=== PATIENT | male | born 1970 | race African-American/Black ===

== ENCOUNTER 2016-11-23 15:43 | Observation (INO) | payer MEDICAID ==
[~2016-11-23] VITALS: Ht 170.2 cm; Wt 65.0 kg
[2016-11-23 15:44] VITALS: BP 137/95; PULSE 98; RESP 14; TEMP 97.8; O2SAT 99
[2016-11-23 16:32] VITALS: BP 120/84; PULSE 103; RESP 18; TEMP 96.5; O2SAT 96
--- NOTE | 2016-11-23 17:10 | PD ---
HPI Chief Complaint: Respiratory Symptoms Time Seen by Provider: 17:04 Travel History International Travel<30 days: No Contact w/Intl Traveler<30days: No Traveled to known affect area: No History of Present Illness HPI 46-year-old black male presents to emergency department with complaints of dyspnea on exertion followed by dyspnea at rest over the last few days. The patient has a history of cardiomyopathy and AICD. He states that he had moved to the area from [place] in July of last year. He has been off all of his medications since then. The patient has noted increasing dyspnea on exertion, pleuritic right sided and posterior chest pain. He states that this is similar to when he had decompensation of his heart disease as well as a large collection of fluid in his right lung which had a thoracentesis. The patient denies any fever or chills, cough, nausea, vomiting, abdominal pain, dysuria, frequency, abdominal pain. No leg swelling or calf tenderness. He has had some loose stools. Patient denies alcohol, tobacco and drugs. [facility] Past Medical History Narrative Medical Cardiomyopathy, arrhythmia, AICD Tetanus Vaccination: < 5 Years Past Surgical History Narrative Surgical AICD, thoracentesis Social History Alcohol Use: No Tobacco Use: No Substance Use: No Allergies-Medications (Allergen,Severity, Reaction): Coded Allergies: No Known Allergies (Unverified , 11/23/16) Reported Meds & Prescriptions Reported Meds & Active Scripts Active Reported Lisinopril 2.5 Mg Tab 2.5 Mg PO DAILY Lasix (Furosemide) 20 Mg Tab 20 Mg PO DAILY Amiodarone (Amiodarone HCl) 200 Mg Tab 200 Mg PO DAILY Simvastatin 20 Mg Tab 20 Mg PO HS Review of Systems Except as stated in HPI: all other systems reviewed are Neg General / Constitutional: No: Fever, Chills Eyes: No: Diploplia, Blurred Vision HENT: No: Headaches Cardiovascular: Positive: Chest Pain or Discomfort, Tachycardia Respiratory: Positive: Shortness of Breath, Other (dyspnea on exertion), No: Cough, Stridor Gastrointestinal: Positive: Diarrhea, No: Nausea, Vomiting, Abdominal Pain Genitourinary: No: Dysuria, Hematuria Musculoskeletal: No: Myalgias, Arthralgias Skin: No Rash, No Itching Neurologic: No: Weakness, Headache Physical Exam Narrative GENERAL: Well-developed, well-nourished in no apparent distress. Nontoxic appearing. HEAD: Normocephalic, atraumatic. EYES: Pupils equal round and reactive. Extraocular motions intact. No scleral icterus. No injection or drainage. ENT: Nose clear. Throat without erythema, tonsillar hypertrophy or exudate. Uvula midline. Airway patent. NECK: Trachea midline. Supple, nontender, moves head freely. No central bony tenderness or spasm. CARDIOVASCULAR: Regular rate and S4 gallop. PMI is displaced to the anterior axillary ribs in the area of the sixth rib RESPIRATORY: Clear to auscultation. Breath sounds equal bilaterally. No wheezes , rales, or rhonchi. GASTROINTESTINAL: Abdomen soft, non-tender, nondistended. No hepato-splenomegaly , or palpable masses. No guarding. EXTREMITIES: No clubbing, cyanosis, or edema. No joint tenderness. BACK: Nontender without deformity. No flank tenderness. NEUROLOGICAL: Awake, alert and oriented x 3 .Cranial nerves grossly intact. Motor and sensory grossly within normal limits. Normal speech. Data Data Last Documented VS Vital Signs Date Time Temp Pulse Resp B/P Pulse Ox O2 Delivery O2 Flow Rate FiO2 11/23/16 17:13 99 Room Air 11/23/16 16:52 97 19 11/23/16 16:32 96.5 120/84 Orders Electrocardiogram (11/23/16 17:02) Basic Metabolic Panel (Bmp) (11/23/16 17:02) B-Type Natriuretic Peptide (11/23/16 17:02) Ckmb (Isoenzyme) Profile (11/23/16 17:02) Complete Blood Count With Diff (11/23/16 17:02) Magnesium (Mg) (11/23/16 17:02) Prothrombin Time / Inr (Pt) (11/23/16 17:02) Act Partial Throm Time (Ptt) (11/23/16 17:02) Troponin I (11/23/16 17:02) Ecg Monitoring (11/23/16 17:02) Bilateral Bp Monitoring (11/23/16 17:02) Iv Access Insert/Monitor (11/23/16 17:02) Oximetry (11/23/16 17:02) Oxygen Administration (11/23/16 17:02) Aspirin Chew (Aspirin Chew) (11/23/16 17:15) Sodium Chloride 0.9% Flush (Ns Flush) (11/23/16 17:15) Chest, Pa & Lat (11/23/16 17:02) Furosemide Inj (Lasix Inj) (11/23/16 18:00) Nitroglycerin 2% Oint (Nitroglycerin 2% (11/23/16 18:00) CKMB (11/23/16 17:00) CKMB% (11/23/16 17:00) Labs Laboratory Tests Test 11/23/16 17:00 White Blood Count 3.9 TH/MM3 Red Blood Count 4.31 MIL/MM3 Hemoglobin 13.1 GM/DL Hematocrit 40.1 % Mean Corpuscular Volume 93.1 FL Mean Corpuscular Hemoglobin 30.4 PG Mean Corpuscular Hemoglobin 32.7 % Concent Red Cell Distribution Width 15.0 % Platelet Count 195 TH/MM3 Mean Platelet Volume 8.1 FL Neutrophils (%) (Auto) 64.0 % Lymphocytes (%) (Auto) 28.7 % Monocytes (%) (Auto) 6.6 % Eosinophils (%) (Auto) 0.3 % Basophils (%) (Auto) 0.4 % Neutrophils # (Auto) 2.5 TH/MM3 Lymphocytes # (Auto) 1.1 TH/MM3 Monocytes # (Auto) 0.3 TH/MM3 Eosinophils # (Auto) 0.0 TH/MM3 Basophils # (Auto) 0.0 TH/MM3 CBC Comment DIFF FINAL Differential Comment Prothrombin Time 10.9 SEC Prothromb Time International 1.0 RATIO Ratio Activated Partial 28.9 SEC Thromboplast Time Sodium Level 140 MEQ/L Potassium Level 3.9 MEQ/L Chloride Level 105 MEQ/L Carbon Dioxide Level 27.5 MEQ/L Anion Gap 8 MEQ/L Blood Urea Nitrogen 17 MG/DL Creatinine 1.15 MG/DL Estimat Glomerular Filtration 84 ML/MIN Rate Random Glucose 116 MG/DL Calcium Level 8.8 MG/DL Magnesium Level 1.9 MG/DL Total Creatine Kinase 103 U/L Creatine Kinase MB 1.0 NG/ML Troponin I 0.09 NG/ML B-Type Natriuretic Peptide 1083 PG/ML MDM Medical Decision Making Medical Screen Exam Complete: Yes Emergency Medical Condition: Yes Medical Record Reviewed: Yes Interpretation(s) 1083 BNP Laboratory Tests Test 11/23/16 17:00 White Blood Count 3.9 TH/MM3 Red Blood Count 4.31 MIL/MM3 Hemoglobin 13.1 GM/DL Hematocrit 40.1 % Mean Corpuscular Volume 93.1 FL Mean Corpuscular Hemoglobin 30.4 PG Mean Corpuscular Hemoglobin 32.7 % Concent Red Cell Distribution Width 15.0 % Platelet Count 195 TH/MM3 Mean Platelet Volume 8.1 FL Neutrophils (%) (Auto) 64.0 % Lymphocytes (%) (Auto) 28.7 % Monocytes (%) (Auto) 6.6 % Eosinophils (%) (Auto) 0.3 % Basophils (%) (Auto) 0.4 % Neutrophils # (Auto) 2.5 TH/MM3 Lymphocytes # (Auto) 1.1 TH/MM3 Monocytes # (Auto) 0.3 TH/MM3 Eosinophils # (Auto) 0.0 TH/MM3 Basophils # (Auto) 0.0 TH/MM3 CBC Comment DIFF FINAL Differential Comment Prothrombin Time 10.9 SEC Prothromb Time International 1.0 RATIO Ratio Activated Partial 28.9 SEC Thromboplast Time Sodium Level 140 MEQ/L Potassium Level 3.9 MEQ/L Chloride Level 105 MEQ/L Carbon Dioxide Level 27.5 MEQ/L Anion Gap 8 MEQ/L Blood Urea Nitrogen 17 MG/DL Creatinine 1.15 MG/DL Estimat Glomerular Filtration 84 ML/MIN Rate Random Glucose 116 MG/DL Calcium Level 8.8 MG/DL Magnesium Level 1.9 MG/DL Total Creatine Kinase 103 U/L Creatine Kinase MB 1.0 NG/ML Troponin I 0.09 NG/ML Chest x-ray: Congestive heart failure, cardiomegaly EKG: Sinus tachycardia with a ventricular rate of 105. Left atrial enlargement , left anterior fascicle block, LVH by voltage, strain pattern Differential Diagnosis Medical decision making: High Differential diagnosis: Arrhythmia, decompensated heart failure, pleural effusion, pneumonia, electrolyte abnormality, uncontrolled hypertension Narrative Course The patient's place on a sr. consultant. IV access is obtained. Patient's given 2 baby aspirin, routine laboratory tests sent for analysis. Oxygen 2 L per nasal cannula. Physician Communication Physician Communication The case has been discussed with Dr. Mclean who is agreed to admit the patient to observation. Diagnosis Primary Impression: Acute CHF (congestive heart failure) Qualified Code: I50.9 - Acute congestive heart failure, unspecified congestive heart failure type Admitting Information Admitting Physician Requests: Observation Fortino Timmons Nov 23, 2016 17:10
[2016-11-23] MEDS ORDERED: ASPIRIN 81 MG CHEW TAB PO ONE (17:15)
[2016-11-23] MEDS ORDERED: SODIUM CHLORIDE 0.9% FLUSH 5 ML FLUSH IVF PRN (17:15)
[2016-11-23 17:29] LABS: AUTOMATED NEUTROPHIL # 2.5 TH/MM3 (1.8-7.7); BASOPHIL % 0.4 % (0.0-2.0); EOSINOPHIL % 0.3 % (0.0-4.0); HEMATOCRIT 40.1 % (39.0-51.0); HEMO FLAGS DIFF FINAL; LYMPH % 28.7 % (9.0-44.0); LYMPHOCYTE # 1.1 TH/MM3 (1.0-4.8); MEAN CELL VOLUME 93.1 FL (80.0-100.0); MEAN CORPUSCULAR HEMOGLOBIN 30.4 PG (27.0-34.0); MEAN CORPUSCULAR HGB CONC 32.7 % (32.0-36.0); MONO % 6.6 % (0.0-8.0); PLATELET COUNT 195 TH/MM3 (150-450); RED BLOOD COUNT 4.31 MIL/MM3 (4.50-5.90); WHITE BLOOD COUNT 3.9 TH/MM3 (4.0-11.0)
[2016-11-23 17:39] LABS: APTT (PATIENT) 28.9 SEC (24.3-30.1); PROTHROMBIN TIME - PATIENT 10.9 SEC (9.8-11.6)
[2016-11-23] MEDS ORDERED: LISI2.5T3 PO (17:47)
[2016-11-23] MEDS ORDERED: AMIO200T PO (17:47)
[2016-11-23] MEDS ORDERED: FURO1TAB62 PO (17:47)
[2016-11-23] MEDS ORDERED: SIMV20TA PO (17:47)
[2016-11-23 17:57] LABS: ANION GAP 8 MEQ/L (5-15); BICARBONATE 27.5 MEQ/L (21.0-32.0); BLOOD UREA NITROGEN 17 MG/DL (7-18); CHLORIDE 105 MEQ/L (98-107); GLOMERULAR FILTRATION RATE 84 ML/MIN (>89); MAGNESIUM 1.9 MG/DL (1.5-2.5); POTASSIUM 3.9 MEQ/L (3.5-5.1); SODIUM (NA) 140 MEQ/L (136-145)
[2016-11-23] MEDS ORDERED: FUROSEMIDE 40 MG/4 ML VIAL IV PUSH ONE (18:00)
[2016-11-23] MEDS ORDERED: NITROGLYCERIN 2% OINT 1 GM PACKET TOPICAL ONE (18:00)
[2016-11-23 18:01] LABS: CREATINE KINASE 103 U/L (39-308)
--- NOTE | 2016-11-23 18:01 | RADRPT ---
EXAM DATE/TIME: 11/23/2016 17:31 [place] COMPARISON: No previous studies available for comparison. INDICATIONS : Chest pain and shortness of breath that started yesterday. MEDICAL HISTORY : Hypertension. SURGICAL HISTORY : Pacemaker. ENCOUNTER: Initial ACUITY: 2 days PAIN SCORE: 10/10 LOCATION: Bilateral chest FINDINGS: There is global cardiomegaly with hazy opacity in both lungs most characteristic of mild edema with i nterlobular septal thickening. Trace pleural fluid. Pacer lead projects over right ventricle. CONCLUSION: 1. Mild congestive heart failure. Fortino Otoole MD on November 23, 2016 at 17:57 Board Certified Radiologist. This report was verified electronically.
--- NOTE | 2016-11-23 19:07 | PD ---
Physical Exam Narrative I, Dr. Alcala, have reviewed the advance practice practitioner's documentation and am in agreement, met with the patient face to face, made the diagnosis, and the medical decision making was done by me. *My assessment and Findings: CHF exacerbation vs. ACS vs. PNA 46yo M with CHF here with worsening sob and right sided atypical chest pain. Pt does have crackles on lung base more on right but not in acute distress. Saturating in the high 90s on RA. Labs reviewed, BNP 1083. Troponin 0.09. CXR showed mild congestive heart failure. Pt is normotensive. Given lasix 40mg IV, aspirin, and nitro topical. Pt admitted to medicine for CHF exacerbation. Data Data Last Documented VS Vital Signs Date Time Temp Pulse Resp B/P Pulse Ox O2 Delivery O2 Flow Rate FiO2 11/23/16 17:13 99 Room Air 11/23/16 16:52 97 19 11/23/16 16:32 96.5 120/84 Orders Electrocardiogram (11/23/16 17:02) Basic Metabolic Panel (Bmp) (11/23/16 17:02) B-Type Natriuretic Peptide (11/23/16 17:02) Ckmb (Isoenzyme) Profile (11/23/16 17:02) Complete Blood Count With Diff (11/23/16 17:02) Magnesium (Mg) (11/23/16 17:02) Prothrombin Time / Inr (Pt) (11/23/16 17:02) Act Partial Throm Time (Ptt) (11/23/16 17:02) Troponin I (11/23/16 17:02) Ecg Monitoring (11/23/16 17:02) Bilateral Bp Monitoring (11/23/16 17:02) Iv Access Insert/Monitor (11/23/16 17:02) Oximetry (11/23/16 17:02) Oxygen Administration (11/23/16 17:02) Aspirin Chew (Aspirin Chew) (11/23/16 17:15) Sodium Chloride 0.9% Flush (Ns Flush) (11/23/16 17:15) Chest, Pa & Lat (11/23/16 17:02) Furosemide Inj (Lasix Inj) (11/23/16 18:00) Nitroglycerin 2% Oint (Nitroglycerin 2% (11/23/16 18:00) CKMB (11/23/16 17:00) CKMB% (11/23/16 17:00) Admit Order (Ed Use Only) (11/23/16 18:44) Labs Laboratory Tests Test 11/23/16 17:00 White Blood Count 3.9 TH/MM3 Red Blood Count 4.31 MIL/MM3 Hemoglobin 13.1 GM/DL Hematocrit 40.1 % Mean Corpuscular Volume 93.1 FL Mean Corpuscular Hemoglobin 30.4 PG Mean Corpuscular Hemoglobin 32.7 % Concent Red Cell Distribution Width 15.0 % Platelet Count 195 TH/MM3 Mean Platelet Volume 8.1 FL Neutrophils (%) (Auto) 64.0 % Lymphocytes (%) (Auto) 28.7 % Monocytes (%) (Auto) 6.6 % Eosinophils (%) (Auto) 0.3 % Basophils (%) (Auto) 0.4 % Neutrophils # (Auto) 2.5 TH/MM3 Lymphocytes # (Auto) 1.1 TH/MM3 Monocytes # (Auto) 0.3 TH/MM3 Eosinophils # (Auto) 0.0 TH/MM3 Basophils # (Auto) 0.0 TH/MM3 CBC Comment DIFF FINAL Differential Comment Prothrombin Time 10.9 SEC Prothromb Time International 1.0 RATIO Ratio Activated Partial 28.9 SEC Thromboplast Time Sodium Level 140 MEQ/L Potassium Level 3.9 MEQ/L Chloride Level 105 MEQ/L Carbon Dioxide Level 27.5 MEQ/L Anion Gap 8 MEQ/L Blood Urea Nitrogen 17 MG/DL Creatinine 1.15 MG/DL Estimat Glomerular Filtration 84 ML/MIN Rate Random Glucose 116 MG/DL Calcium Level 8.8 MG/DL Magnesium Level 1.9 MG/DL Total Creatine Kinase 103 U/L Creatine Kinase MB 1.0 NG/ML Troponin I 0.09 NG/ML B-Type Natriuretic Peptide 1083 PG/ML [facility] Supervised Visit with JASON: Yes Interpretation(s) EKG: Sinus tachycardia at 105bpm. LAD. TWI I, aVL, V5, V6. Diagnosis Primary Impression: Acute CHF (congestive heart failure) Qualified Code: I50.9 - Acute congestive heart failure, unspecified congestive heart failure type Admitting Information Admitting Physician Requests: it Lyubov Alcala DO Nov 23, 2016 19:07
[2016-11-23 20:00] VITALS: BP 106/86; PULSE 82; RESP 18; O2SAT 97
[2016-11-23] MEDS ORDERED: NALOXONE HCL 0.4 MG/ML AMP IV PRN (20:00)
[2016-11-23] MEDS ORDERED: SODIUM CHLORIDE 0.9% FLUSH 5 ML FLUSH FLUSH PRN (20:00)
[2016-11-23] MEDS ORDERED: PILL SPLITTER OTHER PRN (20:15)
[2016-11-23] MEDS ORDERED: NON-FORMULARY DRUG (Simvastatin 20 MG) PO SCH (21:00)
[2016-11-23 21:39] VITALS: BP 111/70; PULSE 79; RESP 20; TEMP 98; O2SAT 98
[2016-11-23 21:56] VITALS: PULSE 77
[2016-11-23] MEDS: SODIUM CHLORIDE 0.9% FLUSH 5 ML FLUSH FLUSH SCH (22:17)
[2016-11-23] MEDS: PRAVASTATIN SOD 40 MG TAB PO SCH (22:17)
[2016-11-24] VITALS (11 sets, daily range): BP systolic 89–108; BP diastolic 58–78; PULSE 71–100; RESP 18–22; TEMP 96–98; O2SAT 95–100
--- NOTE | 2016-11-24 05:14 | HHI.HP ---
[facility] Service [facility] Primary Care Physician No Primary Care Physician Admission Diagnosis acute CHF Diagnoses: Chief Complaint: shortness of breath, chest tightness Travel History International Travel<30 Days: No Contact w/Intl Traveler <30 Da: No Traveled to Known Affected Are: No History of Present Illness History from patient, ER notes, and review of medical records. Patient reported that he came to the hospital because for the past 2 days, he has been short of breath. He also reports of associated chest tightness. He reports that he is not able to sleep flat. He is using 2 pillows now. He states he usually rides his bike but now with more and more difficulty. He states he had trouble walking from his bed to the bathroom. Patient reports of history of CHF. He states he has an AICD placed because of the CHF in September 2011 in [place]. He reports his EF was 40%. He reports he did not have any hospitalization between September 2011 to 2014. He was admitted at [facility] for AICD firing at that time. Reports that his AICD was suggested at that time by decreasing the threshold. He states since then he has been fine until today. Patient reports he has CHF secondary to family genetics and hypertensive heart disease. He denies alcohol abuse or drug abuse. Denies history of CAD. He also states that he has somehow stopped receiving his disability checks and he's worried about this. He does not have a primary care doctor here and would like to speak to a lining caser regarding this. Review of Systems Constitutional: COMPLAINS OF: Fatigue, DENIES: Fever, Weight gain, Weight loss , Chills, Dizziness Respiratory: COMPLAINS OF: Cough, Shortness of breath, DENIES: Apneas, Wheezing, Hemoptysis, Sputum production Cardiovascular: COMPLAINS OF: Dyspnea on Exertion, PND, Orthopnea, DENIES: Chest pain, Palpitations, Syncope, Lower Extremity Edema Gastrointestinal: DENIES: Abdominal pain, Black stools, Bloody stools, Constipation, Diarrhea, Nausea, Vomiting Genitourinary: DENIES: Urinary frequency, Urinary incontinence, Urgency, Hematuria, Dysuria Neurologic: DENIES: Abnormal gait, Headache, Localized weakness, Paresthesias, Seizures, Speech Problems, Tremor, Poor Balance Past Family Social History Past Medical History Hypertension Cardiomyopathyper patient, nonischemic. Related to hypertensive heart disease. Irregular rhythm for heart Possible A. fib versus V. tach historypatient is on amiodarone at home. He states he was on Coumadin at one point. Past Surgical History AICD placement Reported Medications Patient's medications listed in EMRreviewed Allergies: Coded Allergies: No Known Allergies (Unverified , 11/23/16) Family History Reports family history of heart failure in his brother who at around 14 years old. Social History Denies smoking cigarettes. Denies any alcohol abuse or drug abuse. Physical Exam Vital Signs Vital Signs Date Time Temp Pulse Resp B/P Pulse Ox O2 Delivery O2 Flow Rate FiO2 11/24/16 04:21 97.9 71 20 100/58 100 11/24/16 00:23 97.6 82 20 103/67 95 11/23/16 21:56 77 11/23/16 21:39 98.0 79 20 111/70 98 11/23/16 20:00 82 18 106/86 97 Room Air 11/23/16 17:13 99 Room Air 11/23/16 16:52 97 19 98 Room Air 11/23/16 16:32 96.5 103 18 120/84 96 Room Air 11/23/16 15:44 97.8 98 14 137/95 99 Room Air Physical Exam GENERAL: This is a thin young patient, in no apparent distress. SKIN: No rashes, ecchymoses or lesions. Cool and dry. HEAD: Atraumatic. Normocephalic. No temporal or scalp tenderness. EYES: No scleral icterus. No injection or drainage. ENT: Nose without bleeding, purulent drainage or septal hematoma. Airway patent. NECK: Trachea midline. No JVD CARDIOVASCULAR: Regular rate and rhythm without murmurs, gallops, or rubs. RESPIRATORY: bilaterally decreased air entry GASTROINTESTINAL: Abdomen soft, non-tender, nondistended. No guarding. MUSCULOSKELETAL: Extremities without clubbing, cyanosis, or edema. . No calf tenderness NEUROLOGICAL: Awake and alert. Motor and sensory grossly within normal limits. Normal speech. Laboratory Laboratory Tests Test 11/23/16 11/23/16 17:00 23:03 White Blood Count 3.9 Red Blood Count 4.31 Hemoglobin 13.1 Hematocrit 40.1 Mean Corpuscular Volume 93.1 Mean Corpuscular Hemoglobin 30.4 Mean Corpuscular Hemoglobin 32.7 Concent Red Cell Distribution Width 15.0 Platelet Count 195 Mean Platelet Volume 8.1 Neutrophils (%) (Auto) 64.0 Lymphocytes (%) (Auto) 28.7 Monocytes (%) (Auto) 6.6 Eosinophils (%) (Auto) 0.3 Basophils (%) (Auto) 0.4 Neutrophils # (Auto) 2.5 Lymphocytes # (Auto) 1.1 Monocytes # (Auto) 0.3 Eosinophils # (Auto) 0.0 Basophils # (Auto) 0.0 CBC Comment DIFF FINAL Differential Comment Prothrombin Time 10.9 Prothromb Time International 1.0 Ratio Activated Partial 28.9 Thromboplast Time Sodium Level 140 Potassium Level 3.9 Chloride Level 105 Carbon Dioxide Level 27.5 Anion Gap 8 Blood Urea Nitrogen 17 Creatinine 1.15 Estimat Glomerular Filtration 84 Rate Random Glucose 116 Calcium Level 8.8 Magnesium Level 1.9 Total Creatine Kinase 103 98 Creatine Kinase MB 1.0 Troponin I 0.09 0.08 B-Type Natriuretic Peptide 1083 Result Diagram: 11/23/16 1700 11/23/16 1700 Imaging Last 48 hours Impressions Chest X-Ray 11/23/16 1702 Signed Impressions: Service Date/Time: Wednesday, November 23, 2016 17:31 - CONCLUSION: 1. Mild congestive heart failure. Fortino Otoole MD Assessment and Plan Problem List: (1) Acute CHF (congestive heart failure) ICD Code: I50.9 Status: Acute Assessment and Plan Impression: Acute on chronic systolic heart failure Medications none compliance- missed his meds since Jul 2016 Plan: Serial cardiac enzymes and EKGs. Lasix 40 mg IV every 12 hours. Echocardiogram in a.m. Drug toxicology. Resume home meds. DVT prophylaxiswith Lovenox. GI prophylaxison pantoprazole. Discussed Condition With Patient, ER physician notes Problem Qualifiers (1) Acute CHF (congestive heart failure): Qualified Code: I50.9 - Acute congestive heart failure, unspecified congestive heart failure type Nighat Fischer MD Nov 24, 2016 05:14
[2016-11-24] MEDS: LISINOPRIL 5 MG TAB PO SCH (08:39)
[2016-11-24] MEDS: AMIODARONE 200 MG TAB PO SCH (08:39)
[2016-11-24] MEDS: FUROSEMIDE 40 MG/4 ML VIAL IV PUSH SCH ×2 (08:40→17:45)
[2016-11-24] MEDS: SODIUM CHLORIDE 0.9% FLUSH 5 ML FLUSH FLUSH SCH ×2 (08:40→20:26)
[2016-11-24] MEDS: ENOXAPARIN SODIUM 40 MG/0.4 ML SYRINGE SQ SCH (08:40)
--- NOTE | 2016-11-24 11:06 | EKG ---
Date Performed: 11/24/2016 Time Performed: 04:56:22 PTAGE: 46 years EKG: Sinus rhythm WITH FIRST DEGREE AV BLOCK LEFT ATRIAL ENLARGEMENT LEFT ANTERIOR FASCICULAR BLOCK MODERATE T-WAVE AB NORMALITY, CONSIDER ANTEROLATERAL ISCHEMIA ABNORMAL ECG PREVIOUS TRACING : 11/23/2016 22.55 DOCTOR: Emerson Estrada Interpretating Date/Time 11/24/2016 11:05:57
--- NOTE | 2016-11-24 11:22 | EKG ---
Date Performed: 11/23/2016 Time Performed: 22:55:49 PTAGE: 46 years EKG: Sinus rhythm WITH FIRST DEGREE AV BLOCK POSSIBLE RIGHT ATRIAL ENLARGEMENT LEFT ATRIAL ENLARGEMENT LEFT ANTERIOR F ASCICULAR BLOCK MODERATE T-WAVE ABNORMALITY, CONSIDER LATERAL ISCHEMIA ABNORMAL ECG PREVIOUS TRACING : 11/23/2016 17.53 DOCTOR: Emerson Estrada Interpretating Date/Time 11/24/2016 11:22:13
--- NOTE | 2016-11-24 11:40 | EKG ---
Date Performed: 11/23/2016 Time Performed: 17:53:16 PTAGE: 46 years EKG: SINUS TACHYCARDIA POSSIBLE LEFT ATRIAL ENLARGEMENT LEFT ANTERIOR FASCICULAR BLOCK ST DEVIAT ION AND MODERATE T-WAVE ABNORMALITY, CONSIDER LATERAL ISCHEMIA ABNORMAL ECG NO PREVIOUS TRACING DOCTOR: Emerson Estrada Interpretating Date/Time 11/24/2016 11:40:01
--- NOTE | 2016-11-24 16:02 | EC ---
Study Study Date:11/24/2016 STUDY CONCLUSIONS SUMMARY - Left ventricle: The cavity size was moderately to severely dilated. Wall thickness was normal. Systolic function was severely reduced. The estimated ejection fraction was in the range of 20% to 25%. - Aortic valve: Valve area: 1.39cm^2(VTI). Valve area: 1.36cm^2 (Vmax). - Mitral valve: Moderate to severe regurgitation directed along the left atrial wall. - Tricuspid valve: Mild regurgitation. - Pulmonary arteries: PA peak pressure: 31mm Hg (S). If LV function is below 40, please consider prescribing an ACEI or ARB or document rationale for non-use. PROCEDURE DATA STUDY STATUS: Elective. Procedure: Transthoracic echocardiography. Image quality was good. Scanning was performed from the parasternal, apical, and subcostal acoustic windows. Study completion: The patient tolerated the procedure well. Transthoracic echocardiography. M-mode, complete 2D, complete spectral Doppler, and color Doppler. Height: Height: 67in. Weight: Weight: 142.7lb. Body mass index: BMI: 22.4kg/m^2. Body surface area: BSA: 1.75m^2. Patient status: Inpatient. CARDIAC ANATOMY LEFT VENTRICLE: The cavity size was moderately to severely dilated. Wall thickness was normal. Systolic function was severely reduced. The estimated ejection fraction was in the range of 20% to 25%. AORTIC VALVE: Trileaflet; normal thickness leaflets. Doppler: Transvalvular velocity was within the normal range. There was no stenosis. No regurgitation. Valve area: 1.39cm^2(VTI). Indexed valve area: 0.79cm^2/m^2 (VTI). Valve area: 1.36cm^2 (Vmax). Indexed valve area: 0.78cm^2/m^2 (Vmax). Mean gradient: 2mm Hg (S). AORTA: Aortic root: The aortic root was normal in size. MITRAL VALVE: Structurally normal valve. Doppler: Transvalvular velocity was within the normal range. There was no evidence for stenosis. Moderate to severe regurgitation directed along the left atrial wall. Peak gradient: 4mm Hg (D). LEFT ATRIUM: The atrium was normal in size. RIGHT VENTRICLE: The cavity size was normal. Wall thickness was normal. PULMONIC VALVE: Doppler: Transvalvular velocity was within the normal range. There was no evidence for stenosis. No regurgitation. TRICUSPID VALVE: Structurally normal valve. Doppler: Transvalvular velocity was within the normal range. Mild regurgitation. PULMONARY ARTERY: The main pulmonary artery was normal-sized. Systolic pressure was within the normal range. RIGHT ATRIUM: The atrium was normal in size. PERICARDIUM: There was no pericardial effusion. SYSTEMIC VEINS: Inferior vena cava: The vessel was normal in size. Patient weight: 142.7lb _Ejection fraction:_ 65-75% _Fractional shortening:_ 32% up to 5Kg 5-11.5Kg 11.6-22.9Kg 23-45Kg 45-57Kg Aortic Root 7-13 <17 13-22 17-27 17-27 LA diam 6-13 <23 24-38 33-47 37-40 RVID 10-17 7-15 7-15 7-18 8-17 LVIDd 12-22 <32 24-38 33-47 37-40 LVPW 2-4 3-6 5-7 6-8 7-8 IVS 2-4 3-6 5-7 6-8 7-8 BASIC MEASUREMENTS ADULT NORMAL Left ventricle LV internal dimension, ED, chordal *73.1 mm 43-52 level, PLAX LV internal dimension, ES, chordal *61.5 mm 23-38 level, PLAX Fractional shortening, chordal level, *16 % >29 PLAX LV posterior wall thickness, ED 6.19 mm IVS/LVPW ratio, ED 0.99 <1.3 Ventricular septum Septal thickness, ED 6.15 mm Aortic valve Leaflet separation *14 mm 15-26 Aorta Root diameter, ED 32 mm Left atrium Anterior-posterior dimension 24 mm Anterior-posterior dimension index 1.37 cm/m^2 <2.2 BASIC MEASUREMENTS ADULT NORMAL Aortic valve Leaflet separation *14 mm 15-26 DOPPLER MEASUREMENTS ADULT NORMAL Main pulmonary artery Pressure, S *31 mm Hg =30 Aortic valve Peak velocity, S 92.4 cm/s Mean velocity, S 66.7 cm/s VTI, S 14.7 cm Mean gradient, S 2 mm Hg Valve area, VTI 1.39 cm^2 Valve area index, VTI 0.79 cm^2/m^2 Valve area, Vmax 1.36 cm^2 Valve area index, Vmax 0.78 cm^2/m^2 Mitral valve Peak E-wave velocity 96.3 cm/s Peak A-wave velocity 116 cm/s Peak gradient, D 4 mm Hg Peak E/A ratio 0.8 Tricuspid valve Regurgitant peak velocity 233 cm/s Peak RV-RA gradient, S 22 mm Hg Maximal regurgitant velocity 233 cm/s Systemic veins Estimated CVP 10 mm Hg Right ventricle RV pressure, S *32 mm Hg <30 Pulmonic valve Peak velocity, S 39.5 cm/s LEGEND: Mean values are shown as u=mean value. Asterisk (*) burger values outside specified normal range. Prepared and signed by Hernan Henriquez [id number]
[2016-11-24 16:47] LABS: BICARBONATE 25.6 MEQ/L (21.0-32.0); POTASSIUM 3.3 MEQ/L (3.5-5.1)
[2016-11-24 17:52] LABS: AMPHETAMINE, URINE NEG (NEG); BARBITURATES, URINE NEG (NEG); COCAINE, URINE POS (NEG)
[2016-11-24] MEDS ORDERED: POTASSIUM CHLORIDE 25 MEQ EFFERVESCENT TAB PO ONE (20:00)
[2016-11-24] MEDS: PRAVASTATIN SOD 40 MG TAB PO SCH (20:26)
[2016-11-25] VITALS (9 sets, daily range): BP systolic 89–107; BP diastolic 59–68; PULSE 69–109; RESP 18; TEMP 96–98.8; O2SAT 97–100
--- NOTE | 2016-11-25 05:31 | EKG ---
Date Performed: 11/24/2016 Time Performed: 18:24:47 PTAGE: 46 years EKG: Sinus rhythm WITH FIRST DEGREE AV BLOCK LEFT ATRIAL ENLARGEMENT INCOMPLETE RIGHT BUNDLE BRANCH BLOCK LEFT ANTERIO R FASCICULAR BLOCK Nonspecific ST-T wave changes ABNORMAL ECG COMPARED TO PRIOR ELECTROCARDIOGRAM, In complete RIGHT bundle branch block is present. PREVIOUS TRACING : 11/24/2016 04.56 DOCTOR: Jefferson Bear Interpretating Date/Time 11/25/2016 05:30:27
[2016-11-25 06:18] LABS: HEMATOCRIT 40.6 % (39.0-51.0); MEAN CELL VOLUME 92.6 FL (80.0-100.0); MEAN CORPUSCULAR HEMOGLOBIN 30.4 PG (27.0-34.0); MEAN CORPUSCULAR HGB CONC 32.8 % (32.0-36.0); PLATELET COUNT 202 TH/MM3 (150-450); RED BLOOD COUNT 4.39 MIL/MM3 (4.50-5.90); REVIEW FLAG FINAL; WHITE BLOOD COUNT 2.9 TH/MM3 (4.0-11.0)
[2016-11-25 06:30] LABS: BICARBONATE 26.9 MEQ/L (21.0-32.0); MAGNESIUM 2.2 MG/DL (1.5-2.5); POTASSIUM 4.1 MEQ/L (3.5-5.1)
--- NOTE | 2016-11-25 07:22 | MB ---
cc: SHAINA LAIRD MD DATE OF CONSULTATION: 11/25/2016 HISTORY OF PRESENT ILLNESS This is a 46-year-old gentleman who presents to the hospital with dyspnea. He has a history of cardiomyopathy since 2010. At that time he was found to have ejection fraction of approximately 10% and started on medications. He was apparently evaluated for heart transplantation but is unsure what the status of that is. In any event he has moved from [place] to [facility] and has stopped all of his medications. Yesterday he had a very sharp pleuritic pain in his right lower side which was aggravated by lying on his right side and relieved on his left side. At that time he also began having increasing shortness of breath and came to the emergency room. His chest x-ray in the emergency room has revealed significant cardiomegaly with signs of heart failure. An echocardiogram has been done, again showing EF of approximately 10%. MEDICATIONS He is not currently taking medications. ALLERGIES He has no allergies. SOCIAL HISTORY He denies smoking, alcohol or recreational drugs; however, we do note that his urine tox screen was positive for cocaine and cannabinoids. PHYSICAL EXAMINATION VITAL SIGNS: Blood pressure 94/60, pulse 60 and regular. NECK: There is no neck vein distension. LUNGS: Rales in both bases. CARDIOVASCULAR: Regular rate and rhythm. There is a prominent S3. No significant murmur is present. ABDOMEN: Soft. There is no tenderness or organomegaly. EXTREMITIES: No edema. CURRENT MEDICATIONS His medications currently include: 1. Amiodarone 200 mg once a day. 2. Furosemide 40 mg daily. 3. Lisinopril 2.5 daily. 4. Pravastatin 40 mg daily. ASSESSMENT/RECOMMENDATIONS The patient has started to have diuresis. I will change his furosemide to IV. At this point in time we are going to be hard pressed to increase the dose of his KAREL inhibitor or add beta crispin because of his low blood pressure. In the meantime once his heart failure clears we will see if we can get in touch with his transplant registry in [place] and/or re-refer him as he certainly has had no improvement in his disease apparently over the past 5 years. MD SHARAD Laird/JUSTIN /6:49 AM /7:11 AM
[2016-11-25] MEDS: AMIODARONE 200 MG TAB PO SCH (08:23)
[2016-11-25] MEDS: LISINOPRIL 5 MG TAB PO SCH (08:23)
[2016-11-25] MEDS: SODIUM CHLORIDE 0.9% FLUSH 5 ML FLUSH FLUSH SCH ×2 (08:24→22:07)
[2016-11-25] MEDS: ENOXAPARIN SODIUM 40 MG/0.4 ML SYRINGE SQ SCH (08:25)
[2016-11-25] MEDS: FUROSEMIDE 40 MG/4 ML VIAL IV PUSH SCH (08:25)
[2016-11-25] MEDS ORDERED: FUROSEMIDE 40 MG TAB PO SCH (09:00)
--- NOTE | 2016-11-25 14:14 | HHI.PR ---
Subjective Remarks The patient says he still gets short of breath with minimal ambulation. He wants to know what he should do about his insurance and if he should go back to work or not. He would like to speak to a disability case manager. Objective Vitals Vital Signs Date Time Temp Pulse Resp B/P Pulse Ox O2 Delivery O2 Flow Rate FiO2 11/25/16 11:18 98.7 82 18 89/59 98 11/25/16 09:27 87 11/25/16 08:00 Room Air 11/25/16 07:32 98.5 82 18 89/61 100 11/25/16 04:23 96.6 69 18 94/61 99 11/25/16 00:31 109 11/25/16 00:07 96.0 86 18 94/68 98 11/24/16 19:35 96.0 86 22 101/75 98 11/24/16 19:08 Room Air 11/24/16 19:08 100 11/24/16 17:39 88 101/78 11/24/16 17:10 92 89/64 11/24/16 16:00 97.8 82 18 99/65 97 11/24/16 15:53 97.4 94 18 102/74 99 I/O 11/24/16 11/24/16 11/24/16 11/25/16 11/25/16 11/25/16 07:00 15:00 23:00 07:00 15:00 23:00 Intake Total 6 ml Output Total 300 ml 500 ml 300 ml Balance -300 ml -500 ml -300 ml 6 ml Intake IV Total 6 ml Output Urine Total 300 ml 500 ml 300 ml # Bowel Movements 0 Result Diagram: 11/25/16 0538 11/25/16 0538 Imaging Last Impressions Chest X-Ray 11/23/16 1702 Signed Impressions: Service Date/Time: Wednesday, November 23, 2016 17:31 - CONCLUSION: 1. Mild congestive heart failure. Fortino Otoole MD Objective Remarks GENERAL: This is a thin young patient, in no apparent distress. SKIN: No rashes, ecchymoses or lesions. Cool and dry. HEAD: Atraumatic. Normocephalic. No temporal or scalp tenderness. EYES: No scleral icterus. No injection or drainage. ENT: Nose without bleeding, purulent drainage or septal hematoma. Airway patent. NECK: Trachea midline. No JVD CARDIOVASCULAR: Regular rate and rhythm without murmurs, gallops, or rubs. RESPIRATORY: Bilaterally decreased air entry GASTROINTESTINAL: Abdomen soft, non-tender, nondistended. No guarding. MUSCULOSKELETAL: Extremities without clubbing, cyanosis, or edema. . No calf tenderness NEUROLOGICAL: Awake and alert. Motor and sensory grossly within normal limits. Normal speech. PSYCH: Slightly flattened affect. Medications and IVs Current Medications Medications (Trade) Dose Ordered Sig/Aida Route Start Time Stop Time Status Last Admin (NS Flush) 2 ml UNSCH PRN FLUSH 11/23/16 20:00 11/24/16 17:45 (NS Flush) 2 ml BID FLUSH 11/23/16 21:00 11/25/16 08:24 (Lovenox Inj) 40 mg Q24H SQ 11/24/16 09:00 11/25/16 08:25 (Narcan Inj) 0.4 mg UNSCH PRN IV 11/23/16 20:00 (Cordarone) 200 mg DAILY PO 11/24/16 09:00 11/24/16 08:39 (Prinivil) 2.5 mg DAILY PO 11/24/16 09:00 11/24/16 08:39 (Pill Splitter) 1 ea UNSCH PRN OTHER 11/23/16 20:15 (Pravachol) 40 mg HS PO 11/23/16 21:00 11/24/16 20:26 (Roxicodone) 5 mg Q4H PRN PO 11/24/16 18:00 (Lasix Inj) 40 mg DAILY IV PUSH 11/25/16 09:00 11/25/16 08:25 A/P Problem List: (1) Acute CHF (congestive heart failure) ICD Code: I50.9 Status: Acute Assessment and Plan Acute systolic CHF EF 20-25%, mod-severe MR. The pt was started on IV diuresis. Cardiology consult appreciated. - continue Lasix. - check a lipid profile. - continue cardiac regimen. - telemetry. Hypotension Likely s/t CHF. - cardiac meds with holding parameters. Drug use Drug toxicology positive for cocaine and cannabinoids. - cessation instruction. Leukopenia Unsure of etiology. - follow CBC. PPx: Lovenox. Discharge Planning Awaiting clinical improvement. Problem Qualifiers (1) Acute CHF (congestive heart failure): Qualified Code: I50.9 - Acute congestive heart failure, unspecified congestive heart failure type Tejas Mclean DO Nov 25, 2016 14:14
[2016-11-25] MEDS: ASPIRIN EC 81 MG TABEC PO SCH (14:55)
[2016-11-25 15:29] LABS: HDL CHOLESTEROL 75.7 MG/DL (40.0-60.0)
[2016-11-25] MEDS: PRAVASTATIN SOD 40 MG TAB PO SCH (22:07)
[2016-11-26] VITALS (7 sets, daily range): BP systolic 91–119; BP diastolic 53–76; PULSE 68–94; RESP 18–22; TEMP 95.5–98.9; O2SAT 95–99
--- NOTE | 2016-11-26 06:49 | RADRPT ---
EXAM DATE/TIME: 11/26/2016 06:22 [facility] COMPARISON: CHEST PA & LAT, November 23, 2016, 17:31. INDICATIONS : Shortness of breath. MEDICAL HISTORY : Hypertension. SURGICAL HISTORY : Pacemaker. ENCOUNTER: Subsequent ACUITY: 3 days PAIN SCORE: Non-responsive. LOCATION: Bilateral chest FINDINGS: The heart is enlarged, similar to prior. The central bronchopulmonary markings are well delineated. The lungs are clear. Both hemidiaphragms are delineated. Cardiac pacer and unipolar lead projects over the right ventricle.CONCLUSION: Stable cardiomegaly. Improved interstitial edema. Danial Huggins MD on November 26, 2016 at 6:46 Board Certified Radiologist. This report was verified electronically.
[2016-11-26 08:11] LABS: POTASSIUM 3.9 MEQ/L (3.5-5.1)
[2016-11-26] MEDS: AMIODARONE 200 MG TAB PO SCH (08:30)
[2016-11-26] MEDS: LISINOPRIL 5 MG TAB PO SCH (08:30)
[2016-11-26] MEDS: ASPIRIN EC 81 MG TABEC PO SCH (08:30)
[2016-11-26] MEDS: FUROSEMIDE 40 MG/4 ML VIAL IV PUSH SCH (08:31)
[2016-11-26] MEDS: ENOXAPARIN SODIUM 40 MG/0.4 ML SYRINGE SQ SCH (08:31)
[2016-11-26] MEDS: SODIUM CHLORIDE 0.9% FLUSH 5 ML FLUSH FLUSH SCH ×2 (08:31→20:39)
--- NOTE | 2016-11-26 09:01 | PD.CARD.PN ---
Subjective Subjective Remarks "breathing comes and goes" (Sid Velasquez) Objective Vital Signs / I&O Vital Signs Date Time Temp Pulse Resp B/P Pulse Ox O2 Delivery O2 Flow Rate FiO2 11/26/16 08:15 95.5 68 18 119/70 99 11/26/16 04:06 98.0 84 22 112/53 99 11/25/16 23:39 Room Air 11/25/16 23:37 82 11/25/16 20:58 98.8 74 18 100/63 97 11/25/16 15:47 98.7 88 18 107/66 98 11/25/16 11:18 98.7 82 18 89/59 98 11/25/16 09:27 87 I/O 11/25/16 11/25/16 11/25/16 11/26/16 11/26/16 11/26/16 07:00 15:00 23:00 07:00 15:00 23:00 Intake Total 6 ml 240 ml Output Total 300 ml 600 ml Balance -300 ml 6 ml -360 ml Intake Oral 240 ml IV Total 6 ml Output Urine Total 300 ml 600 ml # Voids 2 # Bowel Movements 0 Physical Exam GENERAL: Well-nourished, well-developed patient in no apparent distress. NECK: No JVD. No carotid bruit. CARDIOVASCULAR: Regular rate and rhythm. S1/S2 no murmur, rub, or gallop. RESPIRATORY: No accessory muscle use. Clear to auscultation. Breath sounds equal bilaterally. GASTROINTESTINAL: Abdomen soft, non-tender, nondistended. MUSCULOSKELETAL: Extremities without clubbing, cyanosis, or edema. Laboratory Laboratory Tests Test 11/26/16 06:24 Sodium Level 137 MEQ/L Potassium Level 3.9 MEQ/L Chloride Level 103 MEQ/L Carbon Dioxide Level 27.0 MEQ/L Anion Gap 7 MEQ/L Blood Urea Nitrogen 27 MG/DL Creatinine 1.17 MG/DL Estimat Glomerular Filtration 82 ML/MIN Rate Random Glucose 78 MG/DL Calcium Level 8.9 MG/DL (Sid Velasquez) Assessment and Plan Problem List: (1) Acute CHF (congestive heart failure) Assessment and Plan continues diuresis and follow renal function (Sid Velasquez) Assessment and Plan clinically improved. change to PO lasix episode of lightheadness today - interrogate device DC planning FU with groundskeeping maintenance worker in [place] (Emerson Estrada MD) Problem Qualifiers (1) Acute CHF (congestive heart failure): Qualified Code: I50.9 - Acute congestive heart failure, unspecified congestive heart failure type Sid Velasquez Nov 26, 2016 09:01 Emerson Estrada MD Nov 26, 2016 14:02
--- NOTE | 2016-11-26 14:50 | HHI.PR ---
Subjective Remarks The patient said that he is short of breath at times. He is concerned because he has no income and is not working. He had no other acute complaints. Discussed with nursing. Objective Vitals Vital Signs Date Time Temp Pulse Resp B/P Pulse Ox O2 Delivery O2 Flow Rate FiO2 11/26/16 12:04 97.9 80 18 91/58 96 11/26/16 08:15 95.5 68 18 119/70 99 11/26/16 08:03 94 11/26/16 04:06 98.0 84 22 112/53 99 11/25/16 23:39 Room Air 11/25/16 23:37 82 11/25/16 20:58 98.8 74 18 100/63 97 11/25/16 15:47 98.7 88 18 107/66 98 I/O 11/25/16 11/25/16 11/25/16 11/26/16 11/26/16 11/26/16 07:00 15:00 23:00 07:00 15:00 23:00 Intake Total 6 ml 240 ml Output Total 300 ml 600 ml Balance -300 ml 6 ml -360 ml Intake Oral 240 ml IV Total 6 ml Output Urine Total 300 ml 600 ml # Voids 2 # Bowel Movements 0 Result Diagram: 11/25/16 0538 11/26/16 0624 Imaging Last Impressions Chest X-Ray 11/26/16 0600 Signed Impressions: Service Date/Time: Saturday, November 26, 2016 06:22 - CONCLUSION: Stable cardiomegaly. Improved interstitial edema. Danial Huggins MD Objective Remarks GENERAL: This is a thin young patient, in no apparent distress. SKIN: No rashes, ecchymoses or lesions. Cool and dry. HEAD: Atraumatic. Normocephalic. No temporal or scalp tenderness. EYES: No scleral icterus. No injection or drainage. ENT: Nose without bleeding, purulent drainage or septal hematoma. Airway patent. NECK: Trachea midline. No JVD CARDIOVASCULAR: Regular rate and rhythm without murmurs, gallops, or rubs. RESPIRATORY: Bilaterally decreased air entry GASTROINTESTINAL: Abdomen soft, non-tender, nondistended. No guarding. MUSCULOSKELETAL: Extremities without clubbing, cyanosis, or edema. . No calf tenderness NEUROLOGICAL: Awake and alert. Motor and sensory grossly within normal limits. Normal speech. PSYCH: Slightly flattened affect. Medications and IVs Current Medications Medications (Trade) Dose Ordered Sig/Aida Route Start Time Stop Time Status Last Admin (NS Flush) 2 ml UNSCH PRN FLUSH 11/23/16 20:00 11/24/16 17:45 (NS Flush) 2 ml BID FLUSH 11/23/16 21:00 11/26/16 08:31 (Lovenox Inj) 40 mg Q24H SQ 11/24/16 09:00 11/26/16 08:31 (Narcan Inj) 0.4 mg UNSCH PRN IV 11/23/16 20:00 (Cordarone) 200 mg DAILY PO 11/24/16 09:00 11/26/16 08:30 (Prinivil) 2.5 mg DAILY PO 11/24/16 09:00 11/26/16 08:30 (Pill Splitter) 1 ea UNSCH PRN OTHER 11/23/16 20:15 (Pravachol) 40 mg HS PO 11/23/16 21:00 11/25/16 22:07 (Roxicodone) 5 mg Q4H PRN PO 11/24/16 18:00 (Lasix Inj) 40 mg DAILY IV PUSH 11/25/16 09:00 11/26/16 08:31 (Ecotrin Ec) 81 mg DAILY PO 11/25/16 14:30 11/26/16 08:30 A/P Problem List: (1) Acute CHF (congestive heart failure) ICD Code: I50.9 Status: Acute Assessment and Plan Acute systolic CHF EF 20-25%, mod-severe MR. The pt was started on IV diuresis. Cardiology consult appreciated. - continue Lasix. Changed to PO 11/26. - check a lipid profile. LDL elevated. Continue statin. - continue cardiac regimen. - telemetry. Hypotension Likely s/t CHF. Stable 11/26. - cardiac meds with holding parameters. Drug use Drug toxicology positive for cocaine and cannabinoids. - cessation instruction. Leukopenia Unsure of etiology. - follow CBC. PPx: Lovenox. Discharge Planning Anticipate d/c home in AM. Problem Qualifiers (1) Acute CHF (congestive heart failure): Qualified Code: I50.9 - Acute congestive heart failure, unspecified congestive heart failure type Tejas Mclean DO Nov 26, 2016 14:50
[2016-11-26] MEDS: PRAVASTATIN SOD 40 MG TAB PO SCH (20:38)
[2016-11-27] VITALS (10 sets, daily range): BP systolic 94–166; BP diastolic 51–83; PULSE 65–98; RESP 18–20; TEMP 97.4–98.7; O2SAT 98–100
[2016-11-27] MEDS: FUROSEMIDE 40 MG/4 ML VIAL IV PUSH SCH (08:37)
[2016-11-27] MEDS: ENOXAPARIN SODIUM 40 MG/0.4 ML SYRINGE SQ SCH (08:38)
[2016-11-27] MEDS: AMIODARONE 200 MG TAB PO SCH (08:38)
[2016-11-27] MEDS: ASPIRIN EC 81 MG TABEC PO SCH (08:38)
[2016-11-27] MEDS: LISINOPRIL 5 MG TAB PO SCH (08:39)
[2016-11-27] MEDS: SODIUM CHLORIDE 0.9% FLUSH 5 ML FLUSH FLUSH SCH ×2 (08:39→21:00)
--- NOTE | 2016-11-27 08:45 | HHI.PR ---
Subjective Remarks The pt said he had a 3 second episode yesterday where he lost control of his body. He said it happened before in [facility] and he said they saw something on the heart monitor. Otherwise he said he slept well and has no acute complaints. He is wondering about his Medicaid and Social Security. Objective Vitals Vital Signs Date Time Temp Pulse Resp B/P Pulse Ox O2 Delivery O2 Flow Rate FiO2 11/27/16 08:10 97.9 98 19 98/60 98 11/27/16 03:29 97.8 65 18 113/56 98 11/27/16 00:46 98.2 74 18 106/58 98 11/26/16 22:45 76 11/26/16 20:56 98.9 84 18 110/76 98 11/26/16 16:23 98.0 84 18 108/58 95 11/26/16 12:04 97.9 80 18 91/58 96 I/O 11/26/16 11/26/16 11/26/16 11/27/16 11/27/16 11/27/16 07:00 15:00 23:00 07:00 15:00 23:00 Intake Total 740 ml 240 ml Output Total 600 ml 600 ml Balance 140 ml -360 ml Intake Oral 740 ml 240 ml Output Urine Total 600 ml 600 ml # Voids 4 3 # Bowel Movements 0 Result Diagram: 11/25/16 0538 11/26/16 0624 Imaging Last Impressions Chest X-Ray 11/26/16 0600 Signed Impressions: Service Date/Time: Saturday, November 26, 2016 06:22 - CONCLUSION: Stable cardiomegaly. Improved interstitial edema. Danial Huggins MD Objective Remarks GENERAL: This is a thin young patient, in no apparent distress. SKIN: No rashes, ecchymoses or lesions. Cool and dry. HEAD: Atraumatic. Normocephalic. No temporal or scalp tenderness. EYES: No scleral icterus. No injection or drainage. ENT: Nose without bleeding, purulent drainage or septal hematoma. Airway patent. NECK: Trachea midline. No JVD CARDIOVASCULAR: Regular rate and rhythm without murmurs, gallops, or rubs. RESPIRATORY: Bilaterally decreased air entry GASTROINTESTINAL: Abdomen soft, non-tender, nondistended. No guarding. MUSCULOSKELETAL: Extremities without clubbing, cyanosis, or edema. . No calf tenderness NEUROLOGICAL: Awake and alert. Motor and sensory grossly within normal limits. Normal speech. PSYCH: Slightly flattened affect. Medications and IVs Current Medications Medications (Trade) Dose Ordered Sig/Aida Route Start Time Stop Time Status Last Admin (NS Flush) 2 ml UNSCH PRN FLUSH 11/23/16 20:00 11/24/16 17:45 (NS Flush) 2 ml BID FLUSH 11/23/16 21:00 11/27/16 08:39 (Lovenox Inj) 40 mg Q24H SQ 11/24/16 09:00 11/27/16 08:38 (Narcan Inj) 0.4 mg UNSCH PRN IV 11/23/16 20:00 (Cordarone) 200 mg DAILY PO 11/24/16 09:00 11/27/16 08:38 (Prinivil) 2.5 mg DAILY PO 11/24/16 09:00 11/26/16 08:30 (Pill Splitter) 1 ea UNSCH PRN OTHER 11/23/16 20:15 (Pravachol) 40 mg HS PO 11/23/16 21:00 11/26/16 20:38 (Roxicodone) 5 mg Q4H PRN PO 11/24/16 18:00 (Lasix Inj) 40 mg DAILY IV PUSH 11/25/16 09:00 11/27/16 08:37 (Ecotrin Ec) 81 mg DAILY PO 11/25/16 14:30 11/27/16 08:38 A/P Problem List: (1) Acute CHF (congestive heart failure) ICD Code: I50.9 Status: Acute Assessment and Plan Acute systolic CHF EF 20-25%, mod-severe MR. The pt was started on IV diuresis. Cardiology consult appreciated. - continue Lasix. Changed to PO 11/26. - check a lipid profile. LDL elevated. Continue statin. - continue cardiac regimen. - telemetry. V tach The patient has had 2 episodes of nonsustained V. tach. He has had symptoms of feeling like he lost control of his body for a few seconds. - Continue amiodarone. - Follow up with cardiology in regards to increasing amiodarone versus adding a beta crispin. - Telemetry. Hypotension Likely s/t CHF. Stable 11/27. - cardiac meds with holding parameters. Drug use Drug toxicology positive for cocaine and cannabinoids. - cessation instruction. Leukopenia Unsure of etiology. - follow CBC. PPx: Lovenox. Discharge Planning D/c home when cleared by cardiology. Problem Qualifiers (1) Acute CHF (congestive heart failure): Qualified Code: I50.9 - Acute congestive heart failure, unspecified congestive heart failure type Tejas Mclean DO Nov 27, 2016 08:45
--- NOTE | 2016-11-27 11:14 | PD.CARD.PN ---
Subjective Subjective Remarks The patient denies chest pain, shortness of breath, lightheadedness, palpitations or GI symptoms. Chart reviewed. Telemetry reveals sinus rhythm with short wide complex runs which may be ventricular or atrial with aberrancy. Defibrillator check is normal. Objective Medications Reviewed Vital Signs / I&O Vital Signs Date Time Temp Pulse Resp B/P Pulse Ox O2 Delivery O2 Flow Rate FiO2 11/27/16 08:10 97.9 98 19 98/60 98 11/27/16 08:00 68 11/27/16 03:29 97.8 65 18 113/56 98 11/27/16 00:46 98.2 74 18 106/58 98 11/26/16 22:45 76 11/26/16 20:56 98.9 84 18 110/76 98 11/26/16 16:23 98.0 84 18 108/58 95 11/26/16 12:04 97.9 80 18 91/58 96 I/O 11/26/16 11/26/16 11/26/16 11/27/16 11/27/16 11/27/16 07:00 15:00 23:00 07:00 15:00 23:00 Intake Total 740 ml 240 ml Output Total 600 ml 600 ml Balance 140 ml -360 ml Intake Oral 740 ml 240 ml Output Urine Total 600 ml 600 ml # Voids 4 3 # Bowel Movements 0 Physical Exam GENERAL: Well-nourished, well-developed patient in no apparent distress. SKIN: Warm and dry. NECK: JVD normal - less than or equal to 5 cm H20. CARDIOVASCULAR: Regular rate and rhythm without murmurs, or rubs. S3 present RESPIRATORY: Normal breath sounds - equal bilaterally. No accessory muscle use. No wheezes, rales or rubs. PERIPHERY: No cyanosis, or edema. Laboratory Last 48 hours Impressions Chest X-Ray 11/26/16599 Signed Impressions: Service Date/Time: Saturday, November 26, 2016 06:22 - CONCLUSION: Stable cardiomegaly. Improved interstitial edema. Danial Huggins MD Imaging Last 48 hours Impressions Chest X-Ray 11/26/16599 Signed Impressions: Service Date/Time: Saturday, November 26, 2016 06:22 - CONCLUSION: Stable cardiomegaly. Improved interstitial edema. Danial Huggins MD Assessment and Plan Assessment and Plan Problems: Acute on chronic congestive heart failuresystolic Cardiomyopathy Noncompliance Mitral regurgitation Substance use recommendations: Would continue his present medical regimen at the same dosing. He can be switched to oral diuretic. Compliance and substance abstinence was recommended. Ideally he should be on low-dose beta-blockade but his blood pressure is borderline. He will need to follow-up with Dr. Hernan Henriquez. I will sign off. Jefferson Bear MD Nov 27, 2016 11:14
[2016-11-27] MEDS: PRAVASTATIN SOD 40 MG TAB PO SCH (21:00)
[2016-11-28 04:17] VITALS: BP 96/63; PULSE 82; RESP 18; TEMP 98.5; O2SAT 100
[2016-11-28 08:14] VITALS: BP 100/69; PULSE 81; RESP 18; TEMP 97.7; O2SAT 100
[2016-11-28] MEDS ORDERED: FURO1TAB62 PO (08:29)
[2016-11-28] MEDS ORDERED: ASPI81TA11 PO (08:29)
[2016-11-28] MEDS ORDERED: LISI2.5T3 PO (08:29)
[2016-11-28] MEDS ORDERED: AMIO200T PO (08:29)
[2016-11-28] MEDS ORDERED: SIMV20TA PO (08:29)
--- NOTE | 2016-11-28 08:29 | HHI.DCPOC ---
Discharge Care Plan Diagnosis: (1) Acute CHF (congestive heart failure) Your Health Problems Are: Fluid/Lung Overload Shortness of Breath Goals to Promote Your Health * To prevent worsening of your condition and complications * To maintain your health at the optimal level Directions to Meet Your Goals Take your medications as prescribed Follow your dietary instruction Follow activity as directed Keep your appointments as scheduled Take your immunizations and boosters as scheduled If your symptoms worsen call your PCP, if no PCP go to Urgent Care Center or Emergency Room Smoking is Dangerous to Your Health. Avoid second hand smoke Call the 24-hour hour crisis hotline for domestic abuse at Tejas Mclean DO Nov 28, 2016 08:29
--- NOTE | 2016-11-28 08:35 | HHI.DS ---
Discharge Summary Admission Date Nov 23, 2016 at 18:52 Discharge Date: Nov 28, 2016 Admitting Diagnosis acute CHF (1) Acute CHF (congestive heart failure) ICD Code: I50.9 Diagnosis: Principal Procedures None. Brief History - From Admission History from patient, ER notes, and review of medical records. Patient reported that he came to the hospital because for the past 2 days, he has been short of breath. He also reports of associated chest tightness. He reports that he is not able to sleep flat. He is using 2 pillows now. He states he usually rides his bike but now with more and more difficulty. He states he had trouble walking from his bed to the bathroom. Patient reports of history of CHF. He states he has an AICD placed because of the CHF in September 2011 in [place]. He reports his EF was 40%. He reports he did not have any hospitalization between September 2011 to 2014. He was admitted at [facility] for AICD firing at that time. Reports that his AICD was suggested at that time by decreasing the threshold. He states since then he has been fine until today. Patient reports he has CHF secondary to family genetics and hypertensive heart disease. He denies alcohol abuse or drug abuse. Denies history of CAD. He also states that he has somehow stopped receiving his disability checks and he's worried about this. He does not have a primary care doctor here and would like to speak to a case maker regarding this. CBC/BMP: 11/25/16 0538 11/26/16 0624 Significant Findings Laboratory Tests Test 11/26/16 06:24 Blood Urea Nitrogen 27 MG/DL (7-18) Estimat Glomerular Filtration 82 ML/MIN (>89) Rate Imaging Last Impressions Chest X-Ray 11/26/16 0600 Signed Impressions: Service Date/Time: Tuesday, November 26, 2016 06:22 - CONCLUSION: Stable cardiomegaly. Improved interstitial edema. Danial Huggins MD PE at Discharge GENERAL: This is a thin young patient, in no apparent distress. SKIN: No rashes, ecchymoses or lesions. Cool and dry. HEAD: Atraumatic. Normocephalic. No temporal or scalp tenderness. EYES: No scleral icterus. No injection or drainage. ENT: Nose without bleeding, purulent drainage or septal hematoma. Airway patent. NECK: Trachea midline. No JVD CARDIOVASCULAR: Regular rate and rhythm without murmurs, gallops, or rubs. RESPIRATORY: Bilaterally decreased air entry GASTROINTESTINAL: Abdomen soft, non-tender, nondistended. No guarding. MUSCULOSKELETAL: Extremities without clubbing, cyanosis, or edema. . No calf tenderness NEUROLOGICAL: Awake and alert. Motor and sensory grossly within normal limits. Normal speech. PSYCH: Slightly flattened affect. Pt update on day of discharge The pt was resting comfortably. He said he felt a little dizzy overnight. No chest pain or palpitations. Had questions about Medicaid and social security. Hospital Course Acute systolic CHF EF 20-25%, mod-severe MR. The pt was started on IV diuresis. Cardiology was consulted. LDL was elevated. He was continued on a statin. He was monitored on telemetry. The patient has had short wide complex runs which may be ventricular or atrial with aberrancy per cardiology. He was continued on amiodarone. His low blood pressure restricted the addition of a beta crispin. He will follow up with cardiology as an outpt. He had a case management consult in regards to obtaining his medications and following up on his Medicaid and social security. Drug use Drug toxicology was positive for cocaine and cannabinoids. He received cessation instruction. Pt Condition on Discharge: Stable Discharge Disposition: Discharge Home Discharge Time: <= 30 minutes Discharge Instructions DIET: Follow Instructions for: Heart Healthy Diet Activities you can perform: Weight Bearing as Rosy Follow up Referrals: Cardiology - [address] Henriquez PCP Follow-up - 1 Week New Medications: Aspirin DR (Aspirin EC) 81 Mg Tabdr 81 MG PO DAILY Heart #30 TAB Continued Medications: Amiodarone (Amiodarone) 200 Mg Tab 200 MG PO DAILY Regulate Heart Beat #30 Ref 0 TAB (This prescription has been renewed) Furosemide (Lasix) 20 Mg Tab 20 MG PO DAILY Heart failure #30 Ref 0 TAB (This prescription has been renewed) Lisinopril (Lisinopril) 2.5 Mg Tab 2.5 MG PO DAILY #30 Ref 0 TAB (This prescription has been renewed) Simvastatin (Simvastatin) 20 Mg Tab 20 MG PO HS Cholesterol Management #30 Ref 0 TAB (This prescription has been renewed) Tejas Mclean DO Nov 28, 2016 08:34
[2016-11-28] MEDS: AMIODARONE 200 MG TAB PO SCH (08:50)
[2016-11-28] MEDS: LISINOPRIL 5 MG TAB PO SCH (08:50)
[2016-11-28] MEDS: ASPIRIN EC 81 MG TABEC PO SCH (08:50)
[2016-11-28] MEDS: ENOXAPARIN SODIUM 40 MG/0.4 ML SYRINGE SQ SCH (08:51)
[2016-11-28] MEDS: FUROSEMIDE 40 MG/4 ML VIAL IV PUSH SCH (08:51)
[2016-11-28] MEDS: SODIUM CHLORIDE 0.9% FLUSH 5 ML FLUSH FLUSH SCH (08:51)
[2016-11-28 11:12] VITALS: BP 100/65; PULSE 86; RESP 18; TEMP 98.6; O2SAT 100
[2017-04-07] MEDS ORDERED: FURO20TA PO (12:15)
[2017-04-07] MEDS ORDERED: POTA10CA PO (12:15)
[2017-05-10] MEDS ORDERED: FURO20TA PO (10:18)
== END 2016-11-28 12:18 | disposition home or self-care (01) ==
LOC: NEPA 15:43 → NEDH 18:52 → NEPFCDU 21:29
PROVIDERS: ADMIT Hospitalist; ATTEND Hospitalist
DX: I50.23 Acute on chronic systolic (congestive) heart failure (principal); I11.0 Hypertensive heart disease with heart failure; I43 Cardiomyopathy in diseases classified elsewhere; I47.2 Ventricular tachycardia; I34.0 Nonrheumatic mitral (valve) insufficiency; D72.819 Decreased white blood cell count, unspecified; Z91.19 Patient's noncompliance with other medical treatment and regimen; Z95.810 Presence of automatic (implantable) cardiac defibrillator; Z79.01 Long term (current) use of anticoagulants
CPT/HCPCS: 71010; 71020; 80048; 80061; 80307; 82550; 82552; 83735; 83880; 84484; 85025; 85027; 85610; 85730; 93005; 93306; 96374; 97162; 99285; G0378; G8987; G8988; J1650; J1940

== ENCOUNTER 2016-12-28 09:39 | Emergency (ER) | payer MEDICAID ==
[~2016-12-28] VITALS: Ht 167.6 cm; Wt 60.0 kg
[~2016-12-28 09:39] MED LIST: AMIO200T PO; ASPI81TA11 PO; FURO1TAB62 PO; LISI2.5T3 PO; SIMV20TA PO
[2016-12-28 09:42] VITALS: BP 116/83; PULSE 79; RESP 17; TEMP 98; O2SAT 98
[2017-04-07] MEDS ORDERED: FURO20TA PO (12:15)
[2017-04-07] MEDS ORDERED: POTA10CA PO (12:15)
[2017-05-10] MEDS ORDERED: FURO20TA PO (10:18)
== END 2016-12-28 11:12 | disposition left against medical advice (07) ==
LOC: NEPB 09:39
DX: Z76.0 Encounter for issue of repeat prescription (principal)
CPT/HCPCS: 99281

== ENCOUNTER 2016-12-30 14:19 | Observation (INO) | payer MEDICAID ==
[~2016-12-30] VITALS: Ht 172.7 cm; Wt 56.0 kg
[2016-12-30 14:22] VITALS: BP 115/76; PULSE 95; RESP 18; TEMP 98.2; O2SAT 98
[2016-12-30 14:27] VITALS: O2SAT 99
[2016-12-30] MEDS ORDERED: diphenhydrAMINE HCL 50 MG/ML VIAL IV PUSH ONE (14:30)
[2016-12-30] MEDS ORDERED: SODIUM CHLORIDE 0.9% FLUSH 5 ML FLUSH IVF PRN ×2 (14:30→18:45)
[2016-12-30] MEDS ORDERED: PROCHLORPERAZINE INJ 10 MG/2 ML VIAL IVS ONE (14:30)
--- NOTE | 2016-12-30 14:33 | PD ---
HPI . Dizziness Chief Complaint: Dizziness Time Seen by Provider: 14:23 Travel History International Travel<30 days: No Contact w/Intl Traveler<30days: No Traveled to known affect area: No History of Present Illness HPI Patient presents with dizziness which started this morning. He states that the dizziness is worse by movement. He states that he's had some chest congestion for several days. He has not been running any fever. He denies any chest pain or shortness of breath today. He denies any nausea or vomiting. Patient was recently hospitalized here from November 23 to November 28 for CHF exacerbation. He was discharged on amiodarone 200 mg daily, Lasix 20 mg daily, lisinopril 2.5 mg daily, simvastatin 20 mg daily. Arrangements were made for him to follow up with Dr. Henriquez as an outpatient. The patient admits that he has not followed up as an outpatient. He states that he did not know where the doctor's office was. PFSH Past Medical History Blood Disorders: No Heart Rhythm Problems: Yes Cardiovascular Problems: Yes (PACER/DEFIB) High Cholesterol: Yes Chest Pain: Yes Congestive Heart Failure: Yes Diminished Hearing: No Endocrine: No Gastrointestinal Disorders: No Hypertension: Yes Implanted Vascular Access Dvce: Yes Psychiatric: No Reproductive: No Respiratory: Yes (thoracentesis) Influenza Vaccination: No Past Surgical History AICD: Yes (ICD, [facility] [employer]) Body Medical Devices: defibrib Cardiac Surgery: Yes (DEFIBRILLATOR) Other Surgery: Yes Social History Alcohol Use: Yes (OCCAS. ) Tobacco Use: Yes Substance Use: Yes (MARIJUANA, COCAINE LAST NGIHT ) Allergies-Medications (Allergen,Severity, Reaction): Coded Allergies: No Known Allergies (Unverified , 12/30/16) Reported Meds & Prescriptions Reported Meds & Active Scripts Active Aspirin EC (Aspirin) 81 Mg Tabdr 81 Mg PO DAILY Lisinopril 2.5 Mg Tab 2.5 Mg PO DAILY Lasix (Furosemide) 20 Mg Tab 20 Mg PO DAILY Amiodarone (Amiodarone HCl) 200 Mg Tab 200 Mg PO DAILY Simvastatin 20 Mg Tab 20 Mg PO HS Review of Systems Except as stated in HPI: all other systems reviewed are Neg General / Constitutional: No: Fever, Chills Eyes: No: Blurred Vision HENT: Positive: Vertigo, No: Headaches Cardiovascular: No: Chest Pain or Discomfort Respiratory: Positive: Other (chest congestion), No: Cough, Shortness of Breath Gastrointestinal: No: Nausea, Vomiting Musculoskeletal: Positive: Arthralgias (right knee pain from an injury sustained a week or so ago.) Neurologic: Positive: Weakness, Dizziness, No: Syncope, Focal Abnormalities, Coordination Problem, Ataxia, Headache, Change in Mentation, Slurred Speech, Paresthesia, Seizures Physical Exam Narrative GENERAL: Very thin man who is in no acute distress. SKIN: Warm and dry. HEAD: Atraumatic. Normocephalic. EYES: Pupils equal and round. ENT: No nasal bleeding or discharge. Mucous membranes pink and moist. NECK: Trachea midline. Neck is supple. CARDIOVASCULAR: Regular rate and rhythm. Heart sounds are normal. RESPIRATORY: No accessory muscle use. Lungs are clear with full air movement throughout. GASTROINTESTINAL: Abdomen soft, non-tender, nondistended. MUSCULOSKELETAL: No obvious deformities. No edema. NEUROLOGICAL: Awake and alert. No obvious cranial nerve deficits. Motor grossly within normal limits. Normal speech. PSYCHIATRIC: Appropriate mood and affect; insight and judgment normal. Data Data Last Documented VS Vital Signs Date Time Temp Pulse Resp B/P Pulse Ox O2 Delivery O2 Flow Rate FiO2 12/30/16 14:27 99 Room Air 12/30/16 14:22 98.2 95 18 115/76 Orders Electrocardiogram (12/30/16 14:23) Basic Metabolic Panel (Bmp) (12/30/16 14:23) Complete Blood Count With Diff (12/30/16 14:23) B-Type Natriuretic Peptide (12/30/16 14:23) Ckmb (Isoenzyme) Profile (12/30/16 14:23) Troponin I (12/30/16 14:23) Chest, Single Ap (12/30/16 14:23) Ecg Monitoring (12/30/16 14:23) Iv Access Insert/Monitor (12/30/16 14:23) Oximetry (12/30/16 14:23) Sodium Chloride 0.9% Flush (Ns Flush) (12/30/16 14:30) Prochlorperazine Inj (Compazine Inj) (12/30/16 14:30) Diphenhydramine Inj (Benadryl Inj) (12/30/16 14:30) CKMB (12/30/16 14:38) CKMB% (12/30/16 14:38) Blood Culture (12/30/16 15:33) Lactic Acid Sepsis Protocol (12/30/16 15:33) Ceftriaxone Inj (Rocephin Inj) (12/30/16 15:45) Azithromycin Inj (Zithromax Inj) (12/30/16 15:45) Knee, Complete (4vws) (12/30/16 15:40) Admit Order (Ed Use Only) (12/30/16 17:35) Labs Laboratory Tests Test 12/30/16 12/30/16 14:38 15:50 White Blood Count 3.0 TH/MM3 Red Blood Count 3.82 MIL/MM3 Hemoglobin 11.8 GM/DL Hematocrit 35.2 % Mean Corpuscular Volume 92.0 FL Mean Corpuscular Hemoglobin 30.8 PG Mean Corpuscular Hemoglobin 33.4 % Concent Red Cell Distribution Width 14.7 % Platelet Count 207 TH/MM3 Mean Platelet Volume 7.1 FL Neutrophils (%) (Auto) 38.0 % Lymphocytes (%) (Auto) 44.5 % Monocytes (%) (Auto) 15.0 % Eosinophils (%) (Auto) 1.7 % Basophils (%) (Auto) 0.8 % Neutrophils # (Auto) 1.1 TH/MM3 Lymphocytes # (Auto) 1.3 TH/MM3 Monocytes # (Auto) 0.4 TH/MM3 Eosinophils # (Auto) 0.1 TH/MM3 Basophils # (Auto) 0.0 TH/MM3 CBC Comment DIFF FINAL Differential Comment Sodium Level 140 MEQ/L Potassium Level 3.8 MEQ/L Chloride Level 105 MEQ/L Carbon Dioxide Level 26.3 MEQ/L Anion Gap 9 MEQ/L Blood Urea Nitrogen 33 MG/DL Creatinine 1.28 MG/DL Estimat Glomerular Filtration 74 ML/MIN Rate Random Glucose 75 MG/DL Calcium Level 8.8 MG/DL Total Creatine Kinase 119 U/L Creatine Kinase MB 0.7 NG/ML Troponin I 0.06 NG/ML B-Type Natriuretic Peptide 305 PG/ML Lactic Acid Level 1.1 mmol/L [facility] Medical Decision Making Medical Screen Exam Complete: Yes Emergency Medical Condition: Yes Medical Record Reviewed: Yes (his ejection fraction in November 2016 was 20-25%. ) Interpretation(s) EKG shows a sinus rhythm with a ventricular rate of 78. It is not a paced rhythm. He has some lateral T-wave inversion which is unchanged from previous. Differential Diagnosis Differential diagnosis of dizziness includes but is not limited to vertigo, dehydration, acute blood loss, sepsis, ACS Narrative Course Patient presents for evaluation and treatment of dizziness. He has also run out of all of his cardiac medications. Last Impressions Chest X-Ray 12/30/16 1423 Signed Impressions: Service Date/Time: December 13:10 - CONCLUSION: 1. Mild streaky infiltrate at the right lung base of concern for early pneumonia. 2. Mild cardiomegaly Tejas Strauss MD The chest x-ray was independently viewed by me. I have subsequently ordered blood cultures, lactic acid, Rocephin and Zithromax. CBC & BMP Diagram 12/30/16 14:38 Troponin is 0.06. On review of his records, his troponin is chronically elevated. BNP is 305 with is improved for him. His lactic acid is normal. X-ray of his right knee shows a joint effusion but no fracture. This film was independently viewed by me. Physician Communication Physician Communication Patient will be admitted to the residents' service Diagnosis Primary Impression: Vertigo Additional Impression: Pneumonia Qualified Code: J18.1 - Pneumonia of right lower lobe due to infectious organism Admitting Information Admitting Physician Requests: Admit Alia Olivo MD Dec 30, 2016 14:33
[2016-12-30 14:48] LABS: AUTOMATED NEUTROPHIL # 1.1 TH/MM3 (1.8-7.7); BASOPHIL % 0.8 % (0.0-2.0); EOSINOPHIL # 0.1 TH/MM3 (0-0.4); EOSINOPHIL % 1.7 % (0.0-4.0); HEMATOCRIT 35.2 % (39.0-51.0); HEMO FLAGS DIFF FINAL; LYMPH % 44.5 % (9.0-44.0); LYMPHOCYTE # 1.3 TH/MM3 (1.0-4.8); MEAN CORPUSCULAR HEMOGLOBIN 30.8 PG (27.0-34.0); MEAN CORPUSCULAR HGB CONC 33.4 % (32.0-36.0); PLATELET COUNT 207 TH/MM3 (150-450); RED BLOOD COUNT 3.82 MIL/MM3 (4.50-5.90); RED CELL DISTRIBUTION WIDTH 14.7 % (11.6-17.2)
[2016-12-30 15:18] LABS: ANION GAP 9 MEQ/L (5-15); BICARBONATE 26.3 MEQ/L (21.0-32.0); BLOOD UREA NITROGEN 33 MG/DL (7-18); CHLORIDE 105 MEQ/L (98-107); GLOMERULAR FILTRATION RATE 74 ML/MIN (>89); POTASSIUM 3.8 MEQ/L (3.5-5.1); SODIUM (NA) 140 MEQ/L (136-145)
[2016-12-30 15:20] LABS: CREATINE KINASE 119 U/L (39-308)
--- NOTE | 2016-12-30 15:23 | RADRPT ---
EXAM DATE/TIME: 12/30/2016 13:10 [facility] COMPARISON: CHEST SINGLE AP, November 26, 2016, 6:22. INDICATIONS : Shortness of breath MEDICAL HISTORY : None. SURGICAL HISTORY : Pacemaker. ENCOUNTER: Initial ACUITY: 1 day PAIN SCORE: 0/10 LOCATION: Bilateral chest FINDINGS: A single AP erect view of the chest was obtained and demonstrates mild streaky opacity at the right l terrence base with partial obscuration of the right hemidiaphragm. The left subclavian transvenous pacer r emains in place. There is mild cardiomegaly. The bones thorax is intact. Multiple electrocardiogram l meet. CONCLUSION: 1. Mild streaky infiltrate at the right lung base of concern for early pneumonia. 2. Mild cardiomegaly Tejas Strauss MD on December 30, 2016 at 15:20 Board Certified Radiologist. This report was verified electronically.
[2016-12-30 15:32] LABS: CKMB 0.7 NG/ML (0.5-3.6)
[2016-12-30] MEDS ORDERED: cefTRIAXone INJ 1,000 MG in SODIUM CHLORIDE 0.9% INJ 100 ML IV ONE (15:45)
[2016-12-30] MEDS ORDERED: AZITHROMYCIN INJ 500 MG in SODIUM CHLOR 0.9% 250 ML INJ 250 ML IV ONE (15:45)
--- NOTE | 2016-12-30 16:28 | RADRPT ---
EXAM DATE/TIME: 12/30/2016 16:13 [facility] COMPARISON: No previous studies available for comparison. INDICATIONS : Patient fell through a roof two weeks ago. MEDICAL HISTORY : Hypertension. SURGICAL HISTORY : Pacemaker. ENCOUNTER: Initial ACUITY: 2 weeks PAIN SCORE: 7/10 LOCATION: Right Medial knee. FINDINGS: Four view examination of the right knee demonstrates no evidence of fracture or dislocation. Bony mi neralization is normal. The articular surfaces are intact. There is fullness in the suprapatella bu rsa region consistent with a joint effusion. The suprapatellar soft tissues have a normal configurati on. CONCLUSION: Evidence of joint effusion with no acute fracture or malalignment. Tejas Strauss MD on December 30, 2016 at 16:26 Board Certified Radiologist. This report was verified electronically.
--- NOTE | 2016-12-30 18:34 | HHI.HP ---
HPI Service Family Medicine Primary Care Physician No Primary Care Physician Admission Diagnosis pneumonia Diagnoses: International Travel<30 Days: No Contact w/Intl Traveler<30days: No Known Affected Area: No History of Present Illness Patient is a 46-year-old male with past medical history significant for cardiomyopathy/CHF status post AICD placement in 2010 presenting to the ED due to shortness of breath. He noticed that he began to feel short of breath earlier today when he was riding his bike. This resolved after he stopped to rest for several minutes. He denies any associated chest pain. His AICD last fired in 2014, and was interrogated last month. Patient was recently hospitalized from /06/06 due to CHF exacerbation. He was discharged to follow-up with Dr. 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 He reports that he has had a cough over the past several days productive of yellow sputum. He denies any fevers or chills. He reported feeling dizzy when he came to the ED but currently denies feeling dizzy or light headed. He also endorses pain and swelling of his right knee for the past 2 weeks. He injured his knee while working on a roof and reports that his knee went through the roof and hit a wall. He has been able to bear weight on his knee, but walking has been painful. (Esa Henriquez MD R2) Review of Systems Constitutional: DENIES: Fever, Weight loss, Chills Eyes: COMPLAINS OF: Blurred vision (for the last 2 yrs) Ears, nose, mouth, throat: COMPLAINS OF: Throat pain, DENIES: Vertigo Respiratory: COMPLAINS OF: Cough, Wheezing, Sputum production, Shortness of breath Cardiovascular: DENIES: Chest pain, Palpitations, Syncope Gastrointestinal: DENIES: Abdominal pain, Black stools, Bloody stools, Constipation, Diarrhea Genitourinary: DENIES: Urgency Musculoskeletal: COMPLAINS OF: Joint pain Integumentary: COMPLAINS OF: Rash Neurologic: COMPLAINS OF: Abnormal gait (due to knee pain), DENIES: Headache Psychiatric: DENIES: Mood changes (Esa Henriquez MD R2) Past Family Social History Past Medical History Cardiomyopathy HTN Past Surgical History Pacemaker placed in 2010 Circumcision at age 7 Reported Medications Reported Meds & Active Scripts Active Aspirin EC (Aspirin) 81 Mg Tabdr 81 Mg PO DAILY Lisinopril 2.5 Mg Tab 2.5 Mg PO DAILY Lasix (Furosemide) 20 Mg Tab 20 Mg PO DAILY Amiodarone (Amiodarone HCl) 200 Mg Tab 200 Mg PO DAILY Simvastatin 20 Mg Tab 20 Mg PO HS (Esa Henriquez MD R2) Allergies: Coded Allergies: No Known Allergies (Unverified , 12/30/16) Active Ordered Medications Inpatient Medications Acetaminophen (Tylenol) 650 mg Q4H PRN PO TEMPERATURE > 101 F; Start 12/30/16 at 19:00 Albuterol/ Ipratropium (Duoneb Neb) 1 ampule Q4HR NEB PRN INH SHORTNESS OF BREATH; Start 12/30/16 at 19:00 Amiodarone HCl (Cordarone) 200 mg DAILY PO ; Start 12/31/16 at 09:00 Aspirin (Ecotrin Ec) 81 mg DAILY PO ; Start 12/31/16 at 09:00 Azithromycin (Zithromax) 500 mg DAILY PO ; Start 12/31/16 at 09:00 Azithromycin/ Sodium Chloride (Zithromax Inj/ NS 250 ml Inj) 250 ml @ 250 mls/ hr ONCE ONCE IV Last administered on 12/30/16 15:51; Start 12/30/16 at 15:45; Stop 12/30/16 at 16:52; Status DC Ceftriaxone Sodium 1000 mg/ Sodium Chloride 100 ml @ 200 mls/hr ONCE ONCE IV Last administered on 12/30/16 16:28; Start 12/30/16 at 15:45; Stop 12/30/16 at 16: 45; Status DC Ceftriaxone Sodium/Sodium Chloride (Rocephin Inj/NS Inj) 100 ml @ 200 mls/hr Q24H IV ; Start 12/31/16 at 16:00 Diphenhydramine HCl 25 mg 25 mg ONCE ONCE IV PUSH Last administered on 14:36; Start 12/30/16 at 14:30; Stop 12/30/16 at 14:31; Status DC Enoxaparin Sodium (Lovenox Inj) 40 mg Q24H SQ ; Start 12/30/16 at 20:00 Furosemide (Lasix) 20 mg DAILY PO ; Start 12/31/16 at 09:00 Guaifenesin/ Dextromethorphan (Robitussin Dm 200-20 Mg/10 ml Liq) 10 ml Q4H PRN PO COUGH; Start 12/30/16 at 19:00 IV Flush (NS Flush) 2 ml BID IV FLUSH ; Start 12/30/16 at 21:00 IV Flush 2 ml 2 ml BID IVF ; Start 12/30/16 at 21:00; Stop 12/30/16 at 21:00; Status DC Lisinopril (Prinivil) 2.5 mg DAILY PO ; Start 12/31/16 at 09:00 Miscellaneous (Pill Splitter) 1 ea UNSCH PRN OTHER SEE LABEL COMMENTS; Start at 19:15 Ondansetron HCl (Zofran Inj) 4 mg Q6H PRN IV NAUSEA; Start 12/30/16 at 19:00 Pravastatin Sodium (Pravachol) 40 mg HS PO ; Start 12/30/16 at 21:00 Prochlorperazine Edisylate (Compazine Inj) 10 mg ONCE ONCE IVS Last administered on 12/30/16t 14:36; Start 12/30/16 at 14:30; Stop 12/30/16 at 14:31; Status DC Family History Mother: when pt was 2 months old, unknown medical history Father: Living and healthy Social History Currently lives in a house with room mates, is disabled due to heart failure Denies smoking, drinking, illicit drug use; however, reported to ED physician that he recently used cocaine and marijuana. (Esa Henriquez MD R2) Physical Exam Vital Signs Vital Signs Date Time Temp Pulse Resp B/P Pulse Ox O2 Delivery O2 Flow Rate FiO2 12/30/16 14:27 99 Room Air 12/30/16 14:22 98.2 95 18 115/76 98 Physical Exam GENERAL: This is a thin, well-developed patient, in no apparent distress. Lethargic, falls asleep repeatedly during exam. SKIN: No rashes, ecchymoses or lesions. Cool and dry. HEAD: Atraumatic. Normocephalic. No temporal or scalp tenderness. EYES: Constricted pupils, equal round and reactive. Extraocular motions intact. No scleral icterus. No injection or drainage. ENT: Nose without bleeding, purulent drainage or septal hematoma. Throat without erythema, tonsillar hypertrophy or exudate. Uvula midline. Airway patent. NECK: Trachea midline. No JVD or lymphadenopathy. Supple, nontender, no meningeal signs. CARDIOVASCULAR: Regular rate and rhythm without murmurs, gallops, or rubs. RESPIRATORY: Clear to auscultation. Breath sounds equal bilaterally. No wheezes , rales, or rhonchi. Normal work of breathing. No accessory muscle use. GASTROINTESTINAL: Abdomen soft, non-tender, nondistended. No hepato-splenomegaly , or palpable masses. No guarding. MUSCULOSKELETAL: Extremities without clubbing, cyanosis. Right knee is swollen with appreciable joint effusion. Range of motion limited due to pain. No calf tenderness. Negative Homans sign bilaterally. NEUROLOGICAL: Awake and alert. Cranial nerves II through XII intact. Decreased strength of right lower extremity due to pain. Normal speech. Laboratory Laboratory Tests Test 12/30/16 12/30/16 14:38 15:50 White Blood Count 3.0 Red Blood Count 3.82 Hemoglobin 11.8 Hematocrit 35.2 Mean Corpuscular Volume 92.0 Mean Corpuscular Hemoglobin 30.8 Mean Corpuscular Hemoglobin 33.4 Concent Red Cell Distribution Width 14.7 Platelet Count 207 Mean Platelet Volume 7.1 Neutrophils (%) (Auto) 38.0 Lymphocytes (%) (Auto) 44.5 Monocytes (%) (Auto) 15.0 Eosinophils (%) (Auto) 1.7 Basophils (%) (Auto) 0.8 Neutrophils # (Auto) 1.1 Lymphocytes # (Auto) 1.3 Monocytes # (Auto) 0.4 Eosinophils # (Auto) 0.1 Basophils # (Auto) 0.0 CBC Comment DIFF FINAL Differential Comment Sodium Level 140 Potassium Level 3.8 Chloride Level 105 Carbon Dioxide Level 26.3 Anion Gap 9 Blood Urea Nitrogen 33 Creatinine 1.28 Estimat Glomerular Filtration 74 Rate Random Glucose 75 Calcium Level 8.8 Total Creatine Kinase 119 Creatine Kinase MB 0.7 Troponin I 0.06 B-Type Natriuretic Peptide 305 Lactic Acid Level 1.1 Date/Time Procedure Status Source Growth 12/30/16 15:48 Aerobic Blood Culture Received Blood Peripheral Pending 12/30/16 15:48 Anaerobic Blood Culture Received Blood Peripheral Pending (Esa Henriquez MD R2) Result Diagram: 12/30/16 1438 12/30/16 1438 Imaging Last 24 hours Impressions Knee X-Ray 12/30/16 1540 Signed Impressions: Service Date/Time: December 16:13 - CONCLUSION: Evidence of joint effusion with no acute fracture or malalignment. Tejas Strauss MD Chest X-Ray 12/30/16 1423 Signed Impressions: Service Date/Time: December 13:10 - CONCLUSION: 1. Mild streaky infiltrate at the right lung base of concern for early pneumonia. 2. Mild cardiomegaly Tejas Strauss MD (Esa Henriquez MD R2) Assessment and Plan Assessment and Plan Patient is a 46-year-old male with past medical history significant for cardiomyopathy/CHF status post AICD placement in 2010 presenting to the ED due to shortness of breath found to have a pneumonia. Code Status Full Discussed Condition With dw Dr. Rahman wdw Dr. Ramsay (Esa Henriquez MD R2) Attending Attestation THIS CASE WAS DISCUSSED WITH THE RESIDENT PHYSICIAN. I HAVE REVIEWED THE RECORD AND AGREE WITH THE ABOVE NOTE AND PLAN OF CARE WAS DISCUSSED. I HAVE AUTHORIZED THE ORDER FOR PLACEMENT IN OUT-PATIENT OBSERVATION STATUS. (Shon Ramsay MD) Problem List: (1) Pneumonia Status: Acute Plan: Patient reports a productive cough over the past few days, denies fevers , chills. White blood cell count low at 3. -Concern for early pneumonia -Azithromycin 500 mg PO daily -Rocephin gram IV daily -Sputum culture -Incentive spirometry -Supplemental oxygen as needed -Robitussin DM prn cough Imaging: Chest x-ray 12/30/16: Mild streaky infiltrate at the right lung base of concern for early pneumonia. Mild cardiomegaly. (2) CHF (congestive heart failure) Status: Acute Plan: Patient with history of CHF, status post AICD placement. We'll continue home medications: Amiodarone 200 mg po [place] Aspirin 81 mg po daily Lasix 20 mg po daily Lisinopril 2.5 mg po daily Simvastatin 200 mg po HS (3) Elevation of cardiac enzymes Status: Acute Plan: On admission troponin elevated to 0.06. Baseline appears to be around 0.08. BNP 305, this was elevated to 1083 during the last admission. EKG read as sinus rhythm with first-degree AV block, possible right atrial enlargement, possible right ventricular conduction delay, left anterior fascicular block. Moderate T wave abnormality. -We'll check additional set of cardiac enzymes -This is likely patients baseline (4) Knee pain Status: Acute Plan: Pt reports injuring his knee 2 weeks ago. Joint effusion appreciated on exam. -Ibuprofen 600 mg po Q8hrs Imaging: Knee x-ray from 12/30/16: Evidence of joint effusion with no acute fracture or malalignment. (5) History of illicit drug use Status: Acute Plan: Pt with hx of illicit drug use, will check UDS. (6) FEN/PPX Status: Acute Plan: Fluids: None, patient currently tolerating by mouth Collection lites: Within normal limits, continue to monitor Nutrition: Heart healthy diet DVT PPX: Lovenox (Esa Henriquez MD R2) Physician Certification 2 Midnight Certification Type: Admission for Inpatient Services Order for Inpatient Services The services are ordered in accordance with Medicare regulations or non- Medicare payer requirements, as applicable. In the case of services not specified as inpatient-only, they are appropriately provided as inpatient services in accordance with the 2-midnight benchmark. Estimated LOS (days): 2 2 days is the estimated time the patient will need to remain in the hospital, assuming treatment plan goals are met and no additional complications. Post-Hospital Plan: Home (Esa Henriquez MD R2) Problem Qualifiers (1) Pneumonia: Qualified Code: J18.1 - Pneumonia of right lower lobe due to infectious organism Esa Henriquez MD R2 Dec 30, 2016 18:34 Shon Ramsay MD Dec 31, 2016 12:00
[2016-12-30] MEDS ORDERED: ACETAMINOPHEN 325 MG TAB PO PRN (19:00)
[2016-12-30] MEDS ORDERED: guaiFENesin/DEXTROMETHORPHAN 200 MG/20 MG/10 ML CUP PO PRN (19:00)
[2016-12-30] MEDS ORDERED: SODIUM CHLORIDE 0.9% FLUSH 5 ML FLUSH IV FLUSH PRN (19:00)
[2016-12-30] MEDS ORDERED: ONDANSETRON HCL 4 MG/2 ML VIAL IV PRN (19:00)
[2016-12-30] MEDS ORDERED: RESP: ALBUTEROL 2.5 MG/IPRATROPIUM 0.5 MG NEB (PRN) INH (19:00)
[2016-12-30] MEDS ORDERED: PILL SPLITTER OTHER PRN (19:15)
[2016-12-30 19:52] VITALS: BP 98/61; PULSE 70; RESP 16; O2SAT 96
[2016-12-30] MEDS ORDERED: ENOXAPARIN SODIUM 40 MG/0.4 ML SYRINGE SQ SCH (20:00)
[2016-12-30 20:15] VITALS: O2SAT 97
[2016-12-30] MEDS ORDERED: IBUPROFEN 600 MG TAB PO PRN (20:30)
[2016-12-30 20:46] LABS: AMPHETAMINE, URINE NEG (NEG); BARBITURATES, URINE NEG (NEG); COCAINE, URINE POS (NEG)
[2016-12-30] MEDS: SODIUM CHLORIDE 0.9% FLUSH 5 ML FLUSH IV FLUSH SCH (20:53)
[2016-12-30] MEDS ORDERED: SODIUM CHLORIDE 0.9% FLUSH 5 ML FLUSH IVF SCH (21:00)
[2016-12-30] MEDS ORDERED: PRAVASTATIN SOD 40 MG TAB PO SCH (21:00)
[2016-12-30] MEDS ORDERED: NON-FORMULARY DRUG (Simvastatin 20 MG) PO SCH (21:00)
[2016-12-30 21:27] LABS: CREATINE KINASE 104 U/L (39-308)
[2016-12-30 21:39] LABS: CKMB 0.8 NG/ML (0.5-3.6)
[2016-12-31 01:14] VITALS: BP 99/62; PULSE 70; RESP 19; TEMP 98.2; O2SAT 99
[2016-12-31 04:16] VITALS: BP 100/62; PULSE 70; RESP 18; TEMP 98; O2SAT 96
[2016-12-31 08:06] VITALS: BP 98/68; PULSE 78; RESP 14; TEMP 98; O2SAT 100
[2016-12-31 08:19] VITALS: O2SAT 99
[2016-12-31] MEDS: SODIUM CHLORIDE 0.9% FLUSH 5 ML FLUSH IV FLUSH SCH (08:44)
[2016-12-31] MEDS ORDERED: AMIODARONE 200 MG TAB PO SCH (09:00)
[2016-12-31] MEDS ORDERED: AZITHROMYCIN 250 MG TAB PO SCH (09:00)
[2016-12-31] MEDS ORDERED: LISINOPRIL 5 MG TAB PO SCH (09:00)
[2016-12-31] MEDS ORDERED: FUROSEMIDE 20 MG TAB PO SCH (09:00)
[2016-12-31] MEDS ORDERED: ASPIRIN EC 81 MG TABEC PO SCH (09:00)
--- NOTE | 2016-12-31 09:16 | HHI.DCPOC ---
Discharge Care Plan Diagnosis: (1) Pneumonia Goals to Promote Your Health * To prevent worsening of your condition and complications * To maintain your health at the optimal level Directions to Meet Your Goals Take your medications as prescribed Follow your dietary instruction Follow activity as directed Keep your appointments as scheduled Take your immunizations and boosters as scheduled If your symptoms worsen call your PCP, if no PCP go to Urgent Care Center or Emergency Room Smoking is Dangerous to Your Health. Avoid second hand smoke Call the 24-hour hour crisis hotline for domestic abuse at Eron Cherry MD R3 Dec 31, 2016 09:16
[2016-12-31] MEDS ORDERED: LEVA500T PO (09:20)
[2016-12-31 09:44] LABS: AUTOMATED NEUTROPHIL # 0.8 TH/MM3 (1.8-7.7); BASOPHIL % 0.7 % (0.0-2.0); EOSINOPHIL % 1.7 % (0.0-4.0); HEMATOCRIT 35.3 % (39.0-51.0); LYMPHOCYTE # 1.1 TH/MM3 (1.0-4.8); MEAN CORPUSCULAR HEMOGLOBIN 30.6 PG (27.0-34.0); MEAN CORPUSCULAR HGB CONC 32.9 % (32.0-36.0); MONO % 15.3 % (0.0-8.0); NEUT % 34.3 % (16.0-70.0); PLATELET COUNT 193 TH/MM3 (150-450); RED BLOOD COUNT 3.79 MIL/MM3 (4.50-5.90); RED CELL DISTRIBUTION WIDTH 14.4 % (11.6-17.2); WHITE BLOOD COUNT 2.4 TH/MM3 (4.0-11.0)
[2016-12-31 09:47] LABS: HEMO FLAGS AUTO DIFF
[2016-12-31 10:12] LABS: BICARBONATE 28.2 MEQ/L (21.0-32.0); POTASSIUM 4.4 MEQ/L (3.5-5.1)
[2016-12-31 10:49] LABS: BANDS 1 % (0-6); NEUTROPHIL # MANUAL DIFF 0.8 TH/MM3 (1.8-7.7); POLYS (SEG NEUTROPHILS) 32 % (16-70); WBC DIFF SAMPLE 100
[2016-12-31 10:50] LABS: PLATELET ESTIMATE SMEAR NORMAL (NORMAL); PLATELET MORPHOLOGY NORMAL (NORMAL); SCAN/DIFF FINAL DIFF MANUAL
--- NOTE | 2016-12-31 12:00 | HHI.FPPN ---
Subjective Remarks No acute events overnight patient feels well this morning. He is breathing comfortably on room air. He is eating breakfast without any complaints. Overall he states that he is feeling back to baseline. He denies fevers or chills. He denies nausea or vomiting. He denies any chest pain or palpitations. He denies any productive cough. In summary this 46-year-old male who presented to the emergency department due to progressive shortness of breath and found to have a pneumonia on chest x- ray. He has past medical history significant for CHF/cardiomyopathy with an AICD placement in 2010. He also was recently hospitalized from due to a CHF exacerbation. He states that over the last several weeks he has had a cough that has been nonproductive but is associated with shortness of breath. He also associates some dizziness with this. He denies any chest pain or palpitations. He denies any lower extremity edema. 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 Past Medical History Cardiomyopathy HTN Past Surgical History Pacemaker placed in 2010 Circumcision at age 7 Family History Mother: when pt was 2 months old, unknown medical history Father: Living and healthy Social History Currently lives in a house with room mates, is disabled due to heart failure Denies smoking, drinking, illicit drug use; however, reported to ED physician that he recently used cocaine and marijuana. Objective Vitals Vital Signs Date Time Temp Pulse Resp B/P Pulse Ox O2 Delivery O2 Flow Rate FiO2 12/31/16 08:19 99 21 12/31/16 08:06 98.0 78 14 98/68 100 12/31/16 04:16 98.0 70 18 100/62 96 12/31/16 01:14 98.2 70 19 99/62 99 12/30/16 20:15 97 21 12/30/16 19:52 70 16 98/61 96 Room Air 12/30/16 14:27 99 Room Air 12/30/16 14:22 98.2 95 18 115/76 98 Result Diagram: 12/31/16 0814 12/31/16 0814 Imaging Last 48 hours Impressions Knee X-Ray 12/30/16 1540 Signed Impressions: Service Date/Time: December 16:13 - CONCLUSION: Evidence of joint effusion with no acute fracture or malalignment. Tejas Strauss MD Chest X-Ray 12/30/16 1423 Signed Impressions: Service Date/Time: December 13:10 - CONCLUSION: 1. Mild streaky infiltrate at the right lung base of concern for early pneumonia. 2. Mild cardiomegaly Tejas Strauss MD Objective Remarks GENERAL: This is a thin, well-developed patient, in no apparent distress. Sitting up in bed in no obvious distress and eating breakfast CARDIOVASCULAR: Regular rate and rhythm without murmurs, gallops, or rubs. RESPIRATORY: Clear to auscultation. Breath sounds equal bilaterally. No wheezes , rales, or rhonchi. Normal work of breathing. No accessory muscle use. GASTROINTESTINAL: Abdomen soft, non-tender, nondistended. MUSCULOSKELETAL: Extremities without clubbing, cyanosis. Right knee is swollen with appreciable joint effusion. NEUROLOGICAL: Awake and alert. A/P Assessment and Plan Patient is a 46-year-old male with past medical history significant for cardiomyopathy/CHF status post AICD placement in 2010 presenting to the ED due to shortness of breath found to have a pneumonia. Problem List: (1) Pneumonia Status: Acute Plan: Chest x-ray consistent with pneumonia associated with shortness of breath and cough Treated with antibiotics from the emergency department as below: - Rocephin 1 g IV 1 - Azithromycin 500 mg by mouth 1 Currently breathing comfortably on room air Plan to discharge home with oral antibiotics: Levaquin 500 mg by mouth daily 7 days Sputum culture and blood culture still pending (2) CHF (congestive heart failure) Status: Acute Plan: Patient with history of CHF, status post AICD placement. Continue home medications as below Amiodarone 200 mg po daily Aspirin 81 mg po daily Lasix 20 mg po daily Lisinopril 2.5 mg po daily Simvastatin 200 mg po HS (3) Elevation of cardiac enzymes Status: Acute Plan: On admission troponin elevated to 0.06. - Repeat troponin at 0.06, remained stable Baseline appears to be around 0.08. BNP 305, this was elevated to 1083 during the last admission. EKG read as sinus rhythm with first-degree AV block, possible right atrial enlargement, possible right ventricular conduction delay, left anterior fascicular block. Moderate T wave abnormality. (4) Knee pain Status: Acute Plan: Pt reports injuring his knee 2 weeks ago. Joint effusion appreciated on exam. -Ibuprofen 600 mg po Q8hrs Imaging: Knee x-ray from 12/30/16: Evidence of joint effusion with no acute fracture or malalignment. (5) History of illicit drug use Status: Acute Plan: Pt with hx of illicit drug use - UDS positive for marijuana and cocaine Instructed patient to avoid both marijuana and cocaine due to his history of CHF and cardiac issues (6) FEN/PPX Status: Acute Plan: Fluids: Diet as tolerated Collection lites: Within normal limits, continue to monitor Nutrition: Heart healthy diet DVT PPX: Lovenox Problem Qualifiers (1) Pneumonia: Qualified Code: J18.1 - Pneumonia of right lower lobe due to infectious organism Shon Ramsay MD Dec 31, 2016 12:00
[2016-12-31] MEDS ORDERED: cefTRIAXone INJ 1,000 MG in SODIUM CHLORIDE 0.9% INJ 100 ML IV SCH (16:00)
--- NOTE | 2016-12-31 20:23 | EKG ---
Date Performed: 12/30/2016 Time Performed: 14:35:14 PTAGE: 46 years EKG: FIRST DEGREE AV BLOCK Left axix deviation. Non specific T wave change. Atrial abnormality. When compared to previous tracing, no significant change. ABNORMAL ECG PREVIOUS TRACING : 11/24/2016 18.24 DOCTOR: Torres Carranza Interpretating Date/Time 12/31/2016 20:22:21
--- NOTE | 2016-12-31 20:25 | EKG ---
Date Performed: 12/30/2016 Time Performed: 20:31:08 PTAGE: 46 years EKG: FIRST DEGREE AV BLOCK Atrial abnormality Left axis deviation Nonspecific T wave change When compared to previous tracing, no significant change. ABNORMAL ECG PREVIOUS TRACING : 12/30/2016 14.35 DOCTOR: Torres Carranza Interpretating Date/Time 12/31/2016 20:23:48
[2017-04-07] MEDS ORDERED: FURO20TA PO (12:15)
[2017-04-07] MEDS ORDERED: POTA10CA PO (12:15)
[2017-05-10] MEDS ORDERED: FURO20TA PO (10:18)
== END 2016-12-31 11:50 | disposition home or self-care (01) ==
LOC: NEPE 14:19 → NEDA 17:36 → INTOOBSV 17:36 → NEDH 21:36 → NEPFCDU 22:08
PROVIDERS: ADMIT Family Medicine; ATTEND Family Medicine
DX: J18.1 Lobar pneumonia, unspecified organism (principal); R09.89 Other specified symptoms and signs involving the circulatory and respiratory systems; E78.00 Pure hypercholesterolemia, unspecified; R07.9 Chest pain, unspecified; I50.9 Heart failure, unspecified; I10 Essential (primary) hypertension; F17.210 Nicotine dependence, cigarettes, uncomplicated; F12.10 Cannabis abuse, uncomplicated; F14.10 Cocaine abuse, uncomplicated; Z79.899 Other long term (current) drug therapy; I42.9 Cardiomyopathy, unspecified; Z95.0 Presence of cardiac pacemaker; D72.819 Decreased white blood cell count, unspecified; I44.0 Atrioventricular block, first degree
CPT/HCPCS: 71010; 73564; 80048; 80307; 80320; 82550; 82552; 83605; 83880; 84484; 85007; 85025; 85027; 87040; 87070; 87205; 93005; 94150; 96365; 96367; 96375; 97163; 99285; G0378; G8987; G8988; J0456; J0696; J0780; J1200; J1650; J7050

== ENCOUNTER 2017-01-25 10:30 | Observation (INO) | payer MEDICAID, OTHER ==
[~2017-01-25] VITALS: Ht 172.7 cm; Wt 60.0 kg
[2017-01-25] VITALS (8 sets, daily range): BP systolic 92–152; BP diastolic 70–83; PULSE 92–108; RESP 16–20; TEMP 97.3–97.6; O2SAT 95–98
[~2017-01-25 10:30] MED LIST changes: +LEVA500T PO
--- NOTE | 2017-01-25 11:37 | PD ---
HPI Chief Complaint: Respiratory Symptoms Time Seen by Provider: 11:27 Travel History International Travel<30 days: No Contact w/Intl Traveler<30days: No Traveled to known affect area: No History of Present Illness HPI Patient is a 47-year-old male presenting to emergency Department for refills of his blood pressure medication, he states that he has been out for several days. He reports increasing shortness of breath and activity intolerance for the last 3 days. He states when he rides his bike he has to stop and take a break. This is new for him. He denies any fever, chills, nausea, vomiting, abdominal pain, swelling. Patient endorses occasional alcohol use and occasional marijuana use. His past medical history is significant for congestive heart failure and hypertension. Patient was hospitalized in November 2016 with congestive heart failure. PFSH Past Medical History Asthma: No Blood Disorders: No Anxiety: No Depression: No Cancer: No Cardiomyopathy: Yes High Cholesterol: Yes Chemotherapy: No Chest Pain: Yes Congestive Heart Failure: Yes COPD: No Diabetes: No Diminished Hearing: No Endocrine: No Gastrointestinal Disorders: No Hypertension: Yes Immune Disorder: No Implanted Vascular Access Dvce: Yes (AICD defibrillator) Musculoskeletal: No Neurologic: No Psychiatric: No Reproductive: No Respiratory: Yes Radiation Therapy: No Sleep Apnea: No Thyroid Disease: No Past Surgical History AICD: Yes (ICD, [employer]) Body Medical Devices: defibrib Cardiac Surgery: Yes (DEFIBRILLATOR) Other Surgery: Yes Social History Alcohol Use: Yes (OCCAS. ) Tobacco Use: Yes Substance Use: Yes (MARIJUANA, COCAINE LAST NGIHT ) Allergies-Medications (Allergen,Severity, Reaction): Coded Allergies: No Known Allergies (Unverified , 12/30/16) Reported Meds & Prescriptions Reported Meds & Active Scripts Active Aspirin EC (Aspirin) 81 Mg Tabdr 81 Mg PO DAILY Lisinopril 2.5 Mg Tab 2.5 Mg PO DAILY Lasix (Furosemide) 20 Mg Tab 20 Mg PO DAILY Amiodarone (Amiodarone HCl) 200 Mg Tab 200 Mg PO DAILY Simvastatin 20 Mg Tab 20 Mg PO HS Review of Systems Except as stated in HPI: all other systems reviewed are Neg General / Constitutional: No: Fever, Chills HENT: No: Headaches, Lightheadedness Cardiovascular: Positive: Dyspnea on exertion, No: Chest Pain or Discomfort Respiratory: Positive: Shortness of Breath Gastrointestinal: No: Nausea, Abdominal Pain Musculoskeletal: No: Myalgias Neurologic: No: Weakness, Dizziness, Syncope, Focal Abnormalities Physical Exam Narrative GENERAL: Thin, well-developed, alert gentleman. Resting comfortably in no acute distress. SKIN: Warm and dry. HEAD: Atraumatic. Normocephalic. EYES: Pupils equal and round. No scleral icterus. No injection or drainage. ENT: No nasal bleeding or discharge. Mucous membranes pink and moist. NECK: Trachea midline. No JVD. CARDIOVASCULAR: Regular rate and rhythm. 3/6 systolic murmur appreciated. RESPIRATORY: No accessory muscle use. Clear to auscultation. Breath sounds equal bilaterally. GASTROINTESTINAL: Abdomen soft, non-tender, nondistended. Hepatic and splenic margins not palpable. MUSCULOSKELETAL: No obvious deformities. No clubbing. No cyanosis. No edema. NEUROLOGICAL: Awake and alert. No obvious cranial nerve deficits. Motor grossly within normal limits. Normal speech. PSYCHIATRIC: Appropriate mood and affect; insight and judgment normal. Data Data Last Documented VS Vital Signs Date Time Temp Pulse Resp B/P Pulse Ox O2 Delivery O2 Flow Rate FiO2 01/25/17 12:29 95 20 106/80 97 Room Air 01/25/17 10:38 97.3 Orders Complete Blood Count With Diff (01/25/17 11:26) Comprehensive Metabolic Panel (01/25/17 11:26) B-Type Natriuretic Peptide (01/25/17 11:26) Act Partial Throm Time (Ptt) (01/25/17 11:26) Prothrombin Time / Inr (Pt) (01/25/17 11:26) Magnesium (Mg) (01/25/17 11:26) Ckmb (Isoenzyme) Profile (01/25/17 11:26) Troponin I (01/25/17 11:26) Electrocardiogram (01/25/17 11:26) Chest, Pa & Lat (01/25/17 11:26) CKMB (01/25/17 11:35) CKMB% (01/25/17 11:35) Furosemide Inj (Lasix Inj) (01/25/17 13:00) Aspirin (Aspirin) (01/25/17 13:00) Nitroglycerin 2% Oint (Nitroglycerin 2% (01/25/17 13:00) Ecg Monitoring (01/25/17 12:58) Iv Access Insert/Monitor (01/25/17 12:58) Oximetry (01/25/17 12:58) Drug Screen, Random Urine (01/25/17 13:28) Admit Order (Ed Use Only) (01/25/17 13:29) Labs Laboratory Tests Test 01/25/17 11:35 White Blood Count 3.0 TH/MM3 Red Blood Count 3.86 MIL/MM3 Hemoglobin 11.8 GM/DL Hematocrit 36.3 % Mean Corpuscular Volume 94.0 FL Mean Corpuscular Hemoglobin 30.6 PG Mean Corpuscular Hemoglobin 32.5 % Concent Red Cell Distribution Width 15.4 % Platelet Count 175 TH/MM3 Mean Platelet Volume 7.5 FL Neutrophils (%) (Auto) 42.6 % Lymphocytes (%) (Auto) 45.7 % Monocytes (%) (Auto) 10.2 % Eosinophils (%) (Auto) 0.8 % Basophils (%) (Auto) 0.7 % Neutrophils # (Auto) 1.3 TH/MM3 Lymphocytes # (Auto) 1.4 TH/MM3 Monocytes # (Auto) 0.3 TH/MM3 Eosinophils # (Auto) 0.0 TH/MM3 Basophils # (Auto) 0.0 TH/MM3 CBC Comment DIFF FINAL Differential Comment Prothrombin Time 10.8 SEC Prothromb Time International 1.0 RATIO Ratio Activated Partial 24.7 SEC Thromboplast Time Sodium Level 142 MEQ/L Potassium Level 4.2 MEQ/L Chloride Level 109 MEQ/L Carbon Dioxide Level 26.5 MEQ/L Anion Gap 7 MEQ/L Blood Urea Nitrogen 18 MG/DL Creatinine 1.33 MG/DL Estimat Glomerular Filtration 70 ML/MIN Rate Random Glucose 83 MG/DL Calcium Level 8.5 MG/DL Magnesium Level 2.1 MG/DL Total Bilirubin 0.6 MG/DL Aspartate Amino Transf 52 U/L (AST/SGOT) Alanine Aminotransferase 68 U/L (ALT/SGPT) Alkaline Phosphatase 92 U/L Total Creatine Kinase 261 U/L Creatine Kinase MB 1.0 NG/ML Troponin I 0.11 NG/ML B-Type Natriuretic Peptide 1035 PG/ML Total Protein 6.4 GM/DL Albumin 3.1 GM/DL MDM Medical Decision Making Medical Screen Exam Complete: Yes Emergency Medical Condition: Yes Medical Record Reviewed: Yes Interpretation(s) Vital Signs Date Time Temp Pulse Resp B/P Pulse Ox O2 Delivery O2 Flow Rate FiO2 01/25/17 10:38 97.3 95 16 113/73 98 Differential Diagnosis Acute on chronic congestive heart failure versus pneumonia versus bronchitis versus viral syndrome versus other Narrative Course Patient is a 47-year-old male presenting to emergency evaluation of shortness of breath and exercise intolerance. Symptoms have been progressing for the last 3 days. Patient is out of his blood pressure medication and diuretic. Patient was hospitalized in November 2016 at that time his ejection fraction was between 20 and 25%. He was started on diuretics during that admission. He had the AICD placed in 2010 secondary to cardiomyopathy due to hypertension and drug induced. Patient is a history of cocaine and marijuana use. Patient's vital signs are stable, he is well oxygenated on room air. EKG, chest x-ray, labs ordered. EKG shows sinus rhythm with occasional ventricular premature complexes, possible right atrial enlargement, left atrial enlargement, possible right ventricular conduction delay, left anterior fascicular block, moderate T-wave abnormality. When compared to prior in November 23, 2016 this EKG is consistent with prior. Workup initiated in triage, care of patient will be transferred to provide her with a medical bed is available. Desiree Orlando Jan 25, 2017 11:37
[2017-01-25 11:55] LABS: AUTOMATED NEUTROPHIL # 1.3 TH/MM3 (1.8-7.7); BASOPHIL % 0.7 % (0.0-2.0); EOSINOPHIL % 0.8 % (0.0-4.0); HEMATOCRIT 36.3 % (39.0-51.0); HEMO FLAGS DIFF FINAL; LYMPH % 45.7 % (9.0-44.0); LYMPHOCYTE # 1.4 TH/MM3 (1.0-4.8); MEAN CORPUSCULAR HEMOGLOBIN 30.6 PG (27.0-34.0); MEAN CORPUSCULAR HGB CONC 32.5 % (32.0-36.0); MONO % 10.2 % (0.0-8.0); NEUT % 42.6 % (16.0-70.0); PLATELET COUNT 175 TH/MM3 (150-450); RED BLOOD COUNT 3.86 MIL/MM3 (4.50-5.90); RED CELL DISTRIBUTION WIDTH 15.4 % (11.6-17.2)
[2017-01-25 12:03] LABS: APTT (PATIENT) 24.7 SEC (24.3-30.1); PROTHROMBIN TIME - PATIENT 10.8 SEC (9.8-11.6)
[2017-01-25 12:24] LABS: ANION GAP 7 MEQ/L (5-15); AST (GOT) 52 U/L (15-37); BICARBONATE 26.5 MEQ/L (21.0-32.0); BLOOD UREA NITROGEN 18 MG/DL (7-18); CHLORIDE 109 MEQ/L (98-107); GLOMERULAR FILTRATION RATE 70 ML/MIN (>89); MAGNESIUM 2.1 MG/DL (1.5-2.5); POTASSIUM 4.2 MEQ/L (3.5-5.1); SODIUM (NA) 142 MEQ/L (136-145)
--- NOTE | 2017-01-25 12:24 | RADRPT ---
EXAM DATE/TIME: 01/25/2017 12:17 [facility] COMPARISON: CHEST PA & LAT, November 23, 2016, 17:31. INDICATIONS : Patient has been short of breath for three days. MEDICAL HISTORY : None. SURGICAL HISTORY : Pacemaker. ENCOUNTER: Initial ACUITY: 3 days PAIN SCORE: 0/10 LOCATION: chest FINDINGS: PA and lateral views of the chest demonstrate market cardiomegaly. Slight increase in pulmonary vascu larity. Left-sided defibrillator. The cardiomediastinal contours are unremarkable. Osseous structure s are intact. CONCLUSION: Cardiomegaly with increase in pulmonary vascularity. Bari Mckenzie MD on January 25, 2017 at 12:21 Board Certified Radiologist. This report was verified electronically.
[2017-01-25 12:29] LABS: ALKALINE PHOSPHATASE 92 U/L (45-117); ALT (GPT) 68 U/L (12-78); CREATINE KINASE 261 U/L (39-308); TOTAL BILIRUBIN ADULT 0.6 MG/DL (0.2-1.0)
[2017-01-25] MEDS ORDERED: ASPIRIN 325 MG TAB PO ONE (13:00)
[2017-01-25] MEDS ORDERED: NITROGLYCERIN 2% OINT 1 GM PACKET TOP ONE (13:00)
[2017-01-25] MEDS ORDERED: FUROSEMIDE 40 MG/4 ML VIAL IV PUSH ONE (13:00)
--- NOTE | 2017-01-25 13:44 | HHI.HP ---
HPI Service Family Medicine Primary Care Physician No Primary Care Physician Admission Diagnosis chf exacerbation, chest pain Diagnoses: International Travel<30 Days: No Contact w/Intl Traveler<30days: No Known Affected Area: No History of Present Illness Mr. Calderón is a 47 y/o AAM with a PMHx of HTN, CHF, and cardiomyopathy with a defibrillator placed presenting with SOB. He states that approximately 3 days ago he started experiencing SOB that has increased in severity each day. He now states that he is unable to walk 100 feet without having to rest to catch his breath. Activity does worsen his symptoms. He states that he has not taken any of his medications since his last admission for PNA on 12/30/16. He denies any LE swelling, weight changes, or chest pain. His last ECHO was on showing an EF of 20-25% with tricuspid and mitral valve regurgitation. He has a defibrillator and when asked the last time it fired he states that it could have gone off yesterday. He does not have a baseball umpire for little league or PCP. When asked where he got his mediations prior to his earlier admission, he states he does not know. His only other complaint is mild back pain that he states is positional. He denies any fevers, SOB, chest pain, NVD, or calf tenderness. ( Imer Reynolds MD R1) Review of Systems Constitutional: DENIES: Fever Endocrine: DENIES: Polyuria Eyes: DENIES: Blurred vision Ears, nose, mouth, throat: COMPLAINS OF: Running Nose Respiratory: COMPLAINS OF: Cough, Shortness of breath Cardiovascular: DENIES: Chest pain, Palpitations Gastrointestinal: DENIES: Constipation, Diarrhea, Nausea Genitourinary: DENIES: Dysuria Musculoskeletal: COMPLAINS OF: Back pain Integumentary: DENIES: Rash Hematologic/lymphatic: DENIES: Lymphadenopathy Immunologic/allergic: DENIES: Urticaria Neurologic: DENIES: Headache Psychiatric: DENIES: Mood changes (Imer Reynolds MD R1) Past Family Social History Past Medical History Cardiomyopathy HTN Past Surgical History Pacemaker placed in 2011 Circumcision at age 7 (Imer Reynolds MD R1) Allergies: Coded Allergies: No Known Allergies (Unverified , 12/30/16) Family History Mother: when pt was 2 months old, unknown medical history Father: Living and healthy Social History Currently lives in a house with room mates, is disabled due to heart failure. Smoke - Smokes 1 cigarette per day Alcohol - 2-3 Beers per day Illicit - Endorses smoking cocaine and marijuana with last use yesterday ( Imer Reynolds MD R1) Physical Exam Vital Signs Vital Signs Date Time Temp Pulse Resp B/P Pulse Ox O2 Delivery O2 Flow Rate FiO2 01/25/17 12:29 95 20 106/80 97 Room Air 01/25/17 10:38 97.3 95 16 113/73 98 Physical Exam GENERAL: Well-nourished, well-developed AAM sitting up in bed in NAD. SKIN: Warm and dry. No rash. Capillary refill <2seconds. HEENT: Normocephalic, atraumatic with EOMI. PERRLA. MMM. Oropharynx clear without exudate or erythema. No rhinorrhea. No LAD or thyromegaly. CARDIOVASCULAR: Tachycardic to 100bpm with regular rhythm. No MGR appreciated. RESPIRATORY: CTAB with no CRW. No increased WOB. GASTROINTESTINAL: Abdomen soft, non-tender, nondistended with +BS. No masses appreciated. MUSCULOSKELETAL: No cyanosis or edema. Strength grossly WNL. BACK: R scapular area with mild tenderness to touch. ROM, strength, and sensation of the RUE intact. NEURO/PSYCH: AAOx3. Laboratory Laboratory Tests Test 01/25/17 11:35 White Blood Count 3.0 Red Blood Count 3.86 Hemoglobin 11.8 Hematocrit 36.3 Mean Corpuscular Volume 94.0 Mean Corpuscular Hemoglobin 30.6 Mean Corpuscular Hemoglobin 32.5 Concent Red Cell Distribution Width 15.4 Platelet Count 175 Mean Platelet Volume 7.5 Neutrophils (%) (Auto) 42.6 Lymphocytes (%) (Auto) 45.7 Monocytes (%) (Auto) 10.2 Eosinophils (%) (Auto) 0.8 Basophils (%) (Auto) 0.7 Neutrophils # (Auto) 1.3 Lymphocytes # (Auto) 1.4 Monocytes # (Auto) 0.3 Eosinophils # (Auto) 0.0 Basophils # (Auto) 0.0 CBC Comment DIFF FINAL Differential Comment Prothrombin Time 10.8 Prothromb Time International 1.0 Ratio Activated Partial 24.7 Thromboplast Time Sodium Level 142 Potassium Level 4.2 Chloride Level 109 Carbon Dioxide Level 26.5 Anion Gap 7 Blood Urea Nitrogen 18 Creatinine 1.33 Estimat Glomerular Filtration 70 Rate Random Glucose 83 Calcium Level 8.5 Magnesium Level 2.1 Total Bilirubin 0.6 Aspartate Amino Transf 52 (AST/SGOT) Alanine Aminotransferase 68 (ALT/SGPT) Alkaline Phosphatase 92 Total Creatine Kinase 261 Creatine Kinase MB 1.0 Troponin I 0.11 B-Type Natriuretic Peptide 1035 Total Protein 6.4 Albumin 3.1 (Imer Reynolds MD R1) Result Diagram: 01/25/17 1135 01/25/17 1135 Assessment and Plan Assessment and Plan Mr. Calderón is a 47 y/o AAM with a PMHx of HTN, CHF, and cardiomyopathy with a defibrillator placed presenting with SOB due to acute on chronic CHF exacerbation. Code Status FULL Discussed Condition With Dr. Knott, ER physician Dr. Meagan Holley (Imer Reynolds MD R1) Attending Attestation Patient seen and examined. Case reviewed and discussed with the resident team. Agree with plan of care as discussed with me and documented in the resident note. he was seen in the ED on the day of admission and was already improving (Jessica Rhodes MD) Problem List: (1) Acute CHF (congestive heart failure) Status: Acute Plan: Patient with acute on chronic CHF exacerbation secondary to non- compliance. Team to admit for observation and cardiac r/o. -Avoid B-Ritesh medication due to chronic cocaine use -Patient's symptoms resolved with Lasix 40mg given one in ER -Plan to evaluate patient's [employer] Pacemaker -Plan to resume patient's home medications BNP: 1035 Troponin 0.11, pending x2 Q6H EKG: Consistent with prior EKG on 11/23/16. Sinus rhythm with occasional PVCs. No signs of acute VT per Medical Team's read. Pending x2 Q6H. CXR: Cardiomegaly with increase in pulmonary vascularity Echo: 11/24/16 - EF of 20-25% with tricuspid and mitral valve regurgitation Medications: -Amiodarone 200mg QD -ASA 81mg QD -Lasix 20mg QD -Lisinopril 2.5mg QD -Simvastatin 20mg QHS (2) Nutrition, metabolism, and development symptoms Status: Acute Plan: Fluids: None Electrolytes: Creatinine elevated to 1.33 (baseline 1.1), continue to monitor and encourage PO fluids Diet: Hearth healthy with fluid and sodium restrictions, monitor I/Os DVT prophylaxis: Lovenox 40mg QD, TRISTA/SCDs Pain: Tylenol 650mg Q4H PRN for pain 5-10 (Imer Reynolds MD R1) Problem Qualifiers (1) Acute CHF (congestive heart failure): Qualified Code: I50.9 - Acute congestive heart failure, unspecified congestive heart failure type Imer Reynolds MD R1 Jan 25, 2017 13:44 Jessica Rhodes MD Jan 26, 2017 12:16
[2017-01-25] MEDS ORDERED: PILL SPLITTER OTHER PRN (14:15)
[2017-01-25] MEDS: LISINOPRIL 5 MG TAB PO SCH ×2 (14:15→14:52)
[2017-01-25] MEDS ORDERED: SODIUM CHLORIDE 0.9% FLUSH 5 ML FLUSH IVF PRN (14:15)
[2017-01-25] MEDS: AMIODARONE 200 MG TAB PO SCH (14:52)
[2017-01-25] MEDS: SODIUM CHLORIDE 0.9% FLUSH 5 ML FLUSH IVF SCH ×2 (14:53→21:00)
[2017-01-25] MEDS ORDERED: ACETAMINOPHEN 325 MG TAB PO PRN (15:00)
--- NOTE | 2017-01-25 15:10 | PD ---
Physical Exam Narrative GENERAL: Well-nourished, well-developed patient. SKIN: Warm and dry. HEAD: Normocephalic and atraumatic. EYES: No injection or drainage. ENT: No nasal drainage noted. NECK: Supple, trachea midline. CARDIOVASCULAR: Regular rate and rhythm RESPIRATORY: Breath sounds equal bilaterally at apices. No accessory muscle use. GASTROINTESTINAL: Abdomen soft, non-tender, nondistended. NEUROLOGICAL: Awake and alert. Motor and sensory grossly within normal limits. Normal speech. Data Data Last Documented VS Vital Signs Date Time Temp Pulse Resp B/P Pulse Ox O2 Delivery O2 Flow Rate FiO2 01/25/17 12:29 95 20 106/80 97 Room Air 01/25/17 10:38 97.3 Orders Complete Blood Count With Diff (01/25/17 11:26) Comprehensive Metabolic Panel (01/25/17 11:26) B-Type Natriuretic Peptide (01/25/17 11:26) Act Partial Throm Time (Ptt) (01/25/17 11:26) Prothrombin Time / Inr (Pt) (01/25/17 11:26) Magnesium (Mg) (01/25/17 11:26) Ckmb (Isoenzyme) Profile (01/25/17 11:26) Troponin I (01/25/17 11:26) Electrocardiogram (01/25/17 11:26) Chest, Pa & Lat (01/25/17 11:26) CKMB (01/25/17 11:35) CKMB% (01/25/17 11:35) Furosemide Inj (Lasix Inj) (01/25/17 13:00) Aspirin (Aspirin) (01/25/17 13:00) Nitroglycerin 2% Oint (Nitroglycerin 2% (01/25/17 13:00) Ecg Monitoring (01/25/17 12:58) Iv Access Insert/Monitor (01/25/17 12:58) Oximetry (01/25/17 12:58) Drug Screen, Random Urine (01/25/17 13:28) Admit Order (Ed Use Only) (01/25/17 13:29) Labs Laboratory Tests Test 01/25/17 11:35 White Blood Count 3.0 TH/MM3 Red Blood Count 3.86 MIL/MM3 Hemoglobin 11.8 GM/DL Hematocrit 36.3 % Mean Corpuscular Volume 94.0 FL Mean Corpuscular Hemoglobin 30.6 PG Mean Corpuscular Hemoglobin 32.5 % Concent Red Cell Distribution Width 15.4 % Platelet Count 175 TH/MM3 Mean Platelet Volume 7.5 FL Neutrophils (%) (Auto) 42.6 % Lymphocytes (%) (Auto) 45.7 % Monocytes (%) (Auto) 10.2 % Eosinophils (%) (Auto) 0.8 % Basophils (%) (Auto) 0.7 % Neutrophils # (Auto) 1.3 TH/MM3 Lymphocytes # (Auto) 1.4 TH/MM3 Monocytes # (Auto) 0.3 TH/MM3 Eosinophils # (Auto) 0.0 TH/MM3 Basophils # (Auto) 0.0 TH/MM3 CBC Comment DIFF FINAL Differential Comment Prothrombin Time 10.8 SEC Prothromb Time International 1.0 RATIO Ratio Activated Partial 24.7 SEC Thromboplast Time Sodium Level 142 MEQ/L Potassium Level 4.2 MEQ/L Chloride Level 109 MEQ/L Carbon Dioxide Level 26.5 MEQ/L Anion Gap 7 MEQ/L Blood Urea Nitrogen 18 MG/DL Creatinine 1.33 MG/DL Estimat Glomerular Filtration 70 ML/MIN Rate Random Glucose 83 MG/DL Calcium Level 8.5 MG/DL Magnesium Level 2.1 MG/DL Total Bilirubin 0.6 MG/DL Aspartate Amino Transf 52 U/L (AST/SGOT) Alanine Aminotransferase 68 U/L (ALT/SGPT) Alkaline Phosphatase 92 U/L Total Creatine Kinase 261 U/L Creatine Kinase MB 1.0 NG/ML Troponin I 0.11 NG/ML B-Type Natriuretic Peptide 1035 PG/ML Total Protein 6.4 GM/DL Albumin 3.1 GM/DL [facility] Supervised Visit with JASON: Yes Interpretation(s) CBC & BMP Diagram 01/25/17 11:35 Last 24 hours Impressions Chest X-Ray 01/25/17 1126 Signed Impressions: Service Date/Time: Wednesday, January 25, 2017 12:17 - CONCLUSION: Cardiomegaly with increase in pulmonary vascularity. Bari Mckenzie MD Narrative Course I, Dr. coffman, have reviewed the advance practice practitioner's documentation and am in agreement, met with the patient face to face, made the diagnosis, and the medical decision making was done by me. *My assessment and Findings: 47 y/o male presents with shortness of breath with CHF exacerbation with mildly elevated troponin. Given Lasix, aspirin, nitroglycerin and will admit to the hospital for further care. Recent admission with cocaine abuse and CHF Physician Communication Physician Communication resident team agrees to admit Diagnosis Primary Impression: Acute CHF (congestive heart failure) Qualified Code: I50.9 - Acute congestive heart failure, unspecified congestive heart failure type Additional Impressions: Elevation of cardiac enzymes History of illicit drug use Admitting Information Admitting Physician Requests: Observation Lesli Coffman MD Jan 25, 2017 15:10
[2017-01-25] MEDS ORDERED: ENOXAPARIN SODIUM 40 MG/0.4 ML SYRINGE SQ SCH (16:00)
[2017-01-25] MEDS ORDERED: LORazepam 1 MG TAB PO PRN (18:45)
[2017-01-25] MEDS ORDERED: FLUMAZENIL 0.5 MG/5 ML VIAL IV PUSH PRN (18:45)
[2017-01-25] MEDS ORDERED: LORazepam 2 MG TAB PO PRN (18:45)
[2017-01-25] MEDS ORDERED: SODIUM CHLORIDE 0.9% FLUSH 5 ML FLUSH IV FLUSH PRN (18:45)
[2017-01-25] MEDS ORDERED: LORazepam 2 MG/ML VIAL IV PUSH PRN ×4 (18:45)
[2017-01-25] MEDS: FOLIC ACID 1 MG TAB PO SCH (19:06)
[2017-01-25] MEDS: THIAMINE HCL 100 MG TAB PO SCH (19:06)
[2017-01-25] MEDS ORDERED: PRAVASTATIN SOD 40 MG TAB PO SCH (21:00)
[2017-01-25] MEDS: SODIUM CHLORIDE 0.9% FLUSH 5 ML FLUSH IV FLUSH SCH (22:27)
[2017-01-25] MEDS: MULTIVITAMINS/MINERALS THERAPEUTIC TAB PO SCH (22:27)
[2017-01-25] MEDS: POTASSIUM CHLORIDE 20 MEQ CONTROLLED RELEASE TAB PO SCH (22:28)
[2017-01-26] VITALS (7 sets, daily range): BP systolic 100–122; BP diastolic 63–79; PULSE 80–99; RESP 19–20; TEMP 97.4–98.6; O2SAT 95–99
--- NOTE | 2017-01-26 06:26 | HHI.DCPOC ---
Discharge Care Plan Diagnosis: (1) Acute CHF (congestive heart failure) Goals to Promote Your Health * To prevent worsening of your condition and complications * To maintain your health at the optimal level Directions to Meet Your Goals Take your medications as prescribed Follow your dietary instruction Follow activity as directed Keep your appointments as scheduled Take your immunizations and boosters as scheduled If your symptoms worsen call your PCP, if no PCP go to Urgent Care Center or Emergency Room Smoking is Dangerous to Your Health. Avoid second hand smoke Call the 24-hour hour crisis hotline for domestic abuse at Kenya Delgado MD R2 Jan 26, 2017 06:26
[2017-01-26 06:48] LABS: BICARBONATE 25.8 MEQ/L (21.0-32.0); MAGNESIUM 2.1 MG/DL (1.5-2.5)
[2017-01-26] MEDS ORDERED: ASPI81TA11 PO (08:43)
[2017-01-26] MEDS ORDERED: AMIO200T PO (08:43)
[2017-01-26] MEDS ORDERED: LISI2.5T3 PO (08:43)
[2017-01-26] MEDS ORDERED: POTA10CA PO (08:43)
[2017-01-26] MEDS ORDERED: SIMV20TA PO (08:43)
[2017-01-26] MEDS ORDERED: FURO1TAB62 PO (08:43)
[2017-01-26] MEDS ORDERED: FUROSEMIDE 20 MG TAB PO SCH (09:00)
[2017-01-26] MEDS ORDERED: ASPIRIN EC 81 MG TABEC PO SCH (09:00)
--- NOTE | 2017-01-26 09:09 | HHI.HP ---
[facility] Service Family Medicine Primary Care Physician No Primary Care Physician Admission Diagnosis chf exacerbation, chest pain Diagnoses: (1) Acute CHF (congestive heart failure) Diagnosis: Principal (2) Nutrition, metabolism, and development symptoms Diagnosis: Principal International Travel<30 Days: No Contact w/Intl Traveler<30days: No Known Affected Area: No History of Present Illness Mr. Calderón is a 47 y/o AAM with a PMHx of HTN, CHF, and cardiomyopathy with a defibrillator placed presenting with SOB. He states that approximately 3 days ago he started experiencing SOB that has increased in severity each day. He stated that he was unable to walk 100 feet without having to rest to catch his breath. Activity does worsen his symptoms. He stated that he has not taken any of his medications since his last admission for PNA on 12/30/16. He denies any LE swelling, weight changes, or chest pain. His last ECHO was on showing an EF of 20-25% with tricuspid and mitral valve regurgitation. He has a defibrillator and when asked the last time it fired he states that it could have gone off yesterday. However, interrogation did not show that it had fired. He does not have a injection mold tooling technician or PCP. When asked where he got his mediations prior to his earlier admission, he states he does not know. His only other complaint is mild back pain that he states is positional and now this am the same pain has come around to his front right chest and is worse with moving his arm on that side. He denies any fevers, SOB, chest pain, NVD, or calf tenderness. Overnight with being put back on his meds, he feels otherwise back to baseline. There was some note in his records about consideration for heart transplant but he would not be a good candidate as he does not take his meds faithfully. His pain in his back is clearly musculoskeletal and the same provoking and relieving factors are effecting him today on his right side. He feels well and is ready for D/C home today. He knows the importance of follow up with his physician that he will establish with as well as the importance of taking his meds. Review of Systems Other Constitutional: DENIES: Fever Endocrine: DENIES: Polyuria Eyes: DENIES: Blurred vision Ears, nose, mouth, throat: COMPLAINS OF: Running Nose Respiratory: COMPLAINS OF: Cough, Shortness of breath Cardiovascular: DENIES: Chest pain, Palpitations Gastrointestinal: DENIES: Constipation, Diarrhea, Nausea Genitourinary: DENIES: Dysuria Musculoskeletal: COMPLAINS OF: Back pain Integumentary: DENIES: Rash Hematologic/lymphatic: DENIES: Lymphadenopathy Immunologic/allergic: DENIES: Urticaria Neurologic: DENIES: Headache Psychiatric: DENIES: Mood changes Past Family Social History Past Medical History Cardiomyopathy HTN Past Surgical History Pacemaker placed in 2011 Circumcision at age 7 Allergies: Coded Allergies: No Known Allergies (Unverified , 12/30/16) Family History Mother: when pt was 2 months old, unknown medical history Father: Living and healthy Social History Currently lives in a house with room mates, is disabled due to heart failure. Smoke - Smokes 1 cigarette per day Alcohol - 2-3 Beers per day Illicit - Endorses smoking cocaine and marijuana with last use the day prior to admission Physical Exam Vital Signs Vital Signs Date Time Temp Pulse Resp B/P Pulse Ox O2 Delivery O2 Flow Rate FiO2 01/26/17 08:35 95 21 01/26/17 08:08 80 20 109/79 96 01/26/17 04:12 98.6 98 20 122/68 98 01/26/17 01:15 87 01/26/17 00:23 98.0 99 20 100/63 95 01/25/17 20:48 97.6 100 20 111/78 95 01/25/17 20:42 92 18 152/83 96 Room Air 01/25/17 16:30 108 18 108/78 96 Room Air 01/25/17 14:54 94 18 92/70 95 Room Air 01/25/17 13:45 102 18 116/77 95 Room Air 01/25/17 13:44 95 Room Air 01/25/17 12:29 95 20 106/80 97 Room Air 01/25/17 10:38 97.3 95 16 113/73 98 Physical Exam GENERAL: Well-nourished, well-developed AAM sitting up in bed in NAD. ambulating to the bathroom with no problems SKIN: Warm and dry. No rash. Capillary refill <2seconds. HEENT: Normocephalic, atraumatic with EOMI. PERRLA. MMM. Oropharynx clear without exudate or erythema. No rhinorrhea. No LAD or thyromegaly. CARDIOVASCULAR: Tachycardic to 100bpm with regular rhythm on admission, now better. No MGR appreciated. RESPIRATORY: CTAB with no CRW. No increased WOB. GASTROINTESTINAL: Abdomen soft, non-tender, nondistended with +BS. No masses appreciated. MUSCULOSKELETAL: No cyanosis or edema. Strength grossly WNL. BACK: R scapular area with mild tenderness to touch. ROM, strength, and sensation of the RUE intact. NEURO/PSYCH: AAOx3. Laboratory Laboratory Tests Test 01/25/17 01/25/17 01/26/17 01/26/17 11:35 17:31 00:12 05:41 White Blood Count 3.0 Red Blood Count 3.86 Hemoglobin 11.8 Hematocrit 36.3 Mean Corpuscular Volume 94.0 Mean Corpuscular Hemoglobin 30.6 Mean Corpuscular Hemoglobin 32.5 Concent Red Cell Distribution Width 15.4 Platelet Count 175 Mean Platelet Volume 7.5 Neutrophils (%) (Auto) 42.6 Lymphocytes (%) (Auto) 45.7 Monocytes (%) (Auto) 10.2 Eosinophils (%) (Auto) 0.8 Basophils (%) (Auto) 0.7 Neutrophils # (Auto) 1.3 Lymphocytes # (Auto) 1.4 Monocytes # (Auto) 0.3 Eosinophils # (Auto) 0.0 Basophils # (Auto) 0.0 CBC Comment DIFF FINAL Differential Comment Prothrombin Time 10.8 Prothromb Time International 1.0 Ratio Activated Partial 24.7 Thromboplast Time Sodium Level 142 141 Potassium Level 4.2 4.0 Chloride Level 109 105 Carbon Dioxide Level 26.5 25.8 Anion Gap 7 10 Blood Urea Nitrogen 18 24 Creatinine 1.33 1.28 Estimat Glomerular Filtration 70 74 Rate Random Glucose 83 78 Calcium Level 8.5 8.8 Magnesium Level 2.1 2.1 Total Bilirubin 0.6 Aspartate Amino Transf 52 (AST/SGOT) Alanine Aminotransferase 68 (ALT/SGPT) Alkaline Phosphatase 92 Total Creatine Kinase 261 Creatine Kinase MB 1.0 Troponin I 0.11 0.10 0.10 B-Type Natriuretic Peptide 1035 Total Protein 6.4 Albumin 3.1 Result Diagram: 01/25/17 1135 01/26/17 0541 Assessment and Plan Assessment and Plan Mr. Calderón is a 47 y/o AAM with a PMHx of HTN, CHF, and cardiomyopathy with a defibrillator placed presenting with SOB due to acute on chronic CHF exacerbation. Problem List: (1) Acute CHF (congestive heart failure) Status: Acute Plan: Patient with acute on chronic CHF exacerbation secondary to non- compliance. Team admitted for observation and cardiac r/o. -Avoid B-Ritesh medication due to chronic cocaine use -Patient's symptoms resolved with Lasix 40mg given one in ER -evaluated patient's [employer] Pacemaker and no defibrillation recently -Plan to resume patient's home medications BNP: 1035 Troponin 0.11, pending x2 Q6H EKG: Consistent with prior EKG on 11/23/16. Sinus rhythm with occasional PVCs. No signs of acute [place] per Medical Team's read. Pending x2 Q6H. CXR: Cardiomegaly with increase in pulmonary vascularity Echo: 11/24/16 - EF of 20-25% with tricuspid and mitral valve regurgitation Medications: -Amiodarone 200mg QD -ASA 81mg QD -Lasix 20mg QD -Lisinopril 2.5mg QD -Simvastatin 20mg QHS (2) Nutrition, metabolism, and development symptoms Status: Acute Plan: Fluids: None Electrolytes: Creatinine elevated to 1.33 (baseline 1.1), continue to monitor and encourage PO fluids, will need alf follow up Diet: Hearth healthy with fluid and sodium restrictions, monitor I/Os DVT prophylaxis: Lovenox 40mg QD, TRISTA/SCDs Pain: Tylenol 650mg Q4H PRN for pain 5-10 Problem Qualifiers (1) Acute CHF (congestive heart failure): Qualified Code: I50.9 - Acute congestive heart failure, unspecified congestive heart failure type Jessica Rhodes MD Jan 26, 2017 09:09
[2017-01-26] MEDS: FOLIC ACID 1 MG TAB PO SCH (09:11)
[2017-01-26] MEDS: MULTIVITAMINS/MINERALS THERAPEUTIC TAB PO SCH (09:11)
[2017-01-26] MEDS: AMIODARONE 200 MG TAB PO SCH (09:11)
[2017-01-26] MEDS: POTASSIUM CHLORIDE 20 MEQ CONTROLLED RELEASE TAB PO SCH (09:11)
[2017-01-26] MEDS: SODIUM CHLORIDE 0.9% FLUSH 5 ML FLUSH IVF SCH (09:12)
[2017-01-26] MEDS: THIAMINE HCL 100 MG TAB PO SCH (09:12)
[2017-01-26] MEDS: SODIUM CHLORIDE 0.9% FLUSH 5 ML FLUSH IV FLUSH SCH (09:12)
[2017-01-26] MEDS: LISINOPRIL 5 MG TAB PO SCH (09:12)
--- NOTE | 2017-01-26 18:31 | EKG ---
Date Performed: 01/26/2017 Time Performed: 02:13:37 PTAGE: 47 years EKG: Sinus rhythm LEFT ATRIAL ENLARGEMENT POSSIBLE RIGHT VENTRICULAR CONDUCTION DELAY LEFT ANTERIOR FASCICULAR BLOCK S T DEVIATION AND MODERATE T-WAVE ABNORMALITY, CONSIDER LATERAL ISCHEMIA ABNORMAL ECG PREVIOUS TRACING : 01/25/2017 21.35 Unchange from previous DOCTOR: Christian Grossman Interpretating Date/Time 01/26/2017 18:31:07
--- NOTE | 2017-01-26 18:37 | EKG ---
Date Performed: 01/25/2017 Time Performed: 21:35:17 PTAGE: 47 years EKG: Sinus rhythm WITH FIRST DEGREE AV BLOCK POSSIBLE RIGHT ATRIAL ENLARGEMENT LEFT ATRIAL ENLARGEMENT INCOMPLETE RIGH T BUNDLE BRANCH BLOCK LEFT ANTERIOR FASCICULAR BLOCK MARKED T-WAVE ABNORMALITY, CONSIDER LATERAL ISCH EMIA ABNORMAL ECG PREVIOUS TRACING : 01/25/2017 15.16 DOCTOR: Christian Grossman Interpretating Date/Time 01/26/2017 18:35:25
--- NOTE | 2017-01-26 18:45 | EKG ---
Date Performed: 01/25/2017 Time Performed: 15:16:22 PTAGE: 47 years EKG: Sinus rhythm WITH OCCASIONAL VENTRICULAR PREMATURE COMPLEXES POSSIBLE RIGHT ATRIAL ENLARGEMENT LEFT ATRIAL ENLARG EMENT LEFT ANTERIOR FASCICULAR BLOCK MODERATE T-WAVE ABNORMALITY, CONSIDER LATERAL ISCHEMIA ABNORMAL ECG PREVIOUS TRACING : 01/25/2017 11.33 DOCTOR: Christian Grossman Interpretating Date/Time 01/26/2017 18:40:03
--- NOTE | 2017-01-26 18:51 | EKG ---
Date Performed: 01/25/2017 Time Performed: 11:33:00 PTAGE: 47 years EKG: Sinus rhythm WITH OCCASIONAL VENTRICULAR PREMATURE COMPLEXES POSSIBLE RIGHT ATRIAL ENLARGEMENT LEFT ATRIAL ENLARG EMENT POSSIBLE RIGHT VENTRICULAR CONDUCTION DELAY LEFT ANTERIOR FASCICULAR BLOCK MODERATE T-WAVE ABNO RMALITY, CONSIDER LATERAL ISCHEMIA ABNORMAL ECG PREVIOUS TRACING : 12/30/2016 20.31 DOCTOR: Christian Grossman Interpretating Date/Time 01/26/2017 18:45:35
[2017-04-07] MEDS ORDERED: POTA10CA PO (12:15)
[2017-04-07] MEDS ORDERED: FURO20TA PO (12:15)
[2017-05-10] MEDS ORDERED: FURO20TA PO (10:18)
== END 2017-01-26 14:08 | disposition home or self-care (01) ==
LOC: NEPC 10:30 → NEDA 13:30 → NEPHCDU 20:43
PROVIDERS: ADMIT Family Medicine; ATTEND Family Medicine
DX: I11.0 Hypertensive heart disease with heart failure (principal); I50.9 Heart failure, unspecified; Z91.19 Patient's noncompliance with other medical treatment and regimen; F17.200 Nicotine dependence, unspecified, uncomplicated; F14.90 Cocaine use, unspecified, uncomplicated; F17.210 Nicotine dependence, cigarettes, uncomplicated; I43 Cardiomyopathy in diseases classified elsewhere; E78.00 Pure hypercholesterolemia, unspecified; Z95.810 Presence of automatic (implantable) cardiac defibrillator; Z79.82 Long term (current) use of aspirin
CPT/HCPCS: 71020; 80048; 80053; 82550; 82552; 83735; 83880; 84484; 85025; 85610; 85730; 93005; 99285; G0378; J1650; J1940

== ENCOUNTER 2017-03-04 04:34 | Emergency (ER) | payer MEDICAID, OTHER ==
[~2017-03-04] VITALS: Ht 170.2 cm; Wt 64.0 kg
[~2017-03-04 04:34] MED LIST changes: -LEVA500T PO; +POTA10CA PO
[2017-03-04 04:40] VITALS: BP 110/84; PULSE 89; RESP 18; TEMP 97.9; O2SAT 98
[2017-03-04] MEDS ORDERED: DIATRIZOATE MEGLUM/DIATRIZOATE SOD 9 ML CUP ONE (04:48)
[2017-03-04] MEDS ORDERED: SODIUM CHLOR 0.9% 1000 ML INJ 1,000 ML IV SCH (04:49)
[2017-03-04] MEDS ORDERED: SODIUM CHLORIDE 0.9% FLUSH 10 ML FLUSH IV FLUSH PRN (05:00)
[2017-03-04] MEDS ORDERED: ONDANSETRON HCL 4 MG/2 ML VIAL IVP ONE (05:00)
[2017-03-04] MEDS ORDERED: MORPHINE SULFATE 4 MG/ML INJ IV PUSH ONE (05:00)
--- NOTE | 2017-03-04 05:02 | PD ---
HPI Chief Complaint: Abdominal Pain Time Seen by Provider: 04:43 Travel History International Travel<30 days: No Contact w/Intl Traveler<30days: No Traveled to known affect area: No History of Present Illness HPI 47-year-old male with history of CHF, AICD, brought in by ambulance for evaluation of abdominal pain and right flank pain. Patient reports the symptoms of an ongoing for the last 3 days. He reports that the pain is sharp, constant, intermittently worse at times. No modifying factors. He now states that the pain is radiating up into his right flank area. He denies any urinary symptoms. He does state that he has not had a bowel movement in the last 4 days. No history of abdominal surgeries. No fevers or chills. No chest pain or dyspnea. At first the patient was denying alcohol or drug use to me, however he later admits to using cocaine and marijuana a few days ago. PFSH Past Medical History Asthma: No Blood Disorders: No Anxiety: No Depression: No Heart Rhythm Problems: Yes Cancer: No Cardiomyopathy: Yes Cardiovascular Problems: Yes High Cholesterol: Yes Chemotherapy: No Chest Pain: Yes Congestive Heart Failure: Yes COPD: No Diabetes: No Diminished Hearing: No Endocrine: No Gastrointestinal Disorders: No Genitourinary: No Hypertension: Yes Immune Disorder: No Implanted Vascular Access Dvce: Yes (AICD defibrillator) Musculoskeletal: No Neurologic: No Psychiatric: No Reproductive: No Respiratory: Yes Radiation Therapy: No Sleep Apnea: No Thyroid Disease: No Past Surgical History AICD: Yes (AICD, [employer]) Body Medical Devices: defibrib Cardiac Surgery: Yes (DEFIBRILLATOR) Other Surgery: Yes Social History Alcohol Use: Yes (OCCAS. ) Tobacco Use: Yes (1-2 CIGS DAILY) Substance Use: Yes (MARIJUANA, COCAINE, CRACK DAILY) Allergies-Medications (Allergen,Severity, Reaction): Coded Allergies: No Known Allergies (Unverified , 03/04/17) Reported Meds & Prescriptions Reported Meds & Active Scripts Active Potassium Chloride ER (Potassium Chloride) 10 Meq Cap 10 Meq PO DAILY Aspirin EC (Aspirin) 81 Mg Tabdr 81 Mg PO DAILY Lisinopril 2.5 Mg Tab 2.5 Mg PO DAILY Lasix (Furosemide) 20 Mg Tab 20 Mg PO DAILY Amiodarone (Amiodarone HCl) 200 Mg Tab 200 Mg PO DAILY Simvastatin 20 Mg Tab 20 Mg PO HS Review of Systems Except as stated in HPI: all other systems reviewed are Neg Physical Exam Narrative GENERAL: Well-developed, thin, comfortable, no acute distress. SKIN: Focused skin assessment warm/dry. No rash. No pallor. HEAD: Atraumatic. Normocephalic. EYES: Pupils equal and round. No scleral icterus. No injection or drainage. ENT: Mucous membranes pink and moist. NECK: Trachea midline. No JVD. CARDIOVASCULAR: Regular rate and rhythm. Distal pulses brisk and equal bilaterally. RESPIRATORY: No accessory muscle use. Clear to auscultation. Breath sounds equal bilaterally. GASTROINTESTINAL: Abdomen soft, non-tender, nondistended. Normal bowel sounds. No hernias. MUSCULOSKELETAL: No obvious deformities. No clubbing. No cyanosis. No edema. No midline vertebral step-off or tenderness. No CVA tenderness. NEUROLOGICAL: Awake and alert. No obvious cranial nerve deficits. Motor grossly within normal limits. Normal speech. PSYCHIATRIC: Appropriate mood and affect; insight and judgment normal. Data Data Last Documented VS Vital Signs Date Time Temp Pulse Resp B/P Pulse Ox O2 Delivery O2 Flow Rate FiO2 03/04/17 06:13 18 03/04/17 04:40 97.9 89 110/84 98 Orders Diatrizoate Liq ( Gastroview Liq) (03/04/17 04:48) Complete Blood Count With Diff (03/04/17 04:49) Comprehensive Metabolic Panel (03/04/17 04:49) Lipase (03/04/17 04:49) Prothrombin Time / Inr (Pt) (03/04/17 04:49) Act Partial Throm Time (Ptt) (03/04/17 04:49) Urinalysis - C+S If Indicated (03/04/17 04:49) Ct Abd/Pel W Iv Contrast(Rout) (03/04/17 04:49) Iv Access Insert/Monitor (03/04/17 04:49) Ecg Monitoring (03/04/17 04:49) Oximetry (03/04/17 04:49) Morphine Inj (Morphine Inj) (03/04/17 05:00) Ondansetron Inj (Zofran Inj) (03/04/17 05:00) Sodium Chlor 0.9% 1000 Ml Inj (Ns 1000 M (03/04/17 04:49) Sodium Chloride 0.9% Flush (Ns Flush) (03/04/17 05:00) Drug Screen, Random Urine (03/04/17 04:55) Oral Contrast - Adult (03/04/17 04:57) Iohexol 350 Inj (Omnipaque 350 Inj) (03/04/17 06:13) Labs Laboratory Tests Test 03/04/17 04:50 White Blood Count 4.0 TH/MM3 Red Blood Count 3.74 MIL/MM3 Hemoglobin 11.5 GM/DL Hematocrit 35.1 % Mean Corpuscular Volume 93.9 FL Mean Corpuscular Hemoglobin 30.9 PG Mean Corpuscular Hemoglobin 32.9 % Concent Red Cell Distribution Width 15.8 % Platelet Count 189 TH/MM3 Mean Platelet Volume 8.4 FL Neutrophils (%) (Auto) 59.3 % Lymphocytes (%) (Auto) 30.0 % Monocytes (%) (Auto) 9.6 % Eosinophils (%) (Auto) 0.6 % Basophils (%) (Auto) 0.5 % Neutrophils # (Auto) 2.3 TH/MM3 Lymphocytes # (Auto) 1.2 TH/MM3 Monocytes # (Auto) 0.4 TH/MM3 Eosinophils # (Auto) 0.0 TH/MM3 Basophils # (Auto) 0.0 TH/MM3 CBC Comment DIFF FINAL Differential Comment Prothrombin Time 10.7 SEC Prothromb Time International 1.0 RATIO Ratio Activated Partial 25.0 SEC Thromboplast Time Urine Color YELLOW Urine Turbidity CLEAR Urine pH 6.0 Urine Specific [place] 1.026 Urine Protein TRACE mg/dL Urine Glucose (UA) NEG mg/dL Urine Ketones NEG mg/dL Urine Occult Blood NEG Urine Nitrite NEG Urine Bilirubin NEG Urine Urobilinogen 2.0 MG/DL Urine Leukocyte Esterase NEG Urine RBC LESS THAN 1 /hpf Urine WBC 1 /hpf Urine Squamous Epithelial 1 /hpf Cells Urine Mucus FEW /lpf Microscopic Urinalysis Comment CULT NOT INDICATED Sodium Level 139 MEQ/L Potassium Level 4.0 MEQ/L Chloride Level 106 MEQ/L Carbon Dioxide Level 28.1 MEQ/L Anion Gap 5 MEQ/L Blood Urea Nitrogen 21 MG/DL Creatinine 1.31 MG/DL Estimat Glomerular Filtration 72 ML/MIN Rate Random Glucose 86 MG/DL Calcium Level 8.3 MG/DL Total Bilirubin 0.3 MG/DL Aspartate Amino Transf 106 U/L (AST/SGOT) Alanine Aminotransferase 103 U/L (ALT/SGPT) Alkaline Phosphatase 106 U/L Total Protein 5.9 GM/DL Albumin 2.8 GM/DL Lipase 297 U/L Urine Opiates Screen NEG Urine Barbiturates Screen NEG Urine Amphetamines Screen NEG Urine Benzodiazepines Screen NEG Urine Cocaine Screen POS Urine Cannabinoids Screen POS MDM Medical Decision Making Medical Screen Exam Complete: Yes Emergency Medical Condition: Yes Differential Diagnosis Musculoskeletal pain, nephrolithiasis, ureterolithiasis, pyelonephritis, hepatobiliary disease, pancreatitis, UTI, appendicitis, colitis, diverticulitis , malingering Narrative Course Vital signs show heart rate 89, blood pressure 110/84, pulse ox 98% on room air , oral temp of 97.9F. CBC shows WBC 4.0, hemoglobin 11.5, hematocrit 35.1, platelets 189. CMP is remarkable for BUN 21, creatinine 1.31, GFR 72 which is around his baseline, AST 106, ALT 103, otherwise unremarkable. Lipase is 297. UA is unremarkable. Urine drug screen is positive for cocaine and cannabinoids. CT abdomen pelvis: CONCLUSION: 1. Bibasilar infiltrates, right greater than left. 2. The liver is prominent in size. There is a 1.4 cm focal area of nonspecific enhancement involving the right lobe of the liver. There is a trace of ascites around the liver. 3. Nonspecific prominence involving the mucosal folds of the proximal small bowel. 4. Nonspecific diffuse thickening involving the wall of the rectosigmoid colon. Patient was made aware of all findings. He is sleeping comfortably. Infiltrate seen on CT scan bilaterally are likely secondary to pulmonary edema. The patient is afebrile. He is not coughing. I do not believe that this is pneumonia. His abdominal exam is benign. There are no peritoneal signs. No tenderness. He will be discharged home with a prescription for Cipro and Flagyl. He can be further workup for his CT abdomen pelvis findings as an outpatient. Mandatory GI referral will be ordered. He was informed on when to return to the emergency department. He verbalizes understanding and agreement with plan. Diagnosis Primary Impression: Colitis Additional Impressions: Transaminitis Abdominal pain Qualified Code: R10.9 - Abdominal pain, unspecified location Referrals: Valeria Webb MD 3 days Process Improvement Consultant Primary Care Physician 3 days Additional Instructions: Follow-up with a primary care physician this week. Follow-up with marina dry dock manager Dr. Webb or a marina dry dock manager of your choice this week. Take antibiotics as prescribed. Return to the emergency department for worsening symptoms or any other concerns. Scripts Tramadol 50 Mg Tab50 Mg PO Q6H PRN (PAIN) #10 TAB Ref 0 Prov:Willie Hyman MD 03/04/17 Metronidazole (Flagyl)500 Mg [id number] Mg PO BID 10 Days Ref 0 Prov:Willie Hyman MD 03/04/17 Ciprofloxacin (Cipro)500 Mg [id number] Mg PO BID 10 Days Ref 0 Prov:Willie Hyman MD 03/04/17 Disposition: 01 DISCHARGE HOME Condition: Stable Willie Hyman MD Mar 04, 2017 05:02
[2017-03-04 05:23] LABS: AMPHETAMINE, URINE NEG (NEG); BARBITURATES, URINE NEG (NEG); COCAINE, URINE POS (NEG)
[2017-03-04 05:26] LABS: ALT (GPT) 103 U/L (12-78); ANION GAP 5 MEQ/L (5-15); AST (GOT) 106 U/L (15-37); BICARBONATE 28.1 MEQ/L (21.0-32.0); BLOOD UREA NITROGEN 21 MG/DL (7-18); BLOOD, URINE NEG (NEG); CHLORIDE 106 MEQ/L (98-107); COMMENT (UR) CULT NOT INDICATED; CULTURE IF INDICATED CULT NOT INDICATED; GLOMERULAR FILTRATION RATE 72 ML/MIN (>89); GLUCOSE,URINE NEG (NEG); KETONE, URINE NEG (NEG); MUCUS URINE FEW /lpf (OCC); NITRITE,URINE NEG (NEG); SODIUM (NA) 139 MEQ/L (136-145); SQUAMOUS EPITHELIAL CELL URINE 1 /hpf (0-5); URINE COLOR YELLOW (YELLW/STRAW)
[2017-03-04 05:28] LABS: AUTOMATED NEUTROPHIL # 2.3 TH/MM3 (1.8-7.7); BASOPHIL % 0.5 % (0.0-2.0); EOSINOPHIL % 0.6 % (0.0-4.0); HEMATOCRIT 35.1 % (39.0-51.0); HEMO FLAGS DIFF FINAL; LYMPHOCYTE # 1.2 TH/MM3 (1.0-4.8); MEAN CELL VOLUME 93.9 FL (80.0-100.0); MEAN CORPUSCULAR HEMOGLOBIN 30.9 PG (27.0-34.0); MEAN CORPUSCULAR HGB CONC 32.9 % (32.0-36.0); MONO % 9.6 % (0.0-8.0); NEUT % 59.3 % (16.0-70.0); PLATELET COUNT 189 TH/MM3 (150-450); RED BLOOD COUNT 3.74 MIL/MM3 (4.50-5.90); RED CELL DISTRIBUTION WIDTH 15.8 % (11.6-17.2)
[2017-03-04 05:29] LABS: ALKALINE PHOSPHATASE 106 U/L (45-117); PROTHROMBIN TIME - PATIENT 10.7 SEC (9.8-11.6); TOTAL BILIRUBIN ADULT 0.3 MG/DL (0.2-1.0)
[2017-03-04 06:13] VITALS: RESP 18
[2017-03-04] MEDS ORDERED: IOHEXOL 350 MG/ML 10 ML VIAL (for RAD DIAG) IV ONE (06:13)
--- NOTE | 2017-03-04 06:31 | RADRPT ---
EXAM DATE/TIME: 03/04/2017 05:54 [facility] COMPARISON: No previous studies available for comparison. INDICATIONS : Right flank pain radiating to abdomen for three days IV CONTRAST: 100 cc Omnipaque 350 (iohexol) IV ORAL CONTRAST: Prescribed oral contrast ingested. RADIATION DOSE: 9.96 CTDIvol (mGy) MEDICAL HISTORY : Congestive heart failure. Cardiovascular disease Hypercholesterolemia.Hypertension. Daily substance a buse. SURGICAL HISTORY : Defibrillator. ENCOUNTER: Initial ACUITY: 3 days PAIN SCALE: 5/10 LOCATION: Right flank TECHNIQUE: Volumetric scanning of the abdomen and pelvis was performed. Using automated exposure control and ad justment of the mA and/or kV according to patient size, radiation dose was kept as low as reasonably achievable to obtain optimal diagnostic quality images. FINDINGS: LOWER LUNGS: Bibasilar infiltrates, right greater than left. Heart size is diffusely enlarged. LIVER: Liver appears to be diffusely enlarged. No dilated biliary ducts are demonstrated. The gallbladder is grossly unremarkable. There is a trace of fluid around the liver. There is a 1.4 cm area focal enhan cement involving the right lobe of the liver. This is adjacent to the right kidney. SPLEEN: Normal size without lesion. PANCREAS: Within normal limits. KIDNEYS: Normal in size and shape. There is no mass, stone or hydronephrosis. ADRENAL GLANDS: Within normal limits. VASCULAR: There is no aortic aneurysm. BOWEL/MESENTERY: The stomach, small bowel, and colon demonstrate no acute abnormality. There is no free intraperitone al air or fluid. The appendix is unremarkable. There is stool in the colon. No definite inflammatory changes are seen. The folds of the proximal small bowel appear to be mildly prominent. There appears to be some nonspecific thickening involving the wall of the rectal sigmoid colon. ABDOMINAL WALL: Within normal limits. RETROPERITONEUM: There is no lymphadenopathy. BLADDER: No wall thickening or mass. The urinary bladder is not completely distended. REPRODUCTIVE: Within normal limits. INGUINAL: There is no lymphadenopathy or hernia. MUSCULOSKELETAL: Within normal limits for patient age. CONCLUSION: 1. Bibasilar infiltrates, right greater than left. 2. The liver is prominent in size. There is a 1.4 cm focal area of nonspecific enhancement involving the right lobe of the liver. There is a trace of ascites around the liver. 3. Nonspecific prominence involving the mucosal folds of the proximal small bowel. 4. Nonspecific diffuse thickening involving the wall of the rectosigmoid colon. Shon Ceballos MD on March 04, 2017 at 6:20 Board Certified Radiologist. This report was verified electronically.
[2017-03-04] MEDS ORDERED: TRAM50TA PO (06:41)
[2017-03-04] MEDS ORDERED: METR-1 PO (06:41)
[2017-03-04] MEDS ORDERED: CIPR-9 PO (06:41)
[2017-03-04] MEDS ORDERED: CIPROFLOXACIN 500 MG TAB PO ONE (06:45)
[2017-03-04] MEDS ORDERED: metroNIDAZOLE 500 MG TAB PO ONE (06:45)
[2017-03-04 06:53] VITALS: O2SAT 97
[2017-04-07] MEDS ORDERED: FURO20TA PO (12:15)
[2017-04-07] MEDS ORDERED: POTA10CA PO (12:15)
[2017-05-10] MEDS ORDERED: FURO20TA PO (10:18)
== END 2017-03-04 06:54 | disposition home or self-care (01) ==
LOC: NEPE 04:34
DX: K52.9 Noninfective gastroenteritis and colitis, unspecified (principal); R74.0 Nonspecific elevation of levels of transaminase and lactic acid dehydrogenase [LDH]; R10.9 Unspecified abdominal pain; I42.9 Cardiomyopathy, unspecified; E78.00 Pure hypercholesterolemia, unspecified; I50.9 Heart failure, unspecified; I10 Essential (primary) hypertension; F17.210 Nicotine dependence, cigarettes, uncomplicated; Z95.810 Presence of automatic (implantable) cardiac defibrillator
CPT/HCPCS: 74177; 80053; 80307; 81001; 83690; 85025; 85610; 85730; 96361; 96374; 96375; 99284; J2270; J2405; J7030; Q9963; Q9967

== ENCOUNTER 2017-03-10 21:32 | Inpatient (IN) | payer MEDICAID ==
[~2017-03-10] VITALS: Ht 170.2 cm; Wt 53.5 kg
[~2017-03-10 21:32] MED LIST changes: +CIPR-9 PO; +METR-1 PO; +TRAM50TA PO
[2017-03-10 21:45] VITALS: BP 118/72; PULSE 90; RESP 18; TEMP 97.6; O2SAT 95
[2017-03-10 21:53] VITALS: O2SAT 95
[2017-03-10] MEDS ORDERED: ASPIRIN 325 MG TAB PO ONE (22:00)
[2017-03-10] MEDS ORDERED: MORPHINE SULFATE 4 MG/ML INJ IV PUSH ONE (22:00)
[2017-03-10] MEDS ORDERED: ONDANSETRON HCL 4 MG/2 ML VIAL IV PUSH ONE (22:00)
--- NOTE | 2017-03-10 22:11 | RADRPT ---
EXAM DATE/TIME: 03/10/2017 21:48 [facility] COMPARISON: CHEST PA & LAT, January 25, 2017, 12:17. INDICATIONS : Chest and upper back pain MEDICAL HISTORY : Congestive heart failure. SURGICAL HISTORY : Pacemaker. ENCOUNTER: Initial ACUITY: 1 day PAIN SCORE: 9/10 LOCATION: Bilateral chest FINDINGS: Slight cardiomegaly and pacer wire have not changed. There is pulmonary edema to a moderate degree no t present previously. Bilateral pleural effusions are not excluded. CONCLUSION: Interval development of pulmonary edema. Mary Wasserman MD on March 10, 2017 at 22:09 Board Certified Radiologist. This report was verified electronically.
--- NOTE | 2017-03-10 22:13 | PD ---
HPI Chief Complaint: Chest Pain Time Seen by Provider: 22:09 Travel History International Travel<30 days: No Contact w/Intl Traveler<30days: No Traveled to known affect area: No History of Present Illness HPI 47-year-old male that presents to the ED for evaluation of chest pain. Patient has had this since the incident this morning. Denies any shortness of breath. Patient has a history of CHF and AICD. Patient states that the chest pain has been ongoing for all day. Per patient gets worse with movement and with deep breaths. Per patient the pain is 8 out of 10. It radiates to the back. Denies any nausea or vomiting. No recent travel. He denies any drugs or alcohol recently. He does have a history of alcohol abuse in the past which caused him to have cardiomyopathy and having had to have the pacemaker because of that. He has no allergies to medication. He came here by a back for evaluation of this. He was not given any medications. He denies any injuries. He does state that he went to the gym and on the gym his pain got more severe and he had to stop. PFSH Past Medical History Asthma: No Blood Disorders: No Anxiety: No Depression: No Heart Rhythm Problems: Yes Cancer: No Cardiomyopathy: Yes Cardiovascular Problems: Yes High Cholesterol: Yes Chemotherapy: No Chest Pain: Yes Congestive Heart Failure: Yes COPD: No Diabetes: No Diminished Hearing: No Endocrine: No Gastrointestinal Disorders: No Genitourinary: No Hypertension: Yes Immune Disorder: No Implanted Vascular Access Dvce: Yes (AICD defibrillator) Musculoskeletal: No Neurologic: No Psychiatric: No Reproductive: No Respiratory: Yes Radiation Therapy: No Sleep Apnea: No Thyroid Disease: No Past Surgical History AICD: Yes (AICD, [facility]) Body Medical Devices: defibrib Cardiac Surgery: Yes (DEFIBRILLATOR) Other Surgery: Yes Social History Alcohol Use: Yes (OCCAS. ) Tobacco Use: Yes (1-2 CIGS DAILY) Substance Use: Yes (MARIJUANA, COCAINE, CRACK DAILY) Allergies-Medications (Allergen,Severity, Reaction): Coded Allergies: No Known Allergies (Unverified , 03/10/17) Reported Meds & Prescriptions Reported Meds & Active Scripts Active Tramadol (Tramadol HCl) 50 Mg Tab 50 Mg PO Q6H PRN Potassium Chloride ER (Potassium Chloride) 10 Meq Cap 10 Meq PO DAILY Aspirin EC (Aspirin) 81 Mg Tabdr 81 Mg PO DAILY Lisinopril 2.5 Mg Tab 2.5 Mg PO DAILY Lasix (Furosemide) 20 Mg Tab 20 Mg PO DAILY Amiodarone (Amiodarone HCl) 200 Mg Tab 200 Mg PO DAILY Simvastatin 20 Mg Tab 20 Mg PO HS Review of Systems Except as stated in HPI: all other systems reviewed are Neg Physical Exam Narrative GENERAL: SKIN: Warm and dry. HEAD: Atraumatic. Normocephalic. EYES: Pupils equal and round. No scleral icterus. No injection or drainage. ENT: No nasal bleeding or discharge. Mucous membranes pink and moist. Tongue is midline. No uvula deviation. NECK: Trachea midline. No JVD. CARDIOVASCULAR: Tachycardic rate and rhythm. No murmurs, S3, S4. Chest pain is not reproducible with touch. RESPIRATORY: No accessory muscle use. Clear to auscultation. Breath sounds equal bilaterally. GASTROINTESTINAL: Abdomen soft, non-tender, nondistended. Hepatic and splenic margins not palpable. MUSCULOSKELETAL: Extremities without clubbing, cyanosis, or edema. No obvious deformities. Full range of motion of the upper and lower extremities bilaterally. 2+ pulses bilaterally. NEUROLOGICAL: Awake and alert. No obvious cranial nerve deficits. Motor grossly within normal limits. Five out of 5 muscle strength in the arms and legs. Normal speech. PSYCHIATRIC: Appropriate mood and affect; insight and judgment normal. Data Data Last Documented VS Vital Signs Date Time Temp Pulse Resp B/P Pulse Ox O2 Delivery O2 Flow Rate FiO2 03/10/17 22:30 18 03/10/17 21:53 97 Nasal Cannula 2 03/10/17 21:45 97.6 90 118/72 Orders Electrocardiogram (03/10/17 21:49) Ckmb (Isoenzyme) Profile (03/10/17 21:49) Complete Blood Count With Diff (03/10/17 21:49) Comprehensive Metabolic Panel (03/10/17 21:49) D-Dimer (03/10/17 21:49) Magnesium (Mg) (03/10/17 21:49) Prothrombin Time / Inr (Pt) (03/10/17 21:49) Act Partial Throm Time (Ptt) (03/10/17 21:49) Troponin I (03/10/17 21:49) Lipase (03/10/17 21:49) Chest, Single Ap (03/10/17 21:49) Ecg Monitoring (03/10/17 21:49) Bilateral Bp Monitoring (03/10/17 21:49) Iv Access Insert/Monitor (03/10/17 21:49) Oximetry (03/10/17 21:49) Oxygen Administration (03/10/17 21:49) Aspirin (Aspirin) (03/10/17 22:00) Morphine Inj (Morphine Inj) (03/10/17 22:00) Ondansetron Inj (Zofran Inj) (03/10/17 22:00) B-Type Natriuretic Peptide (03/10/17 21:50) Labs Laboratory Tests Test 03/10/17 21:54 White Blood Count 4.1 TH/MM3 Red Blood Count 3.45 MIL/MM3 Hemoglobin 10.5 GM/DL Hematocrit 32.2 % Mean Corpuscular Volume 93.2 FL Mean Corpuscular Hemoglobin 30.5 PG Mean Corpuscular Hemoglobin 32.8 % Concent Red Cell Distribution Width 16.2 % Platelet Count 239 TH/MM3 Mean Platelet Volume 8.2 FL Neutrophils (%) (Auto) 54.2 % Lymphocytes (%) (Auto) 36.7 % Monocytes (%) (Auto) 8.1 % Eosinophils (%) (Auto) 0.6 % Basophils (%) (Auto) 0.4 % Neutrophils # (Auto) 2.2 TH/MM3 Lymphocytes # (Auto) 1.5 TH/MM3 Monocytes # (Auto) 0.3 TH/MM3 Eosinophils # (Auto) 0.0 TH/MM3 Basophils # (Auto) 0.0 TH/MM3 CBC Comment DIFF FINAL Differential Comment Sodium Level 142 MEQ/L Potassium Level 4.3 MEQ/L Chloride Level 108 MEQ/L Carbon Dioxide Level 26.6 MEQ/L Anion Gap 7 MEQ/L Blood Urea Nitrogen 21 MG/DL Creatinine 1.32 MG/DL Estimat Glomerular Filtration 71 ML/MIN Rate Random Glucose 89 MG/DL Calcium Level 8.0 MG/DL Magnesium Level 1.9 MG/DL Aspartate Amino Transf 157 U/L (AST/SGOT) Albumin 2.4 GM/DL Lipase 230 U/L MDM Medical Decision Making Medical Screen Exam Complete: Yes Emergency Medical Condition: Yes Medical Record Reviewed: Yes Interpretation(s) CBC & BMP Diagram 03/10/17 21:54 Differential Diagnosis Chest pain versus CHF versus coronary disease versus PE versus pleurisy Narrative Course 47-year-old male that presents to the ED for evaluation of chest pain. Patient was properly examined and was found to have signs and symptoms consistent appears to be chest pain. Clinically at this time. Labs and imaging ordered. Meds given. Labs and imaging still pending. Case will be signed out to my attending pending dispo. Diagnosis Primary Impression: CHF (congestive heart failure) Qualified Code: I50.9 - Acute on chronic congestive heart failure, unspecified congestive heart failure type Allen Hall Mar 10, 2017 22:12
[2017-03-10 22:19] LABS: AUTOMATED NEUTROPHIL # 2.2 TH/MM3 (1.8-7.7); BASOPHIL % 0.4 % (0.0-2.0); EOSINOPHIL % 0.6 % (0.0-4.0); HEMATOCRIT 32.2 % (39.0-51.0); HEMO FLAGS DIFF FINAL; LYMPH % 36.7 % (9.0-44.0); LYMPHOCYTE # 1.5 TH/MM3 (1.0-4.8); MEAN CELL VOLUME 93.2 FL (80.0-100.0); MEAN CORPUSCULAR HEMOGLOBIN 30.5 PG (27.0-34.0); MEAN CORPUSCULAR HGB CONC 32.8 % (32.0-36.0); MONO % 8.1 % (0.0-8.0); NEUT % 54.2 % (16.0-70.0); PLATELET COUNT 239 TH/MM3 (150-450); RED BLOOD COUNT 3.45 MIL/MM3 (4.50-5.90); RED CELL DISTRIBUTION WIDTH 16.2 % (11.6-17.2); WHITE BLOOD COUNT 4.1 TH/MM3 (4.0-11.0)
[2017-03-10 22:27] LABS: ANION GAP 7 MEQ/L (5-15); AST (GOT) 157 U/L (15-37); BICARBONATE 26.6 MEQ/L (21.0-32.0); BLOOD UREA NITROGEN 21 MG/DL (7-18); CHLORIDE 108 MEQ/L (98-107); GLOMERULAR FILTRATION RATE 71 ML/MIN (>89); MAGNESIUM 1.9 MG/DL (1.5-2.5); POTASSIUM 4.3 MEQ/L (3.5-5.1); SODIUM (NA) 142 MEQ/L (136-145)
[2017-03-10 22:32] LABS: ALKALINE PHOSPHATASE 100 U/L (45-117); ALT (GPT) 83 U/L (12-78); APTT (PATIENT) 25.1 SEC (24.3-30.1); CREATINE KINASE 118 U/L (39-308); INTERNATIONAL NORMALIZED RATIO 1.1 RATIO; PROTHROMBIN TIME - PATIENT 11.7 SEC (9.8-11.6); TOTAL BILIRUBIN ADULT 0.2 MG/DL (0.2-1.0)
[2017-03-10 22:45] LABS: CKMB 1.3 NG/ML (0.5-3.6)
[2017-03-10] MEDS ORDERED: IOHEXOL 350 MG/ML 10 ML VIAL (for RAD DIAG) IV ONE (22:51)
--- NOTE | 2017-03-10 23:04 | RADRPT ---
EXAM DATE/TIME: 03/10/2017 22:37 [facility] COMPARISON: No previous studies available for comparison. INDICATIONS : Middle to left sided chest pain. IV CONTRAST: 65 cc Omnipaque 350 (iohexol) IV RADIATION DOSE: 6.50 CTDIvol (mGy) MEDICAL HISTORY : Myocardial infarction. Congestive heart failure. Hypertension.Cardiomyopathy. SURGICAL HISTORY : Pacemaker. ENCOUNTER: Initial ACUITY: 2 weeks PAIN SCALE: 8/10 LOCATION: Left chest TECHNIQUE: Volumetric scanning of the chest was performed using a pulmonary embolism protocol MIP images were re constructed. Using automated exposure control and adjustment of the mA and/or kV according to patien t size, radiation dose was kept as low as reasonably achievable to obtain optimal diagnostic quality images. FINDINGS: PULMONARY ARTERIES: 2 small subtle areas of filling defect observed worrisome for pulmonary emboli. The first is located within the interlobar pulmonary artery on the right while the second is within the posterior basilar segment of the left lower lobe. LUNGS: Ground glass infiltrates are seen scattered throughout both lungs most pronounced within the left upp er lobe. PLEURAE: A small right pleural effusion. A tiny left effusion. MEDIASTINUM: Significant cardiomegaly. Pulmonary arteries and aorta are normal in caliber. No gross mediastinal ma ss. MUSCULOSKELETAL: Within normal limits for patient age. A left-sided pacing device. MISCELLANEOUS: The visualized upper abdominal organs demonstrate no acute abnormality. CONCLUSION: 1. 2 tiny subtle filling defects observed concerning for possible pulmonary emboli. These are small a nd nonocclusive in nature. 2. Significant cardiomegaly. 3. Bilateral pulmonary infiltrates and effusions likely related to pulmonary edema. Danial Rebollar Jr., MD on March 10, 2017 at 22:57 Board Certified Radiologist. This report was verified electronically.
--- NOTE | 2017-03-10 23:15 | PD ---
Physical Exam Narrative Patient was seen and examined with my assistant chief engineer. Data Data Last Documented VS Vital Signs Date Time Temp Pulse Resp B/P Pulse Ox O2 Delivery O2 Flow Rate FiO2 03/10/17 23:53 98 18 127/72 96 03/10/17 21:53 Nasal Cannula 2 03/10/17 21:45 97.6 Orders Electrocardiogram (03/10/17 21:49) Ckmb (Isoenzyme) Profile (03/10/17 21:49) Complete Blood Count With Diff (03/10/17 21:49) Comprehensive Metabolic Panel (03/10/17 21:49) D-Dimer (03/10/17 21:49) Magnesium (Mg) (03/10/17 21:49) Prothrombin Time / Inr (Pt) (03/10/17 21:49) Act Partial Throm Time (Ptt) (03/10/17 21:49) Troponin I (03/10/17 21:49) Lipase (03/10/17 21:49) Chest, Single Ap (03/10/17 21:49) Ecg Monitoring (03/10/17 21:49) Bilateral Bp Monitoring (03/10/17 21:49) Iv Access Insert/Monitor (03/10/17 21:49) Oximetry (03/10/17 21:49) Oxygen Administration (03/10/17 21:49) Aspirin (Aspirin) (03/10/17 22:00) Morphine Inj (Morphine Inj) (03/10/17 22:00) Ondansetron Inj (Zofran Inj) (03/10/17 22:00) B-Type Natriuretic Peptide (03/10/17 21:50) CKMB (03/10/17 21:54) CKMB% (03/10/17 21:54) Ct Pulmonary Angiogram (03/10/17 ) Iohexol 350 Inj (Omnipaque 350 Inj) (03/10/17 22:51) Labs Laboratory Tests Test 03/10/17 21:54 White Blood Count 4.1 TH/MM3 Red Blood Count 3.45 MIL/MM3 Hemoglobin 10.5 GM/DL Hematocrit 32.2 % Mean Corpuscular Volume 93.2 FL Mean Corpuscular Hemoglobin 30.5 PG Mean Corpuscular Hemoglobin 32.8 % Concent Red Cell Distribution Width 16.2 % Platelet Count 239 TH/MM3 Mean Platelet Volume 8.2 FL Neutrophils (%) (Auto) 54.2 % Lymphocytes (%) (Auto) 36.7 % Monocytes (%) (Auto) 8.1 % Eosinophils (%) (Auto) 0.6 % Basophils (%) (Auto) 0.4 % Neutrophils # (Auto) 2.2 TH/MM3 Lymphocytes # (Auto) 1.5 TH/MM3 Monocytes # (Auto) 0.3 TH/MM3 Eosinophils # (Auto) 0.0 TH/MM3 Basophils # (Auto) 0.0 TH/MM3 CBC Comment DIFF FINAL Differential Comment Prothrombin Time 11.7 SEC Prothromb Time International 1.1 RATIO Ratio Activated Partial 25.1 SEC Thromboplast Time D-Dimer Quantitative (PE/DVT) 1.52 MG/L FEU Sodium Level 142 MEQ/L Potassium Level 4.3 MEQ/L Chloride Level 108 MEQ/L Carbon Dioxide Level 26.6 MEQ/L Anion Gap 7 MEQ/L Blood Urea Nitrogen 21 MG/DL Creatinine 1.32 MG/DL Estimat Glomerular Filtration 71 ML/MIN Rate Random Glucose 89 MG/DL Calcium Level 8.0 MG/DL Magnesium Level 1.9 MG/DL Total Bilirubin 0.2 MG/DL Aspartate Amino Transf 157 U/L (AST/SGOT) Alanine Aminotransferase 83 U/L (ALT/SGPT) Alkaline Phosphatase 100 U/L Total Creatine Kinase 118 U/L Creatine Kinase MB 1.3 NG/ML Troponin I 0.46 NG/ML B-Type Natriuretic Peptide 2644 PG/ML Total Protein 5.4 GM/DL Albumin 2.4 GM/DL Lipase 230 U/L [facility] Supervised Visit with JASON: Yes Interpretation(s) Last Impressions Chest X-Ray 03/10/179 Signed Impressions: Service Date/Time: February 21:48 - CONCLUSION: Interval development of pulmonary edema. Mary Wasserman MD CT Angiography 03/10/17 0000 Signed Impressions: Service Date/Time: February 22:37 - CONCLUSION: 1. 2 tiny subtle filling defects observed concerning for possible pulmonary emboli. These are small and nonocclusive in nature. 2. Significant cardiomegaly. 3. Bilateral pulmonary infiltrates and effusions likely related to pulmonary edema. Danial Rebollar Jr., MD 11:38 PM. CBC WBC 4.1. Hemoglobin 10.5 hematocrit 32.2. CMP with BUN 21. Creatinine 1.32. GFR 71. Calcium 8.0. AST 157. ALT 83. Troponin 0.46. BNP 2644. D-dimer 1.52. Narrative Course Lasix 40 mg IV given. Heparin bolus and drip started. Diagnosis Primary Impression: Chest pain Qualified Code: R07.9 - Chest pain, unspecified type Additional Impressions: Pulmonary embolus Qualified Code: I26.99 - Other acute pulmonary embolism without acute cor pulmonale CHF (congestive heart failure) Qualified Code: I50.9 - Acute on chronic congestive heart failure, unspecified congestive heart failure type Renal insufficiency Jett Nunes MD Mar 10, 2017 23:15
[2017-03-10 23:53] VITALS: BP 127/72; PULSE 98; RESP 18; O2SAT 96
[2017-03-11] VITALS (25 sets, daily range): BP systolic 98–138; BP diastolic 69–89; PULSE 78–96; RESP 16–20; TEMP 97.4–97.9; O2SAT 96–100
[2017-03-11] MEDS ORDERED: FUROSEMIDE 40 MG/4 ML VIAL IV PUSH ONE
[2017-03-11] MEDS ORDERED: HEPARIN SODIUM - IV 10,000 UNITS/10 ML VIAL IV ONE
[2017-03-11] MEDS ORDERED: RESP: ALBUTEROL 2.5 MG/IPRATROPIUM 0.5 MG NEB (PRN) NEB (00:15)
[2017-03-11] MEDS ORDERED: ACETAMINOPHEN 325 MG TAB PO PRN (00:15)
[2017-03-11] MEDS ORDERED: BISACODYL 10 MG SUPP RECTAL PRN (00:15)
[2017-03-11] MEDS ORDERED: SODIUM CHLORIDE 0.9% FLUSH 10 ML FLUSH IV FLUSH PRN (00:15)
[2017-03-11] MEDS ORDERED: ONDANSETRON HCL 4 MG/2 ML VIAL IVP PRN (00:15)
[2017-03-11] MEDS: HEPARIN-D5W INJ 250 ML IV SCH ×2 (01:04→21:45)
--- NOTE | 2017-03-11 02:02 | HHI.HP ---
[facility] No Primary Care Physician Admission Diagnosis chest pain. Pulmonary embolus. CHF. Renal insufficiency. Diagnoses: (1) Chest pain Diagnosis: Principal (2) Elevated troponin Diagnosis: Principal (3) PE (pulmonary thromboembolism) Diagnosis: Principal (4) CHF (congestive heart failure) Diagnosis: Principal (5) PNA (pneumonia) Diagnosis: Principal (6) Non-compliance Diagnosis: Principal (7) Renal insufficiency Diagnosis: Principal Travel History International Travel<30 Days: No Contact w/Intl Traveler <30 Da: No Traveled to Known Affected Are: No History of Present Illness This is a 47-year-old male with a PMH of HTN, Alcoholic CHF (Echo 11/24/16 w/ EF 20-25%), AICD ([employer]), h/o Alcohol Abuse, Tobacco Abuse and ongoing Cocaine Abuse who presented to the ER w/ complaints of chest pain starting earlier today. Seen in ER on 03/04/17 for complaints of abdominal/flank pain, CT Abd/ Pelvis w/ bibasilar infiltrates and nonspecific diffuse thickening of rectosigmoid colon, +Cocaine, d/c'd home w/ Cipro/Flagyl and instructed to follow up w/ Dr. Webb as outpatient. States abdominal pain has since resolved, but now with chest pain. Reports ran out of his medications 3 days ago and hasn't refilled them as of yet. On arrival, BP 127/72, HR 98, O2 sat 96 % on RA, Afebrile. CBC essentially unremarkable. Creatinine 1.32, previously 1.31 on 03/04/17, 1.28 on 01/26/17. LFTs mildly elevated. BNP 2644. Troponin 0.46. EKG with no acute ischemia. INR 1.1. D-dimer 1.52. Admits to daily Crack Cocaine. CXR with interval development of pulmonary edema. CTA Pulm w/ 2 tiny subtle filling defects concerning for PE, small and nonocclusive, bilateral pulmonary infiltrates and effusion noted. S/p Lasix 40mg IV, Heparin gtt and Morphine in ER, currently chest pain free. Review of Systems Except as stated in HPI: all other systems reviewed are Neg ROS: 14 point review of systems otherwise negative. Past Family Social History Past Medical History PMH: HTN, Alcoholic CHF (Echo 11/24/16 w/ EF 20-25%), AICD ([employer]), h/o Alcohol Abuse, Tobacco Abuse and ongoing Cocaine Abuse Past Surgical History PAST SURGICAL HISTORY: AICD ([employer]) Allergies: Coded Allergies: No Known Allergies (Unverified , 03/10/17) Family History PAST FAMILY HISTORY: Reviewed. No h/o DM or CAD Social History PAST SOCIAL HISTORY: History of alcohol abuse. Positive for tobacco. Positive for Marijuana and Cocaine daily Physical Exam Vital Signs Vital Signs Date Time Temp Pulse Resp B/P Pulse Ox O2 Delivery O2 Flow Rate FiO2 03/11/17 01:01 84 18 110/82 96 03/10/17 23:53 98 18 127/72 96 03/10/17 22:30 18 03/10/17 21:53 97 Nasal Cannula 2 03/10/17 21:53 95 Room Air 03/10/17 21:47 Room Air 03/10/17 21:45 97.6 90 18 118/72 95 Physical Exam PE: GENERAL: Middle-aged male in no acute distress. HEENT: PERRLA, EOMI. No scleral icterus or conjunctival pallor. No lid lag or facial droop. CARDIOVASCULAR: Regular rate and rhythm. No obvious murmurs to auscultation. No chest tenderness to palpation. RESPIRATORY: No obvious rhonchi or wheezing. Clear to auscultation. Breath sounds equal bilaterally. GASTROINTESTINAL: Abdomen soft, non-tender, nondistended. BS normal. MUSCULOSKELETAL: Extremities without clubbing, cyanosis, or edema. No obvious deformities. NEUROLOGICAL: Awake, alert and oriented x4. No focal neurologic deficits. Moving both upper and lower extremities spontaneously. Laboratory Laboratory Tests Test 03/10/17 21:54 White Blood Count 4.1 Red Blood Count 3.45 Hemoglobin 10.5 Hematocrit 32.2 Mean Corpuscular Volume 93.2 Mean Corpuscular Hemoglobin 30.5 Mean Corpuscular Hemoglobin 32.8 Concent Red Cell Distribution Width 16.2 Platelet Count 239 Mean Platelet Volume 8.2 Neutrophils (%) (Auto) 54.2 Lymphocytes (%) (Auto) 36.7 Monocytes (%) (Auto) 8.1 Eosinophils (%) (Auto) 0.6 Basophils (%) (Auto) 0.4 Neutrophils # (Auto) 2.2 Lymphocytes # (Auto) 1.5 Monocytes # (Auto) 0.3 Eosinophils # (Auto) 0.0 Basophils # (Auto) 0.0 CBC Comment DIFF FINAL Differential Comment Prothrombin Time 11.7 Prothromb Time International 1.1 Ratio Activated Partial 25.1 Thromboplast Time D-Dimer Quantitative (PE/DVT) 1.52 Sodium Level 142 Potassium Level 4.3 Chloride Level 108 Carbon Dioxide Level 26.6 Anion Gap 7 Blood Urea Nitrogen 21 Creatinine 1.32 Estimat Glomerular Filtration 71 Rate Random Glucose 89 Calcium Level 8.0 Magnesium Level 1.9 Total Bilirubin 0.2 Aspartate Amino Transf 157 (AST/SGOT) Alanine Aminotransferase 83 (ALT/SGPT) Alkaline Phosphatase 100 Total Creatine Kinase 118 Creatine Kinase MB 1.3 Troponin I 0.46 B-Type Natriuretic Peptide 2644 Total Protein 5.4 Albumin 2.4 Lipase 230 Result Diagram: 03/10/17215303/10/172153 Assessment and Plan Problem List: (1) Chest pain ICD Code: R07.9 Status: Acute (2) Elevated troponin ICD Code: R74.8 Status: Acute (3) PE (pulmonary thromboembolism) ICD Code: I26.99 Status: Acute (4) CHF (congestive heart failure) ICD Code: I50.9 Status: Acute (5) PNA (pneumonia) ICD Code: J18.9 Status: Acute (6) Non-compliance ICD Code: Z91.19 Status: Acute (7) Renal insufficiency ICD Code: N28.9 Status: Acute Assessment and Plan A/P: 1. Chest Pain: acute onset of chest pain earlier today, likely compounded by Cocaine Abuse, initial trop 0.46, EKG w/ no acute ischemia. Admit to [facility], on Heparin gtt, check serial cardiac enzymes, Cardiology Consult for further evaluations. Hold B-crispin. NTG/Morphine prn if needed. 2. Elevated Trop: Likely multifactorial-CHF, Renal Insufficiency, Cocaine Abuse w/ possible underlying ischemia. On Heparin gtt, Cardiology Consult to eval. Check serial enzymes. 3. CHF: Acute on Chronic. Systolic. Echo 11/24/16 w/ EF 20-25%, BNP 2644, CXR w/ pulmonary edema, images reviewed by me. S/p Lasix in ER, will continue w/ diuresis, caution w/ renal insufficiency. 4. PE: Elevated D-dimer, CTA Pulm w/ 2 tiny subtle filling defects concerning for possible PE, small nonocclusive, images reviewed by me, currently on Heparin gtt. Continue Heparin for anticoagulation, DuoNeb prn for possible bronchospasm, Symbicort 5. PNA: CTA Pulm w/ bilateral pulmonary infiltrates and effusions, images reviewed. Afebrile, no leukocytosis. Will start on IV Rocephin/Zithro. 6. Non-Compliance: Off meds x3 days because ran out of pills, has not obtained refills. Resume home medications. 7. Renal Insufficiency: Creatinine 1.32, previously 1.31 on 03/04/17, 1.28 on , IVF-caution w/ CHF. 8. DVT Prophylaxis: On Heparin gtt for probable PE. 9. Social work for d/c planning as needed. 10. Case discussed w/ ER physician at length. Physician Certification 2 Midnight Certification Type: Admission for Inpatient Services Order for Inpatient Services The services are ordered in accordance with Medicare regulations or non- Medicare payer requirements, as applicable. In the case of services not specified as inpatient-only, they are appropriately provided as inpatient services in accordance with the 2-midnight benchmark. Estimated LOS (days): 2 days is the estimated time the patient will need to remain in the hospital, assuming treatment plan goals are met and no additional complications. Post-Hospital Plan: Not yet determined Problem Qualifiers (1) Chest pain: Qualified Code: R07.9 - Chest pain, unspecified type (2) CHF (congestive heart failure): Qualified Code: I50.9 - Acute on chronic congestive heart failure, unspecified congestive heart failure type Portia Herrera MD Mar 11, 2017 02:02
[2017-03-11] MEDS: MORPHINE SULFATE 4 MG/ML INJ IV PRN ×2 (06:46→23:22)
[2017-03-11] MEDS: BUDESONIDE-FORMOTEROL 160/4.5 MCG INHALER INH SCH ×2 (08:38→21:43)
[2017-03-11] MEDS: SODIUM CHLORIDE 0.9% FLUSH 10 ML FLUSH IV FLUSH SCH ×2 (08:38→21:00)
[2017-03-11] MEDS: ACETAMINOPHEN/HYDROcodone 325 MG/5 MG TAB PO PRN ×3 (08:38→23:22)
--- NOTE | 2017-03-11 11:42 | MB ---
cc: JOSELITO SALDANA DO DATE OF CONSULTATION: 03/11/2017 REASON FOR CONSULTATION: Chest pain with elevated troponin. HISTORY OF PRESENT ILLNESS Miguel Calderón is a 47-year-old male who presents to [facility] emergency room on March 10, 2017 due to chest pain. He states that it started this morning. He did not feel significantly short of breath at that time. But the chest pain has been going on all day yesterday. Pain gets worse with movement and with deep breaths. He also feels that it is somewhat into his right shoulder blade. He denies any nausea or vomiting. He is currently resting comfortable in bed without significant shortness of breath. I also asked him about his heart failure and currently he states that he is not significantly shortness of breath, I asked him about his salt and fluid intact and it appears that he does not add salt to meals but I asked him what he ate this weekend and he said he ate a few pizzas and does not feel that [email or web address] salt on their pizza and he also ate "A lot of hot dogs". PAST MEDICAL HISTORY 1. Hypertension 2. Alcoholic congestive heart failure with an ejection fraction of 20 to 25%. 3. History of alcohol abuse. 4. History of tobacco abuse. 5. Cocaine abuse. PAST SURGICAL HISTORY 1. Placement of [facility] AICD for an ejection fraction of 20 to 25%. While in [place] at that time. ALLERGIES NO KNOWN DRUG ALLERGIES. MEDICATIONS 1. Lisinopril 2.5 mg daily 2. Amiodarone to her mg daily 3. Zocor 20 mg every night 4. Lasix 20 mg daily 5. Aspirin 81 mg daily 6. Tramadol 50 mg every 6 hours as needed 7. Potassium 10 mEq daily. FAMILY HISTORY Denies premature coronary artery disease or sudden cardiac within the family. SOCIAL HISTORY The patient has a history of alcohol abuse but told me that he quit the last time he was in the hospital. He continues to smoke tobacco. He also admitted to the primary team that he smokes marijuana and cocaine daily. In speaking to him he told me that he quit cocaine the last time is in the hospital. REVIEW OF SYSTEMS 14-systems were reviewed including osteopathic pertinent positives and negatives above otherwise negative. PHYSICAL EXAMINATION VITAL SIGNS: Temperature 97.8, heart rate 78, blood pressure 110/81, respirations 18, pulse ox 97% on 2 liters. IN GENERAL: The patient appears well in no acute distress, alert awake and oriented x3. Extraocular muscles intact. Mucous membranes moist. NECK: The neck is supple, no jugular venous distention at 45 degrees. No carotid bruits heard bilaterally. Carotid upstroke is brisk in nature. HEART: Heart is regular rate and rhythm. Positive first and second heart sounds with no murmurs, gallops or rubs. PMI is difficult to ascertain. LUNGS: Lungs have decreased breath sounds at bilateral bases but no overt wheezes, rales or rhonchi. ABDOMEN: The abdomen is soft, nontender, nondistended, no organomegaly noted. EXTREMITIES: The extremities show no clubbing, cyanosis or edema. Femoral and distal pulses intact bilaterally. NEUROLOGICALLY: No focal deficits. SKIN: The skin is warm, dry and intact. Osteopathically, no kyphoscoliosis, lordosis or paraspinal tender points. LABORATORY FINDINGS Hemoglobin 10.5, hematocrit 32.2, platelets 239. D-dimer 1.52, potassium 4.3, BUN 21, creatinine 1.32, troponin 0.46 decreasing to 0.39 and. Previously UDS done on March 04, 2017. Positive for cocaine and cannabis. RADIOLOGIC: Electrocardiogram (March 18, 2017 at 2142) normal sinus rhythm, possible left atrial enlargement, left axis deviation. IMPRESSION 1. Pleuritic type chest pain, less likely from pulmonary embolus. 2. Bilateral pulmonary embolus. 3. Nonischemic cardiomyopathy with an ejection fraction of 20- 25% 4. Tobacco abuse. 5. Cocaine abuse. 6. History of alcohol abuse leading to a cardiomyopathy. 7. Pulmonary edema on chest x-ray although the patient does not appear to be in acute congestive heart failure. 8. Chronic systolic heart failure. 9. Noncompliance. 10. Elevated troponin most likely due to pulmonary embolus. RECOMMENDATIONS 1. Mr. Hagen chest pain appears to be pleuritic in nature coinciding with his pulmonary embolus. 2. For the pulmonary embolus he will be started on heparin drip and then will need to be transferred to an anticoagulant oral medication for treatment. 3. He does not appear to be in acute congestive heart failure at this time although CT shows possible pulmonary edema which may be an early sign of acute on chronic heart failure. We will plan on diuresing him as possible. 4. I spoke with him about his tobacco abuse for greater than 3 minutes but states he is not ready to quit. I also spoke to him about how crack cocaine affects him from a cardiovascular standpoint. 5. I spoke with him also about his salt intake and how he feels that he eats no salt, yet he will eat Pizza and Hot dogs all week which are extremely loaded with salt. 6. After diuresis he will hopefully be placed back on his KAREL inhibitor therapy. 7. I explained to him that he needs to follow up with cardiology as he has significant chronic disease. He will attempt to call his insurance company to find out what rate clerk in the area take his insurance. 8. As far as elevated troponin is most likely due to his current pulmonary embolus. We will not plan on doing a further ischemic workup at this time. 9. He previously had a defibrillator checked in November while here. I instructed him that he needs to continue to have followup with a rate clerk to have his ICD check as possible. 10. Further recommendations will be made based on hospital course. Thank you for allowing me to see Miguel Calderón, if there are any questions please do not hesitate to call. Joselito Saldana DO VITO/bing /10:00 AM /11:07 AM MTDGerardo
[2017-03-11 12:04] LABS: AUTOMATED NEUTROPHIL # 2.5 TH/MM3 (1.8-7.7); BASOPHIL % 0.8 % (0.0-2.0); EOSINOPHIL % 0.2 % (0.0-4.0); HEMATOCRIT 32.4 % (39.0-51.0); HEMO FLAGS DIFF FINAL; LYMPH % 28.9 % (9.0-44.0); LYMPHOCYTE # 1.3 TH/MM3 (1.0-4.8); MEAN CELL VOLUME 92.3 FL (80.0-100.0); MEAN CORPUSCULAR HEMOGLOBIN 30.3 PG (27.0-34.0); MEAN CORPUSCULAR HGB CONC 32.8 % (32.0-36.0); MONO % 12.3 % (0.0-8.0); NEUT % 57.8 % (16.0-70.0); PLATELET COUNT 244 TH/MM3 (150-450); RED BLOOD COUNT 3.51 MIL/MM3 (4.50-5.90); RED CELL DISTRIBUTION WIDTH 15.4 % (11.6-17.2); WHITE BLOOD COUNT 4.4 TH/MM3 (4.0-11.0)
[2017-03-11 12:33] LABS: ALKALINE PHOSPHATASE 90 U/L (45-117); ALT (GPT) 76 U/L (12-78); ANION GAP 6 MEQ/L (5-15); AST (GOT) 80 U/L (15-37); BICARBONATE 27.7 MEQ/L (21.0-32.0); BLOOD UREA NITROGEN 23 MG/DL (7-18); CHLORIDE 105 MEQ/L (98-107); GLOMERULAR FILTRATION RATE 68 ML/MIN (>89); SODIUM (NA) 139 MEQ/L (136-145); TOTAL BILIRUBIN ADULT 0.3 MG/DL (0.2-1.0)
[2017-03-11] MEDS: WARFARIN SOD 5 MG TAB PO SCH (15:37)
[2017-03-11 16:06] LABS: AMPHETAMINE, URINE NEG (NEG); BARBITURATES, URINE NEG (NEG); COCAINE, URINE NEG (NEG)
[2017-03-11] MEDS: FUROSEMIDE 20 MG/2 ML VIAL IV PUSH SCH (17:02)
[2017-03-11 18:05] LABS: APTT (PATIENT) 60.4 SEC (24.3-30.1)
--- NOTE | 2017-03-11 20:10 | EKG ---
Date Performed: 03/10/2017 Time Performed: 21:42:09 PTAGE: 47 years EKG: Sinus rhythm LEFT ATRIAL ENLARGEMENT Poor R wave progression Lateral ST_T wave abnormality QRS voltage is not as high as the prior tracing POSSIBLE ANTERIOR MYOCARDIAL INFARCTION ABNORMAL ECG PREVIOUS TRACING : 01/26/2017 02.13 DOCTOR: Krzysztof Lerner Interpretating Date/Time 03/11/2017 20:08:36
[2017-03-11 23:52] LABS: APTT (PATIENT) 47.2 SEC (24.3-30.1)
[2017-03-12] VITALS (29 sets, daily range): BP systolic 95–119; BP diastolic 69–91; PULSE 80–106; RESP 16–20; TEMP 97.5–98.9; O2SAT 95–100
[2017-03-12] MEDS: ACETAMINOPHEN/HYDROcodone 325 MG/5 MG TAB PO PRN ×3 (03:08→22:20)
[2017-03-12 08:04] LABS: INTERNATIONAL NORMALIZED RATIO 1.1 RATIO; PROTHROMBIN TIME - PATIENT 12.2 SEC (9.8-11.6)
[2017-03-12 08:05] LABS: APTT (PATIENT) 46.5 SEC (24.3-30.1)
[2017-03-12] MEDS: FUROSEMIDE 20 MG/2 ML VIAL IV PUSH SCH ×2 (08:21→18:21)
[2017-03-12] MEDS: MORPHINE SULFATE 4 MG/ML INJ IV PRN ×3 (08:22→18:21)
[2017-03-12 08:32] LABS: BICARBONATE 25.2 MEQ/L (21.0-32.0); POTASSIUM 4.6 MEQ/L (3.5-5.1)
[2017-03-12] MEDS: SODIUM CHLORIDE 0.9% FLUSH 10 ML FLUSH IV FLUSH SCH ×2 (09:00→21:00)
--- NOTE | 2017-03-12 09:56 | HHI.PR ---
Subjective Remarks Patient sleeping in bed on his stomach Woke up to verbal stimuli stated he has still chest pain on the left side traveling to his back" CTA chest ruled out any aortic pathology " Objective Vitals Vital Signs Date Time Temp Pulse Resp B/P Pulse Ox O2 Delivery O2 Flow Rate FiO2 03/12/17 06:00 106 03/12/17 05:00 92 03/12/17 04:00 88 03/12/17 03:10 96 18 116/91 95 03/12/17 03:00 93 03/12/17 02:00 90 03/12/17 01:00 86 03/12/17 00:00 88 03/11/17 23:35 96 20 110/89 96 03/11/17 23:00 93 03/11/17 22:00 88 03/11/17 21:00 96 03/11/17 20:00 92 03/11/17 19:30 97.4 91 18 102/75 97 03/11/17 19:00 95 03/11/17 18:00 94 03/11/17 17:00 92 03/11/17 16:00 93 03/11/17 16:00 97.4 79 18 138/72 98 03/11/17 15:00 88 03/11/17 15:00 18 03/11/17 14:00 84 03/11/17 13:00 88 03/11/17 12:00 97.9 80 16 98/69 100 03/11/17 12:00 87 03/11/17 11:00 80 03/11/17 10:00 84 I/O 03/11/17 03/11/17 03/11/17 03/12/17 03/12/17 03/12/17 07:00 15:00 23:00 07:00 15:00 23:00 Intake Total 802 ml 408 ml Output Total 750 ml Balance -750 ml 802 ml 408 ml Intake Oral 720 ml 300 ml IV Total 82 ml 108 ml Output Urine Total 750 ml # Voids 1 4 4 # Bowel Movements 0 0 Result Diagram: 03/11/17 1130 03/12/17 0725 Objective Remarks GENERAL: This is a well-nourished, well-developed patient, in no apparent distress. SKIN: No rashes, warm and dry HEAD: Atraumatic. Normocephalic. EYES: Pupils equal round and reactive. Extraocular motions intact. No scleral icterus. ENT: Nose without bleeding, or drainage, Airway patent. NECK: Trachea midline. Supple CARDIOVASCULAR: Regular rate and rhythm without murmurs, gallops, or rubs. RESPIRATORY: Fair air entry bilaterally. No wheezes, rales, or rhonchi. GASTROINTESTINAL: Abdomen soft, non-tender, nondistended. Positive bowel sounds MUSCULOSKELETAL: Extremities without clubbing, cyanosis, or edema. Pedal pulses appreciated NEUROLOGICAL: Awake and alert. Moves all extremity. Normal speech.no focal neurological deficit A/P Problem List: (1) Chest pain ICD Code: R07.9 Status: Acute (2) Elevated troponin ICD Code: R74.8 Status: Acute (3) PE (pulmonary thromboembolism) ICD Code: I26.99 Status: Acute (4) CHF (congestive heart failure) ICD Code: I50.9 Status: Acute (5) PNA (pneumonia) ICD Code: J18.9 Status: Acute (6) Non-compliance ICD Code: Z91.19 Status: Acute (7) Renal insufficiency ICD Code: N28.9 Status: Acute Assessment and Plan 47 years old male admitted with: -Chest pain with elevated troponin unlikely ACS, mostly related to be -PE: showed on CTA of the chest, reviewed personally by me, continue heparin drip patient started on Coumadin yesterday -CHF :acute on chronic echo on 11/24/16 EF 20-25%, BMP trending down [id number], continue Lasix iv, monitor BMP and electrolytes, I&O -Bilateral pulmonary infiltrate: Showed on CT, unlikely pneumonia, no leukocytosis or left shift or fever, most likely related to pulmonary edema will monitor -Noncompliance: Patient counseled -DVT prophilaxis on heparin drip bridged with Coumadin Problem Qualifiers (1) Chest pain: Qualified Code: R07.9 - Chest pain, unspecified type (2) CHF (congestive heart failure): Qualified Code: I50.9 - Acute on chronic congestive heart failure, unspecified congestive heart failure type Chacho Cuevas MD Mar 12, 2017 09:56
--- NOTE | 2017-03-12 10:11 | PD.CARD.PN ---
Subjective Subjective Remarks Still with chest pain with deep breaths No anginal like symptoms Objective Medications Current Medications Medications (Trade) Dose Ordered Sig/Aida Route Start Time Stop Time Status Last Admin (Heparin-D5W Inj) 250 ml @ 0 mls/hr TITRATE IV 03/11/17 00:00 03/11/17 21:45 (Symbicort 160-4.5 Inh) 2 puff Q12HR INH 03/11/17 09:00 03/11/17 21:43 (NS Flush) 2 ml UNSCH PRN IV FLUSH 03/11/17 00:15 (NS Flush) 2 ml BID IV FLUSH 03/11/17 09:00 (Zofran Inj) 4 mg Q6H PRN IVP 03/11/17 00:15 (Dulcolax Supp) 10 mg DAILY PRN RECTAL 03/11/17 00:15 (Tylenol) 650 mg Q6H PRN PO 03/11/17 00:15 ([place] 5-325 Mg) 1 tab Q4H PRN PO 03/11/17 00:15 03/12/17 03:08 (Morphine Inj) 2 mg Q3H PRN IV 03/11/17 00:15 03/12/17 08:22 (Coumadin) 5 mg DAILY@1600 PO 03/11/17 16:00 03/11/17 15:37 (Lasix Inj) 20 mg BID@09,18 IV PUSH 03/11/17 18:00 03/12/17 08:21 Vital Signs / I&O Vital Signs Date Time Temp Pulse Resp B/P Pulse Ox O2 Delivery O2 Flow Rate FiO2 03/12/17 06:00 106 03/12/17 05:00 92 03/12/17 04:00 88 03/12/17 03:10 96 18 116/91 95 03/12/17 03:00 93 03/12/17 02:00 90 03/12/17 01:00 86 03/12/17 00:00 88 03/11/17 23:35 96 20 110/89 96 03/11/17 23:00 93 03/11/17 22:00 88 03/11/17 21:00 96 03/11/17 20:00 92 03/11/17 19:30 97.4 91 18 102/75 97 03/11/17 19:00 95 03/11/17 18:00 94 03/11/17 17:00 92 03/11/17 16:00 93 03/11/17 16:00 97.4 79 18 138/72 98 03/11/17 15:00 88 03/11/17 15:00 18 03/11/17 14:00 84 03/11/17 13:00 88 03/11/17 12:00 97.9 80 16 98/69 100 03/11/17 12:00 87 03/11/17 11:00 80 I/O 03/11/17 03/11/17 03/11/17 03/12/17 03/12/17 03/12/17 07:00 15:00 23:00 07:00 15:00 23:00 Intake Total 802 ml 408 ml Output Total 750 ml Balance -750 ml 802 ml 408 ml Intake Oral 720 ml 300 ml IV Total 82 ml 108 ml Output Urine Total 750 ml # Voids 1 4 4 # Bowel Movements 0 0 Physical Exam GENERAL: NAD, AAOx3 SKIN: Warm and dry. HEAD: Atraumatic. Normocephalic. EYES: Pupils equal and round. No scleral icterus. No injection or drainage. ENT: No nasal bleeding or discharge. Mucous membranes pink and moist. NECK: Trachea midline. No JVD. CARDIOVASCULAR: Regular rate and rhythm. RESPIRATORY: No accessory muscle use. Decreased breath sounds bilaterally GASTROINTESTINAL: Abdomen soft, non-tender, nondistended. Hepatic and splenic margins not palpable. MUSCULOSKELETAL: Extremities without clubbing, cyanosis, or edema. No obvious deformities. NEUROLOGICAL: Awake and alert. No obvious cranial nerve deficits. Motor grossly within normal limits. Five out of 5 muscle strength in the arms and legs. Normal speech. PSYCHIATRIC: Appropriate mood and affect; insight and judgment normal. Laboratory Laboratory Tests Test 03/11/17 03/11/17 03/11/17 03/11/17 11:30 14:25 17:27 23:20 White Blood Count 4.4 TH/MM3 Red Blood Count 3.51 MIL/MM3 Hemoglobin 10.6 GM/DL Hematocrit 32.4 % Mean Corpuscular Volume 92.3 FL Mean Corpuscular Hemoglobin 30.3 PG Mean Corpuscular Hemoglobin 32.8 % Concent Red Cell Distribution Width 15.4 % Platelet Count 244 TH/MM3 Mean Platelet Volume 8.2 FL Neutrophils (%) (Auto) 57.8 % Lymphocytes (%) (Auto) 28.9 % Monocytes (%) (Auto) 12.3 % Eosinophils (%) (Auto) 0.2 % Basophils (%) (Auto) 0.8 % Neutrophils # (Auto) 2.5 TH/MM3 Lymphocytes # (Auto) 1.3 TH/MM3 Monocytes # (Auto) 0.5 TH/MM3 Eosinophils # (Auto) 0.0 TH/MM3 Basophils # (Auto) 0.0 TH/MM3 CBC Comment DIFF FINAL Differential Comment Activated Partial 77.0 SEC 60.4 SEC 47.2 SEC Thromboplast Time Sodium Level 139 MEQ/L Potassium Level 4.0 MEQ/L Chloride Level 105 MEQ/L Carbon Dioxide Level 27.7 MEQ/L Anion Gap 6 MEQ/L Blood Urea Nitrogen 23 MG/DL Creatinine 1.38 MG/DL Estimat Glomerular Filtration 68 ML/MIN Rate Random Glucose 96 MG/DL Calcium Level 8.1 MG/DL Total Bilirubin 0.3 MG/DL Aspartate Amino Transf 80 U/L (AST/SGOT) Alanine Aminotransferase 76 U/L (ALT/SGPT) Alkaline Phosphatase 90 U/L Troponin I 0.34 NG/ML B-Type Natriuretic Peptide 2189 PG/ML Total Protein 5.5 GM/DL Albumin 2.5 GM/DL Urine Opiates Screen POS Urine Barbiturates Screen NEG Urine Amphetamines Screen NEG Urine Benzodiazepines Screen NEG Urine Cocaine Screen NEG Urine Cannabinoids Screen NEG Test 03/12/17 07:25 Prothrombin Time 12.2 SEC Prothromb Time International 1.1 RATIO Ratio Activated Partial 46.5 SEC Thromboplast Time Sodium Level 136 MEQ/L Potassium Level 4.6 MEQ/L Chloride Level 103 MEQ/L Carbon Dioxide Level 25.2 MEQ/L Anion Gap 8 MEQ/L Blood Urea Nitrogen 24 MG/DL Creatinine 1.25 MG/DL Estimat Glomerular Filtration 76 ML/MIN Rate Random Glucose 82 MG/DL Calcium Level 8.1 MG/DL Assessment and Plan Problem List: (1) PE (pulmonary thromboembolism) (2) Chest pain (3) Elevated troponin (4) CHF (congestive heart failure) (5) Non-compliance Assessment and Plan 1) Pleuritic type chest pain with deep breathing most likely related to pulmonary embolism 2) Con't anticoagulation with heparin and plan to switch to oral anticoagulation 3) Elevated troponin secondary to pulmonary embolism 4) Acute on chronic CHF most likely due to acute illness and non-compliance, counselled on salt intake including the pizza and hotdogs he has ate all week 5) ICD interrogated in November, no indication to interrogate now... needs outpatient follow up with cardiology, he will call his insurance company to find a medical numerical control operator in the area 6) Continue with diuresis Problem Qualifiers (1) Chest pain: Qualified Code: R07.9 - Chest pain, unspecified type (2) CHF (congestive heart failure): Qualified Code: I50.9 - Acute on chronic congestive heart failure, unspecified congestive heart failure type Joselito Royal DO Mar 12, 2017 10:11
--- NOTE | 2017-03-12 11:11 | EC ---
Study Study Date:03/11/2017 STUDY CONCLUSIONS SUMMARY - Left ventricle: The cavity size was dilated. Systolic function was severely reduced. The estimated ejection fraction was in the range of 10% to 15%. Diffuse hypokinesis. - Mitral valve: Moderate to severe regurgitation. - Tricuspid valve: Moderate-severe regurgitation. - Pulmonic valve: Mild regurgitation. - Pulmonary arteries: PA peak pressure: 52mm Hg (S). - Pericardium, extracardiac: Dilated coronary sinus noted. If LV function is below 40, please consider prescribing an ACEI or ARB or document rationale for non-use. PROCEDURE DATA STUDY STATUS: Elective. Procedure: Transthoracic echocardiography. Image quality was good. Scanning was performed from the parasternal, apical, and subcostal acoustic windows. Study completion: The patient tolerated the procedure well. Transthoracic echocardiography. M-mode, complete 2D, complete spectral Doppler, and color Doppler. Height: Height: 67in. Weight: Weight: 123.7lb. Body mass index: BMI: 19.4kg/m^2. Body surface area: BSA: 1.65m^2. Patient status: Inpatient. CARDIAC ANATOMY LEFT VENTRICLE: The cavity size was dilated. Systolic function was severely reduced. The estimated ejection fraction was in the range of 10% to 15%. Diffuse hypokinesis. AORTIC VALVE: Trileaflet. Doppler: There was no stenosis. No significant regurgitation. Valve area: 1.28cm^2(VTI). Indexed valve area: 0.78cm^2/m^2 (VTI). Valve area: 1.61cm^2 (Vmax). Indexed valve area: 0.98cm^2/m^2 (Vmax). Mean gradient: 1mm Hg (S). MITRAL VALVE: The valve appears to be grossly normal. Doppler: There was no evidence for stenosis. Moderate to severe regurgitation. Peak gradient: 6mm Hg (D). LEFT ATRIUM: The atrium was dilated. RIGHT VENTRICLE: The cavity size was dilated. Pacer wire or catheter noted in right ventricle. PULMONIC VALVE: Not well visualized. Doppler: There was no evidence for stenosis. Mild regurgitation. TRICUSPID VALVE: The valve appears to be grossly normal. Doppler: There was no evidence for stenosis. Moderate-severe regurgitation. PERICARDIUM: Dilated coronary sinus noted. There was no pericardial effusion. Patient weight: 123.7lb _Ejection fraction:_ 65-75% _Fractional shortening:_ 32% up to 5Kg 5-11.5Kg 11.6-22.9Kg 23-45Kg 45-57Kg Aortic Root 7-13 <17 13-22 17-27 17-27 LA diam 6-13 <23 24-38 33-47 37-40 RVID 10-17 7-15 7-15 7-18 8-17 LVIDd 12-22 <32 24-38 33-47 37-40 LVPW 2-4 3-6 5-7 6-8 7-8 IVS 2-4 3-6 5-7 6-8 7-8 BASIC MEASUREMENTS ADULT NORMAL Left ventricle LV internal dimension, ED, chordal *75.1 mm 43-52 level, PLAX LV internal dimension, ES, chordal *72.4 mm 23-38 level, PLAX Fractional shortening, chordal level, *4 % >29 PLAX LV posterior wall thickness, ED 8.2 mm IVS/LVPW ratio, ED 1 <1.3 Volume, ED, MOD, 1-plane 322 ml Volume, ES, MOD, 1-plane 275 ml Ejection fraction, MOD, 1-plane 15 % Stroke volume, MOD, 1-plane 47 ml Volume index, ED, MOD, 1-plane 195 ml/m^2 Volume index, ES, MOD, 1-plane 167 ml/m^2 Stroke index, MOD, 1-plane 28.5 ml/m^2 Volume, ED, MOD, 2-plane 360 ml Volume, ES, MOD, 2-plane 317 ml Ejection fraction, MOD, 2-plane 12 % Stroke volume, MOD, 2-plane 43 ml Volume index, ED, MOD, 2-plane 218 ml/m^2 Volume index, ES, MOD, 2-plane 192 ml/m^2 Stroke index, MOD, 2-plane 26.1 ml/m^2 Ventricular septum Septal thickness, ED 8.22 mm Aortic valve Leaflet separation 19 mm 15-26 Aorta Root diameter, ED 29 mm Left atrium Anterior-posterior dimension 44 mm Anterior-posterior dimension index *2.67 cm/m^2 <2.2 BASIC MEASUREMENTS ADULT NORMAL Aortic valve Leaflet separation 19 mm 15-26 DOPPLER MEASUREMENTS ADULT NORMAL Main pulmonary artery Pressure, S *52 mm Hg =30 Pressure, ED 13 mm Hg Aortic valve Peak velocity, S 70.3 cm/s Mean velocity, S 51.8 cm/s VTI, S 11.1 cm Mean gradient, S 1 mm Hg Valve area, VTI 1.28 cm^2 Valve area index, VTI 0.78 cm^2/m^2 Valve area, Vmax 1.61 cm^2 Valve area index, Vmax 0.98 cm^2/m^2 Mitral valve Peak E-wave velocity 125 cm/s Peak A-wave velocity 60.7 cm/s Deceleration time *70 ms 150-230 Peak gradient, D 6 mm Hg Peak E/A ratio 2.1 Tricuspid valve Regurgitant peak velocity 251 cm/s Peak RV-RA gradient, S 25 mm Hg Maximal regurgitant velocity 251 cm/s Systemic veins Estimated CVP 10 mm Hg Right ventricle RV pressure, S *53 mm Hg <30 Pulmonic valve Peak velocity, S 36.1 cm/s Regurgitant velocity, ED 92.3 cm/s LEGEND: Mean values are shown as u=mean value. Asterisk (*) burger values outside specified normal range. Prepared and signed by Joselito Royal-[id number]
[2017-03-12] MEDS: WARFARIN SOD 5 MG TAB PO SCH (15:29)
[2017-03-12] MEDS: BUDESONIDE-FORMOTEROL 160/4.5 MCG INHALER INH SCH (22:17)
[2017-03-12] MEDS: HEPARIN-D5W INJ 250 ML IV SCH (22:22)
[2017-03-13] VITALS (28 sets, daily range): BP systolic 91–110; BP diastolic 53–86; PULSE 86–106; RESP 18–20; TEMP 97.3–98.4; O2SAT 94–100
[2017-03-13] MEDS: ACETAMINOPHEN/HYDROcodone 325 MG/5 MG TAB PO PRN ×4 (04:02→18:09)
[2017-03-13 04:59] LABS: APTT (PATIENT) 47.8 SEC (24.3-30.1); INTERNATIONAL NORMALIZED RATIO 1.3 RATIO; PROTHROMBIN TIME - PATIENT 14.8 SEC (9.8-11.6)
[2017-03-13 05:18] LABS: BICARBONATE 25.6 MEQ/L (21.0-32.0); MAGNESIUM 1.9 MG/DL (1.5-2.5); POTASSIUM 4.4 MEQ/L (3.5-5.1)
[2017-03-13] MEDS: SODIUM CHLORIDE 0.9% FLUSH 10 ML FLUSH IV FLUSH SCH ×2 (09:00→21:00)
[2017-03-13] MEDS: FUROSEMIDE 20 MG/2 ML VIAL IV PUSH SCH ×2 (09:24→17:07)
--- NOTE | 2017-03-13 10:27 | PD.CARD.PN ---
Subjective Subjective Remarks No shortness of breath Does have chest pain with deep breaths, but overall less compared to previous day Objective Medications Current Medications Medications (Trade) Dose Ordered Sig/Aida Route Start Time Stop Time Status Last Admin (Heparin-D5W Inj) 250 ml @ 0 mls/hr TITRATE IV 03/11/17 00:00 03/12/17 22:22 (Symbicort 160-4.5 Inh) 2 puff Q12HR INH 03/11/17 09:00 03/12/17 22:17 (NS Flush) 2 ml UNSCH PRN IV FLUSH 03/11/17 00:15 (NS Flush) 2 ml BID IV FLUSH 03/11/17 09:00 (Zofran Inj) 4 mg Q6H PRN IVP 03/11/17 00:15 (Dulcolax Supp) 10 mg DAILY PRN RECTAL 03/11/17 00:15 (Tylenol) 650 mg Q6H PRN PO 03/11/17 00:15 ([place] 5-325 Mg) 1 tab Q4H PRN PO 03/11/17 00:15 03/13/17 09:24 (Morphine Inj) 2 mg Q3H PRN IV 03/11/17 00:15 03/12/17 18:21 (Coumadin) 5 mg DAILY@1600 PO 03/11/17 16:00 03/12/17 15:29 (Lasix Inj) 20 mg BID@09,18 IV PUSH 03/11/17 18:00 03/13/17 09:24 Vital Signs / I&O Vital Signs Date Time Temp Pulse Resp B/P Pulse Ox O2 Delivery O2 Flow Rate FiO2 03/13/17 10:00 101 03/13/17 09:00 98 03/13/17 08:00 88 03/13/17 07:50 97.3 86 20 110/86 100 03/13/17 07:00 93 03/13/17 06:00 90 03/13/17 05:00 90 03/13/17 04:13 93 18 99/81 95 03/13/17 04:00 106 03/13/17 03:00 97 03/13/17 02:00 90 03/13/17 01:00 92 03/13/17 00:00 92 03/12/17 23:33 80 18 95/69 96 03/12/17 23:00 97 03/12/17 22:00 92 03/12/17 21:00 92 03/12/17 20:00 94 03/12/17 19:30 98.9 97 18 111/81 95 03/12/17 19:00 102 03/12/17 18:00 105 03/12/17 17:00 94 03/12/17 16:00 96 03/12/17 15:45 97.5 95 16 119/83 100 03/12/17 15:00 95 03/12/17 14:00 104 03/12/17 13:02 94 03/12/17 12:00 92 03/12/17 11:10 97.5 81 18 101/74 100 03/12/17 11:00 99 I/O 03/12/17 03/12/17 03/12/17 03/13/17 03/13/17 03/13/17 07:00 15:00 23:00 07:00 15:00 23:00 Intake Total 408 ml 708 ml 608 ml Output Total 950 ml 1300 ml Balance 408 ml -242 ml -692 ml Intake Oral 300 ml 600 ml 500 ml IV Total 108 ml 108 ml 108 ml Output Urine Total 950 ml 1300 ml # Voids 4 1 # Bowel Movements 0 0 0 Physical Exam GENERAL: NAD, AAOx3 SKIN: Warm and dry. HEAD: Atraumatic. Normocephalic. EYES: Pupils equal and round. No scleral icterus. No injection or drainage. ENT: No nasal bleeding or discharge. Mucous membranes pink and moist. NECK: Trachea midline. No JVD. CARDIOVASCULAR: Regular rate and rhythm. RESPIRATORY: No accessory muscle use. Decreased breath sounds bilaterally GASTROINTESTINAL: Abdomen soft, non-tender, nondistended. Hepatic and splenic margins not palpable. MUSCULOSKELETAL: Extremities without clubbing, cyanosis, or edema. No obvious deformities. NEUROLOGICAL: Awake and alert. No obvious cranial nerve deficits. Motor grossly within normal limits. Five out of 5 muscle strength in the arms and legs. Normal speech. PSYCHIATRIC: Appropriate mood and affect; insight and judgment normal. Laboratory Laboratory Tests Test 03/13/17 04:20 Prothrombin Time 14.8 SEC Prothromb Time International 1.3 RATIO Ratio Activated Partial 47.8 SEC Thromboplast Time Sodium Level 136 MEQ/L Potassium Level 4.4 MEQ/L Chloride Level 101 MEQ/L Carbon Dioxide Level 25.6 MEQ/L Anion Gap 9 MEQ/L Blood Urea Nitrogen 23 MG/DL Creatinine 1.28 MG/DL Estimat Glomerular Filtration 74 ML/MIN Rate Random Glucose 110 MG/DL Calcium Level 8.3 MG/DL Phosphorus Level 2.5 MG/DL Magnesium Level 1.9 MG/DL B-Type Natriuretic Peptide 2428 PG/ML Assessment and Plan Problem List: (1) PE (pulmonary thromboembolism) (2) Chest pain (3) Elevated troponin (4) CHF (congestive heart failure) (5) Non-compliance Assessment and Plan 1) Pleuritic type chest pain with deep breathing most likely related to pulmonary embolism 2) Con't anticoagulation with heparin and plan to switch to oral anticoagulation 3) Elevated troponin secondary to pulmonary embolism 4) Acute on chronic CHF most likely due to acute illness and non-compliance, counselled on salt intake including the pizza and hotdogs he has ate all week... no clinical signs of acute heart failure at this time 5) ICD interrogated in November, no indication to interrogate now... needs outpatient follow up with cardiology, he will call his insurance company to find a tire recapping machine operator in the area 6) Continue with diuresis 7) No beta crispin at this time due to low normal blood pressure and history of cocaine abuse (UDS negative for cocaine this admit, but positive on 03/04/17 for cocaine) 8) Creatinine stable, will restart KAREL-I 9) Will see PRN, call with questions Problem Qualifiers (1) Chest pain: Qualified Code: R07.9 - Chest pain, unspecified type (2) CHF (congestive heart failure): Qualified Code: I50.9 - Acute on chronic congestive heart failure, unspecified congestive heart failure type Joselito Royal DO Mar 13, 2017 10:27
[2017-03-13] MEDS ORDERED: PILL SPLITTER OTHER PRN (11:00)
[2017-03-13] MEDS ORDERED: DOCUSATE SODIUM 50 MG/SENNA 8.6 MG TAB PO PRN (11:15)
[2017-03-13] MEDS: MAGNESIUM HYDROXIDE SUSP 30 ML CUP PO PRN ×2 (11:25→18:09)
--- NOTE | 2017-03-13 16:17 | HHI.PR ---
Subjective Remarks Comfortably laying in bed Stated chest pain is much better Complain of constipation Objective Vitals Vital Signs Date Time Temp Pulse Resp B/P Pulse Ox O2 Delivery O2 Flow Rate FiO2 03/13/17 16:00 97 03/13/17 15:40 98.3 97 18 97/70 98 03/13/17 15:00 93 03/13/17 14:00 90 03/13/17 13:00 100 03/13/17 12:00 98 03/13/17 11:20 93 18 91/53 96 03/13/17 11:00 98 03/13/17 10:00 101 03/13/17 09:00 98 03/13/17 08:00 88 03/13/17 07:50 97.3 86 20 110/86 100 03/13/17 07:00 93 03/13/17 06:00 90 03/13/17 05:00 90 03/13/17 04:13 93 18 99/81 95 03/13/17 04:00 106 03/13/17 03:00 97 03/13/17 02:00 90 03/13/17 01:00 92 03/13/17 00:00 92 03/12/17 23:33 80 18 95/69 96 03/12/17 23:00 97 03/12/17 22:00 92 03/12/17 21:00 92 03/12/17 20:00 94 03/12/17 19:30 98.9 97 18 111/81 95 03/12/17 19:00 102 03/12/17 18:00 105 03/12/17 17:00 94 I/O 03/12/17 03/12/17 03/12/17 03/13/17 03/13/17 03/13/17 07:00 15:00 23:00 07:00 15:00 23:00 Intake Total 408 ml 708 ml 608 ml Output Total 950 ml 1300 ml Balance 408 ml -242 ml -692 ml Intake Oral 300 ml 600 ml 500 ml IV Total 108 ml 108 ml 108 ml Output Urine Total 950 ml 1300 ml # Voids 4 1 # Bowel Movements 0 0 0 Result Diagram: 03/11/17 1130 03/13/17 0420 Objective Remarks GENERAL: This is a well-nourished, well-developed patient, in no apparent distress. SKIN: No rashes, warm and dry HEAD: Atraumatic. Normocephalic. EYES: Pupils equal round and reactive. Extraocular motions intact. No scleral icterus. ENT: Nose without bleeding, or drainage, Airway patent. NECK: Trachea midline. Supple CARDIOVASCULAR: Regular rate and rhythm without murmurs, gallops, or rubs. RESPIRATORY: Fair air entry bilaterally. No wheezes, rales, or rhonchi. GASTROINTESTINAL: Abdomen soft, non-tender, nondistended. Positive bowel sounds MUSCULOSKELETAL: Extremities without clubbing, cyanosis, or edema. Pedal pulses appreciated NEUROLOGICAL: Awake and alert. Moves all extremity. Normal speech.no focal neurological deficit A/P Problem List: (1) Chest pain ICD Code: R07.9 Status: Acute (2) Elevated troponin ICD Code: R74.8 Status: Acute (3) PE (pulmonary thromboembolism) ICD Code: I26.99 Status: Acute (4) CHF (congestive heart failure) ICD Code: I50.9 Status: Acute (5) PNA (pneumonia) ICD Code: J18.9 Status: Acute (6) Non-compliance ICD Code: Z91.19 Status: Acute (7) Renal insufficiency ICD Code: N28.9 Status: Acute Assessment and Plan 47 years old male admitted with: -Chest pain with elevated troponin unlikely ACS, mostly related to be -PE: showed on CTA of the chest, reviewed personally by me, continue heparin drip patient- Coumadin, bridging inr1.3 today , inr in am -CHF :acute on chronic echo on 11/24/16 EF 20-25%, BNP [phone], continue Lasix iv, monitor BMP and electrolytes, I&O, D/W cardiology cleraed from their standpoint -PANCHO: cr trending down 1.28 -Bilateral pulmonary infiltrate: Showed on CT, unlikely pneumonia, no leukocytosis or left shift or fever, most likely related to pulmonary edema will monitor -Noncompliance: Patient counseled -DVT prophilaxis on heparin drip bridged with Coumadin Problem Qualifiers (1) Chest pain: Qualified Code: R07.9 - Chest pain, unspecified type (2) CHF (congestive heart failure): Qualified Code: I50.9 - Acute on chronic congestive heart failure, unspecified congestive heart failure type Chacho Cuevas MD Mar 13, 2017 16:16
[2017-03-13] MEDS: WARFARIN SOD 5 MG TAB PO SCH (17:07)
[2017-03-13] MEDS: BUDESONIDE-FORMOTEROL 160/4.5 MCG INHALER INH SCH (21:18)
[2017-03-14] VITALS (16 sets, daily range): BP systolic 83–102; BP diastolic 66–78; PULSE 86–101; RESP 16–19; TEMP 96.5–98.1; O2SAT 92–100
[2017-03-14] MEDS: HEPARIN-D5W INJ 250 ML IV SCH (03:33)
[2017-03-14 04:22] LABS: INTERNATIONAL NORMALIZED RATIO 1.7 RATIO; PROTHROMBIN TIME - PATIENT 19.7 SEC (9.8-11.6)
[2017-03-14] MEDS: ACETAMINOPHEN/HYDROcodone 325 MG/5 MG TAB PO PRN ×3 (07:47→21:02)
[2017-03-14] MEDS: SODIUM CHLORIDE 0.9% FLUSH 10 ML FLUSH IV FLUSH SCH ×2 (09:00→21:00)
[2017-03-14] MEDS: FUROSEMIDE 20 MG/2 ML VIAL IV PUSH SCH (09:23)
[2017-03-14] MEDS: LISINOPRIL 5 MG TAB PO SCH (09:23)
--- NOTE | 2017-03-14 10:00 | HHI.PR ---
Subjective Remarks Still complaining of reproducible pain right on the left chest, mostly musculoskeletal INR is 1.7, will continue bridging hopefully discharge in a.m. Objective Vitals Vital Signs Date Time Temp Pulse Resp B/P Pulse Ox O2 Delivery O2 Flow Rate FiO2 03/14/17 07:00 95 03/14/17 06:00 92 03/14/17 05:00 90 03/14/17 04:00 93 03/14/17 03:00 90 03/14/17 03:00 98.1 96 18 83/66 96 03/14/17 02:00 88 03/14/17 01:00 94 03/14/17 00:00 92 03/13/17 23:00 98.4 100 18 94/70 97 03/13/17 23:00 97 03/13/17 22:00 94 03/13/17 21:00 92 03/13/17 20:00 104 03/13/17 19:00 97 03/13/17 19:00 98.1 94 20 109/74 94 03/13/17 18:06 101 03/13/17 17:00 102 03/13/17 16:00 97 03/13/17 15:40 98.3 97 18 97/70 98 03/13/17 15:00 93 03/13/17 14:00 90 03/13/17 13:00 100 03/13/17 12:00 98 03/13/17 11:20 93 18 91/53 96 03/13/17 11:00 98 03/13/17 10:00 101 I/O 03/13/17 03/13/17 03/13/17 03/14/17 03/14/17 03/14/17 07:00 15:00 23:00 07:00 15:00 23:00 Intake Total 608 ml 700 ml 588 ml Output Total 1300 ml 1050 ml 900 ml Balance -692 ml -350 ml -312 ml Intake Oral 500 ml 600 ml 480 ml IV Total 108 ml 100 ml 108 ml Output Urine Total 1300 ml 1050 ml 900 ml # Voids 1 # Bowel Movements 0 0 0 Result Diagram: 03/11/17 1130 03/13/17 0420 Objective Remarks GENERAL: This is a well-nourished, well-developed patient, in no apparent distress. SKIN: No rashes, warm and dry HEAD: Atraumatic. Normocephalic. EYES: Pupils equal round and reactive. Extraocular motions intact. No scleral icterus. ENT: Nose without bleeding, or drainage, Airway patent. NECK: Trachea midline. Supple CARDIOVASCULAR: Regular rate and rhythm without murmurs, gallops, or rubs. RESPIRATORY: Fair air entry bilaterally. No wheezes, rales, or rhonchi. GASTROINTESTINAL: Abdomen soft, non-tender, nondistended. Positive bowel sounds MUSCULOSKELETAL: Extremities without clubbing, cyanosis, or edema. Pedal pulses appreciated NEUROLOGICAL: Awake and alert. Moves all extremity. Normal speech.no focal neurological deficit A/P Problem List: (1) Chest pain ICD Code: R07.9 Status: Acute (2) Elevated troponin ICD Code: R74.8 Status: Acute (3) PE (pulmonary thromboembolism) ICD Code: I26.99 Status: Acute (4) CHF (congestive heart failure) ICD Code: I50.9 Status: Acute (5) PNA (pneumonia) ICD Code: J18.9 Status: Acute (6) Non-compliance ICD Code: Z91.19 Status: Acute (7) Renal insufficiency ICD Code: N28.9 Status: Acute Assessment and Plan 47 years old male admitted with: -Chest pain with elevated troponin unlikely ACS, mostly related to PE -PE: showed on CTA of the chest, reviewed personally by me, continue heparin drip patient- Coumadin, bridging inr1.7 today , inr in am -CHF :acute on chronic echo on 11/24/16 EF 20-25%, BNP [phone], continue Lasix iv i will inc to 40 bid, monitor BMP and electrolytes, I&O, D/W cardiology cleared from their standpoint when stable and inr tx -PANCHO: cr trending down 1.28, monitor BMP -Bilateral pulmonary infiltrate: Showed on CT, unlikely pneumonia, no leukocytosis or left shift or fever, most likely related to pulmonary edema will monitor -Noncompliance: Patient counseled -DVT prophilaxis on heparin drip bridged with Coumadin Discharge Planning In a.m. if INR therapeutic Problem Qualifiers (1) Chest pain: Qualified Code: R07.9 - Chest pain, unspecified type (2) CHF (congestive heart failure): Qualified Code: I50.9 - Acute on chronic congestive heart failure, unspecified congestive heart failure type Chacho Cuevas MD Mar 14, 2017 10:00
[2017-03-14] MEDS: WARFARIN SOD 5 MG TAB PO SCH (15:17)
[2017-03-14] MEDS: FUROSEMIDE 40 MG/4 ML VIAL IV PUSH SCH (18:04)
[2017-03-14 20:42] LABS: BICARBONATE 29.7 MEQ/L (21.0-32.0); MAGNESIUM 2.4 MG/DL (1.5-2.5); POTASSIUM 3.8 MEQ/L (3.5-5.1)
[2017-03-14] MEDS: BUDESONIDE-FORMOTEROL 160/4.5 MCG INHALER INH SCH (20:52)
[2017-03-15] VITALS (7 sets, daily range): BP systolic 77–105; BP diastolic 51–73; PULSE 82–101; RESP 15–18; TEMP 97.7–98.9; O2SAT 92–100
[2017-03-15 06:24] LABS: APTT (PATIENT) 55.3 SEC (24.3-30.1)
[2017-03-15 06:41] LABS: BICARBONATE 26.3 MEQ/L (21.0-32.0); POTASSIUM 4.3 MEQ/L (3.5-5.1)
[2017-03-15] MEDS: HEPARIN-D5W INJ 250 ML IV SCH (08:14)
--- NOTE | 2017-03-15 09:11 | EKG ---
Date Performed: 03/14/2017 Time Performed: 13:06:18 PTAGE: 47 years EKG: Sinus rhythm LEFT ATRIAL ENLARGEMENT RIGHT AXIS DEVIATION LOW QRS VOLTAGE IN EXTREMITY LEADS INCOMPLETE RIGHT BUN DLE BRANCH BLOCK ST/T-WAVE ABNORMALITY, CONSIDER LATERAL ISCHEMIA ABNORMAL ECG PREVIOUS TRACING : 03/10/2017 21.42 Compared to previous tracing, lateral T wave changes are no w more pronounced. DOCTOR: Michael Veras Interpretating Date/Time 03/15/2017 09:10:12
[2017-03-15] MEDS: FUROSEMIDE 40 MG/4 ML VIAL IV PUSH SCH ×2 (09:51→17:25)
[2017-03-15] MEDS: SODIUM CHLORIDE 0.9% FLUSH 10 ML FLUSH IV FLUSH SCH ×2 (09:51→21:00)
[2017-03-15] MEDS: BUDESONIDE-FORMOTEROL 160/4.5 MCG INHALER INH SCH ×2 (09:53→21:32)
[2017-03-15] MEDS: LISINOPRIL 5 MG TAB PO SCH (09:53)
[2017-03-15] MEDS: ACETAMINOPHEN/HYDROcodone 325 MG/5 MG TAB PO PRN (09:55)
[2017-03-15] MEDS ORDERED: HYDR-3516 PO (10:32)
[2017-03-15] MEDS ORDERED: SYMB160A INH (10:32)
[2017-03-15] MEDS ORDERED: COUM5TAB PO (10:32)
--- NOTE | 2017-03-15 10:38 | HHI.PR ---
Subjective Remarks Patient doing well seen earlier by cardiology the recommended to 250 cc of with as per the nurse But if INR is 2 or above patient can be discharged home today Objective Vitals Vital Signs Date Time Temp Pulse Resp B/P Pulse Ox O2 Delivery O2 Flow Rate FiO2 03/15/17 08:00 98.6 93 17 77/57 95 03/15/17 04:00 98.4 89 16 88/57 97 03/15/17 00:00 98.3 89 16 81/51 92 03/14/17 19:00 98.0 101 16 100/68 97 03/14/17 15:42 96.5 93 19 101/69 92 03/14/17 14:02 16 03/14/17 13:31 90 03/14/17 11:40 97.7 94 17 95/71 99 I/O 03/14/17 03/14/17 03/14/17 03/15/17 03/15/17 03/15/17 07:00 15:00 23:00 07:00 15:00 23:00 Intake Total 588 ml 600 ml 480 ml 250 ml Output Total 900 ml Balance -312 ml 600 ml 480 ml 250 ml Intake Oral 480 ml 600 ml 480 ml 250 ml IV Total 108 ml Output Urine Total 900 ml # Voids 2 4 3 # Bowel Movements 0 0 0 0 Result Diagram: 03/11/17 1130 03/15/17 0552 Objective Remarks GENERAL: This is a well-nourished, well-developed patient, in no apparent distress. SKIN: No rashes, warm and dry HEAD: Atraumatic. Normocephalic. EYES: Pupils equal round and reactive. Extraocular motions intact. No scleral icterus. ENT: Nose without bleeding, or drainage, Airway patent. NECK: Trachea midline. Supple CARDIOVASCULAR: Regular rate and rhythm without murmurs, gallops, or rubs. RESPIRATORY: Fair air entry bilaterally. No wheezes, rales, or rhonchi. GASTROINTESTINAL: Abdomen soft, non-tender, nondistended. Positive bowel sounds MUSCULOSKELETAL: Extremities without clubbing, cyanosis, or edema. Pedal pulses appreciated NEUROLOGICAL: Awake and alert. Moves all extremity. Normal speech.no focal neurological deficit Procedures None A/P Problem List: (1) Chest pain ICD Code: R07.9 Status: Acute (2) Elevated troponin ICD Code: R74.8 Status: Acute (3) PE (pulmonary thromboembolism) ICD Code: I26.99 Status: Acute (4) CHF (congestive heart failure) ICD Code: I50.9 Status: Acute (5) PNA (pneumonia) ICD Code: J18.9 Status: Acute (6) Non-compliance ICD Code: Z91.19 Status: Acute (7) Renal insufficiency ICD Code: N28.9 Status: Acute Assessment and Plan 47 years old male admitted with: -Chest pain with elevated troponin unlikely ACS, mostly related to PE -PE: showed on CTA of the chest, reviewed personally by me, continue heparin drip patient- Coumadin, bridging INR pending today we'll discharge if above 2 -CHF :acute on chronic echo on 11/24/16 EF 20-25%, BNP [phone], continue Lasix iv i will inc to 40 bid, monitor BMP and electrolytes, I&O, D/W cardiology cleared from their standpoint when stable and inr tx -PANCHO: cr trending down 1.28, monitor BMP -Bilateral pulmonary infiltrate: Showed on CT, unlikely pneumonia, no leukocytosis or left shift or fever, most likely related to pulmonary edema will monitor -Noncompliance: Patient counseled -DVT prophilaxis on heparin drip bridged with Coumadin Addendum: I had a lengthy discussion with the cardiology, the persistent pain despite anticoagulation raised out for pulmonary infarction versus other crack lung syndrome manifestation, considering patient had some hemoptysis occasionally, will consult pulmonary, may need H RCT versus bronchial lavage if indicated by pantograph machine set up operator. Plan was to discharge patient today however due to low blood pressure and persistent pain, we'll hold discharge today Discharge Planning After seen by pulmonology rule out lung infarction versus crack lung Problem Qualifiers (1) Chest pain: Qualified Code: R07.9 - Chest pain, unspecified type (2) CHF (congestive heart failure): Qualified Code: I50.9 - Acute on chronic congestive heart failure, unspecified congestive heart failure type Chacho Cuevas MD Mar 15, 2017 10:38
--- NOTE | 2017-03-15 10:38 | HHI.DS ---
Discharge Summary Admission Date Mar 11, 2017 at 00:02 Discharge Date: Mar 16, 2017 Admitting Diagnosis chest pain. Pulmonary embolus. CHF. Renal insufficiency. (1) Chest pain ICD Code: R07.9 (2) Elevated troponin ICD Code: R74.8 (3) PE (pulmonary thromboembolism) ICD Code: I26.99 (4) CHF (congestive heart failure) ICD Code: I50.9 (5) PNA (pneumonia) ICD Code: J18.9 (6) Non-compliance ICD Code: Z91.19 (7) Renal insufficiency ICD Code: N28.9 Procedures None Brief History - From Admission This is a 47-year-old male with a PMH of HTN, Alcoholic CHF (Echo 11/24/16 w/ EF 20-25%), AICD ([facility]), h/o Alcohol Abuse, Tobacco Abuse and ongoing Cocaine Abuse who presented to the ER w/ complaints of chest pain starting earlier today. Seen in ER on 03/04/17 for complaints of abdominal/flank pain, CT Abd/ Pelvis w/ bibasilar infiltrates and nonspecific diffuse thickening of rectosigmoid colon, +Cocaine, d/c'd home w/ Cipro/Flagyl and instructed to follow up w/ Dr. Webb as outpatient. States abdominal pain has since resolved, but now with chest pain. Reports ran out of his medications 3 days ago and hasn't refilled them as of yet. On arrival, BP 127/72, HR 98, O2 sat 96 % on RA, Afebrile. CBC essentially unremarkable. Creatinine 1.32, previously 1.31 on 03/04/17, 1.28 on 01/26/17. LFTs mildly elevated. BNP 2644. Troponin 0.46. EKG with no acute ischemia. INR 1.1. D-dimer 1.52. Admits to daily Crack Cocaine. CXR with interval development of pulmonary edema. CTA Pulm w/ 2 tiny subtle filling defects concerning for PE, small and nonocclusive, bilateral pulmonary infiltrates and effusion noted. S/p Lasix 40mg IV, Heparin gtt and Morphine in ER, currently chest pain free. CBC/BMP: 03/11/17 1130 03/15/17 0552 Significant Findings Laboratory Tests Test 03/13/17 03/14/17 03/14/17 03/15/17 04:20 03:38 20:00 05:52 Prothrombin Time 14.8 SEC 19.7 SEC (9.8-11.6) (9.8-11.6) Activated Partial 47.8 SEC 51.0 SEC 55.3 SEC Thromboplast Time (24.3-30.1) (24.3-30.1) (24.3-30.1) Blood Urea Nitrogen 23 MG/DL (7-18) 20 MG/DL (7-18) 22 MG/DL (7-18) Estimat Glomerular Filtration 74 ML/MIN (>89) 79 ML/MIN (>89) Rate Random Glucose 110 MG/DL (74-106) Calcium Level 8.3 MG/DL 8.2 MG/DL (8.5-10.1) (8.5-10.1) B-Type Natriuretic Peptide 2428 PG/ML 1160 PG/ML (0-100) (0-100) Sodium Level 135 MEQ/L (136-145) PE at Discharge GENERAL: This is a well-nourished, well-developed patient, in no apparent distress. SKIN: No rashes, warm and dry HEAD: Atraumatic. Normocephalic. EYES: Pupils equal round and reactive. Extraocular motions intact. No scleral icterus. ENT: Nose without bleeding, or drainage, Airway patent. NECK: Trachea midline. Supple CARDIOVASCULAR: Regular rate and rhythm without murmurs, gallops, or rubs. RESPIRATORY: Fair air entry bilaterally. No wheezes, rales, or rhonchi. GASTROINTESTINAL: Abdomen soft, non-tender, nondistended. Positive bowel sounds MUSCULOSKELETAL: Extremities without clubbing, cyanosis, or edema. Pedal pulses appreciated NEUROLOGICAL: Awake and alert. Moves all extremity. Normal speech.no focal neurological deficit Hospital Course 47 years old male with history of CHF and ICD placed, history of cocaine abuse, came with chest pain and elevated troponin, cardiology consulted CTA showed PE started on heparin drip. She with Coumadin, patient had a CHF with EF 20-25%, BMP monitored placed on Lasix iv with electrolytes management, Also patient found to have bilateral pulmonary infiltrates short and CT mostly due to pulmonary edema. Through hospitalization patient continued to complain of excruciating left chest pain looks pleuritic in nature, multiple discussion with cardiology he recommended working him up for possible lung infarction, considering his ongoing cocaine abuse him a pulmonary internal audit consultant to evaluate. Recommended outpatient follow up, patient has been counseled extensively multiple occasions on the need to abstinent from doing cocaine [id number] encounter performed with the patient on discharge day, as well as physical exam, summary of hospitalization course and postdischarge plan has been D/W the patient. D/W nurse D/W case managers. And with the tearoom host patient having low blood pressure systolic 77 not significantly symptomatic,D/W Dr. Franco will give him to 250 cc of bolus monitor his blood pressure, he'll be discharged on Lasix 20 mg by mouth twice a day and attentive fluid restriction, I explained to the patient Discharge medications reviewed and printed and signed, post discharge follow up visit with PCP and other specialist as well as Brief hospital course and discharge summary has been placed. Pt Condition on Discharge: Fair Discharge Disposition: Discharge Home Discharge Time: > 30 minutes Discharge Instructions DIET: Follow Instructions for: Heart Healthy Diet Fluid Restrictions: 1500cc/day Activities you can perform: Weight Bearing as Rosy Follow up Referrals: Cardiology - 1 Week with Joselito Royal DO New Orders: PT/INR - Next Day New Medications: Budesonide-Formoterol Inh (Symbicort Inh) 160-4.5 Mcg/Act Aero 2 PUFF INH Q12HR copd Days 30 INHALER Furosemide Inj (Furosemide Inj) 10 Mg/Ml Inj 40 MG IV PUSH BID@,18 chf #60 INJECTION Hydrocodone-Acetaminophen (Hydrocodone-Acetaminophen) 5-325 mg Tab 1 TAB PO Q4H PRN PAIN SCALE 3 TO 5 #5 TAB Warfarin (Coumadin) 5 Mg Tab 5 MG PO DAILY@1600 [pe #30 TAB Continued Medications: Aspirin DR (Aspirin EC) 81 Mg Tabdr 81 MG PO DAILY Heart #30 TAB Lisinopril (Lisinopril) 2.5 Mg Tab 2.5 MG PO DAILY #30 Ref 0 TAB Potassium Chloride ER (Potassium Chloride ER) 10 Meq Cap 10 MEQ PO DAILY Electrolyte Replacement #30 Ref 0 CAP Simvastatin (Simvastatin) 20 Mg Tab 20 MG PO HS Cholesterol Management #30 Ref 0 TAB Chacho Cuevas MD Mar 15, 2017 10:38
[2017-03-15] MEDS ORDERED: FURO1TAB62 PO (11:54)
--- NOTE | 2017-03-15 11:59 | PD.CARD.PN ---
Subjective Subjective Remarks Chest pain reproducible with palpation of the left chest wall Objective Medications Current Medications Medications (Trade) Dose Ordered Sig/Aida Route Start Time Stop Time Status Last Admin (Heparin-D5W Inj) 250 ml @ 0 mls/hr TITRATE IV 03/11/17 00:00 03/15/17 08:14 (Symbicort 160-4.5 Inh) 2 puff Q12HR INH 03/11/17 09:00 03/15/17 09:53 (NS Flush) 2 ml UNSCH PRN IV FLUSH 03/11/17 00:15 (NS Flush) 2 ml BID IV FLUSH 03/11/17 09:00 (Zofran Inj) 4 mg Q6H PRN IVP 03/11/17 00:15 (Dulcolax Supp) 10 mg DAILY PRN RECTAL 03/11/17 00:15 (Tylenol) 650 mg Q6H PRN PO 03/11/17 00:15 ([place] 5-325 Mg) 1 tab Q4H PRN PO 03/11/17 00:15 03/15/17 09:55 (Coumadin) 5 mg DAILY@1600 PO 03/11/17 16:00 03/14/17 15:17 (Prinivil) 2.5 mg DAILY PO 03/14/17 09:00 03/14/17 09:23 (Pill Splitter) 1 ea UNSCH PRN OTHER 03/13/17 11:00 (Milk Of Magnesia Liq) 30 ml Q6H PRN PO 03/13/17 11:15 03/13/17 18:09 (Irina-Colace) 2 tab BID PRN PO 03/13/17 11:15 03/13/17 11:25 (Lasix Inj) 40 mg BID@09,18 IV PUSH 03/14/17 18:00 03/14/17 18:04 Vital Signs / I&O Vital Signs Date Time Temp Pulse Resp B/P Pulse Ox O2 Delivery O2 Flow Rate FiO2 03/15/17 08:00 98.6 93 17 77/57 95 03/15/17 04:00 98.4 89 16 88/57 97 03/15/17 00:00 98.3 89 16 81/51 92 03/14/17 19:00 98.0 101 16 100/68 97 4/24/17 15:42 96.5 93 19 101/69 92 03/14/17 14:02 16 03/14/17 13:31 90 I/O 03/14/17 03/14/17 03/14/17 03/15/17 03/15/17 03/15/17 07:00 15:00 23:00 07:00 15:00 23:00 Intake Total 588 ml 600 ml 480 ml 250 ml Output Total 900 ml Balance -312 ml 600 ml 480 ml 250 ml Intake Oral 480 ml 600 ml 480 ml 250 ml IV Total 108 ml Output Urine Total 900 ml # Voids 2 4 3 # Bowel Movements 0 0 0 0 Physical Exam GENERAL: NAD, AAOx3 SKIN: Warm and dry. HEAD: Atraumatic. Normocephalic. EYES: Pupils equal and round. No scleral icterus. No injection or drainage. ENT: No nasal bleeding or discharge. Mucous membranes pink and moist. NECK: Trachea midline. No JVD. CARDIOVASCULAR: Regular rate and rhythm. RESPIRATORY: No accessory muscle use. Decreased breath sounds bilaterally GASTROINTESTINAL: Abdomen soft, non-tender, nondistended. Hepatic and splenic margins not palpable. MUSCULOSKELETAL: Extremities without clubbing, cyanosis, or edema. No obvious deformities. NEUROLOGICAL: Awake and alert. No obvious cranial nerve deficits. Motor grossly within normal limits. Five out of 5 muscle strength in the arms and legs. Normal speech. PSYCHIATRIC: Appropriate mood and affect; insight and judgment normal. Laboratory Laboratory Tests Test 03/14/17 03/15/17 20:00 05:52 Sodium Level 135 MEQ/L 138 MEQ/L Potassium Level 3.8 MEQ/L 4.3 MEQ/L Chloride Level 99 MEQ/L 104 MEQ/L Carbon Dioxide Level 29.7 MEQ/L 26.3 MEQ/L Anion Gap 6 MEQ/L 8 MEQ/L Blood Urea Nitrogen 20 MG/DL 22 MG/DL Creatinine 1.21 MG/DL 1.08 MG/DL Estimat Glomerular Filtration 79 ML/MIN 90 ML/MIN Rate Random Glucose 92 MG/DL 89 MG/DL Calcium Level 8.2 MG/DL 8.5 MG/DL Magnesium Level 2.4 MG/DL Activated Partial 55.3 SEC Thromboplast Time B-Type Natriuretic Peptide 1160 PG/ML Assessment and Plan Problem List: (1) PE (pulmonary thromboembolism) (2) Chest pain (3) Elevated troponin (4) CHF (congestive heart failure) (5) Non-compliance Assessment and Plan 1) Chest pain appears pleuritic/non-cardiac, no further cardiovascular work up, consider possible pulmonary infarctions? Although no hemoptysis 2) Con't anticoagulation with heparin and plan to switch to oral anticoagulation 3) Elevated troponin secondary to pulmonary embolism 4) Acute on chronic CHF most likely due to acute illness and non-compliance, counselled on salt intake including the pizza and hotdogs he has ate all week... no clinical signs of acute heart failure at this time 5) ICD interrogated in November, no indication to interrogate now... needs outpatient follow up with cardiology, he will call his insurance company to find a energy project manager in the area 6) Continue with diuresis, mild hypotension this morning possibly from over diuresis and pain medications 7) No beta crispin at this time due to low normal blood pressure and history of cocaine abuse (UDS negative for cocaine this admit, but positive on 03/04/17 for cocaine) 8) Creatinine stable, will restart KAREL-I 9) Will see PRN, call with questions Problem Qualifiers (1) Chest pain: Qualified Code: R07.9 - Chest pain, unspecified type (2) CHF (congestive heart failure): Qualified Code: I50.9 - Acute on chronic congestive heart failure, unspecified congestive heart failure type Joselito Royal DO Mar 15, 2017 11:59
[2017-03-15] MEDS ORDERED: SODIUM CHLOR 0.9% 250 ML INJ 250 ML IV ONE (12:00)
[2017-03-15 12:36] LABS: INTERNATIONAL NORMALIZED RATIO 2.3 RATIO
[2017-03-15] MEDS: WARFARIN SOD 5 MG TAB PO SCH (17:25)
--- NOTE | 2017-03-15 18:56 | MB ---
cc: DALJIT TY DATE OF CONSULTATION 03/15/[address] Portia Herrera REASON FOR CONSULTATION Chest pain and pulmonary embolism. HISTORY OF PRESENT ILLNESS Mr Calderón is a 47-year-old -[place] male with severe cardiomyopathy, ejection fraction around 20%. He has [facility] [place] AICD placed. He has alcoholic cardiomyopathy. The patient was being followed at [facility] and his pacemaker was placed in 2011. He moved to this area one year ago and has not seen any doctor. He continues to used cocaine and marijuana and also smokes. The patient came to the hospital with chest pain which now he states was going on for the last three weeks or so. He has point tenderness below the left nipple where he states that he has pain, which is worse with breathing, and pain is much better now. The patient had workup done in this hospital. He had a CTA of the chest done which showed that he has two tiny filling defects, consistant for pulmonary embolism and has bilateral pulmonary infiltrate likely related to pulmonary edema. His CBC showed a WBC count 4.4, hemoglobin 10.6, hematocrit 32.6, MCV 92, platelet count 244. Sodium 130, potassium 4.2, chloride 104, CO2 26, BUN 22, creatinine 1.08, INR is 2.3. Toxicology screen is positive for opiates. PAST MEDICAL HISTORY 1. History of hypertension, 2. Congestive heart failure. 3. Cardiomyopathy status post [facility] AICD placement. MEDICATIONS Currently taking 1. Lasix 40 mg a day 2. Lisinopril 2.5 mg a day 3. Coumadin 5 mg a day. 4. Symbicort 160/4.5, 2 puffs q. 12-hour. 5. Albuterol/Atrovent nebulizer treatment. 6. Hydrocodone for pain. 7. Heparin drip. ALLERGIES NO KNOWN DRUG ALLERGIES. SOCIAL HISTORY He is single, does not work. He is disabled. Has history of smoking, alcohol use and cocaine use. His cocaine use was just before coming to the hospital. FAMILY HISTORY He has brother and sister who live in [place]. His aunt lives in [place]. He is single. REVIEW OF SYSTEMS Denies any weight loss. No headache or dizziness. Has chest pain, no prior DVT or pulmonary embolism. He says that he was taking blood thinner in [place] but they took him off for reason unknown. PHYSICAL EXAMINATION GENERAL: Well built male mildly short of breath not in acute distress. VITAL SIGNS: Blood pressure 100/73, heart rate 101, respirations __. Temperature 98.1 HEENT: Pupils are equal and reactive to light. Oral mucosa, nasal mucosa normal. NECK: Supple. JVP not raised. CHEST: Slightly decreased breath sounds at the bases. CARDIOVASCULAR: S1, S2 are normal. ABDOMEN: Soft, nontender, nondistended. Bowel sounds present. EXTREMITIES: No edema. IMPRESSION: 1. Pulmonary embolism 2. Pleuritic type her chest pain which is improved with medication. 3. Cardiomyopathy. 4. Severe cardiomegaly 5. Hypertension 6. Status post AICD placement. PLAN I discussed with the patient he is on anticoagulation. I explained to him he will need to have a regular followup with his primary physician and monitoring of the Coumadin level. I explained to him risk of the anticoagulation including severe bleeding, intracranial hemorrhage and which he understands well and I also discussed with him interaction with other medication with Coumadin. He is on Coumadin. Monitor the INR level to keep it between 2 and 3. He is stable on room air and is much better controlled. Further treatment will depend on the course in the hospital. Thank you, Dr. Portia Herrera for this consultation. MD RODNEY Bingham/ /6:24 PM /6:33 PM BE
[2017-03-16 04:00] VITALS: BP 91/61; PULSE 99; RESP 16; TEMP 98.3; O2SAT 98
[2017-03-16 07:43] LABS: APTT (PATIENT) 64.6 SEC (24.3-30.1)
[2017-03-16 07:44] LABS: INTERNATIONAL NORMALIZED RATIO 2.6 RATIO; PROTHROMBIN TIME - PATIENT 30.1 SEC (9.8-11.6)
[2017-03-16 08:00] VITALS: BP 100/72; PULSE 86; RESP 16; TEMP 97.7; O2SAT 98
[2017-03-16] MEDS: SODIUM CHLORIDE 0.9% FLUSH 10 ML FLUSH IV FLUSH SCH (08:30)
[2017-03-16] MEDS: FUROSEMIDE 40 MG/4 ML VIAL IV PUSH SCH (08:30)
[2017-03-16] MEDS: LISINOPRIL 5 MG TAB PO SCH (08:30)
[2017-03-16] MEDS: BUDESONIDE-FORMOTEROL 160/4.5 MCG INHALER INH SCH (08:39)
[2017-03-16] MEDS: ACETAMINOPHEN/HYDROcodone 325 MG/5 MG TAB PO PRN (08:39)
--- NOTE | 2017-03-16 11:08 | HHI.PR ---
Subjective Remarks Patient resting in bed stable, I discussed with research dietitian he recommended abstinent from cocaine and follow up as an outpatient, will go ahead and discharge patient today Objective Vitals Vital Signs Date Time Temp Pulse Resp B/P Pulse Ox O2 Delivery O2 Flow Rate FiO2 03/16/17 08:00 97.7 86 16 100/72 98 03/16/17 04:00 98.3 99 16 91/61 98 03/15/17 22:31 97.7 101 16 105/71 100 03/15/17 20:15 98.1 97 15 93/58 98 03/15/17 16:59 98.1 101 17 100/73 95 03/15/17 12:00 98.9 82 18 89/54 98 I/O 03/15/17 03/15/17 03/15/17 03/16/17 03/16/17 03/16/17 07:00 15:00 23:00 07:00 15:00 23:00 Intake Total 250 ml 240 ml 480 ml Output Total 600 ml 375 ml Balance 250 ml -360 ml 105 ml Intake Oral 250 ml 240 ml 480 ml Output Urine Total 600 ml 375 ml # Voids 3 # Bowel Movements 0 0 0 Result Diagram: 03/15/17 0552 Objective Remarks GENERAL: This is a well-nourished, well-developed patient, in no apparent distress. SKIN: No rashes, warm and dry HEAD: Atraumatic. Normocephalic. EYES: Pupils equal round and reactive. Extraocular motions intact. No scleral icterus. ENT: Nose without bleeding, or drainage, Airway patent. NECK: Trachea midline. Supple CARDIOVASCULAR: Regular rate and rhythm without murmurs, gallops, or rubs. RESPIRATORY: Fair air entry bilaterally. No wheezes, rales, or rhonchi. GASTROINTESTINAL: Abdomen soft, non-tender, nondistended. Positive bowel sounds MUSCULOSKELETAL: Extremities without clubbing, cyanosis, or edema. Pedal pulses appreciated NEUROLOGICAL: Awake and alert. Moves all extremity. Normal speech.no focal neurological deficit Procedures None A/P Problem List: (1) Chest pain ICD Code: R07.9 Status: Acute (2) Elevated troponin ICD Code: R74.8 Status: Acute (3) PE (pulmonary thromboembolism) ICD Code: I26.99 Status: Acute (4) CHF (congestive heart failure) ICD Code: I50.9 Status: Acute (5) PNA (pneumonia) ICD Code: J18.9 Status: Acute (6) Non-compliance ICD Code: Z91.19 Status: Acute (7) Renal insufficiency ICD Code: N28.9 Status: Acute Assessment and Plan 47 years old male admitted with: -Chest pain with elevated troponin unlikely ACS, mostly related to PE I had a lengthy discussion with the cardiology, the persistent pain despite anticoagulation raised out for pulmonary infarction versus other crack lung syndrome manifestation, considering patient had some hemoptysis occasionally, consulted pulmonary, discussed with Dr. Rizzo, unlikely infarction, recommended abstinent from crack and follow up as an outpatient -PE: showed on CTA of the chest, reviewed personally by me, status post heparin drip patient- Coumadin bridging, therapeutic now continue on Coumadin -CHF :acute on chronic echo on 11/24/16 EF 20-25%, BNP [phone], status post Lasix iv, switch to by mouth at 20 twice a day per cardiology recommendation -PANCHO: cr trending down 1.28, monitor BMP -Bilateral pulmonary infiltrate: Showed on CT, unlikely pneumonia, no leukocytosis or left shift or fever, most likely related to pulmonary edema will monitor -Noncompliance: Patient counseled -DVT prophilaxis on heparin drip bridged with Coumadin Discharge Planning After seen by pulmonology rule out lung infarction versus crack lung Problem Qualifiers (1) Chest pain: Qualified Code: R07.9 - Chest pain, unspecified type (2) CHF (congestive heart failure): Qualified Code: I50.9 - Acute on chronic congestive heart failure, unspecified congestive heart failure type Chacho Cuevas MD Mar 16, 2017 11:08
--- NOTE | 2017-03-16 12:28 | PD.CARD.PN ---
Subjective Subjective Remarks Reproducible chest pain, feels better today overall Objective Medications Current Medications Medications (Trade) Dose Ordered Sig/Aida Route Start Time Stop Time Status Last Admin (Heparin-D5W Inj) 250 ml @ 0 mls/hr TITRATE IV 03/11/17 00:00 03/15/17 08:14 (Symbicort 160-4.5 Inh) 2 puff Q12HR INH 03/11/17 09:00 03/16/17 08:39 (NS Flush) 2 ml UNSCH PRN IV FLUSH 03/11/17 00:15 (NS Flush) 2 ml BID IV FLUSH 03/11/17 09:00 03/16/17 08:30 (Zofran Inj) 4 mg Q6H PRN IVP 03/11/17 00:15 (Dulcolax Supp) 10 mg DAILY PRN RECTAL 03/11/17 00:15 (Tylenol) 650 mg Q6H PRN PO 03/11/17 00:15 ([place] 5-325 Mg) 1 tab Q4H PRN PO 03/11/17 00:15 03/16/17 08:39 (Coumadin) 5 mg DAILY@1600 PO 03/11/17 16:00 03/15/17 17:25 (Prinivil) 2.5 mg DAILY PO 03/14/17 09:00 03/16/17 08:30 (Pill Splitter) 1 ea UNSCH PRN OTHER 03/13/17 11:00 (Milk Of Magnesia Liq) 30 ml Q6H PRN PO 03/13/17 11:15 03/13/17 18:09 (Irina-Colace) 2 tab BID PRN PO 03/13/17 11:15 03/13/17 11:25 (Lasix) 20 mg BID@09,18 PO 03/16/17 18:00 Vital Signs / I&O Vital Signs Date Time Temp Pulse Resp B/P Pulse Ox O2 Delivery O2 Flow Rate FiO2 03/16/17 08:00 97.7 86 16 100/72 98 03/16/17 04:00 98.3 99 16 91/61 98 03/15/17 22:31 97.7 101 16 105/71 100 03/15/17 20:15 98.1 97 15 93/58 98 03/15/17 16:59 98.1 101 17 100/73 95 I/O 03/15/17 03/15/17 03/15/17 03/16/17 03/16/17 03/16/17 07:00 15:00 23:00 07:00 15:00 23:00 Intake Total 250 ml 240 ml 480 ml Output Total 600 ml 375 ml Balance 250 ml -360 ml 105 ml Intake Oral 250 ml 240 ml 480 ml Output Urine Total 600 ml 375 ml # Voids 3 # Bowel Movements 0 0 0 Physical Exam GENERAL: NAD, AAOx3 SKIN: Warm and dry. HEAD: Atraumatic. Normocephalic. EYES: Pupils equal and round. No scleral icterus. No injection or drainage. ENT: No nasal bleeding or discharge. Mucous membranes pink and moist. NECK: Trachea midline. No JVD. CARDIOVASCULAR: Regular rate and rhythm. RESPIRATORY: No accessory muscle use. Decreased breath sounds bilaterally GASTROINTESTINAL: Abdomen soft, non-tender, nondistended. Hepatic and splenic margins not palpable. MUSCULOSKELETAL: Extremities without clubbing, cyanosis, or edema. No obvious deformities. NEUROLOGICAL: Awake and alert. No obvious cranial nerve deficits. Motor grossly within normal limits. Five out of 5 muscle strength in the arms and legs. Normal speech. PSYCHIATRIC: Appropriate mood and affect; insight and judgment normal. Laboratory Laboratory Tests Test 03/16/17 06:29 Prothrombin Time 30.1 SEC Prothromb Time International 2.6 RATIO Ratio Activated Partial 64.6 SEC Thromboplast Time Assessment and Plan Problem List: (1) PE (pulmonary thromboembolism) (2) Chest pain (3) Elevated troponin (4) CHF (congestive heart failure) (5) Non-compliance Assessment and Plan 1) Chest pain pleuritic/non-cardiac, no further cardiovascular work up... mentioned some hemoptysis, possible pulmonary infarctions 2) Con't anticoagulation with heparin and plan to switch to oral anticoagulation , INR 2.6 3) Elevated troponin secondary to pulmonary embolism 4) Acute on chronic CHF most likely due to acute illness and non-compliance, counselled on salt intake including the pizza and hotdogs he has ate all week... no clinical signs of acute heart failure at this time 5) ICD interrogated in November, no indication to interrogate now... needs outpatient follow up with cardiology, he will call his insurance company to find a wire taper in the area 6) Continue with diuresis, agree with Lasix 20mg BID PO outpt 7) No beta crispin at this time due to low normal blood pressure and history of cocaine abuse (UDS negative for cocaine this admit, but positive on 03/04/17 for cocaine) 8) Creatinine stable, will restart KAREL-I 9) Cardiovascularly stable for discharge Problem Qualifiers (1) Chest pain: Qualified Code: R07.9 - Chest pain, unspecified type (2) CHF (congestive heart failure): Qualified Code: I50.9 - Acute on chronic congestive heart failure, unspecified congestive heart failure type Joselito Royal DO Mar 16, 2017 12:28
[2017-03-16] MEDS ORDERED: FUROSEMIDE 20 MG TAB PO SCH (18:00)
[2017-04-07] MEDS ORDERED: FURO20TA PO (12:15)
[2017-04-07] MEDS ORDERED: POTA10CA PO (12:15)
[2017-05-10] MEDS ORDERED: FURO20TA PO (10:18)
== END 2017-03-16 12:29 | disposition home or self-care (01) | DRG 313 ==
LOC: NEPC 21:32 → NEDA 03-11 00:02 → HCIN 03-11 02:15 → N06B 03-14 11:51 → N04A 03-15 22:05
PROVIDERS: ADMIT Hospitalist; ATTEND Hospitalist
DX: R07.89 Other chest pain (principal); I26.99 Other pulmonary embolism without acute cor pulmonale; I50.23 Acute on chronic systolic (congestive) heart failure; J18.9 Pneumonia, unspecified organism; I11.0 Hypertensive heart disease with heart failure; I42.6 Alcoholic cardiomyopathy; E78.00 Pure hypercholesterolemia, unspecified; F12.90 Cannabis use, unspecified, uncomplicated; F14.10 Cocaine abuse, uncomplicated; F17.200 Nicotine dependence, unspecified, uncomplicated; K59.00 Constipation, unspecified; N28.9 Disorder of kidney and ureter, unspecified; Z79.01 Long term (current) use of anticoagulants; Z91.19 Patient's noncompliance with other medical treatment and regimen; Z95.810 Presence of automatic (implantable) cardiac defibrillator
CPT/HCPCS: 71010; 71275; 80048; 80053; 80307; 82550; 82552; 83690; 83735; 83880; 84100; 84484; 85025; 85379; 85610; 85730; 93005; 93306; 96374; 96375; J1644; J1940; J2270; J2405; J7050; Q9967

== ENCOUNTER 2017-03-24 02:39 | Inpatient (IN) | payer MEDICAID ==
[2017-03-24] VITALS (15 sets, daily range): BP systolic 90–116; BP diastolic 63–88; PULSE 84–110; RESP 14–20; TEMP 97.5–98.2; O2SAT 95–100
[~2017-03-24] VITALS: Ht 170.2 cm; Wt 55.4 kg
[~2017-03-24 02:39] MED LIST changes: -CIPR-9 PO; +COUM5TAB PO; +HYDR-3516 PO; -METR-1 PO; +SYMB160A INH
[2017-03-24] MEDS ORDERED: SODIUM CHLORIDE 0.9% FLUSH 10 ML FLUSH IVF PRN (03:30)
[2017-03-24 03:33] LABS: AUTOMATED NEUTROPHIL # 1.5 TH/MM3 (1.8-7.7); BASOPHIL % 0.7 % (0.0-2.0); EOSINOPHIL % 0.7 % (0.0-4.0); HEMATOCRIT 33.9 % (39.0-51.0); HEMO FLAGS DIFF FINAL; LYMPH % 43.7 % (9.0-44.0); LYMPHOCYTE # 1.5 TH/MM3 (1.0-4.8); MEAN CELL VOLUME 91.1 FL (80.0-100.0); MEAN CORPUSCULAR HEMOGLOBIN 28.9 PG (27.0-34.0); MEAN CORPUSCULAR HGB CONC 31.7 % (32.0-36.0); MONO % 10.3 % (0.0-8.0); NEUT % 44.6 % (16.0-70.0); PLATELET COUNT 298 TH/MM3 (150-450); RED BLOOD COUNT 3.72 MIL/MM3 (4.50-5.90); RED CELL DISTRIBUTION WIDTH 15.6 % (11.6-17.2); WHITE BLOOD COUNT 3.4 TH/MM3 (4.0-11.0)
[2017-03-24] MEDS: RESP: ALBUTEROL 2.5 MG/IPRATROPIUM 0.5 MG NEB (SCH) INH ×2 (03:35→03:36)
--- NOTE | 2017-03-24 03:53 | RADRPT ---
EXAM DATE/TIME: 03/24/2017 03:49 [facility] COMPARISON: CHEST SINGLE AP, March 10, 2017, 21:48. INDICATIONS : Short of breath. MEDICAL HISTORY : Myocardial infarction. Congestive heart failure. Hypertension. SURGICAL HISTORY : Pacemaker. ENCOUNTER: Initial ACUITY: 1 day PAIN SCORE: Non-responsive. LOCATION: Bilateral chest FINDINGS: The cardiac silhouette is enlarged in transverse diameter. A defibrillator device is in place via a l eft sided approach. The lungs are free of acute parenchymal opacity. No effusions are identified. CONCLUSION: 1. Marked cardiomegaly. No acute cardiopulmonary disease. Hernan Amezcua MD on March 24, 2017 at 3:51 Board Certified Radiologist. This report was verified electronically.
[2017-03-24 04:02] LABS: ALT (GPT) 55 U/L (12-78); ANION GAP 8 MEQ/L (5-15); AST (GOT) 47 U/L (15-37); BICARBONATE 22.7 MEQ/L (21.0-32.0); BLOOD UREA NITROGEN 20 MG/DL (7-18); CHLORIDE 110 MEQ/L (98-107); GLOMERULAR FILTRATION RATE 78 ML/MIN (>89); POTASSIUM 3.9 MEQ/L (3.5-5.1); SODIUM (NA) 141 MEQ/L (136-145)
--- NOTE | 2017-03-24 04:05 | PD ---
HPI Chief Complaint: Respiratory Symptoms Time Seen by Provider: 03:16 Travel History International Travel<30 days: No Contact w/Intl Traveler<30days: No Traveled to known affect area: No History of Present Illness HPI 47-year-old male with history of CHF, AICD, PE on Coumadin, brought in by ambulance for evaluation of shortness of breath. Symptoms started about 2 hours prior to arrival. Patient reports that he feels as though he can't catch his breath. No chest pain. No fevers or recent illness. He states he is compliant with his Coumadin. PFSH Past Medical History Hx Anticoagulant Therapy: Yes Asthma: No Blood Disorders: No Anxiety: No Depression: No Heart Rhythm Problems: Yes Cancer: No Cardiomyopathy: Yes Cardiovascular Problems: Yes High Cholesterol: Yes Chemotherapy: No Chest Pain: Yes Congestive Heart Failure: Yes COPD: No Diabetes: No Diminished Hearing: No Endocrine: No Gastrointestinal Disorders: No Genitourinary: No Hypertension: Yes Immune Disorder: No Implanted Vascular Access Dvce: Yes (AICD defibrillator) Musculoskeletal: No Neurologic: No Psychiatric: No Reproductive: No Respiratory: Yes Radiation Therapy: No Sleep Apnea: No Thyroid Disease: No Past Surgical History AICD: Yes (AICD, [facility]) Body Medical Devices: defibrib Cardiac Surgery: Yes (DEFIBRILLATOR) Other Surgery: Yes Social History Alcohol Use: No Tobacco Use: No Substance Use: No Allergies-Medications (Allergen,Severity, Reaction): Coded Allergies: No Known Allergies (Unverified , 03/24/17) Reported Meds & Prescriptions Reported Meds & Active Scripts Active Lasix (Furosemide) 20 Mg Tab 20 Mg PO BID Hydrocodone-Acetaminophen 5-325 mg Tab 1 Tab PO Q4H PRN Coumadin (Warfarin) 5 Mg Tab 5 Mg PO DAILY@1600 Symbicort Inh (Budesonide/Formoterol Fumarate) 160-4.5 Mcg/Act Aero 2 Puff INH Q12HR 30 Days Tramadol (Tramadol HCl) 50 Mg Tab 50 Mg PO Q6H PRN Potassium Chloride ER (Potassium Chloride) 10 Meq Cap 10 Meq PO DAILY Aspirin EC (Aspirin) 81 Mg Tabdr 81 Mg PO DAILY Lisinopril 2.5 Mg Tab 2.5 Mg PO DAILY Amiodarone (Amiodarone HCl) 200 Mg Tab 200 Mg PO DAILY Simvastatin 20 Mg Tab 20 Mg PO HS Review of Systems Except as stated in HPI: all other systems reviewed are Neg Physical Exam Narrative GENERAL: Well-developed, well-nourished, awake, alert, no acute distress. SKIN: Focused skin assessment warm/dry. HEAD: Atraumatic. Normocephalic. EYES: Pupils equal and round. No scleral icterus. No injection or drainage. ENT: Mucous membranes pink and moist. NECK: Trachea midline. No JVD. CARDIOVASCULAR: Regular rate and rhythm. No murmur appreciated. RESPIRATORY: No accessory muscle use. Clear to auscultation. Breath sounds equal bilaterally. GASTROINTESTINAL: Abdomen soft, non-tender, nondistended. MUSCULOSKELETAL: No obvious deformities. No clubbing. No cyanosis. No edema. NEUROLOGICAL: Awake and alert. No obvious cranial nerve deficits. Motor grossly within normal limits. Normal speech. PSYCHIATRIC: Appropriate mood and affect; insight and judgment normal. Data Data Last Documented VS Vital Signs Date Time Temp Pulse Resp B/P Pulse Ox O2 Delivery O2 Flow Rate FiO2 03/24/17 04:34 98 18 107/70 100 Nasal Cannula 2 03/24/17 02:48 97.6 Orders Complete Blood Count With Diff (03/24/17 03:16) Comprehensive Metabolic Panel (03/24/17 03:16) B-Type Natriuretic Peptide (03/24/17 03:16) Act Partial Throm Time (Ptt) (03/24/17 03:16) Prothrombin Time / Inr (Pt) (03/24/17 03:16) Ckmb (Isoenzyme) Profile (03/24/17 03:16) Troponin I (03/24/17 03:16) Iv Access Insert/Monitor (03/24/17 03:16) Ecg Monitoring (03/24/17 03:16) Oximetry (03/24/17 03:16) Oxygen Administration (03/24/17 03:16) Chest, Single Ap (03/24/17 03:16) Sodium Chloride 0.9% Flush (Ns Flush) (03/24/17 03:30) Albuterol-Ipratropium Neb (Duoneb Neb) (03/24/17 03:30) CKMB (03/24/17 03:19) CKMB% (03/24/17 03:19) Furosemide Inj (Lasix Inj) (03/24/17 04:45) Admit Order (Ed Use Only) (03/24/17 04:46) Labs Laboratory Tests Test 03/24/17 03:19 White Blood Count 3.4 TH/MM3 Red Blood Count 3.72 MIL/MM3 Hemoglobin 10.7 GM/DL Hematocrit 33.9 % Mean Corpuscular Volume 91.1 FL Mean Corpuscular Hemoglobin 28.9 PG Mean Corpuscular Hemoglobin 31.7 % Concent Red Cell Distribution Width 15.6 % Platelet Count 298 TH/MM3 Mean Platelet Volume 7.7 FL Neutrophils (%) (Auto) 44.6 % Lymphocytes (%) (Auto) 43.7 % Monocytes (%) (Auto) 10.3 % Eosinophils (%) (Auto) 0.7 % Basophils (%) (Auto) 0.7 % Neutrophils # (Auto) 1.5 TH/MM3 Lymphocytes # (Auto) 1.5 TH/MM3 Monocytes # (Auto) 0.3 TH/MM3 Eosinophils # (Auto) 0.0 TH/MM3 Basophils # (Auto) 0.0 TH/MM3 CBC Comment DIFF FINAL Differential Comment Prothrombin Time 125.9 SEC Prothromb Time International 10.3 RATIO Ratio Activated Partial 41.4 SEC Thromboplast Time Sodium Level 141 MEQ/L Potassium Level 3.9 MEQ/L Chloride Level 110 MEQ/L Carbon Dioxide Level 22.7 MEQ/L Anion Gap 8 MEQ/L Blood Urea Nitrogen 20 MG/DL Creatinine 1.22 MG/DL Estimat Glomerular Filtration 78 ML/MIN Rate Random Glucose 80 MG/DL Calcium Level 8.1 MG/DL Total Bilirubin 0.2 MG/DL Aspartate Amino Transf 47 U/L (AST/SGOT) Alanine Aminotransferase 55 U/L (ALT/SGPT) Alkaline Phosphatase 109 U/L Total Creatine Kinase 142 U/L Creatine Kinase MB 1.7 NG/ML Troponin I 0.05 NG/ML B-Type Natriuretic Peptide 2958 PG/ML Total Protein 5.8 GM/DL Albumin 2.5 GM/DL [facility] Medical Decision Making Medical Screen Exam Complete: Yes Emergency Medical Condition: Yes Medical Record Reviewed: Yes Differential Diagnosis Acute pulmonary edema, pneumothorax, ACS, PE, pneumonia, reactive airway disease , Narrative Course Initial vital signs show heart rate 99, blood pressure 113/70, pulse ox 90% on 2 L nasal cannula, oral temp of 97.6F. CBC shows WBC 3.4, hemoglobin 10.7, hematocrit 33.9, platelets 298. CMP is essentially unremarkable. Troponin is 0.05. BNP is 2958. INR is 10.3. Chest x-ray shows markedly cardiomegaly, no acute cardio pulmonary disease. Patient was given 3 DuoNeb treatments here. Chart review shows that the patient had an echocardiogram on 03/11/17 which shows an EF of 10-15% with diffuse hypokinesis. Patient tells me that he has been taking his Coumadin, however he does not have anywhere to have his Coumadin levels checked. States he does not have it in an appointment with a doctor until June of this year. Patient will be admitted for overnight observation for CHF exacerbation and Coumadin toxicity. Hopefully case management can help him with following up with a Coumadin clinic. Case discussed with hospitalist Dr. Fischer who will admit the patient to her service. Diagnosis Primary Impression: CHF (congestive heart failure) Qualified Code: I50.9 - Congestive heart failure, unspecified congestive heart failure chronicity, unspecified congestive heart failure type Additional Impression: Coumadin toxicity Qualified Code: T45.511A - Coumadin toxicity, accidental or unintentional, initial encounter Willie Hyman MD March 24, 2017 04:05
[2017-03-24 04:06] LABS: ALKALINE PHOSPHATASE 109 U/L (45-117); CREATINE KINASE 142 U/L (39-308); TOTAL BILIRUBIN ADULT 0.2 MG/DL (0.2-1.0)
[2017-03-24 04:20] LABS: CKMB 1.7 NG/ML (0.5-3.6)
[2017-03-24 04:24] LABS: APTT (PATIENT) 41.4 SEC (24.3-30.1); PROTHROMBIN TIME - PATIENT 125.9 SEC (9.8-11.6)
[2017-03-24 04:28] LABS: INTERNATIONAL NORMALIZED RATIO 10.3 RATIO
[2017-03-24] MEDS ORDERED: FUROSEMIDE 20 MG/2 ML VIAL IV PUSH ONE (04:45)
[2017-03-24] MEDS ORDERED: NALOXONE HCL 0.4 MG/ML AMP IV PRN (05:00)
[2017-03-24] MEDS ORDERED: SODIUM CHLORIDE 0.9% FLUSH 10 ML FLUSH IV FLUSH PRN (05:00)
[2017-03-24] MEDS ORDERED: POTASSIUM CHLORIDE 20 MEQ CONTROLLED RELEASE TAB PO ONE (05:00)
[2017-03-24] MEDS: SODIUM CHLORIDE 0.9% FLUSH 10 ML FLUSH IV FLUSH SCH ×2 (09:00→21:00)
[2017-03-24] MEDS: LISINOPRIL 5 MG TAB PO SCH (10:40)
[2017-03-24] MEDS: POTASSIUM CHLORIDE 10 MEQ CAP PO SCH (10:40)
[2017-03-24] MEDS: AMIODARONE 200 MG TAB PO SCH (10:40)
[2017-03-24] MEDS: ASPIRIN EC 81 MG TABEC PO SCH (10:40)
[2017-03-24] MEDS: FUROSEMIDE 40 MG/4 ML VIAL IV PUSH SCH ×2 (10:40→17:51)
--- NOTE | 2017-03-24 12:25 | HHI.HP ---
[facility] Service [facility] Primary Care Physician Lizz Bullard Noud Admission Diagnosis CHF exacerbation, Coumadin toxicity Diagnoses: Chief Complaint: Worsening Shortness of breath Travel History International Travel<30 Days: No Contact w/Intl Traveler <30 Da: No Traveled to Known Affected Are: No History of Present Illness 47 years old male who is known to me from previous admission with significant history of noncompliance, he is with history of advanced CHF status post ICD EF 25% who was recently discharged from the hospital after he treated for pneumonia and CHF exacerbation, as well as bilateral PE patient is on Coumadin, presented to the ED complaining of worsening short of breath he was found to have elevated BNP and supratherapeutic INR. I saw the patient in his room, he admitted eating loaded salty food, "I only ate 2 hotdogs ". Patient denied chest pain short of breath abdominal pain diarrhea or constipation, positive orthopnea. Patient denied any hematochezia or hematemesis or any other signs of bleeding, his INR was found to be at 10 Review of Systems All systems reviewed and was positive for what is mentioned in history of present illness otherwise negative Past Family Social History Past Medical History CHF status post ICD Hypertension Hyperlipidemia History of recent pneumonia and bilateral PE Noncompliance E Allergies: Coded Allergies: No Known Allergies (Unverified , 03/24/17) Family History Heart disease, brother at age of 14 Social History Denied tobacco alcohol or illicit drug abuse Physical Exam Vital Signs Vital Signs Date Time Temp Pulse Resp B/P Pulse Ox O2 Delivery O2 Flow Rate FiO2 03/24/17 10:00 97.5 104 20 103/81 03/24/17 08:45 102 18 90/70 96 Nasal Cannula 03/24/17 06:44 98.1 101 18 105/75 95 Nasal Cannula 2 03/24/17 05:16 110 18 116/88 95 Nasal Cannula 2 03/24/17 04:34 98 18 107/70 100 Nasal Cannula 2 03/24/17 03:32 98 18 99/79 100 Nasal Cannula 2 03/24/17 03:32 18 100 Room Air 2 03/24/17 03:32 100 Nasal Cannula 2 03/24/17 02:56 20 98 Nasal Cannula 2 03/24/17 02:48 97.6 99 20 113/70 100 Physical Exam GENERAL: This is a well-nourished, well-developed patient, in no apparent distress. SKIN: No rashes, warm and dry HEAD: Atraumatic. Normocephalic. EYES: Pupils equal round and reactive. Extraocular motions intact. No scleral icterus. ENT: Nose without bleeding, or drainage, Airway patent. NECK: Trachea midline. Supple CARDIOVASCULAR: Regular rate and rhythm without murmurs, gallops, or rubs. RESPIRATORY: Fair air entry bilaterally. No wheezes, rales, or rhonchi. GASTROINTESTINAL: Abdomen soft, non-tender, nondistended. Positive bowel sounds MUSCULOSKELETAL: Extremities without clubbing, cyanosis, or edema. Pedal pulses appreciated NEUROLOGICAL: Awake and alert. Moves all extremity. Normal speech.no focal neurological deficit Laboratory Laboratory Tests Test 03/24/17 03/24/17 03:19 09:00 White Blood Count 3.4 Red Blood Count 3.72 Hemoglobin 10.7 Hematocrit 33.9 Mean Corpuscular Volume 91.1 Mean Corpuscular Hemoglobin 28.9 Mean Corpuscular Hemoglobin 31.7 Concent Red Cell Distribution Width 15.6 Platelet Count 298 Mean Platelet Volume 7.7 Neutrophils (%) (Auto) 44.6 Lymphocytes (%) (Auto) 43.7 Monocytes (%) (Auto) 10.3 Eosinophils (%) (Auto) 0.7 Basophils (%) (Auto) 0.7 Neutrophils # (Auto) 1.5 Lymphocytes # (Auto) 1.5 Monocytes # (Auto) 0.3 Eosinophils # (Auto) 0.0 Basophils # (Auto) 0.0 CBC Comment DIFF FINAL Differential Comment Prothrombin Time 125.9 Prothromb Time International 10.3 Ratio Activated Partial 41.4 Thromboplast Time Sodium Level 141 Potassium Level 3.9 Chloride Level 110 Carbon Dioxide Level 22.7 Anion Gap 8 Blood Urea Nitrogen 20 Creatinine 1.22 Estimat Glomerular Filtration 78 Rate Random Glucose 80 Calcium Level 8.1 Total Bilirubin 0.2 Aspartate Amino Transf 47 (AST/SGOT) Alanine Aminotransferase 55 (ALT/SGPT) Alkaline Phosphatase 109 Total Creatine Kinase 142 132 Creatine Kinase MB 1.7 Troponin I 0.05 0.04 B-Type Natriuretic Peptide 2958 Total Protein 5.8 Albumin 2.5 Result Diagram: 03/24/1731803/24/17318 Imaging Last Impressions Chest X-Ray 03/24/17315 Signed Impressions: Service Date/Time: March 03:49 - CONCLUSION: 1. Marked cardiomegaly. No acute cardiopulmonary disease. Hernan Amezcua MD Assessment and Plan Assessment and Plan 47 years old male admitted with worsening shortness of breath -Severe CHF exacerbation with hypotension and tachycardia and Elevated BNP from 1160 in the last admission> started on iv Lasix, O2, monitor BMP and BNP , EKG and labs reviewed by me personally no acute ST changes, patient had runs of 6 V. tach, monitor blood pressure and heart rate, no beta crispin due to acute decompensation -Episode of V. tach 6 beats> secondary to advanced heart failure patient has ICD -Coumadin toxicity INR 10.2> no sign of bleeding, will give vitamin K 1 mg subcutaneous and repeat INR in a.m. -Significant history of noncompliance> patient counseled extensively will provide CHF education -Recent history of pneumonia and bilateral PE> no chest pain, he is on Coumadin with elevated INR -DVT prophylaxis chemical is contraindication to to INR toxicity Discussed Condition With Patient and the nurse Chacho Cuevas MD March 24, 2017 12:25
[2017-03-24] MEDS ORDERED: PHYTONADIONE INJ 1 MG/0.5 ML AMP SQ ONE (12:30)
--- NOTE | 2017-03-24 16:17 | EKG ---
Date Performed: 03/24/2017 Time Performed: 02:56:44 PTAGE: 47 years EKG: Sinus rhythm WITH OCCASIONAL VENTRICULAR PREMATURE COMPLEXES LEFT ATRIAL ENLARGEMENT Right axis deviation INCOMPL ETE RIGHT BUNDLE BRANCH BLOCK RIGHT VENTRICULAR HYPERTROPHY INFERIOR MYOCARDIAL INFARCTION ABNORMAL E CG No change compared to prior study of 03/14/2017. NO PREVIOUS TRACING DOCTOR: Hernan Henriquez Interpretating Date/Time 03/24/2017 16:16:57
--- NOTE | 2017-03-24 16:19 | EKG ---
Date Performed: 03/24/2017 Time Performed: 08:56:46 PTAGE: 47 years EKG: SINUS TACHYCARDIA LEFT ATRIAL ENLARGEMENT INCOMPLETE RIGHT BUNDLE BRANCH BLOCK RIGHT VENTRI CULAR HYPERTROPHY Right axis deviation ABNORMAL ECG Compared to prior study of 03/24/2017, lateral T- wave changes are more prominent. PREVIOUS TRACING : 03/24/2017 08.55 DOCTOR: Hernan Henriquez Interpretating Date/Time 03/24/2017 16:18:48
[2017-03-24] MEDS: PRAVASTATIN SOD 40 MG TAB PO SCH (21:00)
[2017-03-25] VITALS (16 sets, daily range): BP systolic 83–112; BP diastolic 55–75; PULSE 67–119; RESP 16–18; TEMP 96.4–98.1; O2SAT 97–100
[2017-03-25 07:01] LABS: AUTOMATED NEUTROPHIL # 1.7 TH/MM3 (1.8-7.7); BASOPHIL % 0.5 % (0.0-2.0); EOSINOPHIL % 0.8 % (0.0-4.0); HEMATOCRIT 29.4 % (39.0-51.0); HEMO FLAGS DIFF FINAL; LYMPH % 43.2 % (9.0-44.0); LYMPHOCYTE # 1.6 TH/MM3 (1.0-4.8); MEAN CELL VOLUME 90.2 FL (80.0-100.0); MEAN CORPUSCULAR HEMOGLOBIN 29.1 PG (27.0-34.0); MEAN CORPUSCULAR HGB CONC 32.2 % (32.0-36.0); MONO % 9.4 % (0.0-8.0); NEUT % 46.1 % (16.0-70.0); PLATELET COUNT 256 TH/MM3 (150-450); RED BLOOD COUNT 3.26 MIL/MM3 (4.50-5.90); RED CELL DISTRIBUTION WIDTH 15.2 % (11.6-17.2); WHITE BLOOD COUNT 3.8 TH/MM3 (4.0-11.0)
[2017-03-25 07:07] LABS: INTERNATIONAL NORMALIZED RATIO 5.8 RATIO; PROTHROMBIN TIME - PATIENT 68.6 SEC (9.8-11.6)
[2017-03-25 07:31] LABS: BICARBONATE 22.5 MEQ/L (21.0-32.0); POTASSIUM 4.2 MEQ/L (3.5-5.1)
[2017-03-25] MEDS: POTASSIUM CHLORIDE 10 MEQ CAP PO SCH (08:48)
[2017-03-25] MEDS: AMIODARONE 200 MG TAB PO SCH (08:48)
[2017-03-25] MEDS: SODIUM CHLORIDE 0.9% FLUSH 10 ML FLUSH IV FLUSH SCH ×2 (08:49→21:20)
[2017-03-25] MEDS: ASPIRIN EC 81 MG TABEC PO SCH (08:49)
[2017-03-25] MEDS: FUROSEMIDE 40 MG/4 ML VIAL IV PUSH SCH ×2 (09:00→18:00)
[2017-03-25] MEDS: LISINOPRIL 5 MG TAB PO SCH (09:00)
--- NOTE | 2017-03-25 10:53 | HHI.PR ---
Subjective Remarks In bed, appears ill, sleepy and tired. Patient however says she feels slightly improved since yesterday. He did complained of chest pressure /pain in the morning. Says he doesn't have chest pain or pressure now. Says he doesn't have a cardiology doctor to follow up. Says he doesn't drink /smoke or ilicit drugs and cardiac problems run in his family. Feels sob. No lightheadedness. No n/v/d/c. Objective Vitals Vital Signs Date Time Temp Pulse Resp B/P Pulse Ox O2 Delivery O2 Flow Rate FiO2 03/25/17 10:00 83/65 03/25/17 08:30 96.4 86 18 92/55 100 03/25/17 08:00 87 03/25/17 02:00 88 03/25/17 01:00 88 03/25/17 00:03 104 03/25/17 00:02 119 03/25/17 00:00 92 03/24/17 23:57 97.6 91 16 98/77 96 03/24/17 23:00 90 03/24/17 22:00 96 03/24/17 21:00 84 03/24/17 20:30 97.6 93 16 98/63 100 03/24/17 20:00 92 03/24/17 19:00 92 03/24/17 18:06 98.2 85 14 95/77 98 I/O 03/24/17 03/24/17 03/24/17 03/25/17 03/25/17 03/25/17 07:00 15:00 23:00 07:00 15:00 23:00 Intake Total 120 ml 240 ml 240 ml Output Total 801 ml Balance 120 ml 240 ml -561 ml Intake Oral 120 ml 240 ml 240 ml Output Urine Total 800 ml Stool Total 1 ml Result Diagram: 03/25/17 0545 03/25/17 0545 Imaging Last Impressions Chest X-Ray 03/25/17 0000 Signed Impressions: Service Date/Time: Saturday, March 25, 2017 10:21 - CONCLUSION: Stable chest appearance. Steven Rodriges MD Objective Remarks GENERAL: This is a well-nourished, well-developed patient, in no apparent distress. SKIN: No rashes, warm and dry HEAD: Atraumatic. Normocephalic. EYES: Pupils equal round and reactive. Extraocular motions intact. No scleral icterus. ENT: Nose without bleeding, or drainage, Airway patent. NECK: Trachea midline. Supple CARDIOVASCULAR: Regular rate and rhythm without murmurs, gallops, or rubs. RESPIRATORY: Fair air entry bilaterally. No wheezes, rales, or rhonchi. GASTROINTESTINAL: Abdomen soft, non-tender, nondistended. Positive bowel sounds MUSCULOSKELETAL: Extremities without clubbing, cyanosis, or edema. Pedal pulses appreciated NEUROLOGICAL: Awake and alert. Moves all extremity. Normal speech.no focal neurological deficit A/P Assessment and Plan 47 years old male admitted with worsening shortness of breath Severe CHF exacerbation with hypotension and tachycardia and Elevated BNP from 1160 in the last admission> started on iv Lasix, O2, monitor BMP and BNP , EKG and labs reviewed by me personally no acute ST changes, patient had runs of 6 V. tach, monitor blood pressure and heart rate, no beta crispin due to acute decompensation. Patient however with low BP will hole meds. discused with the patient and the nurse Chest pain/pressure. Will check troponin, EKG. Doesn't have a cardiology doctor. Will consult cardiology as he is a complicated patient, with sever CHF, low BP, coagulopathy - elevated INR Recurrent episodes of V. tach 6 beats> secondary to advanced heart failure patient has ICD Coumadin toxicity INR 10.2> no sign of bleeding, received vitamin K 1 mg subcutaneous 03/24, repeat INR is 5 . Monitor INR in a.m. Significant history of noncompliance> patient counseled extensively, will provide CHF education Recent history of pneumonia and bilateral PE> no chest pain, he is on Coumadin with elevated INR DVT prophylaxis chemical is contraindication to to INR toxicity Discussed Condition With Patient and the nurse Maryann Jose MD March 25, 2017 10:53
--- NOTE | 2017-03-25 10:54 | RADRPT ---
EXAM DATE/TIME: 03/25/2017 10:21 [facility] COMPARISON: CHEST SINGLE AP, March 24, 2017, 3:49. INDICATIONS : Short of breath. MEDICAL HISTORY : Congestive heart failure. Myocardial infarction. Hypertension. SURGICAL HISTORY : Pacemaker. ENCOUNTER: Initial ACUITY: 2 days PAIN SCORE: 0/10 LOCATION: Bilateral upper chest FINDINGS: Pacemaker device is noted with control pack over the left chest. Cardiac silhouette is enlarged, stab le. Mild bibasilar parenchymal opacities persist, unchanged. CONCLUSION: Stable chest appearance. Steven Rodriges MD on March 25, 2017 at 10:51 Board Certified Radiologist. This report was verified electronically.
--- NOTE | 2017-03-25 17:39 | MB ---
cc: ALEJANDRO SALDANA DO DATE OF CONSULTATION: 03/25/2017. REASON FOR CONSULTATION: Chest pain and hypotension. HISTORY OF PRESENT ILLNESS: Miguel Calderón is a 47-year-old male who presented to [facility] on March 24, 2017 due to mostly shortness of breath. He was recently here and diagnosed with a bilateral pulmonary embolus and placed on Coumadin. Since leaving he states that he had none of his normal cardiac medications and has only been on Coumadin and albuterol. He is also eating foods loaded with salt that I previously instructed him not to including hot dogs. He states that when he was on his heart medications, he could eat salty foods and be okay. He was discharged on Coumadin and has been taking it as instructed but he was noted to have a supratherapeutic INR. On seeing him, he states that he feels somewhat better and denies chest pain at this time. He feels that the shortness of breath is better after getting a nebulizer treatment. PAST MEDICAL HISTORY: 1. Recently diagnosed bilateral pulmonary embolus. 2. Hypertension 3. 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 4. History of alcohol abuse. 5. History of tobacco abuse. 6. History of cocaine abuse. PAST SURGICAL HISTORY: 1. Placement of a [employer] [facility] AICD for an ejection fraction of 20% to 25% while he lived in [place] at the time. (Previously checked in November, and per the notes, no acute events noted). ALLERGIES: NO KNOWN DRUG ALLERGIES. MEDICATIONS: 1. Coumadin 5 milligrams daily. 2. Symbicort 2 puffs every 12 hours. 3. Recorded that he was on lisinopril 2.5 milligrams daily, amiodarone 200 milligrams daily, Zocor 20 milligrams every night, Lasix 20 milligrams twice a day, aspirin 81 milligrams daily, hydrocodone/acetaminophen 5/325 every four hours as needed for pain, Tramadol 50 milligrams every six hours as needed for pain, potassium 10 milliequivalents daily, but the patient states that he has not had any of his cardiac medications since leaving the hospital. FAMILY HISTORY: Denies premature coronary artery disease within the family. SOCIAL HISTORY: The patient has a history of alcohol abuse but quit in January of 2017. He continues to smoke tobacco. He previously smoked marijuana and cocaine but states he quit cocaine February of 2017. REVIEW OF SYSTEMS Fourteen systems were reviewed including osteopathic with pertinent positives and negatives as above; otherwise negative. PHYSICAL EXAMINATION VITAL SIGNS: Temperature 98.1, heart rate 90, blood pressure 88/67, respirations 16, pulse ox 100% on 2 liters nasal cannula. GENERAL: In general, the patient appears well and he is in no acute distress, alert awake and oriented x3. HEAD, EYES, EARS, NOSE, THROAT: Extraocular muscles intact. Mucous membranes moist. NECK: The neck is supple. Minimal JVD at 45 degrees. HEART: Regular rate and rhythm. Positive first and second heart sounds with no noted murmurs, gallops or rubs. PMI is mildly displaced laterally. LUNGS: Relatively clear to auscultation bilaterally. No wheezes, rales or rhonchi. ABDOMEN: Soft, nontender, nondistended. No organomegaly noted. EXTREMITIES: No clubbing, cyanosis or edema. Femoral and distal pulses are intact bilaterally. NEUROLOGIC: No focal deficits. SKIN: Warm, dry and intact. OSTEOPATHIC: Osteopathically, no kyphoscoliosis, lordosis or paraspinal tender points. LABORATORY FINDINGS: Hemoglobin 9.5, hematocrit 29.4, platelets 256,000. INR 10.3 decreasing to 5.8. Troponin negative times four. BNP 1886. Potassium 4.2, BUN 26, creatinine 1.2. EKGS: Sinus rhythm, left atrial enlargement, left axis deviation, RSR' in V1, possible age indeterminate inferior infarct, left ventricular hypertrophy with secondary S-T-T wave changes. IMPRESSION: 1. Acute on chronic congestive heart failure exacerbation secondary to not being on his cardiac meds as well as noncompliance with salt intake. 2. Excessive salt intake. 3. Supratherapeutic INR possibly due to congested liver due to his fluid overload state. 4. Bilateral pulmonary embolus recently diagnosed. 5. Mild hypotension most likely due to diuresis. 6. Pleuritic type chest pain. RECOMMENDATIONS: 1. Mr. Calderón appears to have pleuritic type chest pain that comes on with deep breathing and since being diuresed, feels better. These chest pains appear noncardiac in nature. 2. As far as the exacerbation of his congestive heart failure, I once again explained to him that he needs to avoid all salty foods but he feels that he was able to eat salty foods while on his cardiac medications. I explained to them overall that he needs to decrease his overall salt content especially avoiding his craving for hot dogs as he states that eats a lot of them throughout the week. We will attempt to place him back on his cardiac congestive heart failure medications and asked that case management help with him getting these. 3. As far as his elevated INR, this may be due to his fluid overload state leading to congestion of his liver and therefore increasing his INR. It does not appear that he has had his INR checked since being discharged. We will ask case management to help with how he will have his INR checked while on Coumadin. 4. Mild hypotension for which he appears to be asymptomatic and may be due to diuresis. We will continue to watch this at this time. Thank you for allowing me to see Miguel Calderón. If there are any questions, please do not hesitate to call. Alejandro Saldana DO VGP/JCC /4:35 PM /5:17 PM
[2017-03-25] MEDS: PRAVASTATIN SOD 40 MG TAB PO SCH (21:20)
[2017-03-26] VITALS (19 sets, daily range): BP systolic 92–98; BP diastolic 63–77; PULSE 75–97; RESP 16–20; TEMP 96.7–98.2; O2SAT 96–99
[2017-03-26 07:42] LABS: AUTOMATED NEUTROPHIL # 2.7 TH/MM3 (1.8-7.7); BASOPHIL % 0.5 % (0.0-2.0); EOSINOPHIL % 0.4 % (0.0-4.0); HEMATOCRIT 30.4 % (39.0-51.0); HEMO FLAGS DIFF FINAL; LYMPH % 30.9 % (9.0-44.0); LYMPHOCYTE # 1.5 TH/MM3 (1.0-4.8); MEAN CELL VOLUME 89.5 FL (80.0-100.0); MEAN CORPUSCULAR HEMOGLOBIN 29.9 PG (27.0-34.0); MEAN CORPUSCULAR HGB CONC 33.4 % (32.0-36.0); MONO % 9.8 % (0.0-8.0); NEUT % 58.4 % (16.0-70.0); PLATELET COUNT 266 TH/MM3 (150-450); RED CELL DISTRIBUTION WIDTH 15.6 % (11.6-17.2); WHITE BLOOD COUNT 4.7 TH/MM3 (4.0-11.0)
--- NOTE | 2017-03-26 07:46 | HHI.PR ---
Subjective Remarks Patient appears sleepy. Says he has chest pain and SOB. No n/v. Says he feels tired. Says he is more sob with walking. No palpitations or lightheadedness. No cough. No fever or chills. Objective Vitals Vital Signs Date Time Temp Pulse Resp B/P Pulse Ox O2 Delivery O2 Flow Rate FiO2 03/26/17 05:46 96.7 89 16 93/71 99 03/26/17 05:00 88 03/26/17 04:00 84 03/26/17 03:00 86 03/26/17 02:00 82 03/26/17 01:00 86 03/26/17 00:35 97.8 75 16 98/76 99 03/26/17 00:00 92 03/25/17 23:00 86 03/25/17 22:00 88 03/25/17 21:00 86 03/25/17 21:00 97.4 67 16 112/75 97 03/25/17 20:00 84 03/25/17 19:00 86 03/25/17 16:00 97.7 92 18 88/68 100 03/25/17 16:00 86 03/25/17 12:00 89 03/25/17 11:20 98.1 90 17 88/67 100 03/25/17 10:00 83/65 03/25/17 08:30 96.4 86 18 92/55 100 03/25/17 08:00 87 I/O 03/25/17 03/25/17 03/25/17 03/26/17 03/26/17 03/26/17 07:00 15:00 23:00 07:00 15:00 23:00 Intake Total 240 ml 0 ml Output Total 801 ml 300 ml Balance -561 ml -300 ml Intake Oral 240 ml IV Total 0 ml Output Urine Total 800 ml Stool Total 1 ml 300 ml Result Diagram: 03/26/17 0637 03/25/17 0545 Imaging Last Impressions Chest X-Ray 03/25/17 0000 Signed Impressions: Service Date/Time: Saturday, March 25, 2017 10:21 - CONCLUSION: Stable chest appearance. Steven Rodriges MD Objective Remarks GENERAL: This is a well-nourished, well-developed patient, in no apparent distress. SKIN: No rashes, warm and dry HEAD: Atraumatic. Normocephalic. EYES: Pupils equal round and reactive. Extraocular motions intact. No scleral icterus. ENT: Nose without bleeding, or drainage, Airway patent. NECK: Trachea midline. Supple CARDIOVASCULAR: Regular rate and rhythm without murmurs, gallops, or rubs. RESPIRATORY: Fair air entry bilaterally. No wheezes, rales, or rhonchi. GASTROINTESTINAL: Abdomen soft, non-tender, nondistended. Positive bowel sounds MUSCULOSKELETAL: Extremities without clubbing, cyanosis, or edema. Pedal pulses appreciated NEUROLOGICAL: Awake and alert. Moves all extremity. Normal speech.no focal neurological deficit A/P Assessment and Plan 47 years old male admitted with worsening shortness of breath Severe CHF exacerbation with hypotension and tachycardia and Elevated BNP from 1160 in the last admission> started on iv Lasix, O2, monitor BMP and BNP , EKG and labs reviewed by me personally no acute ST changes, patient had runs of 6 V. tach, monitor blood pressure and heart rate, no beta crispin due to acute decompensation. Patient however with low BP will hole meds. discused with the patient and the nurse Chest pain/pressure. Will check troponin, EKG. Doesn't have a cardiology doctor. Will consult cardiology as he is a complicated patient, with sever CHF, low BP, coagulopathy - elevated INR. discussed with cardiology Dr Gruber , appreciate recommendations. Patient likely with pleuritic chest pain. EKG no change, trop negative. Patient need compliance with meds, diet, follow up , INR check. Recurrent episodes of V. tach 6 beats> secondary to advanced heart failure patient has ICD Coumadin toxicity INR 10.2> no sign of bleeding, received vitamin K 1 mg subcutaneous 03/24, repeat INR is 5 -> 3 (on 03/26). Monitor INR in a.m. Significant history of noncompliance> patient counseled extensively, provide CHF education. Discussed with the patient at length, he expressed understanding. Recent history of pneumonia and bilateral PE> no chest pain, he is on Coumadin presented with elevated INR , moniotr INR DVT prophylaxis chemical is contraindication to to INR toxicity, monitor INR, will restart coumadin once therapeutic Discussed Condition With Patient and the nurse Maryann Jose MD March 26, 2017 07:46
[2017-03-26 07:47] LABS: PROTHROMBIN TIME - PATIENT 35.4 SEC (9.8-11.6)
[2017-03-26 08:10] LABS: BICARBONATE 22.9 MEQ/L (21.0-32.0); MAGNESIUM 2.1 MG/DL (1.5-2.5); POTASSIUM 4.7 MEQ/L (3.5-5.1)
[2017-03-26] MEDS: POTASSIUM CHLORIDE 10 MEQ CAP PO SCH (09:00)
[2017-03-26] MEDS: LISINOPRIL 5 MG TAB PO SCH (09:00)
[2017-03-26] MEDS: FUROSEMIDE 40 MG/4 ML VIAL IV PUSH SCH ×2 (09:00→18:27)
[2017-03-26] MEDS: SODIUM CHLORIDE 0.9% FLUSH 10 ML FLUSH IV FLUSH SCH ×2 (10:34→20:41)
[2017-03-26] MEDS: ASPIRIN EC 81 MG TABEC PO SCH (10:35)
[2017-03-26] MEDS: AMIODARONE 200 MG TAB PO SCH (10:36)
--- NOTE | 2017-03-26 11:02 | PD.CARD.PN ---
Subjective Subjective Remarks No chest pain, no shortness of breath Feeling somewhat better Telemetry with 5 beat run of NSVT, asymptomatic Objective Medications Current Medications Medications (Trade) Dose Ordered Sig/Aida Route Start Time Stop Time Status Last Admin (NS Flush) 2 ml UNSCH PRN IV FLUSH 03/24/17 05:00 (NS Flush) 2 ml BID IV FLUSH 03/24/17 09:00 03/26/17 10:34 (Narcan Inj) 0.4 mg UNSCH PRN IV 03/24/17 05:00 (Cordarone) 200 mg DAILY PO 03/24/17 09:00 03/26/17 10:36 (Ecotrin Ec) 81 mg DAILY PO 03/24/17 09:00 03/26/17 10:35 (KCl) 10 meq DAILY PO 03/24/17 09:00 03/25/17 08:48 (Prinivil) 2.5 mg DAILY PO 03/24/17 09:00 03/24/17 10:40 (Pravachol) 40 mg HS PO 03/24/17 21:00 03/25/17 21:20 (Lasix Inj) 40 mg BID@18 IV PUSH 03/24/17 09:00 03/24/17 17:51 Vital Signs / I&O Vital Signs Date Time Temp Pulse Resp B/P Pulse Ox O2 Delivery O2 Flow Rate FiO2 03/26/17 05:46 96.7 89 16 93/71 99 03/26/17 05:00 88 03/26/17 04:00 84 03/26/17 03:00 86 03/26/17 02:00 82 03/26/17 01:00 86 03/26/17 00:35 97.8 75 16 98/76 99 03/26/17 00:00 92 03/25/17 23:00 86 03/25/17 22:00 88 03/25/17 21:00 86 03/25/17 21:00 97.4 67 16 112/75 97 03/25/17 20:00 84 03/25/17 19:00 86 03/25/17 16:00 97.7 92 18 88/68 100 03/25/17 16:00 86 03/25/17 12:00 89 03/25/17 11:20 98.1 90 17 88/67 100 I/O 03/25/17 03/25/17 03/25/17 03/26/17 03/26/17 03/26/17 07:00 15:00 23:00 07:00 15:00 23:00 Intake Total 240 ml 0 ml 420 ml Output Total 801 ml 300 ml Balance -561 ml -300 ml 420 ml Intake Oral 240 ml 420 ml IV Total 0 ml Output Urine Total 800 ml Stool Total 1 ml 300 ml # Voids 2 # Bowel Movements 1 Physical Exam GENERAL: NAD, AAOx3 SKIN: Warm and dry. HEAD: Atraumatic. Normocephalic. EYES: Pupils equal and round. No scleral icterus. No injection or drainage. ENT: No nasal bleeding or discharge. Mucous membranes pink and moist. NECK: Trachea midline. No JVD. CARDIOVASCULAR: Regular rate and rhythm. RESPIRATORY: No accessory muscle use. Clear to auscultation. Breath sounds equal bilaterally. GASTROINTESTINAL: Abdomen soft, non-tender, nondistended. Hepatic and splenic margins not palpable. MUSCULOSKELETAL: Extremities without clubbing, cyanosis, or edema. No obvious deformities. NEUROLOGICAL: Awake and alert. No obvious cranial nerve deficits. Motor grossly within normal limits. Five out of 5 muscle strength in the arms and legs. Normal speech. PSYCHIATRIC: Appropriate mood and affect; insight and judgment normal. Laboratory Laboratory Tests Test 03/25/17 03/26/17 03/26/17 13:52 06:37 06:57 Troponin I 0.04 NG/ML B-Type Natriuretic Peptide 1886 PG/ML 1916 PG/ML White Blood Count 4.7 TH/MM3 Red Blood Count 3.40 MIL/MM3 Hemoglobin 10.1 GM/DL Hematocrit 30.4 % Mean Corpuscular Volume 89.5 FL Mean Corpuscular Hemoglobin 29.9 PG Mean Corpuscular Hemoglobin 33.4 % Concent Red Cell Distribution Width 15.6 % Platelet Count 266 TH/MM3 Mean Platelet Volume 8.1 FL Neutrophils (%) (Auto) 58.4 % Lymphocytes (%) (Auto) 30.9 % Monocytes (%) (Auto) 9.8 % Eosinophils (%) (Auto) 0.4 % Basophils (%) (Auto) 0.5 % Neutrophils # (Auto) 2.7 TH/MM3 Lymphocytes # (Auto) 1.5 TH/MM3 Monocytes # (Auto) 0.5 TH/MM3 Eosinophils # (Auto) 0.0 TH/MM3 Basophils # (Auto) 0.0 TH/MM3 CBC Comment DIFF FINAL Differential Comment Prothrombin Time 35.4 SEC Prothromb Time International 3.0 RATIO Ratio Sodium Level 136 MEQ/L Potassium Level 4.7 MEQ/L Chloride Level 103 MEQ/L Carbon Dioxide Level 22.9 MEQ/L Anion Gap 10 MEQ/L Blood Urea Nitrogen 30 MG/DL Creatinine 1.37 MG/DL Estimat Glomerular Filtration 68 ML/MIN Rate Random Glucose 69 MG/DL Calcium Level 8.2 MG/DL Magnesium Level 2.1 MG/DL Assessment and Plan Problem List: (1) Supratherapeutic INR (2) CHF (congestive heart failure) (3) PNA (pneumonia) (4) Non-compliance (5) PE (pulmonary thromboembolism) (6) Chest pain (7) Renal insufficiency (8) History of illicit drug use Assessment and Plan 1) INR back to 3.0, possible increase INR due to hepatic congestion from fluid overload state 2) Needs follow up outpatient with primary for INR checks 3) Fluid overload state secondary to not being on his cardiac medications and non-compliance with low sodium diet... 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 would use Coreg for his cardiomyopathy anyway Problem Qualifiers (1) CHF (congestive heart failure): Qualified Code: I50.9 - Congestive heart failure, unspecified congestive heart failure chronicity, unspecified congestive heart failure type Joselito Royal DO March 26, 2017 11:02
[2017-03-26] MEDS: WARFARIN SOD 2.5 MG TAB PO SCH (15:47)
[2017-03-26] MEDS ORDERED: WARFARIN SOD 5 MG TAB PO SCH (16:00)
[2017-03-26] MEDS: PRAVASTATIN SOD 40 MG TAB PO SCH (20:41)
--- NOTE | 2017-03-26 22:04 | EKG ---
Date Performed: 03/25/2017 Time Performed: 10:49:24 PTAGE: 47 years EKG: Sinus rhythm Possible left atrial abnormality Left axis deviation rSr'(V1) - probable normal variant Inferior inf arct - age undetermined Left ventricular hypertrophy Lateral ST-T changes may be due to hypertrophy a nd/or ischemia Low QRS voltages in limb leads Abnormal ECG PREVIOUS TRACING : 03/24/2017 08.56 DOCTOR: Gabino Leon Interpretating Date/Time 03/26/2017 22:00:49
[2017-03-27] VITALS (8 sets, daily range): BP systolic 83–100; BP diastolic 60–76; PULSE 78–85; RESP 18–20; TEMP 97.5–98.2; O2SAT 96–99
[2017-03-27 07:44] LABS: INTERNATIONAL NORMALIZED RATIO 2.7 RATIO; PROTHROMBIN TIME - PATIENT 31.1 SEC (9.8-11.6)
[2017-03-27] MEDS: SODIUM CHLORIDE 0.9% FLUSH 10 ML FLUSH IV FLUSH SCH ×2 (08:37→20:07)
[2017-03-27] MEDS: FUROSEMIDE 40 MG/4 ML VIAL IV PUSH SCH (08:39)
[2017-03-27] MEDS: LISINOPRIL 5 MG TAB PO SCH (08:39)
[2017-03-27] MEDS: ASPIRIN EC 81 MG TABEC PO SCH (08:43)
[2017-03-27] MEDS: POTASSIUM CHLORIDE 10 MEQ CAP PO SCH (08:43)
[2017-03-27] MEDS: AMIODARONE 200 MG TAB PO SCH (08:43)
--- NOTE | 2017-03-27 10:27 | PD.CARD.PN ---
Subjective Subjective Remarks No chest pain, no shortness of breath Laying flat sleeping Objective Medications Current Medications Medications (Trade) Dose Ordered Sig/Aida Route Start Time Stop Time Status Last Admin (NS Flush) 2 ml UNSCH PRN IV FLUSH 03/24/17 05:00 (NS Flush) 2 ml BID IV FLUSH 03/24/17 09:00 03/27/17 08:37 (Narcan Inj) 0.4 mg UNSCH PRN IV 03/24/17 05:00 (Cordarone) 200 mg DAILY PO 03/24/17 09:00 03/27/17 08:43 (Ecotrin Ec) 81 mg DAILY PO 03/24/17 09:00 03/27/17 08:43 (KCl) 10 meq DAILY PO 03/24/17 09:00 03/27/17 08:43 (Prinivil) 2.5 mg DAILY PO 03/24/17 09:00 03/24/17 10:40 (Pravachol) 40 mg HS PO 03/24/17 21:00 03/26/17 20:41 Furosemide 40 mg 40 mg BID@09,18 IV PUSH 03/24/17 09:00 03/26/17 18:27 (Coumadin Consult Pharmacy) 0 ml @ 0 mls/hr UNSCH OTHER 03/26/17 11:00 (Coumadin) 2.5 mg DAILY@1600 PO 03/26/17 16:00 03/26/17 15:47 Vital Signs / I&O Vital Signs Date Time Temp Pulse Resp B/P Pulse Ox O2 Delivery O2 Flow Rate FiO2 03/27/17 09:37 79 03/27/17 08:00 97.9 81 20 90/61 98 03/27/17 06:02 Room Air 03/27/17 04:00 97.9 78 18 83/60 97 03/27/17 00:00 98.2 80 18 89/61 99 03/26/17 20:00 98.2 85 18 92/63 98 03/26/17 19:54 97 03/26/17 15:52 97.3 86 20 92/65 97 03/26/17 14:00 86 03/26/17 13:00 86 03/26/17 12:00 97.7 83 16 96/77 97 03/26/17 12:00 84 03/26/17 11:00 81 I/O 03/26/17 03/26/17 03/26/17 03/27/17 03/27/17 03/27/17 07:00 15:00 23:00 07:00 15:00 23:00 Intake Total 420 ml 482 ml Output Total 250 ml Balance 420 ml 232 ml Intake Oral 420 ml 480 ml IV Total 2 ml Output Urine Total 250 ml # Voids 2 # Bowel Movements 1 1 Physical Exam GENERAL: NAD, AAOx3 SKIN: Warm and dry. HEAD: Atraumatic. Normocephalic. EYES: Pupils equal and round. No scleral icterus. No injection or drainage. ENT: No nasal bleeding or discharge. Mucous membranes pink and moist. NECK: Trachea midline. No JVD. CARDIOVASCULAR: Regular rate and rhythm. RESPIRATORY: No accessory muscle use. Clear to auscultation. Breath sounds equal bilaterally. GASTROINTESTINAL: Abdomen soft, non-tender, nondistended. Hepatic and splenic margins not palpable. MUSCULOSKELETAL: Extremities without clubbing, cyanosis, or edema. No obvious deformities. NEUROLOGICAL: Awake and alert. No obvious cranial nerve deficits. Motor grossly within normal limits. Five out of 5 muscle strength in the arms and legs. Normal speech. PSYCHIATRIC: Appropriate mood and affect; insight and judgment normal. Laboratory Laboratory Tests Test 03/27/17 07:00 Prothrombin Time 31.1 SEC Prothromb Time International 2.7 RATIO Ratio B-Type Natriuretic Peptide 2158 PG/ML Assessment and Plan Problem List: (1) Supratherapeutic INR (2) CHF (congestive heart failure) (3) PNA (pneumonia) (4) Non-compliance (5) PE (pulmonary thromboembolism) (6) Chest pain (7) Renal insufficiency (8) History of illicit drug use Assessment and Plan 1) INR back to where it should be, possible increase INR due to hepatic congestion from fluid overload state 2) Needs follow up outpatient with primary for INR checks 3) Fluid overload state secondary to not being on his cardiac medications and non-compliance with low sodium diet... continues to eat multiple foods with high sodium content Currently does not appear in acute heart failure, laying flat comfortably without shortness of breath, will back down on diuresis for now, especially with low blood pressure Constantly runs low blood pressure, but probably exacerbated by diuresis, will see how he does with lower dose diuretic 4) Would like to place on low dose BB, but can't at this point with blood pressure Does have a history of cocaine use, but states he's been clean for a month... would use Coreg for his cardiomyopathy anyway if able to add Problem Qualifiers (1) CHF (congestive heart failure): Qualified Code: I50.9 - Congestive heart failure, unspecified congestive heart failure chronicity, unspecified congestive heart failure type Joselito Royal DO March 27, 2017 10:27
--- NOTE | 2017-03-27 11:03 | HHI.PR ---
Subjective Remarks Patient went to the bath today and had a BM, say she was straining and now he has his rectum out. Says he is havinf rectal prolapse for some time and is able to reduce himself, however now is bigger and unable to do anything. he is back to bed appears comfortable. Says he has no rectal paiin at ths time. Recocele is soft and moist, applied NS jermaine, and discussed with Dr Nik hart who came to evaluate patient and did reduce rectocele at bedside. Patient denies any chest pain, lightheadedness, palpitations, headaches. He has some nausea, but no vomiting. Tolerating food. Good urine output. Objective Vitals Vital Signs Date Time Temp Pulse Resp B/P Pulse Ox O2 Delivery O2 Flow Rate FiO2 03/27/17 09:37 79 03/27/17 08:00 97.9 81 20 90/61 98 03/27/17 06:02 Room Air 03/27/17 04:00 97.9 78 18 83/60 97 03/27/17 00:00 98.2 80 18 89/61 99 03/26/17 20:00 98.2 85 18 92/63 98 03/26/17 19:54 97 03/26/17 15:52 97.3 86 20 92/65 97 03/26/17 14:00 86 03/26/17 13:00 86 03/26/17 12:00 97.7 83 16 96/77 97 03/26/17 12:00 84 I/O 03/26/17 03/26/17 03/26/17 03/27/17 03/27/17 03/27/17 07:00 15:00 23:00 07:00 15:00 23:00 Intake Total 420 ml 482 ml Output Total 250 ml Balance 420 ml 232 ml Intake Oral 420 ml 480 ml IV Total 2 ml Output Urine Total 250 ml # Voids 2 # Bowel Movements 1 1 Result Diagram: 03/26/17 0637 03/26/17 0657 Imaging Last Impressions Chest X-Ray 03/25/17 0000 Signed Impressions: Service Date/Time: Saturday, March 25, 2017 10:21 - CONCLUSION: Stable chest appearance. Steven Rodriges MD Objective Remarks GENERAL: This is a well-nourished, well-developed patient, in no apparent distress. SKIN: No rashes, warm and dry HEAD: Atraumatic. Normocephalic. EYES: Pupils equal round and reactive. Extraocular motions intact. No scleral icterus. ENT: Nose without bleeding, or drainage, Airway patent. NECK: Trachea midline. Supple CARDIOVASCULAR: Regular rate and rhythm without murmurs, gallops, or rubs. RESPIRATORY: Fair air entry bilaterally. No wheezes, rales, or rhonchi. GASTROINTESTINAL: Abdomen soft, non-tender, nondistended. Positive bowel sounds MUSCULOSKELETAL: Extremities without clubbing, cyanosis, or edema. Pedal pulses appreciated NEUROLOGICAL: Awake and alert. Moves all extremity. Normal speech.no focal neurological deficit large rectocele noted 03/27 reduced at bedside by Dr Zaragoza. A/P Assessment and Plan 47 years old male admitted with worsening shortness of breath Severe CHF exacerbation with hypotension and tachycardia and Elevated BNP from 1160 in the last admission> started on iv Lasix, O2, monitor BMP and BNP , EKG and labs reviewed by me personally no acute ST changes, patient had runs of 6 V. tach, monitor blood pressure and heart rate, no beta crispin due to acute decompensation. Patient however with low BP will hole meds. discused with the patient and the nurse Chest pain/pressure. Will check troponin, EKG. Doesn't have a cardiology doctor. Will consult cardiology as he is a complicated patient, with sever CHF, low BP, coagulopathy - elevated INR. discussed with cardiology Dr Gruber , appreciate recommendations. Patient likely with pleuritic chest pain. EKG no change, trop negative. Patient need compliance with meds, diet, follow up , INR check. Recurrent episodes of V. tach 6 beats> secondary to advanced heart failure patient has ICD Coumadin toxicity INR 10.2> no sign of bleeding, received vitamin K 1 mg subcutaneous 03/24, repeat INR is 5 -> 3 (on 03/26). Monitor INR in a.m.Coumadin per pharmacy. Large rectocele noted on 03/27/27. Consult gen surgery , evaluated promptly by Dr Zaragoza gen surgery , and rectocele was reduced without any complications at bedside by Dr Zaragoza. Significant history of noncompliance> patient counseled extensively, provide CHF education. Discussed with the patient at length, he expressed understanding. Recent history of pneumonia and bilateral PE> no chest pain, he is on Coumadin presented with elevated INR , moniotr INR DVT prophylaxis chemical is contraindication to to INR toxicity, monitor INR, will restart coumadin once therapeutic Discussed Condition With Patient and the nurse DC plan: awaiting improvement, clearance by consultants. Maryann Jose MD March 27, 2017 11:03
--- NOTE | 2017-03-27 12:29 | PD.CAR.PN ---
CVT Progress Note Subjective/Hospital Course: Patient multiple medical problems including cardiac failure, frail thin and emaciated. Today had a bowel movement and suffered rectal prolapse. I was called emergently by Dr. Leavitt and Dr. Jose to please consult emergently on the patient Patient states that he had this episodes before and whenever he has more firm bowel movement rectum prolapses Physical examination reveals rectal prolapse measuring about 10 cm in length and about 14 cm in diameter clearly consisting of the upper rectum and lower sigmoid tissue Tissues not ischemic or strangulated With some manual manipulation I reduced it back in Patient should be kept laxatives in order to assure soft bowel movements and the minimize the chance of prolapse At this point patient is not a candidate for any type of reconstructive surgery that would permanently fix the problem Full consult to follow Maricel De La Cruz Objective: Vital Signs Date Time Temp Pulse Resp B/P Pulse Ox O2 Delivery O2 Flow Rate FiO2 03/27/17 09:37 79 03/27/17 08:00 97.9 81 20 90/61 98 03/27/17 06:02 Room Air 03/27/17 04:00 97.9 78 18 83/60 97 03/27/17 00:00 98.2 80 18 89/61 99 03/26/17 20:00 98.2 85 18 92/63 98 03/26/17 19:54 97 03/26/17 15:52 97.3 86 20 92/65 97 03/26/17 14:00 86 03/26/17 13:00 86 Labs: Laboratory Tests Test 03/27/17 07:00 Prothrombin Time 31.1 SEC (9.8-11.6) Prothromb Time International 2.7 RATIO Ratio B-Type Natriuretic Peptide 2158 PG/ML (0-100) Result Diagram: 03/26/17 0637 03/26/17 0657 (1) Supratherapeutic INR (2) CHF (congestive heart failure) (3) PNA (pneumonia) (4) Non-compliance (5) PE (pulmonary thromboembolism) (6) Chest pain (7) Renal insufficiency (8) History of illicit drug use Problem Qualifiers (1) CHF (congestive heart failure): Qualified Code: I50.9 - Congestive heart failure, unspecified congestive heart failure chronicity, unspecified congestive heart failure type Kelli Zaragoza MD March 27, 2017 12:29
[2017-03-27 12:47] LABS: BICARBONATE 19.6 MEQ/L (21.0-32.0); POTASSIUM 5.3 MEQ/L (3.5-5.1)
[2017-03-27] MEDS: WARFARIN SOD 2.5 MG TAB PO SCH (16:26)
[2017-03-27] MEDS: FUROSEMIDE 20 MG TAB PO SCH (16:26)
[2017-03-27] MEDS: PRAVASTATIN SOD 40 MG TAB PO SCH (20:07)
[2017-03-28] VITALS (7 sets, daily range): BP systolic 79–95; BP diastolic 53–70; PULSE 75–81; RESP 16–20; TEMP 97.3–98.5; O2SAT 95–99
[2017-03-28] MEDS ORDERED: MELATONIN 5 MG TAB PO ONE (01:00)
[2017-03-28 07:09] LABS: AUTOMATED NEUTROPHIL # 2.8 TH/MM3 (1.8-7.7); BASOPHIL % 0.4 % (0.0-2.0); EOSINOPHIL % 0.4 % (0.0-4.0); HEMO FLAGS DIFF FINAL; LYMPH % 30.3 % (9.0-44.0); LYMPHOCYTE # 1.5 TH/MM3 (1.0-4.8); MEAN CELL VOLUME 89.7 FL (80.0-100.0); MEAN CORPUSCULAR HEMOGLOBIN 29.2 PG (27.0-34.0); MEAN CORPUSCULAR HGB CONC 32.5 % (32.0-36.0); MONO % 10.2 % (0.0-8.0); NEUT % 58.7 % (16.0-70.0); PLATELET COUNT 193 TH/MM3 (150-450); RED BLOOD COUNT 3.13 MIL/MM3 (4.50-5.90); RED CELL DISTRIBUTION WIDTH 15.5 % (11.6-17.2); WHITE BLOOD COUNT 4.8 TH/MM3 (4.0-11.0)
[2017-03-28 07:15] LABS: INTERNATIONAL NORMALIZED RATIO 3.1 RATIO
[2017-03-28 07:25] LABS: BICARBONATE 21.1 MEQ/L (21.0-32.0)
[2017-03-28] MEDS: SODIUM CHLORIDE 0.9% FLUSH 10 ML FLUSH IV FLUSH SCH ×2 (09:53→21:37)
[2017-03-28] MEDS: ASPIRIN EC 81 MG TABEC PO SCH (09:55)
[2017-03-28] MEDS: AMIODARONE 200 MG TAB PO SCH (09:56)
[2017-03-28] MEDS: POTASSIUM CHLORIDE 10 MEQ CAP PO SCH (09:56)
[2017-03-28] MEDS: FUROSEMIDE 20 MG TAB PO SCH ×2 (09:56→18:37)
[2017-03-28] MEDS: LISINOPRIL 5 MG TAB PO SCH (09:57)
--- NOTE | 2017-03-28 15:33 | HHI.PR ---
Subjective Remarks Feels very tired today. Still with sob. His BP is very low. Kidney function is worsening, will ask nephrology on consult. No n/v/d/c. Poor prognosis. Objective Vitals Vital Signs Date Time Temp Pulse Resp B/P Pulse Ox O2 Delivery O2 Flow Rate FiO2 03/28/17 12:00 97.5 76 20 89/64 99 03/28/17 08:40 Room Air 03/28/17 08:00 97.3 75 20 87/63 98 03/28/17 04:00 97.9 76 16 81/53 96 03/28/17 00:00 98.0 80 16 82/59 95 03/27/17 21:10 Room Air 03/27/17 20:04 82 03/27/17 20:00 97.7 81 18 93/76 96 03/27/17 16:00 97.6 80 20 100/61 99 I/O 03/27/17 03/27/17 03/27/17 03/28/17 03/28/17 03/28/17 07:00 15:00 23:00 07:00 15:00 23:00 Intake Total 120 ml 482 ml 240 ml 700 ml Output Total 150 ml 225 ml 450 ml Balance 120 ml 332 ml 15 ml 250 ml Intake Oral 120 ml 480 ml 240 ml 700 ml IV Total 2 ml Output Urine Total 150 ml 225 ml 450 ml # Voids 0 # Bowel Movements 1 0 0 Result Diagram: 03/28/17 0416 03/28/17 0416 Imaging Last Impressions Chest X-Ray 03/25/17 0000 Signed Impressions: Service Date/Time: Saturday, March 25, 2017 10:21 - CONCLUSION: Stable chest appearance. Steven Rodriges MD Objective Remarks GENERAL: This is a well-nourished, well-developed patient, in no apparent distress. SKIN: No rashes, warm and dry HEAD: Atraumatic. Normocephalic. EYES: Pupils equal round and reactive. Extraocular motions intact. No scleral icterus. ENT: Nose without bleeding, or drainage, Airway patent. NECK: Trachea midline. Supple CARDIOVASCULAR: Regular rate and rhythm without murmurs, gallops, or rubs. RESPIRATORY: Fair air entry bilaterally. No wheezes, rales, or rhonchi. GASTROINTESTINAL: Abdomen soft, non-tender, nondistended. Positive bowel sounds MUSCULOSKELETAL: Extremities without clubbing, cyanosis, or edema. Pedal pulses appreciated NEUROLOGICAL: Awake and alert. Moves all extremity. Normal speech.no focal neurological deficit large rectocele noted 03/27 reduced at bedside by Dr Zaragoza. A/P Assessment and Plan 47 years old male admitted with worsening shortness of breath Severe CHF exacerbation with hypotension and tachycardia and Elevated BNP from 1160 in the last admission> started on iv Lasix, O2, monitor BMP and BNP , EKG and labs reviewed by me personally no acute ST changes, patient had runs of 6 V. tach, monitor blood pressure and heart rate, no beta crispin due to acute decompensation. Patient however with low BP will hole meds. discused with the patient and the nurse Chest pain/pressure. Will check troponin, EKG. Doesn't have a cardiology doctor. Will consult cardiology as he is a complicated patient, with sever CHF, low BP, coagulopathy - elevated INR. discussed with cardiology Dr Gruber , appreciate recommendations. Patient likely with pleuritic chest pain. EKG no change, trop negative. Patient need compliance with meds, diet, follow up , INR check. Recurrent episodes of V. tach 6 beats> secondary to advanced heart failure patient has ICD. Coumadin toxicity INR 10.2> no sign of bleeding, received vitamin K 1 mg subcutaneous 03/24, repeat INR is 5 -> 3 (on 03/26). Monitor INR in a.m.Coumadin per pharmacy. Large rectocele noted on 03/27/27. Consult gen surgery , evaluated promptly by Dr Zaragoza gen surgery , and rectocele was reduced without any complications at bedside by Dr Zaragoza. Significant history of noncompliance> patient counseled extensively, provide CHF education. Discussed with the patient at length, he expressed understanding. Recent history of pneumonia and bilateral PE> no chest pain, he is on Coumadin presented with elevated INR , moniotr INR DVT prophylaxis chemical is contraindication to to INR toxicity, monitor INR, will restart coumadin once therapeutic Discussed Condition With Patient and the nurse DC plan: awaiting improvement, clearance by consultants. Patient is deteriorating, he has advanced CHF, low BP, worsening kidney function. Will ask nephrology on consult. Might consider palliative care/ hospice. Maryann Jose MD March 28, 2017 15:33
--- NOTE | 2017-03-28 15:36 | PD.CARD.PN ---
Subjective Subjective Remarks No chest pain Just feels weak and no appetite Objective Medications Current Medications Medications (Trade) Dose Ordered Sig/Aida Route Start Time Stop Time Status Last Admin (NS Flush) 2 ml UNSCH PRN IV FLUSH 03/24/17 05:00 (NS Flush) 2 ml BID IV FLUSH 03/24/17 09:00 03/28/17 09:53 (Narcan Inj) 0.4 mg UNSCH PRN IV 03/24/17 05:00 (Cordarone) 200 mg DAILY PO 03/24/17 09:00 03/28/17 09:56 (Ecotrin Ec) 81 mg DAILY PO 03/24/17 09:00 03/28/17 09:55 (KCl) 10 meq DAILY PO 03/24/17 09:00 03/28/17 09:56 (Prinivil) 2.5 mg DAILY PO 03/24/17 09:00 03/24/17 10:40 Pravastatin Sodium 40 mg 40 mg HS PO 03/24/17 21:00 03/27/17 20:07 (Coumadin Consult Pharmacy) 0 ml @ 0 mls/hr UNSCH OTHER 03/26/17 11:00 (Coumadin) 2.5 mg DAILY@1600 PO 03/26/17 16:00 Hold 03/27/17 16:26 (Lasix) 20 mg BID@09,18 PO 03/27/17 18:00 03/28/17 09:56 Vital Signs / I&O Vital Signs Date Time Temp Pulse Resp B/P Pulse Ox O2 Delivery O2 Flow Rate FiO2 03/28/17 12:00 97.5 76 20 89/64 99 03/28/17 08:40 Room Air 03/28/17 08:00 97.3 75 20 87/63 98 03/28/17 04:00 97.9 76 16 81/53 96 03/28/17 00:00 98.0 80 16 82/59 95 03/27/17 21:10 Room Air 03/27/17 20:04 82 03/27/17 20:00 97.7 81 18 93/76 96 03/27/17 16:00 97.6 80 20 100/61 99 I/O 5/7/17 5/7/17 5/7/17 5/8/17 5/8/17 5/8/17 07:00 15:00 23:00 07:00 15:00 23:00 Intake Total 120 ml 482 ml 240 ml 700 ml Output Total 150 ml 225 ml 450 ml Balance 120 ml 332 ml 15 ml 250 ml Intake Oral 120 ml 480 ml 240 ml 700 ml IV Total 2 ml Output Urine Total 150 ml 225 ml 450 ml # Voids 0 # Bowel Movements 1 0 0 Physical Exam GENERAL: NAD, AAOx3 SKIN: Warm and dry. HEAD: Atraumatic. Normocephalic. EYES: Pupils equal and round. No scleral icterus. No injection or drainage. ENT: No nasal bleeding or discharge. Mucous membranes pink and moist. NECK: Trachea midline. No JVD. CARDIOVASCULAR: Regular rate and rhythm. RESPIRATORY: No accessory muscle use. Clear to auscultation. Breath sounds equal bilaterally. GASTROINTESTINAL: Abdomen soft, non-tender, nondistended. Hepatic and splenic margins not palpable. MUSCULOSKELETAL: Extremities without clubbing, cyanosis, or edema. No obvious deformities. NEUROLOGICAL: Awake and alert. No obvious cranial nerve deficits. Motor grossly within normal limits. Five out of 5 muscle strength in the arms and legs. Normal speech. PSYCHIATRIC: Appropriate mood and affect; insight and judgment normal. Laboratory Laboratory Tests Test 03/28/17 04:16 White Blood Count 4.8 TH/MM3 Red Blood Count 3.13 MIL/MM3 Hemoglobin 9.1 GM/DL Hematocrit 28.0 % Mean Corpuscular Volume 89.7 FL Mean Corpuscular Hemoglobin 29.2 PG Mean Corpuscular Hemoglobin 32.5 % Concent Red Cell Distribution Width 15.5 % Platelet Count 193 TH/MM3 Mean Platelet Volume 9.0 FL Neutrophils (%) (Auto) 58.7 % Lymphocytes (%) (Auto) 30.3 % Monocytes (%) (Auto) 10.2 % Eosinophils (%) (Auto) 0.4 % Basophils (%) (Auto) 0.4 % Neutrophils # (Auto) 2.8 TH/MM3 Lymphocytes # (Auto) 1.5 TH/MM3 Monocytes # (Auto) 0.5 TH/MM3 Eosinophils # (Auto) 0.0 TH/MM3 Basophils # (Auto) 0.0 TH/MM3 CBC Comment DIFF FINAL Differential Comment Prothrombin Time 36.0 SEC Prothromb Time International 3.1 RATIO Ratio Sodium Level 134 MEQ/L Potassium Level 5.0 MEQ/L Chloride Level 102 MEQ/L Carbon Dioxide Level 21.1 MEQ/L Anion Gap 11 MEQ/L Blood Urea Nitrogen 42 MG/DL Creatinine 1.57 MG/DL Estimat Glomerular Filtration 58 ML/MIN Rate Random Glucose 72 MG/DL Calcium Level 8.6 MG/DL Assessment and Plan Problem List: (1) Supratherapeutic INR (2) CHF (congestive heart failure) (3) PNA (pneumonia) (4) Non-compliance (5) PE (pulmonary thromboembolism) (6) Chest pain (7) Renal insufficiency (8) History of illicit drug use Assessment and Plan 1) INR back to where it should be, possible increase INR due to hepatic congestion from fluid overload state 2) Needs follow up outpatient with primary for INR checks 3) Fluid overload state secondary to not being on his cardiac medications and non-compliance with low sodium diet... continues to eat multiple foods with high sodium content Currently does not appear in acute heart failure, laying flat comfortably without shortness of breath, will back down on diuresis for now, especially with low blood pressure Constantly runs low blood pressure, but probably exacerbated by diuresis, will see how he does with lower dose diuretic 4) Would like to place on low dose BB, but can't at this point with blood pressure, KAREL-I held due to hypotension Problem Qualifiers (1) CHF (congestive heart failure): Qualified Code: I50.9 - Congestive heart failure, unspecified congestive heart failure chronicity, unspecified congestive heart failure type Joselito Royal DO March 28, 2017 15:36
--- NOTE | 2017-03-28 20:45 | PD.CONS ---
HPI Consult Requested By Reason for Consult Azotemia Primary Care Physician Lizz Rivera History of Present Illness This patient is a 47-year-old male apparently with a history of multiple substance abuse including ethanol, cocaine and tobacco. Patient has a severe cardiomyopathy with ejection fraction said previously to be 20-25%. Patient now noted to have developed renal insufficiency. Also hypotensive and still dyspneic on clinical exam. He has been using an NSAID occasionally as an outpatient for pain management. Recent creatinine levels have been within normal range. Review of Systems Constitutional: COMPLAINS OF: Fatigue Respiratory: COMPLAINS OF: Shortness of breath, DENIES: Apneas, Cough, Snoring , Wheezing, Hemoptysis, Sputum production Cardiovascular: COMPLAINS OF: Orthopnea, DENIES: Chest pain, Palpitations, Syncope, Dyspnea on Exertion, PND, Lower Extremity Edema, Claudication Gastrointestinal: DENIES: Abdominal pain, Black stools, Bloody stools, Constipation, Diarrhea, Nausea, Vomiting, Difficulty Swallowing, Anorexia Musculoskeletal: COMPLAINS OF: Joint pain, DENIES: Muscle aches, Stiffness, Joint Swelling, Back pain, Neck pain Past Family Social History Allergies: Coded Allergies: No Known Allergies (Unverified , 03/24/17) Past Medical History History of cocaine use. History of glaucoma abuse. History of tobacco use. History of recent pulmonary embolism. History of ongoing noncompliance with medical follow-up. Past Surgical History Noncontributory to current complaint. Reported Medications Reported Meds & Active Scripts Active Lasix (Furosemide) 20 Mg Tab 20 Mg PO BID Hydrocodone-Acetaminophen 5-325 mg Tab 1 Tab PO Q4H PRN Coumadin (Warfarin) 5 Mg Tab 5 Mg PO DAILY@1600 Symbicort Inh (Budesonide/Formoterol Fumarate) 160-4.5 Mcg/Act Aero 2 Puff INH Q12HR 30 Days Tramadol (Tramadol HCl) 50 Mg Tab 50 Mg PO Q6H PRN Potassium Chloride ER (Potassium Chloride) 10 Meq Cap 10 Meq PO DAILY Aspirin EC (Aspirin) 81 Mg Tabdr 81 Mg PO DAILY Lisinopril 2.5 Mg Tab 2.5 Mg PO DAILY Amiodarone (Amiodarone HCl) 200 Mg Tab 200 Mg PO DAILY Simvastatin 20 Mg Tab 20 Mg PO HS Active Ordered Medications Current Medications Sodium Chloride (NS Flush) 2 ml UNSCH PRN IVF FLUSH AFTER USING IV ACCESS; Start 03/24/17 at 03:30; Stop 03/24/17 at 05:04; Status DC Albuterol/ Ipratropium (Duoneb Neb) 1 ampule Q15M INH Last administered on 03:36; Start 03/24/17 at 03:30; Stop 03/24/17 at 04:01; Status DC Furosemide (Lasix Inj) 20 mg ONCE ONCE IV PUSH Last administered on 03/24/17 04:51; Start 03/24/17 at 04:45; Stop 03/24/17 at 04:46; Status DC Sodium Chloride (NS Flush) 2 ml UNSCH PRN IV FLUSH FLUSH AFTER USING IV ACCESS ; Start 03/24/17 at 05:00 Sodium Chloride (NS Flush) 2 ml BID IV FLUSH Last administered on 03/28/17 09: 53; Start 03/24/17 at 09:00 Naloxone HCl (Narcan Inj) 0.4 mg UNSCH PRN IV SEE LABEL COMMENTS; Start at 05:00 Amiodarone HCl (Cordarone) 200 mg DAILY PO Last administered on 03/28/17 09:56 ; Start 03/24/17 at 09:00 Aspirin (Ecotrin Ec) 81 mg DAILY PO Last administered on 03/28/17 09:55; Start 03/24/17 at 09:00 Potassium Chloride (KCl) 10 meq DAILY PO Last administered on 03/28/17 09:56; Start 03/24/17 at 09:00 Lisinopril (Prinivil) 2.5 mg DAILY PO Last administered on 03/24/17 10:40; Start 03/24/17 at 09:00 Pravastatin Sodium (Pravachol) 40 mg HS PO Last administered on 03/27/17 20:07 ; Start 03/24/17 at 21:00 Furosemide (Lasix Inj) 40 mg BID@,18 IV PUSH Last administered on 03/26/17 18 :27; Start 03/24/17 at 09:00; Stop 03/27/17 at 10:24; Status DC Potassium Chloride (KCl) 40 meq ONCE ONCE PO Last administered on 03/24/17 05: 17; Start 03/24/17 at 05:00; Stop 03/24/17 at 05:04; Status DC Phytonadione 1 mg 1 mg ONCE ONCE SQ Last administered on 03/24/17 14:08; Start 03/24/17 at 12:30; Stop 03/24/17 at 12:36; Status DC Pharmacy Profile Note (Coumadin Consult Pharmacy) 0 ml @ 0 mls/hr UNSCH OTHER ; Start 03/26/17 at 11:00 Warfarin Sodium (Coumadin) 5 mg DAILY@1600 PO ; Start 03/26/17 at 16:00; Status Cancel Patient Medication Teaching (Coumadin Booklet) 1 ONCE ONCE .XX Last administered on 03/26/17 15:47; Start 03/26/17 at 16:00; Stop 03/26/17 at 16:01; Status DC Warfarin Sodium (Coumadin) 2.5 mg DAILY@1600 PO Last administered on 03/27/17 16:26; Start 03/26/17 at 16:00; Status Hold Furosemide (Lasix) 20 mg BID@09,18 PO Last administered on 03/28/17 18:37; Start 03/27/17 at 18:00 Melatonin (Melatonin) 5 mg ONCE ONCE PO Last administered on 03/28/17 01:00; Start 03/28/17 at 01:00; Stop 03/28/17 at 01:01; Status DC Family History Noncontributory to current complaint. Social History Substance abuse as indicated above. Physical Exam Vital Signs Current Medications Medications (Trade) Dose Ordered Sig/Aida Route Start Time Stop Time Status Last Admin (NS Flush) 2 ml UNSCH PRN IV FLUSH 03/24/17 05:00 (NS Flush) 2 ml BID IV FLUSH 03/24/17 09:00 03/28/17 09:53 (Narcan Inj) 0.4 mg UNSCH PRN IV 03/24/17 05:00 (Cordarone) 200 mg DAILY PO 03/24/17 09:00 03/28/17 09:56 (Ecotrin Ec) 81 mg DAILY PO 03/24/17 09:00 03/28/17 09:55 (KCl) 10 meq DAILY PO 03/24/17 09:00 03/28/17 09:56 (Prinivil) 2.5 mg DAILY PO 03/24/17 09:00 03/24/17 10:40 Pravastatin Sodium 40 mg 40 mg HS PO 03/24/17 21:00 03/27/17 20:07 (Coumadin Consult Pharmacy) 0 ml @ 0 mls/hr UNSCH OTHER 03/26/17 11:00 (Coumadin) 2.5 mg DAILY@1600 PO 03/26/17 16:00 Hold 03/27/17 16:26 (Lasix) 20 mg BID@09,18 PO 03/27/17 18:00 03/28/17 18:37 Vital Signs Date Time Temp Pulse Resp B/P Pulse Ox O2 Delivery O2 Flow Rate FiO2 03/28/17 17:00 78 89/70 03/28/17 16:00 98.0 80 20 79/58 98 03/28/17 12:00 97.5 76 20 89/64 99 03/28/17 08:40 Room Air 03/28/17 08:00 97.3 75 20 87/63 98 03/28/17 04:00 97.9 76 16 81/53 96 03/28/17 00:00 98.0 80 16 82/59 95 03/27/17 21:10 Room Air Physical Exam GENERAL: Slim male. Appears to have mild dyspnea. SKIN: Warm and dry. HEAD: Normocephalic. EYES: No scleral icterus. No injection or drainage. NECK: Supple, trachea midline. No JVD or lymphadenopathy. CARDIOVASCULAR: Regular rate and rhythm without murmurs, gallops, or rubs. RESPIRATORY: Breath sounds equal bilaterally. No accessory muscle use. GASTROINTESTINAL: Abdomen soft, non-tender, nondistended. MUSCULOSKELETAL: No cyanosis, or edema. BACK: Nontender without obvious deformity. No CVA tenderness. Laboratory Laboratory Tests Test 03/28/17 04:16 White Blood Count 4.8 Red Blood Count 3.13 Hemoglobin 9.1 Hematocrit 28.0 Mean Corpuscular Volume 89.7 Mean Corpuscular Hemoglobin 29.2 Mean Corpuscular Hemoglobin 32.5 Concent Red Cell Distribution Width 15.5 Platelet Count 193 Mean Platelet Volume 9.0 Neutrophils (%) (Auto) 58.7 Lymphocytes (%) (Auto) 30.3 Monocytes (%) (Auto) 10.2 Eosinophils (%) (Auto) 0.4 Basophils (%) (Auto) 0.4 Neutrophils # (Auto) 2.8 Lymphocytes # (Auto) 1.5 Monocytes # (Auto) 0.5 Eosinophils # (Auto) 0.0 Basophils # (Auto) 0.0 CBC Comment DIFF FINAL Differential Comment Prothrombin Time 36.0 Prothromb Time International 3.1 Ratio Sodium Level 134 Potassium Level 5.0 Chloride Level 102 Carbon Dioxide Level 21.1 Anion Gap 11 Blood Urea Nitrogen 42 Creatinine 1.57 Estimat Glomerular Filtration 58 Rate Random Glucose 72 Calcium Level 8.6 Result Diagram: 03/28/17 0416 03/28/176 Assessment and Plan Problem List: (1) Cardiorenal syndrome Plan: Etiology of the patient's azotemia is primarily related to hemodynamic factors i.e. poor cardiac output as well as hypotension and not intrinsic renal disease per say. Creatinine level somewhat improved today. Repeat renal function tests in a.m. If no significant improvement and patient still significantly hypotensive would recommend discontinuance of the KAREL inhibitor. Continue furosemide at current dosage for the present also. If the patient's azotemia continues to worsen have little to offer from a renal point of view as the primary issue here is his cardiac status. I suspect the patient is not a candidate for cardiac transplantation given recent illicit drug use. I also do not believe that if his azotemia continues to worsen that the patient would tolerate dialysis or that dialysis would contribute to any degree to improvement in overall prognosis. Patient has a history of very poor compliance also and I suspect this will be ongoing. If the patient's condition continues to deteriorate despite adjustment in medications I agree that hospice should be a consideration. (2) Non-compliance Plan: Chronic and ongoing. (3) History of illicit drug use (4) CHF (congestive heart failure) Plan: Secondary to severe cardiomyopathy. Said to be nonischemic by history and related to alcohol abuse. Problem Qualifiers (1) CHF (congestive heart failure): Qualified Code: I50.9 - Congestive heart failure, unspecified congestive heart failure chronicity, unspecified congestive heart failure type Ming Ramesh MD March 28, 2017 20:45
[2017-03-28] MEDS: PRAVASTATIN SOD 40 MG TAB PO SCH (21:36)
[2017-03-29] VITALS (7 sets, daily range): BP systolic 88–99; BP diastolic 57–70; PULSE 75–86; RESP 16–20; TEMP 97.5–98.5; O2SAT 95–100
[2017-03-29 07:24] LABS: AUTOMATED NEUTROPHIL # 2.7 TH/MM3 (1.8-7.7); BASOPHIL % 0.7 % (0.0-2.0); EOSINOPHIL % 0.5 % (0.0-4.0); HEMATOCRIT 28.1 % (39.0-51.0); HEMO FLAGS DIFF FINAL; LYMPH % 29.4 % (9.0-44.0); LYMPHOCYTE # 1.3 TH/MM3 (1.0-4.8); MEAN CELL VOLUME 89.8 FL (80.0-100.0); MEAN CORPUSCULAR HEMOGLOBIN 28.5 PG (27.0-34.0); MEAN CORPUSCULAR HGB CONC 31.8 % (32.0-36.0); MONO % 9.6 % (0.0-8.0); NEUT % 59.8 % (16.0-70.0); PLATELET COUNT 172 TH/MM3 (150-450); RED BLOOD COUNT 3.13 MIL/MM3 (4.50-5.90); RED CELL DISTRIBUTION WIDTH 15.4 % (11.6-17.2); WHITE BLOOD COUNT 4.5 TH/MM3 (4.0-11.0)
[2017-03-29 08:02] LABS: BICARBONATE 23.4 MEQ/L (21.0-32.0); POTASSIUM 4.4 MEQ/L (3.5-5.1)
--- NOTE | 2017-03-29 08:34 | HHI.PR ---
Subjective Remarks Feels very tired, says he could not walk today because he feels tired, he is also lightheaded when he is standing. No fever or chills. + nonproductive cough at times. Still with nausea not eating much . Objective Vitals Vital Signs Date Time Temp Pulse Resp B/P Pulse Ox O2 Delivery O2 Flow Rate FiO2 03/29/17 04:00 97.7 75 18 93/57 95 03/29/17 04:00 Room Air 03/29/17 00:38 98.5 80 18 99/67 98 03/29/17 00:00 Room Air 03/28/17 20:00 Room Air 03/28/17 20:00 98.5 81 18 95/62 99 03/28/17 17:00 78 89/70 03/28/17 16:00 98.0 80 20 79/58 98 03/28/17 12:00 97.5 76 20 89/64 99 03/28/17 08:40 Room Air I/O 03/28/17 03/28/17 03/28/17 03/29/17 03/29/17 03/29/17 07:00 15:00 23:00 07:00 15:00 23:00 Intake Total 240 ml 700 ml Output Total 225 ml 450 ml 150 ml Balance 15 ml 250 ml -150 ml Intake Oral 240 ml 700 ml Output Urine Total 225 ml 450 ml 150 ml # Voids 1 # Bowel Movements 0 0 0 Result Diagram: 03/29/17 0538 03/29/17 0538 Imaging Last Impressions Chest X-Ray 03/25/17 0000 Signed Impressions: Service Date/Time: Saturday, March 25, 2017 10:21 - CONCLUSION: Stable chest appearance. Steven Rodriges MD Objective Remarks GENERAL: This is a well-nourished, well-developed patient, in no apparent distress. SKIN: No rashes, warm and dry HEAD: Atraumatic. Normocephalic. EYES: Pupils equal round and reactive. Extraocular motions intact. No scleral icterus. ENT: Nose without bleeding, or drainage, Airway patent. NECK: Trachea midline. Supple CARDIOVASCULAR: Regular rate and rhythm without murmurs, gallops, or rubs. RESPIRATORY: Fair air entry bilaterally. No wheezes, rales, or rhonchi. GASTROINTESTINAL: Abdomen soft, non-tender, nondistended. Positive bowel sounds MUSCULOSKELETAL: Extremities without clubbing, cyanosis, or edema. Pedal pulses appreciated NEUROLOGICAL: Awake and alert. Moves all extremity. Normal speech.no focal neurological deficit large rectocele noted 03/27 reduced at bedside by Dr Zaragoza. A/P Assessment and Plan 47 years old male admitted with worsening shortness of breath Severe CHF exacerbation with hypotension and tachycardia and Elevated BNP from 1160 in the last admission> started on iv Lasix, O2, monitor BMP and BNP , EKG and labs reviewed by me personally no acute ST changes, patient had runs of 6 V. tach, monitor blood pressure and heart rate, no beta crispin due to acute decompensation. Patient however with low BP will hole meds. discused with the patient and the nurse Chest pain/pressure. Will check troponin, EKG. Doesn't have a cardiology doctor. Will consult cardiology as he is a complicated patient, with sever CHF, low BP, coagulopathy - elevated INR. discussed with cardiology Dr Gruber , appreciate recommendations. Patient likely with pleuritic chest pain. EKG no change, trop negative. Patient need compliance with meds, diet, follow up , INR check. Recurrent episodes of V. tach 6 beats> secondary to advanced heart failure patient has ICD. Coumadin toxicity INR 10.2> no sign of bleeding, received vitamin K 1 mg subcutaneous 03/24, repeat INR is 5 -> 3 (on 03/26). Monitor INR in a.m.Coumadin per pharmacy. Large rectocele noted on 03/27/27. Consult gen surgery , evaluated promptly by Dr Zaragoza gen surgery , and rectocele was reduced without any complications at bedside by Dr Zaragoza. Significant history of noncompliance> patient counseled extensively, provide CHF education. Discussed with the patient at length, he expressed understanding. Recent history of pneumonia and bilateral PE> no chest pain, he is on Coumadin presented with elevated INR , moniotr INR DVT prophylaxis chemical is contraindication to to INR toxicity, monitor INR, will restart coumadin once therapeutic Discussed Condition With Patient and the nurse Discussed with cardiology Dr Gruber, agrees with palliative consult. DC plan: awaiting improvement, clearance by consultants. Patient is deteriorating, he has advanced CHF, low BP, worsening kidney function. Nephrology consulted, avoid nephrotoxic agents. Patient might be a candidate for hospice. Will consult palliative care for goals of care Maryann Jose MD March 29, 2017 08:34
[2017-03-29] MEDS: SODIUM CHLORIDE 0.9% FLUSH 10 ML FLUSH IV FLUSH SCH ×2 (09:00→21:43)
[2017-03-29] MEDS: LISINOPRIL 5 MG TAB PO SCH (09:00)
[2017-03-29] MEDS: FUROSEMIDE 20 MG TAB PO SCH ×2 (09:44→17:07)
[2017-03-29] MEDS: ASPIRIN EC 81 MG TABEC PO SCH (09:44)
[2017-03-29] MEDS: AMIODARONE 200 MG TAB PO SCH (09:44)
[2017-03-29] MEDS: POTASSIUM CHLORIDE 10 MEQ CAP PO SCH (09:44)
--- NOTE | 2017-03-29 10:37 | RADRPT ---
EXAM DATE/TIME: 03/29/2017 09:17 [facility] COMPARISON: No previous studies available for comparison. INDICATIONS : Increased BUN/creatinine. MEDICAL HISTORY : Myocardial infarction. Congestive heart failure. Hypercholesterolemia. Cariomyopathy. Chest pain. Irr egular heartbeat. HTN. Dyspnea. Joint pain.Anticoagulant therapy. SURGICAL HISTORY : AICD. ENCOUNTER: Initial ACUITY: 1 day PAIN SCORE: 4/10 LOCATION: Bilateral flank MEASUREMENTS: RIGHT KIDNEY: 9.8 x 5.3 x 3.9 cm LEFT KIDNEY: 10.2 x 4.4 x 5.7 cm FINDINGS: Increased echogenicity with decreased cortical medullary distinction is evident throughout both kidne ys. There is no evidence of hydronephrosis. There is no evidence of nephrolithiasis or suspicious mas s. The bladder is collapsed and demonstrates generalized wall thickening. Small to moderate amount of free fluid is identified in the peritoneal cavity. CONCLUSION: Parenchymal renal disease with generalized increased cortical echogenicity. No evidence of hydronephrosis, nephrolithiasis or suspicious mass. Small to moderate amount of ascites. Bentley Salgado MD on March 29, 2017 at 10:17 Board Certified Radiologist. This report was verified electronically.
--- NOTE | 2017-03-29 10:47 | PD.CARD.PN ---
Subjective Subjective Remarks No chest pain, no shortness of breath Feels weak overall Objective Medications Current Medications Medications (Trade) Dose Ordered Sig/Aida Route Start Time Stop Time Status Last Admin (NS Flush) 2 ml UNSCH PRN IV FLUSH 03/24/17 05:00 (NS Flush) 2 ml BID IV FLUSH 03/24/17 09:00 03/29/17 09:00 (Narcan Inj) 0.4 mg UNSCH PRN IV 03/24/17 05:00 (Cordarone) 200 mg DAILY PO 03/24/17 09:00 03/29/17 09:44 (Ecotrin Ec) 81 mg DAILY PO 03/24/17 09:00 03/29/17 09:44 (KCl) 10 meq DAILY PO 03/24/17 09:00 03/29/17 09:44 (Prinivil) 2.5 mg DAILY PO 03/24/17 09:00 03/24/17 10:40 Pravastatin Sodium 40 mg 40 mg HS PO 03/24/17 21:00 03/28/17 21:36 (Coumadin Consult Pharmacy) 0 ml @ 0 mls/hr UNSCH OTHER 03/26/17 11:00 (Coumadin) 2.5 mg DAILY@1600 PO 03/26/17 16:00 Hold 03/27/17 16:26 (Lasix) 20 mg BID@09,18 PO 03/27/17 18:00 03/29/17 09:44 Vital Signs / I&O Vital Signs Date Time Temp Pulse Resp B/P Pulse Ox O2 Delivery O2 Flow Rate FiO2 03/29/17 08:00 98.2 78 18 90/70 95 03/29/17 04:00 97.7 75 18 93/57 95 03/29/17 04:00 Room Air 03/29/17 00:38 98.5 80 18 99/67 98 03/29/17 00:00 Room Air 03/28/17 20:00 Room Air 03/28/17 20:00 98.5 81 18 95/62 99 03/28/17 17:00 78 89/70 03/28/17 16:00 98.0 80 20 79/58 98 03/28/17 12:00 97.5 76 20 89/64 99 I/O 03/28/17 03/28/17 03/28/17 03/29/1703/29/17 5/9/17 07:00 15:00 23:00 07:00 15:00 23:00 Intake Total 240 ml 700 ml Output Total 225 ml 450 ml 150 ml Balance 15 ml 250 ml -150 ml Intake Oral 240 ml 700 ml Output Urine Total 225 ml 450 ml 150 ml # Voids 1 # Bowel Movements 0 0 0 Physical Exam GENERAL: NAD, AAOx3 SKIN: Warm and dry. HEAD: Atraumatic. Normocephalic. EYES: Pupils equal and round. No scleral icterus. No injection or drainage. ENT: No nasal bleeding or discharge. Mucous membranes pink and moist. NECK: Trachea midline. No JVD. CARDIOVASCULAR: Regular rate and rhythm. RESPIRATORY: No accessory muscle use. Clear to auscultation. Breath sounds equal bilaterally. GASTROINTESTINAL: Abdomen soft, non-tender, nondistended. Hepatic and splenic margins not palpable. MUSCULOSKELETAL: Extremities without clubbing, cyanosis, or edema. No obvious deformities. NEUROLOGICAL: Awake and alert. No obvious cranial nerve deficits. Motor grossly within normal limits. Five out of 5 muscle strength in the arms and legs. Normal speech. PSYCHIATRIC: Appropriate mood and affect; insight and judgment normal. Laboratory Laboratory Tests Test 03/29/17 05:38 White Blood Count 4.5 TH/MM3 Red Blood Count 3.13 MIL/MM3 Hemoglobin 8.9 GM/DL Hematocrit 28.1 % Mean Corpuscular Volume 89.8 FL Mean Corpuscular Hemoglobin 28.5 PG Mean Corpuscular Hemoglobin 31.8 % Concent Red Cell Distribution Width 15.4 % Platelet Count 172 TH/MM3 Mean Platelet Volume 9.3 FL Neutrophils (%) (Auto) 59.8 % Lymphocytes (%) (Auto) 29.4 % Monocytes (%) (Auto) 9.6 % Eosinophils (%) (Auto) 0.5 % Basophils (%) (Auto) 0.7 % Neutrophils # (Auto) 2.7 TH/MM3 Lymphocytes # (Auto) 1.3 TH/MM3 Monocytes # (Auto) 0.4 TH/MM3 Eosinophils # (Auto) 0.0 TH/MM3 Basophils # (Auto) 0.0 TH/MM3 CBC Comment DIFF FINAL Differential Comment Prothrombin Time 35.0 SEC Prothromb Time International 3.0 RATIO Ratio Sodium Level 133 MEQ/L Potassium Level 4.4 MEQ/L Chloride Level 100 MEQ/L Carbon Dioxide Level 23.4 MEQ/L Anion Gap 10 MEQ/L Blood Urea Nitrogen 39 MG/DL Creatinine 1.67 MG/DL Estimat Glomerular Filtration 54 ML/MIN Rate Random Glucose 87 MG/DL Calcium Level 8.0 MG/DL B-Type Natriuretic Peptide 2128 PG/ML Assessment and Plan Problem List: (1) Supratherapeutic INR (2) CHF (congestive heart failure) (3) PNA (pneumonia) (4) Non-compliance (5) PE (pulmonary thromboembolism) (6) Chest pain (7) Renal insufficiency (8) History of illicit drug use Assessment and Plan 1) INR back to where it should be, possible increase INR due to hepatic congestion from fluid overload state 2) Needs follow up outpatient with primary for INR checks 3) Fluid overload state secondary to not being on his cardiac medications and non-compliance with low sodium diet... continues to eat multiple foods with high sodium content Currently does not appear in acute heart failure, laying flat comfortably without shortness of breath, will back down on diuresis for now, especially with low blood pressure Constantly runs low blood pressure, but probably exacerbated by diuresis, will see how he does with lower dose diuretic 4) Would like to place on low dose BB, but can't at this point with blood pressure, KAREL-I held due to hypotension 5) Not a great candidate for heart transplant due to drug abuse... 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
--- NOTE | 2017-03-29 10:56 | PD.CONS ---
Consult Service Palliative Care Consult Requested By Dr. Jose . Primary Care Physician Lizz Rivera Reason for Consultation a. To assist with evaluation and management of symptoms including: dyspnea , fatigue, edema, pain. b. To assist medical decision maker(s) with: better understanding of current medical conditions; weighing benefits/burdens of medical treatment options; making medical treatment decisions. (Juliane Walls) HPI History of Present Illness This is a 47 year old male who presented to the emergency room with a complaint of shortness of breath with onset approximately 2 hours prior to arrival. He has a history of recent pneumonia, pulmonary embolus, alcoholic cardiomyopathy, chronic systolic congestive heart failure with the previous ejection fraction of 25% status post [employer] single-chamber ICD implantation in [place] in September 2011, hypertension, hyperlipidemia, alcohol abuse, tobacco abuse and cocaine abuse. He was recently discharged from [facility] after treatment for pneumonia, CHF exacerbation and bilateral pulmonary emboli for which he was treated with Coumadin. His INR on admission was 10.3. He states that he had been compliant with his Coumadin dosing but had not followed up with a Coumadin clinic for INR monitoring. He had been out of his heart failure medications for some time and has not been compliant with his cardiac diet. He states that he has been eating a lot of hot dogs and other high sodium items. His BNP admission was 2958. He has required diuresis for his fluid overload which has caused some borderline hypotension and worsening renal insufficiency. He was also evaluated by surgery for a rectal prolapse measuring 10 cm in length and 14 cm in diameter which was manually reduced by Dr. Zaragoza. The patient states this is his second episode of rectal prolapse the previous occurring in [place]. No surgical intervention was planned. Echocardiogram done 03/11/2017 shows an ejection fraction of 10-15% with diffuse hypokinesis, moderate to severe mitral and tricuspid regurgitation, mild pulmonic regurgitation and a peak PA pressure of 52 mmHg. He remains hypotensive with a blood pressure of 88/67. He has been unable to tolerate low dose lisinopril. Today's laboratory studies show a reduced hemoglobin and hematocrit of 8.9/28.1, INR is now in the normal range of 3.0, sodium 139 and creatinine 1.67. B-natriuretic peptide remains elevated at 2128. Chest x-ray showed marked cardiomegaly with no acute cardiopulmonary disease. Due to his poor cardiac status and multiple comorbidities palliative care has been consulted to assist patient in establishing goals of care and assist with symptom management. Goals of care were discussed and at this time he states he would want full resuscitation including intubation and CPR. He stated that he wished his father to be his healthcare surrogate in case he becomes incapacitated and he wishes palliative care to discuss his current medical issues with his father. He states he had been unaware of the serious status of his cardiac disease and was unaware that this could be terminal. He has had multiple hospitalizations since November for cardiac and pulmonary disease and continues to experience decline. He states he was advised when he was living in [place] that he needed a heart transplant but declined that and at any rate would not be qualified due to his continued illicit drug abuse. Palliative care will follow for further education into disease process, continued symptom management and goals of care. Consultations: Cardiology is following and managing heart failure medications. ACEI currently held due to hypotension will be resumed as tolerated by blood pressure as well as low dose beta crispin when tolerated. Compliance with medication and diet is being encouraged as well as follow-up as an outpatient for INR monitoring and general medical care. Nephrology was following for management of worsening renal indices, felt to be related to hemodynamic factors relating to poor cardiac output and hypotension and as the source is cardiac, they have now signed off and will see only PRN. . Function/Cognitive Trajectory Patient has been experiencing progressive functional decline, is disabled due to his cardiac status but had previously been able to do small things around the home. He is unable to work and experiences shortness of breath with minimal activity. In November it is documented that he was able to ride his bicycle and today he states that he remains mostly around the home. He does note that he felt much better when he was able to take his cardiac medications and states he has been off them a month due to being out of refills. At this time his blood pressure remains too low to resume cardiac medications and given his continued decrease in ejection fraction it is questionable when these will be able to be resumed. Due to his significant heart failure with fluid resuscitation is not an option. He continues to experience right flank discomfort which increases with liver palpation. His kidney function continues to decline likely from cardiac status per nephrology's evaluation. The patient remains somewhat lethargic with low energy levels and appears to have significant decline in his functional status. (Juliane Walls) Review of Systems Constitutional: COMPLAINS OF: Fatigue, Weight loss, Dizziness, Pain, Generalized weakness Endocrine: DENIES: Heat/cold intolerance, Polydipsia, Polyuria, Polyphagia Eyes: DENIES: Blurred vision, Diplopia, Eye inflammation, Eye pain, Vision loss , Photosensitivity, Double Vision, Blind spots Ears, nose, mouth, throat: DENIES: Tinnitus, Hearing loss, Vertigo, Nasal discharge, Oral lesions, Throat pain, Hoarseness, Ear Pain, Running Nose, Epistaxis, Sinus Pain, Toothache, Odynophagia Respiratory: COMPLAINS OF: Shortness of breath Cardiovascular: COMPLAINS OF: Dyspnea on Exertion, Orthopnea Gastrointestinal: DENIES: Abdominal pain, Black stools, Bloody stools, Constipation, Diarrhea, Nausea, Vomiting, Difficulty Swallowing, Anorexia, Dyspepsia or heartburn, Excessive gas, Bloating, Vomiting blood Genitourinary: DENIES: Sexual dysfunction, Urinary frequency, Urinary incontinence, Urgency, Hematuria, Dysuria, Nocturia, Penile Discharge, Testicular Pain, Testicular Swelling, Hesitancy, Dribbling, Decreased stream Musculoskeletal: COMPLAINS OF: Back pain Integumentary: DENIES: Abnormal pigmentation, Nail changes, Pruritus, Rash, Nodules, Tumors, Excessive dryness, Non-healing sores Hematologic/Lymphatics: DENIES: Bruising, Lymphadenopathy, Prolonged bleed w/ proced, History of transfusions Immunologic/Allergic: DENIES: Eczema, Urticaria Neurologic: DENIES: Abnormal gait, Headache, Localized weakness, Paresthesias, Seizures, Speech Problems, Tremor, Poor Balance, Change in smell or taste Psychiatric: DENIES: Anxiety, Confusion, Mood changes, Depression, Hallucinations, Agitation, Suicidal Ideation, Homicidal Ideation, Delusions, Anhedonia (Juliane Walls) Past Family Social History Coded Allergies: No Known Allergies (Unverified , 04/14/17) Past Medical History CHF status post ICD Hypertension Hyperlipidemia History of recent pneumonia and bilateral PE Noncompliance . Past Surgical History AICD implantation September 2011 [address] single-chamber [facility] [facility] device Thoracentesis . Reported Medications Of note patient states he has been out of all medications for some time except his Coumadin. Reported Meds & Active Scripts Active Lasix (Furosemide) 20 Mg Tab 20 Mg PO BID Hydrocodone-Acetaminophen 5-325 mg Tab 1 Tab PO Q4H PRN Coumadin (Warfarin) 5 Mg Tab 5 Mg PO DAILY@1600 Symbicort Inh (Budesonide/Formoterol Fumarate) 160-4.5 Mcg/Act Aero 2 Puff INH Q12HR 30 Days Tramadol (Tramadol HCl) 50 Mg Tab 50 Mg PO Q6H PRN Potassium Chloride ER (Potassium Chloride) 10 Meq Cap 10 Meq PO DAILY Aspirin EC (Aspirin) 81 Mg Tabdr 81 Mg PO DAILY Lisinopril 2.5 Mg Tab 2.5 Mg PO DAILY Amiodarone (Amiodarone HCl) 200 Mg Tab 200 Mg PO DAILY Simvastatin 20 Mg Tab 20 Mg PO HS Current Medications Medications (Trade) Dose Ordered Sig/Aida Route Start Time Stop Time Status Last Admin (NS Flush) 2 ml UNSCH PRN IV FLUSH 03/24/17 05:00 (NS Flush) 2 ml BID IV FLUSH 03/24/17 09:00 03/28/17 21:37 (Narcan Inj) 0.4 mg UNSCH PRN IV 03/24/17 05:00 (Cordarone) 200 mg DAILY PO 03/24/17 09:00 03/28/17 09:56 (Ecotrin Ec) 81 mg DAILY PO 03/24/17 09:00 03/28/17 09:55 (KCl) 10 meq DAILY PO 03/24/17 09:00 03/28/17 09:56 (Prinivil) 2.5 mg DAILY PO 03/24/17 09:00 03/24/17 10:40 Pravastatin Sodium 40 mg 40 mg HS PO 03/24/17 21:00 03/28/17 21:36 (Coumadin Consult Pharmacy) 0 ml @ 0 mls/hr UNSCH OTHER 03/26/17 11:00 (Coumadin) 2.5 mg DAILY@1600 PO 03/26/17 16:00 Hold 03/27/17 16:26 (Lasix) 20 mg BID@09,18 PO 03/27/17 18:00 03/28/17 18:37 Family History Heart disease, brother at age of 14 of multiple myocardial infarctions per patient report. Mother is of an unknown cause. His father and sister are still living. . Substance Use Tobacco: Positive for tobacco use beginning at age 16, states he quit about 2 mo ago. Alcohol: Positive for alcohol use Prescription med abuse: Illicits: Positive for cocaine and marijuana abuse by urine toxicology, but denies subjectively. . Psychosocial History He was born in the [facility] and moved to [place] about age 5. He has lived in [place] and the [facility] where he has family support. His father, Wilson Calderón, and sister Reena lived in [place] and he aunt, Anel Brown lives in the [facility]. 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 He stated he had previously spent some time in senior living. He does have a long history of polysubstance abuse. . Spiritual/Cultural Factors Denied any affiliation, viscose cellar worker offered, declined by pt. . (Juliane Walls) Living Will: Never completed Health Care Surrogate: Never completed Durable Power of Tumbling Barrel Painter: Never completed Today's verbally stated goals: In case of his incapacity he wishes his father Wilson Calderón to be his legal decision maker. (Juliane Walls) Physical Exam Vital Signs Date Time Temp Pulse Resp B/P Pulse Ox O2 Delivery O2 Flow Rate FiO2 03/29/17 04:00 97.7 75 18 93/57 95 03/29/17 04:00 Room Air 03/29/17 00:38 98.5 80 18 99/67 98 03/29/17 00:00 Room Air 03/28/17 20:00 Room Air 03/28/17 20:00 98.5 81 18 95/62 99 03/28/17 17:00 78 89/70 03/28/17 16:00 98.0 80 20 79/58 98 03/28/17 12:00 97.5 76 20 89/64 99 03/28/17 03/29/17 19:00 07:00 Intake Total 700 ml Output Total 450 ml 150 ml Balance 250 ml -150 ml Intake Oral 700 ml Output Urine Total 450 ml 150 ml # Voids 1 # Bowel Movements 0 Exam CONSTITUTIONAL/GENERAL: This is a thin patient, in no apparent distress. TUBES/LINES/DRAINS: PIV 18-gauge left forearm SKIN: No jaundice, rashes, or lesions.No wounds seen anteriorly. Skin temperature appropriate. Not diaphoretic. HEAD: Atraumatic. Normocephalic. EYES: No injection or drainage. Fundi not examined. ENT: Hearing grossly normal. NECK: Trachea midline. Supple, nontender. No JVD. CARDIOVASCULAR: S4, S1, S2, Regular rate and rhythm with 2/6 systolic ejection murmur. Peripheral pulses symmetric. RESPIRATORY/CHEST: Symmetric, unlabored respirations. Clear to auscultation. Breath sounds equal bilaterally. No wheezes, rales, or rhonchi. GASTROINTESTINAL: Abdomen soft, with tenderness to palpation over the right upper quadrant extending around to the right flank, mild hepatomegaly, bowel sounds present. GENITOURINARY: Without palpable bladder distension. MUSCULOSKELETAL: Extremities without clubbing, cyanosis, or edema. No joint tenderness or effusion noted. NEUROLOGICAL: Lethargic. Motor and sensory grossly within normal limits. Follows commands. Moves all extremities. PSYCHIATRIC: No obvious anxiety/depression. no apparent hallucinations or other psychotic thought process. (Juliane Walls) Diagnostic Tests Laboratory Laboratory Tests Test 03/27/17 03/27/17 03/28/17 03/29/17 07:00 11:58 04:16 05:38 Prothrombin Time 31.1 SEC 36.0 SEC 35.0 SEC (9.8-11.6) (9.8-11.6) (9.8-11.6) Prothromb Time International 2.7 RATIO 3.1 RATIO 3.0 RATIO Ratio B-Type Natriuretic Peptide 2158 PG/ML 2128 PG/ML (0-100) (0-100) Sodium Level 135 MEQ/L 134 MEQ/L 133 MEQ/L (136-145) (136-145) (136-145) Potassium Level 5.3 MEQ/L 5.0 MEQ/L 4.4 MEQ/L (3.5-5.1) (3.5-5.1) (3.5-5.1) Chloride Level 104 MEQ/L 102 MEQ/L 100 MEQ/L (98-107) (98-107) (98-107) Carbon Dioxide Level 19.6 MEQ/L 21.1 MEQ/L 23.4 MEQ/L (21.0-32.0) (21.0-32.0) (21.0-32.0) Anion Gap 11 MEQ/L (5-15) 11 MEQ/L (5-15) 10 MEQ/L (5-15) Blood Urea Nitrogen 41 MG/DL (7-18) 42 MG/DL (7-18) 39 MG/DL (7-18) Creatinine 1.62 MG/DL 1.57 MG/DL 1.67 MG/DL (0.60-1.30) (0.60-1.30) (0.60-1.30) Estimat Glomerular Filtration 56 ML/MIN (>89) 58 ML/MIN (>89) 54 ML/MIN (>89) Rate Random Glucose 85 MG/DL 72 MG/DL 87 MG/DL (74-106) (74-106) (74-106) Calcium Level 8.8 MG/DL 8.6 MG/DL 8.0 MG/DL (8.5-10.1) (8.5-10.1) (8.5-10.1) White Blood Count 4.8 TH/MM3 4.5 TH/MM3 (4.0-11.0) (4.0-11.0) Red Blood Count 3.13 MIL/MM3 3.13 MIL/MM3 (4.50-5.90) (4.50-5.90) Hemoglobin 9.1 GM/DL 8.9 GM/DL (13.0-17.0) (13.0-17.0) Hematocrit 28.0 % 28.1 % (39.0-51.0) (39.0-51.0) Mean Corpuscular Volume 89.7 FL 89.8 FL (80.0-100.0) (80.0-100.0) Mean Corpuscular Hemoglobin 29.2 PG 28.5 PG (27.0-34.0) (27.0-34.0) Mean Corpuscular Hemoglobin 32.5 % 31.8 % Concent (32.0-36.0) (32.0-36.0) Red Cell Distribution Width 15.5 % 15.4 % (11.6-17.2) (11.6-17.2) Platelet Count 193 TH/MM3 172 TH/MM3 (150-450) (150-450) Mean Platelet Volume 9.0 FL 9.3 FL (7.0-11.0) (7.0-11.0) Neutrophils (%) (Auto) 58.7 % 59.8 % (16.0-70.0) (16.0-70.0) Lymphocytes (%) (Auto) 30.3 % 29.4 % (9.0-44.0) (9.0-44.0) Monocytes (%) (Auto) 10.2 % 9.6 % (0.0-8.0) (0.0-8.0) Eosinophils (%) (Auto) 0.4 % (0.0-4.0) 0.5 % (0.0-4.0) Basophils (%) (Auto) 0.4 % (0.0-2.0) 0.7 % (0.0-2.0) Neutrophils # (Auto) 2.8 TH/MM3 2.7 TH/MM3 (1.8-7.7) (1.8-7.7) Lymphocytes # (Auto) 1.5 TH/MM3 1.3 TH/MM3 (1.0-4.8) (1.0-4.8) Monocytes # (Auto) 0.5 TH/MM3 0.4 TH/MM3 (0-0.9) (0-0.9) Eosinophils # (Auto) 0.0 TH/MM3 0.0 TH/MM3 (0-0.4) (0-0.4) Basophils # (Auto) 0.0 TH/MM3 0.0 TH/MM3 (0-0.2) (0-0.2) CBC Comment DIFF FINAL DIFF FINAL Differential Comment (Juliane Walls) Result Diagram: 03/29/17 0538 03/29/17 0538 Imaging Last Impressions Renal Ultrasound 03/29/17 Signed Impressions: Service Date/Time: Wednesday, March 29, 2017 09:17 - CONCLUSION: Parenchymal renal disease with generalized increased cortical echogenicity. No evidence of hydronephrosis, nephrolithiasis or suspicious mass. Small to moderate amount of ascites. Bentley Salgado MD Chest X-Ray 03/25/17 Signed Impressions: Service Date/Time: Saturday, March 25, 2017 10:21 - CONCLUSION: Stable chest appearance. Steven Rodriges MD (Juliane Walls) Patient/Family Conference Issues Discussed: * Palliative care role, purpose, approach * Additional medical, psychosocial, and spiritual history * Patients general health, functional status, and cognitive changes in the months leading up to the current hospitalization * Patient/family understanding of the current medical problems * Patient/family understanding of prognosis * Patients goals of care as best understood from advance directives and/or conversations and/or values * Questions answered to the best of my ability * Palliative care contact information provided * Code status (Juliane Walls) Assessment and Plan Disease Oriented Problem List: (1) Elevation of cardiac enzymes (2) Cardiorenal syndrome (3) Supratherapeutic INR (4) Non-compliance (5) PE (pulmonary thromboembolism) (6) Renal insufficiency (7) Acute on chronic systolic congestive heart failure Symptom Scale: (1) Pain, generalized (2) Dyspnea and respiratory abnormalities (3) Fatigue Pertinent Non-Medical Issues Psychosocial:He was born in the [facility] and moved to [place] about age 5. He has lived in [place] and the [facility] where he has family support. His father, Wilson Calderón, and sister Reena lived in [place] and he aunt, Anel Brown lives in the [facility]. 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 He stated he had previously spent some time in senior living. He does have a long history of polysubstance abuse. 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 Ethical issues impacting care: Important Contacts Father - Wilson Calderón Aunt - Anel Brown Sister - Lani Calderón Prognosis His prognosis is poor. His ejection fraction has declined now to 10-15%. He states a recent history, since November, of multiple AICD shocks as the device was unable to pace the patient out of the arrhythmia with antitachycardia pacing. His cardiac status is now compromising his renal status and renal indices are increasing. Additionally he has developed ascites, indicating liver compromise. It appears he is at risk of developing multisystem organ failure. He has had several hospitalizations since November and is currently unable to tolerate his ACEI and beta crispin for his heart failure due to hypotension. His heart failure contraindicates significant fluid resuscitation to correct the hypotension. Medical options are limited. He would be appropriate for hospice if goals compatible. Code Status: Full Code Plan PLAN: Legal decision maker: Patient is currently capacitated to make his own decisions, but has named his father, Wilson Calderón, in case he becomes incapacitated. Goals: Goals remain aggressive at this time. CODE STATUS: Full code. SYMPTOMS: * Dyspnea-his dyspnea is improving with diuresis. He remains with 2 pillow orthopnea at rest and is unable to lie flat. This will likely be more limited with mobility. This is likely due to his significant cardiac debility complicated by his recent pneumonia and pulmonary embolus. Diuresis is continuing as tolerated by blood pressure. * Fatigue-he remains very fatigued and tends to doze off during conversation. He is receiving no opiates or benzodiazepines but did receive 5 mg of melatonin at 1 AM. * Edema-dependent edema resolving with diuresis but he remains with small-to- moderate amount of ascites. Continue diuresis as tolerated by blood pressure. * Pain-he complains of sharp, stabbing type pain extending from the right posterior flank area up behind the right scapula exacerbated by liver palpation and movement. This may be related to liver congestion secondary to heart failure. This is slightly improved with repositioning but may need some analgesia if pain continues. Patient appears to have limited understanding of the gravity of his cardiac dysfunction and the potential sequelae. He does not appear to be qualified for transplant due to his frequent positive urine toxicology for illicit substances , per Dr. Royal's note. A call has been placed to his father, Wilson, and a voicemail with contact number provided, as requested by the patient to reach out to the father with updates and to provide support. Palliative care will continue to interface with patient to assist with that during this admission. Palliative care will continue to follow the patient during hospital course as condition evolves, to assist patient/decision-maker with understanding of their medical conditions, weighing benefits/burdens of treatment options, for clarification of goals of treatment. Additionally will assist with any symptoms of palliative concern (Juliane Walls) Thank you for the opportunity to participate in the care of Mr. Calderón. (Juliane Walls) Attestation To help prompt me to consider important information that might be impacting today's encounter and assessment, information from prior notes written by myself or my colleagues may have been "brought forward" into today's note. My signature on this note, however, is an attestation that I personally performed the exam, history, and/or decision-making noted today, and, unless otherwise indicated, the interactions with patient, family, and staff as well as the review of records all occurred today. I also attest that the listed assessment and stated plan reflect my best clinical judgment today based on the combination of historical information, prior notes, and today's exam/ interactions. When time spent is documented, it refers only to time spent today by the signer, or if indicated, combined time spent today by collaborating physician/nurse practitioner. (Juliane Walls) Collaborating MD Comments dual visit with Vijaya GARCIA Concur with above documentation. He presented for SOB, has known hx chronic CHF, PE, cardiomyopathy, substance abuse. Has not been able to take his cardiac medications as prescribed. Cardiology is following. Nephrology consulted-- acute kidney insufficiency felt secondary to cardiac issues. Prior echocardiogram here 20%, now with EF 10-15%. Overall prognosis poor given pt recurrent hospitalizations, unable to tolerate cardiac medications. PE: CONSTITUTIONAL/GENERAL: This is a thin male, in no apparent distress. TUBES/LINES/DRAINS: PIV Lt FA SKIN: No jaundice, rashes, or lesions.No wounds seen anteriorly. Skin temperature appropriate. Not diaphoretic. CARDIOVASCULAR: Regular rate and rhythm , faint murmur. Peripheral pulses symmetric. RESPIRATORY/CHEST: Symmetric, unlabored respirations on room air. Clear to auscultation. Breath sounds equal bilaterally. GASTROINTESTINAL: Abdomen soft,+mild tenderness to palp right upper quadrant extending around to the right flank, mild hepatomegaly, bowel sounds present. MUSCULOSKELETAL: Extremities without clubbing, cyanosis, or edema. No joint tenderness or effusion noted. Extremities very thin, little muscle mass. NEUROLOGICAL: Lethargic, arouses easily. Oriented, some insight into hospitalization. Follows commands. Moves all extremities. PSYCHIATRIC: No obvious anxiety/depression. . (Michelle Heart) Collaborating MD Comments . Chart reviewed. Cased discussed with palliative care TRAFFIC SIGNAL MECHANIC. Above JOSE note reviewed and I concur. . (Aryan Story MD) Juliane Walls March 29, 2017 10:50 Michelle Heart March 29, 2017 16:17 Aryan Story MD April 18, 2017 15:47
--- NOTE | 2017-03-29 14:45 | HHI.NPPN ---
Subjective History of Present Illness This patient is a 47-year-old male apparently with a history of multiple substance abuse including ethanol, cocaine and tobacco. Patient has a severe cardiomyopathy with ejection fraction said previously to be 20-25%. Patient now noted to have developed renal insufficiency. Also hypotensive and still dyspneic on clinical exam. He has been using an NSAID occasionally as an outpatient for pain management. Recent creatinine levels have been within normal range. Interval History Pt feeling OK today. Voices no new complaints (Swetha Dixon) Review of Systems Respiratory Lungs: SOB (Swetha Dixon) Objective Data Data 03/28/17 03/29/17 19:00 07:00 Intake Total 700 ml Output Total 450 ml 150 ml Balance 250 ml -150 ml Intake Oral 700 ml Output Urine Total 450 ml 150 ml # Voids 1 # Bowel Movements 0 Vital Signs Date Time Temp Pulse Resp B/P Pulse Ox O2 Delivery O2 Flow Rate FiO2 03/29/17 12:00 97.5 86 16 88/64 96 03/29/17 09:00 75 03/29/17 08:00 98.2 78 18 90/70 95 03/29/17 04:00 97.7 75 18 93/57 95 03/29/17 04:00 Room Air 03/29/17 00:38 98.5 80 18 99/67 98 03/29/17 00:00 Room Air 03/28/17 20:00 Room Air 03/28/17 20:00 98.5 81 18 95/62 99 03/28/17 17:00 78 89/70 03/28/17 16:00 98.0 80 20 79/58 98 (Swetha Dixon) -: 03/29/17 0538 03/29/17 0538 Imaging Last Impressions Renal Ultrasound 03/29/17 0000 Signed Impressions: Service Date/Time: Wednesday, March 29, 2017 09:17 - CONCLUSION: Parenchymal renal disease with generalized increased cortical echogenicity. No evidence of hydronephrosis, nephrolithiasis or suspicious mass. Small to moderate amount of ascites. Bentley Salgado MD Chest X-Ray 03/25/17 0000 Signed Impressions: Service Date/Time: Saturday, March 25, 2017 10:21 - CONCLUSION: Stable chest appearance. Steven Rodriges MD Medication Review Current Medications Medications (Trade) Dose Ordered Sig/Aida Route Start Time Stop Time Status Last Admin (NS Flush) 2 ml UNSCH PRN IV FLUSH 03/24/17 05:00 (NS Flush) 2 ml BID IV FLUSH 03/24/17 09:00 03/29/17 09:00 (Narcan Inj) 0.4 mg UNSCH PRN IV 03/24/17 05:00 (Cordarone) 200 mg DAILY PO 03/24/17 09:00 03/29/17 09:44 (Ecotrin Ec) 81 mg DAILY PO 03/24/17 09:00 03/29/17 09:44 (KCl) 10 meq DAILY PO 03/24/17 09:00 03/29/17 09:44 (Prinivil) 2.5 mg DAILY PO 03/24/17 09:00 03/24/17 10:40 Pravastatin Sodium 40 mg 40 mg HS PO 03/24/17 21:00 03/28/17 21:36 (Coumadin Consult Pharmacy) 0 ml @ 0 mls/hr UNSCH OTHER 03/26/17 11:00 (Coumadin) 2.5 mg DAILY@1600 PO 03/26/17 16:00 Hold 03/27/17 16:26 (Lasix) 20 mg BID@09,18 PO 03/27/17 18:00 03/29/17 09:44 (Swetha Dixon) Physical Exam General Appearance: No Acute Distress, Comfortable (Swetha Dixon) Eyes Eye Exam: Pupils Equal, Pupils Reactive (Swetha Dixon) Throat Throat Exam: Oral Mucosa [place] & Moist (Swetha Dixon) Neck Neck Exam: Neck Supple, Trachea Midline (Swetha Dixon) Pulmonary Resp Exam: Clear Bilaterally, Breath Sounds Equal (Swetha Dixon) Cardiology CV Exam: Regular, Normal Sinus Rhythm (Swetha Dixon) Gastrointestinal/Abdomen GI Exam: Soft, Non-Tender (Swetha Dixon) Integumentary Skin Exam: Clear, Warm (Swetha Dixon) Extremeties Extremities Exam: No Edema (Swetha Dixon) Neurologic Neuro Exam: Alert, Awake, Oriented (Swetha Dixon) Psychiatric Psych Exam: Appropriate Responses (Swetha Dixon) Assessment/Plan Problem List: (1) Cardiorenal syndrome Plan: Etiology of the patient's azotemia is primarily related to hemodynamic factors i.e. poor cardiac output as well as hypotension and not intrinsic renal disease per say. Creatinine level stable. This may be his new baseline. Continue on diuretics. As mentioned previously, given his severely impaired myocardial function, there is little that can be added from a renal standpoint and half-way prognosis is poor. We will see the patient PRN at this point. Please call if needed. (2) Non-compliance Plan: Chronic and ongoing. (3) History of illicit drug use (4) CHF (congestive heart failure) Plan: Secondary to severe cardiomyopathy. Said to be nonischemic by history and related to alcohol abuse. (Swetha Dixon) Plan The exam, history, and the medical decision-making described in the above note were completed with the assistance of the PA-C. I reviewed and agree with the findings presented. (Ming Ramesh MD) Problem Qualifiers (1) CHF (congestive heart failure): Qualified Code: I50.9 - Congestive heart failure, unspecified congestive heart failure chronicity, unspecified congestive heart failure type Swetha Dixon March 29, 2017 14:45 Ming Ramesh MD May 24, 2017 13:24
[2017-03-29] MEDS: PRAVASTATIN SOD 40 MG TAB PO SCH (21:42)
[2017-03-30] VITALS: BP 92/69; PULSE 85; RESP 18; TEMP 97.6; O2SAT 98
[2017-03-30 04:00] VITALS: BP_SYST 89; BP_SYST 92; BP_DIAS 57; BP_DIAS 60; PULSE 78; RESP 16; TEMP 97.7; O2SAT 100
[2017-03-30 05:28] LABS: INTERNATIONAL NORMALIZED RATIO 2.8 RATIO; PROTHROMBIN TIME - PATIENT 32.1 SEC (9.8-11.6)
[2017-03-30 05:42] LABS: BICARBONATE 22.8 MEQ/L (21.0-32.0); POTASSIUM 4.7 MEQ/L (3.5-5.1)
[2017-03-30 08:00] VITALS: BP 97/66; PULSE 78; RESP 16; TEMP 98.3; O2SAT 100
[2017-03-30] MEDS: AMIODARONE 200 MG TAB PO SCH (08:27)
[2017-03-30] MEDS: FUROSEMIDE 20 MG TAB PO SCH (08:27)
[2017-03-30] MEDS: SODIUM CHLORIDE 0.9% FLUSH 10 ML FLUSH IV FLUSH SCH (08:28)
[2017-03-30] MEDS: POTASSIUM CHLORIDE 10 MEQ CAP PO SCH (08:28)
[2017-03-30] MEDS: LISINOPRIL 5 MG TAB PO SCH (08:28)
[2017-03-30] MEDS: ASPIRIN EC 81 MG TABEC PO SCH (08:28)
--- NOTE | 2017-03-30 09:05 | HHI.DS ---
Discharge Summary Admission Date March 24, 2017 at 04:48 Discharge Date: March 30, 2017 Admitting Diagnosis CHF exacerbation, Coumadin toxicity (1) Cardiorenal syndrome ICD Code: I13.10 Diagnosis: Principal (2) CHF (congestive heart failure) ICD Code: I50.9 Diagnosis: Principal (3) Elevated troponin ICD Code: R74.8 Diagnosis: Principal (4) Coumadin toxicity ICD Code: T45.511A Diagnosis: Principal (5) Renal insufficiency ICD Code: N28.9 Diagnosis: Principal (6) Pulmonary embolus ICD Code: I26.99 Diagnosis: Secondary (7) Acute CHF (congestive heart failure) ICD Code: I50.9 Diagnosis: Principal (8) Transaminitis ICD Code: R74.0 Diagnosis: Principal Procedures none Brief History - From Admission 47 years old male who is known to me from previous admission with significant history of noncompliance, he is with history of advanced CHF status post ICD EF 25% who was recently discharged from the hospital after he treated for pneumonia and CHF exacerbation, as well as bilateral PE patient is on Coumadin, presented to the ED complaining of worsening short of breath he was found to have elevated BNP and supratherapeutic INR. I saw the patient in his room, he admitted eating loaded salty food, "I only ate 2 hotdogs ". Patient denied chest pain short of breath abdominal pain diarrhea or constipation, positive orthopnea. Patient denied any hematochezia or hematemesis or any other signs of bleeding, his INR was found to be at 10 CBC/BMP: 03/29/17 0538 03/30/17 0455 Significant Findings Laboratory Tests Test 03/27/17 03/28/17 03/29/17 03/30/17 11:58 04:16 05:38 04:35 Sodium Level 135 MEQ/L 134 MEQ/L 133 MEQ/L (136-145) (136-145) (136-145) Potassium Level 5.3 MEQ/L (3.5-5.1) Carbon Dioxide Level 19.6 MEQ/L (21.0-32.0) Blood Urea Nitrogen 41 MG/DL (7-18) 42 MG/DL (7-18) 39 MG/DL (7-18) Creatinine 1.62 MG/DL 1.57 MG/DL 1.67 MG/DL (0.60-1.30) (0.60-1.30) (0.60-1.30) Estimat Glomerular Filtration 56 ML/MIN (>89) 58 ML/MIN (>89) 54 ML/MIN (>89) Rate Red Blood Count 3.13 MIL/MM3 3.13 MIL/MM3 (4.50-5.90) (4.50-5.90) Hemoglobin 9.1 GM/DL 8.9 GM/DL (13.0-17.0) (13.0-17.0) Hematocrit 28.0 % 28.1 % (39.0-51.0) (39.0-51.0) Monocytes (%) (Auto) 10.2 % 9.6 % (0.0-8.0) (0.0-8.0) Prothrombin Time 36.0 SEC 35.0 SEC 32.1 SEC (9.8-11.6) (9.8-11.6) (9.8-11.6) Random Glucose 72 MG/DL (74-106) Mean Corpuscular Hemoglobin 31.8 % Concent (32.0-36.0) Calcium Level 8.0 MG/DL (8.5-10.1) B-Type Natriuretic Peptide 2128 PG/ML 2259 PG/ML (0-100) (0-100) Test 03/30/17 04:55 Sodium Level 134 MEQ/L (136-145) Blood Urea Nitrogen 38 MG/DL (7-18) Creatinine 1.49 MG/DL (0.60-1.30) Estimat Glomerular Filtration 62 ML/MIN (>89) Rate Random Glucose 72 MG/DL (74-106) Imaging Last Impressions Renal Ultrasound 03/29/17 0000 Signed Impressions: Service Date/Time: Wednesday, March 29, 2017 09:17 - CONCLUSION: Parenchymal renal disease with generalized increased cortical echogenicity. No evidence of hydronephrosis, nephrolithiasis or suspicious mass. Small to moderate amount of ascites. Bentley Salgado MD Chest X-Ray 03/25/17 0000 Signed Impressions: Service Date/Time: Saturday, March 25, 2017 10:21 - CONCLUSION: Stable chest appearance. Steven Rodriges MD PE at Discharge GENERAL: This is a well-nourished, well-developed patient, in no apparent distress. SKIN: No rashes, warm and dry HEAD: Atraumatic. Normocephalic. EYES: Pupils equal round and reactive. Extraocular motions intact. No scleral icterus. ENT: Nose without bleeding, or drainage, Airway patent. NECK: Trachea midline. Supple CARDIOVASCULAR: Regular rate and rhythm without murmurs, gallops, or rubs. RESPIRATORY: Fair air entry bilaterally. No wheezes, rales, or rhonchi. GASTROINTESTINAL: Abdomen soft, non-tender, nondistended. Positive bowel sounds MUSCULOSKELETAL: Extremities without clubbing, cyanosis, or edema. Pedal pulses appreciated NEUROLOGICAL: Awake and alert. Moves all extremity. Normal speech.no focal neurological deficit large rectocele noted 5/7 reduced at bedside by Dr Zaragoza. Pt update on day of discharge Ambulating in the room, he feels improved today. No sob, doesn;t need oxygen. He denies any cp, n/v/d/c. No dizziness today. His BP is better. feels comfortable to go home. Says he wants medical management for his heart and he will follow up as OP with his PCP and consultants. Stressed also importance to check INR and followup Hospital Course 47 years old male admitted with worsening shortness of breath. Patient with severe CHF with EF 15-20%. Low BP with PANCHO , cardiorenal sdr. Poor prognosis. He is also on coumadin for PE, and presented with coumadin toxicity 2/2 noncompliance as OP. Patient was counselled extensively regarding compliance with meds and consultants. Due to his low BP per cardiology patient to have only amiodarone at [place]. Severe CHF exacerbation with hypotension and tachycardia and Elevated BNP from 1160 in the last admission> started on iv Lasix, O2, monitor BMP and BNP , EKG and labs reviewed by me personally no acute ST changes, patient had runs of 6 V. tach, monitor blood pressure and heart rate, no beta crispin due to acute decompensation. Patient however with low BP will hole meds. discused with the patient and the nurse Chest pain/pressure. Will check troponin, EKG. Doesn't have a cardiology doctor. Will consult cardiology as he is a complicated patient, with sever CHF, low BP, coagulopathy - elevated INR. discussed with cardiology Dr Gruber, appreciate recommendations. Patient likely with pleuritic chest pain. EKG no change, trop negative. Patient need compliance with meds, diet, follow up , INR check. Recurrent episodes of V. tach 6 beats> secondary to advanced heart failure patient has ICD. Coumadin toxicity INR 10.2> no sign of bleeding, received vitamin K 1 mg subcutaneous 03/24, repeat INR is 5 -> 3 (on 03/26). Monitor INR in a.m.Coumadin per pharmacy. To follow up with PCP as OP to manage INR. Patient was counselled multiple tomes. he expressed understanding. Large rectocele noted on 03/27/27. Consult gen surgery , evaluated promptly by Dr Zaragoza gen surgery , and rectocele was reduced without any complications at bedside by Dr Zaragoza. Significant history of noncompliance> patient counseled extensively, provide CHF education. Discussed with the patient at length, he expressed understanding. Recent history of pneumonia and bilateral PE> no chest pain, he is on Coumadin presented with elevated INR , moniotr INR DVT prophylaxis chemical is contraindication to to INR toxicity, monitor INR, will restart coumadin once therapeutic Discussed Condition With Patient and the nurse Discussed with cardiology Dr Gruber, agrees with palliative consult. Patient has poor prognosis. His BP is too low . He will continue only amiodarone at discharge. DC plan: awaiting improvement, clearance by consultants. Patient is deteriorating, he has advanced CHF, low BP, worsening kidney function. Nephrology consulted, avoid nephrotoxic agents. Patient might be a candidate for hospice. consult palliative care for goals of care, patient says he wants medical management, says his father will not allow any surgeies. He appears medically stable at this time/ I did explain to the patient kane cisneros folow up as OP with PCP and consultants. He says he already called his PCP and got an appointment. Refills meds provided, and strongly encouraged form follow up to also check INR. Patient was discharged in stable condition . Pt Condition on Discharge: Stable Discharge Disposition: Discharge Home Discharge Time: > 30 minutes Discharge Instructions DIET: Follow Instructions for: Heart Healthy Diet, Renal Failure Diet Activities you can perform: Regular-No Restrictions Follow up Referrals: Cardiology - 1 Week Nephrology - 1 Week PCP Follow-up - 3-5 Days New Medications: Furosemide (Furosemide) 20 Mg Tab 20 MG PO DAILY chf #30 Ref 0 TAB Continued Medications: Amiodarone (Amiodarone) 200 Mg Tab 200 MG PO DAILY Regulate Heart Beat #30 Ref 0 TAB (This prescription has been renewed) Aspirin DR (Aspirin EC) 81 Mg Tabdr 81 MG PO DAILY Heart #30 TAB Budesonide-Formoterol Inh (Symbicort Inh) 160-4.5 Mcg/Act Aero 2 PUFF INH Q12HR copd Days 30 INHALER (This prescription has been renewed) Hydrocodone-Acetaminophen (Hydrocodone-Acetaminophen) 5-325 mg Tab 1 TAB PO Q4H PRN PAIN SCALE 3 TO 5 #5 TAB Potassium Chloride ER (Potassium Chloride ER) 10 Meq Cap 10 MEQ PO DAILY Electrolyte Replacement #30 Ref 0 CAP Simvastatin (Simvastatin) 20 Mg Tab 20 MG PO HS Cholesterol Management #30 Ref 0 TAB (This prescription has been renewed) Tramadol (Tramadol) 50 Mg Tab 50 MG PO Q6H PRN PAIN #10 Ref 0 TAB Warfarin (Coumadin) 5 Mg Tab 5 MG PO DAILY@1600 [pe #30 TAB (This prescription has been renewed) Discontinued Medications: Furosemide (Lasix) 20 Mg Tab 20 MG PO BID chf #60 Ref 0 TAB Lisinopril (Lisinopril) 2.5 Mg Tab 2.5 MG PO DAILY #30 Ref 0 TAB Maryann Jose MD March 30, 2017 09:05
[2017-03-30] MEDS ORDERED: FURO20TA PO (09:07)
[2017-03-30] MEDS ORDERED: COUM5TAB PO (09:07)
[2017-03-30] MEDS ORDERED: SYMB160A INH (09:07)
[2017-03-30] MEDS ORDERED: AMIO200T PO (09:07)
[2017-03-30] MEDS ORDERED: SIMV20TA PO (09:07)
--- NOTE | 2017-03-30 15:04 | HHI.HCPN ---
Reason for visit a. To assist with evaluation and management of symptoms including: dyspnea , fatigue, edema, pain, claudication. b. To assist medical decision maker(s) with: better understanding of current medical conditions; weighing benefits/burdens of medical treatment options; making medical treatment decisions. (Juliane Walls) Subjective/Interval History This is a 47-year-old male presenting with severe heart failure , dyspnea, pain, fatigue and claudication. His presenting INR was 10.3. He is being treated with Coumadin secondary to pulmonary embolus diagnosed February 2017. He was sent home on 5 mg of Coumadin daily which he states he has been compliant with. He has been noncompliant with his diet causing fluid overload due to a very high salt diet and was felt to have liver congestion causing delayed Coumadin metabolism which elevated his INR per Dr. Royal's note. His INR has declined to 2.8. And he has been cleared for discharge today by Dr. Payne. He is seen today sitting on the side of the bed mildly short of breath much more awake than the previous evaluation. Palliative care is following for symptom management and establishing goals of care. Laboratory chemistries today show a mildly decreased sodium level of 134 and improving renal indices with a BUN is 38 and a creatinine of 1.49 down from 1.67. His B-natriuretic peptide remains elevated at 2259. As previously noted his INR is 2.8. 2-D echocardiogram done November 2016 shows an ejection fraction of 20-25% with moderate to severe mitral regurgitation directed along the left atrial wall, mild tricuspid regurgitation and pulmonary artery peak pressure 31 mmHg. Repeat echocardiogram done March 11, 2017 shows a decline in systolic function to 10-15% with diffuse hypokinesis moderate to severe mitral regurgitation, moderate to severe tricuspid regurgitation, mild pulmonic regurgitation with elevated pulmonary artery peak pressures up to 52 mmHg. Extensive education to assist the patient in understanding his cardiac debility was given. The patient did stay improved understanding and all questions were answered. He has stated that he wishes his father, Wilson Calderón, to be his designated healthcare surrogate and that paperwork was completed today. The patient was given a copy and another copy placed on the chart with a copy scanned to the e- chart. He states he is unable to obtain transportation home and had planned to take the bus however was concerned due to the walk from the bus stop to his home , due to his claudication. This was addressed with case management who has provided him with a taxi pass for transportation to his door. I did have a long conversation with the patient regarding his significant cardiac disability and the dangers of Coumadin noncompliance. He has been strongly encouraged to establish with a primary care provider and is in process of making an appointment at the end of our interview. He has also been encouraged to establish with a finance administrator for close cardiac follow-up to be able to resume cardioprotective medications once blood pressure has stabilized. Extensive heart failure and dietary instructions were given to include sodium restriction. . (Juliane Walls) Advance Directives Living Will: Never completed Health Care Surrogate: Copy in medical record Durable Power of Trade Clerk: Never completed (Juliane Walls) Advance Directive Specifics Health Care Surrogate(s): 's-Wilson Calderón (Juliane Walls) Objective Vital Signs Date Time Temp Pulse Resp B/P Pulse Ox O2 Delivery O2 Flow Rate FiO2 03/30/17 08:10 Room Air 03/30/17 08:00 98.3 78 16 97/66 100 03/30/17 04:00 97.7 78 16 92/60 100 03/30/17 00:00 97.6 85 18 92/69 98 03/29/17 21:45 Room Air 03/29/17 20:00 75 03/29/17 20:00 98.0 80 20 97/67 98 03/29/17 16:00 Room Air 03/29/17 16:00 97.9 77 16 88/62 100 Intake & Output 03/30/17 03/30/17 07:00 19:00 Intake Total 480 ml Output Total 125 ml Balance 355 ml Intake Oral 480 ml Output Urine Total 125 ml # Bowel Movements 1 Physical Exam CONSTITUTIONAL/GENERAL: This is a thin patient, in no apparent distress. HEAD: Atraumatic. Normocephalic. NECK: Trachea midline. Supple, nontender. No JVD. CARDIOVASCULAR: S4, S1, S2, Regular rate and rhythm with 2/6 systolic ejection murmur. Peripheral pulses symmetric, claudication after 2 minutes of ambulation. RESPIRATORY/CHEST: Symmetric, unlabored respirations. Clear to auscultation. Breath sounds equal bilaterally. No wheezes, rales, or rhonchi. GASTROINTESTINAL: Abdomen soft, nontender bowel sounds present. MUSCULOSKELETAL: Extremities without clubbing, cyanosis, or edema. No joint tenderness or effusion noted. NEUROLOGICAL: Alert and oriented 4. Motor and sensory grossly within normal limits. Follows commands. Moves all extremities. PSYCHIATRIC: No obvious anxiety/depression. no apparent hallucinations or other psychotic thought process. (Juliane Walls) Diagnostic Tests Laboratory Laboratory Tests Test 03/28/17 03/29/17 03/30/17 03/30/17 04:16 05:38 04:35 04:55 White Blood Count 4.8 TH/MM3 4.5 TH/MM3 (4.0-11.0) (4.0-11.0) Red Blood Count 3.13 MIL/MM3 3.13 MIL/MM3 (4.50-5.90) (4.50-5.90) Hemoglobin 9.1 GM/DL 8.9 GM/DL (13.0-17.0) (13.0-17.0) Hematocrit 28.0 % 28.1 % (39.0-51.0) (39.0-51.0) Mean Corpuscular Volume 89.7 FL 89.8 FL (80.0-100.0) (80.0-100.0) Mean Corpuscular Hemoglobin 29.2 PG 28.5 PG (27.0-34.0) (27.0-34.0) Mean Corpuscular Hemoglobin 32.5 % 31.8 % Concent (32.0-36.0) (32.0-36.0) Red Cell Distribution Width 15.5 % 15.4 % (11.6-17.2) (11.6-17.2) Platelet Count 193 TH/MM3 172 TH/MM3 (150-450) (150-450) Mean Platelet Volume 9.0 FL 9.3 FL (7.0-11.0) (7.0-11.0) Neutrophils (%) (Auto) 58.7 % 59.8 % (16.0-70.0) (16.0-70.0) Lymphocytes (%) (Auto) 30.3 % 29.4 % (9.0-44.0) (9.0-44.0) Monocytes (%) (Auto) 10.2 % 9.6 % (0.0-8.0) (0.0-8.0) Eosinophils (%) (Auto) 0.4 % (0.0-4.0) 0.5 % (0.0-4.0) Basophils (%) (Auto) 0.4 % (0.0-2.0) 0.7 % (0.0-2.0) Neutrophils # (Auto) 2.8 TH/MM3 2.7 TH/MM3 (1.8-7.7) (1.8-7.7) Lymphocytes # (Auto) 1.5 TH/MM3 1.3 TH/MM3 (1.0-4.8) (1.0-4.8) Monocytes # (Auto) 0.5 TH/MM3 0.4 TH/MM3 (0-0.9) (0-0.9) Eosinophils # (Auto) 0.0 TH/MM3 0.0 TH/MM3 (0-0.4) (0-0.4) Basophils # (Auto) 0.0 TH/MM3 0.0 TH/MM3 (0-0.2) (0-0.2) CBC Comment DIFF FINAL DIFF FINAL Differential Comment Prothrombin Time 36.0 SEC 35.0 SEC 32.1 SEC (9.8-11.6) (9.8-11.6) (9.8-11.6) Prothromb Time International 3.1 RATIO 3.0 RATIO 2.8 RATIO Ratio Sodium Level 134 MEQ/L 133 MEQ/L 134 MEQ/L (136-145) (136-145) (136-145) Potassium Level 5.0 MEQ/L 4.4 MEQ/L 4.7 MEQ/L (3.5-5.1) (3.5-5.1) (3.5-5.1) Chloride Level 102 MEQ/L 100 MEQ/L 102 MEQ/L (98-107) (98-107) (98-107) Carbon Dioxide Level 21.1 MEQ/L 23.4 MEQ/L 22.8 MEQ/L (21.0-32.0) (21.0-32.0) (21.0-32.0) Anion Gap 11 MEQ/L (5-15) 10 MEQ/L (5-15) 9 MEQ/L (5-15) Blood Urea Nitrogen 42 MG/DL (7-18) 39 MG/DL (7-18) 38 MG/DL (7-18) Creatinine 1.57 MG/DL 1.67 MG/DL 1.49 MG/DL (0.60-1.30) (0.60-1.30) (0.60-1.30) Estimat Glomerular Filtration 58 ML/MIN (>89) 54 ML/MIN (>89) 62 ML/MIN (>89) Rate Random Glucose 72 MG/DL 87 MG/DL 72 MG/DL (74-106) (74-106) (74-106) Calcium Level 8.6 MG/DL 8.0 MG/DL 8.5 MG/DL (8.5-10.1) (8.5-10.1) (8.5-10.1) B-Type Natriuretic Peptide 2128 PG/ML 2259 PG/ML (0-100) (0-100) (Juliane Walls) Result Diagram: 03/29/17 0538 03/30/17 0455 Assessment and Plan Disease Oriented Problem List: (1) Elevation of cardiac enzymes (2) Cardiorenal syndrome (3) Supratherapeutic INR (4) Non-compliance (5) PE (pulmonary thromboembolism) (6) Renal insufficiency (7) Acute on chronic systolic congestive heart failure Symptom Scale: (1) Pain, generalized 0-10 Scale: Unable to quantify (2) Dyspnea and respiratory abnormalities 0-10 Scale: Unable to quantify (3) Fatigue 0-10 Scale: Unable to quantify (4) Claudication 0-10 Scale: Unable to quantify (occurs with 2 minutes of ambulation, resolves with rest) Pertinent Non-Medical Issues Psychosocial:He was born in the [facility] and moved to [place] about age 5. He has lived in [place] and the [facility] where he has family support. His father, Wilson Calderón, and sister Reena lived in [place] and he aunt, Anel Brown lives in the [place] area. He denies any spiritual affiliation and declines animal scientist. 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 He stated he had previously spent some time in long term. He does have a long history of polysubstance abuse. Spiritual: Declines animal scientist Legal: Verbally states he wishes his father Wilson Calderón to be his decision maker in case of his incapacity. Ethical issues impacting care: Important Contacts Father - Wilson Calderón Aunt - Anel Brown Sister - Lani Calderón Prognosis His prognosis is poor. His ejection fraction has declined now to 10-15%. He states a recent history, since November, of multiple AICD shocks as the device was unable to pace the patient out of the arrhythmia with antitachycardia pacing. His cardiac status is now compromising his renal status and renal indices are increasing. Additionally he has developed ascites, indicating liver compromise. It appears he is at risk of developing multisystem organ failure. He has had several hospitalizations since November and is currently unable to tolerate his ACEI and beta crispin for his heart failure due to hypotension. His heart failure contraindicates significant fluid resuscitation to correct the hypotension. Medical options are limited. He would be appropriate for hospice if goals compatible. Code Status: Full Code Plan PLAN: Legal decision maker: Patient is currently capacitated to make his own decisions, but has named his father, Wilson Calderón, in case he becomes incapacitated. Healthcare surrogate form has been completed and placed on the chart. Goals: Goals remain aggressive at this time. CODE STATUS: Full code. SYMPTOMS: * Dyspnea - his dyspnea is improving with diuresis. He remains with 2 pillow orthopnea at rest and is unable to lie flat. This will likely be more limited with mobility. This is likely due to his significant cardiac debility complicated by his recent pneumonia and pulmonary embolus. Diuresis is continuing as tolerated by blood pressure. * Fatigue - His fatigue is improved today. * Edema - dependent edema resolved with diuresis but he remains with small-to- moderate amount of ascites. Plan to discharge home today with by mouth Lasix.. * Pain/claudication - his right back and flank pain is improved today with mobility however he does develop significant claudication with minimal ambulation. He remains hypotensive limiting medical management. Patient appears to have limited understanding of the gravity of his cardiac dysfunction and the potential sequelae, which is improving with repeated education. He does not appear to be qualified for transplant due to his frequent positive urine toxicology for illicit substances, per Dr. Royal's note. Due to poor cardiac function he remains borderline hypotensive and is unable to resume cardioprotective medications including ACEI and beta crispin. A call has been placed to his father, Wilson, and a voicemail with contact number provided, as requested by the patient to reach out to the father with updates and to provide support. Palliative care will continue to interface with patient to assist with that until discharge. Palliative care will continue to follow the patient until discharge, to assist patient/decision-maker with understanding of their medical conditions, weighing benefits/burdens of treatment options, for clarification of goals of treatment. Additionally will assist with any symptoms of palliative concern (Juliane Walls) Attestation To help prompt me to consider important information that might be impacting today's encounter and assessment, information from prior notes written by myself or my colleagues may have been "brought forward" into today's note. My signature on this note, however, is an attestation that I personally performed the exam, history, and/or decision-making noted today, and, unless otherwise indicated, the interactions with patient, family, and staff as well as the review of records all occurred today. I also attest that the listed assessment and stated plan reflect my best clinical judgment today based on the combination of historical information, prior notes, and today's exam/ interactions. When time spent is documented, it refers only to time spent today by the signer, or if indicated, combined time spent today by collaborating physician/nurse practitioner. (Juliane Walls) Collaborating MD Comments . Chart reviewed. Case discussed with palliative care FULFILLMENT MAIL CLERK. I have reviewed above JOSE note and I concur. . (Aryan Story MD) Juliane Walls March 30, 2017 15:04 Aryan Story MD April 19, 2017 12:27
--- NOTE | 2017-03-30 17:03 | PQ ---
Physician Query Response Document PATIENT: CASEY CHUNG : 1970 ADMIT DATE: 03/24/2017 4:48 AM DISCH DATE: 03/30/2017 12:02 PM RESPONDING PROVIDER #: bubba QUERY TEXT: CHF Acuity and Type Congestive Heart Failure is documented in the Medical Record. Please document the type and acuity (in cludes probable or suspected) Such as: Type: -- Systolic -- Diastolic -- Combined -- Other, please specify Acuity: -- Acute -- Chronic -- Acute on chronic -- Other, please specify The patient's Clinical Indicators include: PER H -history of advanced CHF status post ICD EF 25% Severe CHF exacerbation with hypotension and tachycardia and Elevated BNP 2958 from 1160 in the last admission> started on iv Lasix, O2, monitor BMP and BNP, EKG and labs Query created by: Courtney Antonio on 03/25/2017 10:37 AM RESPONSE TEXT: alcoholic-induced congestive heart failure Electronically signed by: Chacho Cuevas MD 03/30/2017 4:59 PM
[2017-03-31] MEDS ORDERED: FUROSEMIDE 20 MG TAB PO SCH (09:00)
[2017-04-07] MEDS ORDERED: POTA10CA PO (12:15)
[2017-04-07] MEDS ORDERED: FURO20TA PO (12:15)
[2017-05-10] MEDS ORDERED: FURO20TA PO (10:18)
== END 2017-03-30 12:02 | disposition home or self-care (01) | DRG 292 ==
LOC: NEPC 02:39 → NEDA 04:48 → HCIS 09:13 → N04A 03-26 14:40
PROVIDERS: ADMIT Hospitalist; ATTEND Hospitalist
DX: I13.0 Hypertensive heart and chronic kidney disease with heart failure and stage 1 through stage 4 chronic kidney disease, or unspecified chronic kidney disease (principal); I47.2 Ventricular tachycardia; R64 Cachexia; R18.8 Other ascites; I95.2 Hypotension due to drugs; I42.6 Alcoholic cardiomyopathy; I50.9 Heart failure, unspecified; E78.5 Hyperlipidemia, unspecified; R79.1 Abnormal coagulation profile; F17.210 Nicotine dependence, cigarettes, uncomplicated; T50.2X5A Adverse effect of carbonic-anhydrase inhibitors, benzothiadiazides and other diuretics, initial encounter; N18.9 Chronic kidney disease, unspecified; F10.21 Alcohol dependence, in remission; F14.10 Cocaine abuse, uncomplicated; Z87.01 Personal history of pneumonia (recurrent); Z79.01 Long term (current) use of anticoagulants; Z86.711 Personal history of pulmonary embolism; Z95.810 Presence of automatic (implantable) cardiac defibrillator; Z91.19 Patient's noncompliance with other medical treatment and regimen
CPT/HCPCS: 71010; 76775; 80048; 80053; 82550; 82552; 83735; 83880; 84484; 85025; 85610; 85730; 93005; 94640; 94664; J1940; J3430

== ENCOUNTER 2017-04-03 10:09 | Emergency (ER) | payer MEDICAID ==
[~2017-04-03] VITALS: Ht 167.6 cm; Wt 55.0 kg
[~2017-04-03 10:09] MED LIST changes: -FURO1TAB62 PO; +FURO20TA PO; -LISI2.5T3 PO
[2017-04-03 10:23] VITALS: BP 110/81; PULSE 80; RESP 20; TEMP 98.3; O2SAT 98
[2017-04-03] MEDS ORDERED: MORPHINE SULFATE 4 MG/ML INJ IV ONE (10:30)
[2017-04-03] MEDS ORDERED: ONDANSETRON HCL 4 MG/2 ML VIAL IVP ONE (10:30)
--- NOTE | 2017-04-03 10:36 | PD ---
HPI . Prolapsed rectum Chief Complaint: GI Complaint Time Seen by Provider: 10:19 Travel History International Travel<30 days: No Contact w/Intl Traveler<30days: No Traveled to known affect area: No History of Present Illness HPI Patient presents with an acutely prolapsed rectum. He states that he was having a loose stool and "everything fell out." EMS was called and he was brought to the hospital. Patient reports that this is happened to him many times in the past. He rates his pain as 8/10. He reports no associated nausea or vomiting. He does not have any abdominal pain. He has not been running a fever. PFSH Past Medical History Hx Anticoagulant Therapy: Yes Asthma: No Blood Disorders: No Anxiety: No Depression: No Heart Rhythm Problems: Yes ( HX. VTACH ) Cancer: No Cardiomyopathy: Yes Cardiovascular Problems: Yes High Cholesterol: Yes Chemotherapy: No Chest Pain: Yes Congestive Heart Failure: Yes COPD: No Diabetes: No Diminished Hearing: No Endocrine: No Gastrointestinal Disorders: No Genitourinary: No Hypertension: Yes Immune Disorder: No Implanted Vascular Access Dvce: Yes (AICD defibrillator) Musculoskeletal: No Neurologic: No Psychiatric: No Reproductive: No Respiratory: Yes Radiation Therapy: No Sleep Apnea: No Thyroid Disease: No Past Surgical History AICD: Yes (AICD, [employer]) Body Medical Devices: defibrib Cardiac Surgery: Yes (DEFIBRILLATOR) Other Surgery: Yes Social History Alcohol Use: No Tobacco Use: No Substance Use: No Allergies-Medications (Allergen,Severity, Reaction): Coded Allergies: No Known Allergies (Unverified , 04/03/17) Reported Meds & Prescriptions Reported Meds & Active Scripts Active Amiodarone (Amiodarone HCl) 200 Mg Tab 200 Mg PO DAILY Simvastatin 20 Mg Tab 20 Mg PO HS Review of Systems Except as stated in HPI: all other systems reviewed are Neg General / Constitutional: No: Fever, Chills Cardiovascular: No: Chest Pain or Discomfort Respiratory: Positive: Cough (for about a week. It is nonproductive.), No: Shortness of Breath Gastrointestinal: No: Nausea, Vomiting, Diarrhea, Abdominal Pain, Constipation Physical Exam Narrative GENERAL: This is a thin man who was initially acutely distressed. SKIN: Warm and dry. HEAD: Atraumatic. Normocephalic. EYES: Pupils equal and round. Extraocular movements are intact. ENT: No nasal bleeding or discharge. Mucous membranes pink and moist. NECK: Trachea midline. Neck is supple. CARDIOVASCULAR: Regular rate and rhythm. Heart sounds are normal. RESPIRATORY: No accessory muscle use. Lungs sound clear. GASTROINTESTINAL: Abdomen soft, non-tender, nondistended. RECTAL: Prolapsed rectum which is about the size of a grapefruit. The tissue is pink and moist. MUSCULOSKELETAL: No obvious deformities. No edema. NEUROLOGICAL: Awake and alert. No obvious cranial nerve deficits. Motor grossly within normal limits. Normal speech. PSYCHIATRIC: Appropriate mood and affect; insight and judgment normal. Data Data Last Documented VS Vital Signs Date Time Temp Pulse Resp B/P Pulse Ox O2 Delivery O2 Flow Rate FiO2 04/03/17 10:23 98.3 80 20 110/81 98 Orders Morphine Inj (Morphine Inj) (04/03/17 10:30) Ondansetron Inj (Zofran Inj) (04/03/17 10:30) MDM Medical Decision Making Medical Screen Exam Complete: Yes Emergency Medical Condition: Yes Medical Record Reviewed: Yes (he had reduction of a prolapsed rectum done by on 03/27. Dr. Zaragoza recommended chronic stool softeners) Differential Diagnosis Differential diagnosis includes simple prolapse, strangulated bowel, gangrenous bowel Narrative Course Patient presents with an acutely prolapsed rectum. I have read Dr. De La Cruz's note from 03/27. He simply did a manual reduction. No further evaluation was felt to be necessary. The patient has been observed for about an hour. He is resting comfortably. He will be discharged home with to Dr. De La Cruz as an outpatient. Procedures Procedure Narrative REDUCTION OF PROLAPSED RECTUM Following confirmation of the patient's identity and the correct body part, the exposed rectal tissue was liberally lubricated with K-Y jelly. The prolapse was then reduced manually with excellent results. The patient had immediate relief of his discomfort. Diagnosis Primary Impression: Rectal prolapse Referrals: Kelli Zaragoza MD 3 days Patient Instructions: General Instructions, Rectal Prolapse (DC) Additional Instructions: Take Colace twice daily to prevent firm stools Disposition: 01 DISCHARGE HOME Condition: Stable Alia Olivo MD April 03, 2017 10:36
[2017-04-03 10:40] VITALS: RESP 20
[2017-04-03 13:15] VITALS: BP 110/75
[2017-04-07] MEDS ORDERED: FURO20TA PO (12:15)
[2017-04-07] MEDS ORDERED: POTA10CA PO (12:15)
[2017-05-10] MEDS ORDERED: FURO20TA PO (10:18)
== END 2017-04-03 13:35 | disposition home or self-care (01) ==
LOC: NEPC 10:09
DX: K62.3 Rectal prolapse (principal); I42.9 Cardiomyopathy, unspecified; E78.00 Pure hypercholesterolemia, unspecified; I50.9 Heart failure, unspecified; I10 Essential (primary) hypertension; Z79.01 Long term (current) use of anticoagulants; Z95.810 Presence of automatic (implantable) cardiac defibrillator
CPT/HCPCS: 96374; 96375; 99283; J2270; J2405

== ENCOUNTER 2017-04-08 22:53 | Observation (INO) | payer MEDICAID ==
[~2017-04-08 22:53] MED LIST changes: -ASPI81TA11 PO; -COUM5TAB PO; -HYDR-3516 PO; -SYMB160A INH; -TRAM50TA PO
[2017-04-08] MEDS ORDERED: ONDANSETRON HCL 4 MG/2 ML VIAL IV PUSH ONE (23:45)
[2017-04-08] MEDS ORDERED: MORPHINE SULFATE 4 MG/ML INJ IV PUSH ONE (23:45)
[2017-04-09] MEDS ORDERED: HYDROmorphone HCL PF 1 MG/ML VIAL IV PUSH ONE (02:00)
--- NOTE | 2017-04-09 02:19 | PD ---
HPI Chief Complaint: GI Complaint Time Seen by Provider: 23:31 Travel History International Travel<30 days: No Contact w/Intl Traveler<30days: No Traveled to known affect area: No History of Present Illness HPI 47-year-old male with history of rectal prolapse, has been to the ER several times in the past few weeks for rectal prolapse, presents to the ER today With rectal prolapse. He states it just happened this evening. He currently complains of 8 out of 10 pain. He has been nauseous but denies any vomiting. Modifying Factors: None Associated Signs & Symptoms: Rectal prolapse Risk Factors: Recent history of rectal prolapse PFSH Past Medical History Hx Anticoagulant Therapy: Yes Asthma: No Blood Disorders: No Anxiety: No Depression: No Heart Rhythm Problems: Yes ( HX. VTACH ) Cancer: No Cardiomyopathy: Yes Cardiovascular Problems: Yes High Cholesterol: Yes Chemotherapy: No Chest Pain: Yes Congestive Heart Failure: Yes COPD: No Diabetes: No Diminished Hearing: No Endocrine: No Gastrointestinal Disorders: No Genitourinary: No Hypertension: Yes Immune Disorder: No Implanted Vascular Access Dvce: Yes (AICD defibrillator) Musculoskeletal: No Neurologic: No Psychiatric: No Reproductive: No Respiratory: Yes Radiation Therapy: No Sleep Apnea: No Thyroid Disease: No Past Surgical History AICD: Yes (AICD, [employer]) Body Medical Devices: defibrib Cardiac Surgery: Yes (DEFIBRILLATOR) Other Surgery: Yes Social History Alcohol Use: No Tobacco Use: No (never) Substance Use: No Allergies-Medications (Allergen,Severity, Reaction): Coded Allergies: No Known Allergies (Unverified , 04/07/17) Reported Meds & Prescriptions Reported Meds & Active Scripts Active Amiodarone (Amiodarone HCl) 200 Mg Tab 200 Mg PO DAILY Simvastatin 20 Mg Tab 20 Mg PO HS Review of Systems Except as stated in HPI: all other systems reviewed are Neg Physical Exam Narrative GENERAL: Well-developed thin middle age -Chinese male patient currently in moderate distress. Awake and oriented 3. SKIN: Focused skin assessment warm/dry. HEAD: Atraumatic. Normocephalic. EYES: Pupils equal and round. No scleral icterus. No injection or drainage. ENT: No nasal bleeding or discharge. Mucous membranes pink and moist. NECK: Trachea midline. No JVD. CARDIOVASCULAR: Regular rate and rhythm. No murmur appreciated. RESPIRATORY: No accessory muscle use. Clear to auscultation. Breath sounds equal bilaterally. GASTROINTESTINAL: Abdomen soft, diffuse abdominal tenderness without guarding or rebound, nondistended. Hepatic and splenic margins not palpable. RECTAL EXAM: Notable for rectal prolapse which currently is about the size of a grapefruit. MUSCULOSKELETAL: No obvious deformities. No clubbing. No cyanosis. No edema. NEUROLOGICAL: Awake and alert. No obvious cranial nerve deficits. Motor grossly within normal limits. Normal speech. PSYCHIATRIC: Appropriate mood and affect; insight and judgment normal. Data Data Orders Morphine Inj (Morphine Inj) (04/08/17 23:45) Ondansetron Inj (Zofran Inj) (04/08/17 23:45) Admit Order (Ed Use Only) (04/09/17 01:45) Hydromorphone Pf Inj (Dilaudid Pf Inj) (04/09/17 02:00) [facility] Medical Decision Making Medical Screen Exam Complete: Yes Emergency Medical Condition: Yes Medical Record Reviewed: Yes Differential Diagnosis Rectal prolapse Narrative Course I have attempted to reduce the rectal prolapse using sugar and salt and manual decompression but was unsuccessful after multiple attempts. At this point, case was discussed with Dr. Henriquez who agrees to admit the patient and plans to evaluate the patient this morning with possibility of need to go to the OR and she is unable to reduce the prolapse. Diagnosis Primary Impression: Rectal prolapse Admitting Information Admitting Physician Requests: it Rebeca Rayo MD April 09, 2017 02:19
--- NOTE | 2017-04-09 09:06 | MH ---
cc: JEAN CARLOS LAIRD M.D. DATE OF ADMISSION: 04/09/2017 ADMITTING DIAGNOSIS: Rectal prolapse. HISTORY OF PRESENT ILLNESS The patient is a 47-year-old -[place] male with multiple medical comorbidities including congestive heart failure, history of ventricular tachycardia, history of pulmonary embolus, and a history of substance abuse, who came to the emergency room late yesterday with rectal prolapse. He has been seen twice in the last couple of months for rectal prolapse, but has a history of it happening regularly for quite some time. He does have some intermittent constipation for which he takes prune juice but he does strain fairly regularly. He denies any significant rectal bleeding. He has had no emesis. He has what he describes as mostly rectal pain with not too much abdominal pain. Of note, he does have a history of being on Coumadin for pulmonary embolus, but has recently been take taken off of it for Coumadin toxicity and has not been restarted as of yet. PAST MEDICAL HISTORY 1. Cardiomyopathy. 2. History of ventricular tachycardia. 3. History of congestive heart failure. 4. History of pulmonary embolism. PAST SURGICAL HISTORY AICD. ALLERGIES None. MEDICATIONS 1. Amiodarone 2. Simvastatin SOCIAL HISTORY Tobacco none. Substance use. According to the patient he quit using substances 3 months ago. However, on his admit approximately 10 days prior to this H&P he admitted to using both cocaine and marijuana prior to admission. REVIEW OF SYSTEMS The review of systems is negative for emesis, abdominal pain, headache, shortness of breath, difficulty with mood or mentation, difficulty with ambulation. LABORATORY FINDINGS: There is no laboratory work to review. PHYSICAL EXAMINATION: IN GENERAL: Reveals a thin, -[place] male who seems small for his stated age. NEUROLOGIC: Grossly intact. SKIN: The skin is warm and dry. CARDIOVASCULAR SYSTEM: Regular rate. CHEST: Breathing is symmetric bilaterally nonlabored. ABDOMEN: Soft, nondistended, nontender. EXTREMITIES: Reveal no edema. RECTUM: External anal exam reveals a large prolapse which is however soft and not excoriated. The area is already lubricated and so after gentle manipulation , with assistance from the nurse, I was able to reduce the prolapse back into the rectum. ASSESSMENT: Recurrent rectal prolapse. PLAN I have urged him to come follow up with me in the office. He does have a fairly extensive health history and so his risk is reasonably high however, this will probably keep happening if he does not take care of it. This will be dependent on his [employer] and PCP deciding that his risk for surgery is reasonable. I have recommended him to take a half dose of MiraLax daily to avoid constipation and I recommended he see me the office within a week. Thank you very much for your kind referral. MD JANA Draper/bing /7:01 AM /8:41 AM MTDGerardo
[2017-05-10] MEDS ORDERED: FURO20TA PO (10:18)
== END 2017-04-09 10:18 | disposition home or self-care (01) ==
LOC: NEPC 22:53 → NEDA 04-09 01:47 → NEDH 04-09 05:35
PROVIDERS: ADMIT Colon & Rectal Surgery; ATTEND Colon & Rectal Surgery
DX: K62.3 Rectal prolapse (principal)
CPT/HCPCS: 96374; 96375; G0378; J1170; J2270; J2405

== ENCOUNTER 2017-04-10 03:45 | Inpatient (IN) | payer MEDICAID ==
[~2017-04-10] VITALS: Ht 160 cm; Wt 50.4 kg
[2017-04-10] VITALS (13 sets, daily range): BP systolic 90–120; BP diastolic 59–78; PULSE 68–101; RESP 15–28; TEMP 95.4–98.2; O2SAT 97–100
[~2017-04-10 03:45] MED LIST changes: -FURO20TA PO; -POTA10CA PO
[2017-04-10] MEDS ORDERED: SODIUM CHLORIDE 0.9% FLUSH 10 ML FLUSH IVF PRN (04:00)
[2017-04-10 04:19] LABS: AUTOMATED NEUTROPHIL # 6.6 TH/MM3 (1.8-7.7); BASOPHIL % 0.5 % (0.0-2.0); HEMATOCRIT 28.2 % (39.0-51.0); LYMPH % 17.1 % (9.0-44.0); LYMPHOCYTE # 1.5 TH/MM3 (1.0-4.8); MEAN CELL VOLUME 89.5 FL (80.0-100.0); MEAN CORPUSCULAR HEMOGLOBIN 28.9 PG (27.0-34.0); MEAN CORPUSCULAR HGB CONC 32.4 % (32.0-36.0); MONO % 6.1 % (0.0-8.0); NEUT % 76.3 % (16.0-70.0); PLATELET COUNT 156 TH/MM3 (150-450); RED BLOOD COUNT 3.15 MIL/MM3 (4.50-5.90); RED CELL DISTRIBUTION WIDTH 16.4 % (11.6-17.2); WHITE BLOOD COUNT 8.7 TH/MM3 (4.0-11.0)
[2017-04-10 04:20] LABS: HEMO FLAGS AUTO DIFF
--- NOTE | 2017-04-10 04:23 | PD ---
HPI Chief Complaint: Respiratory Symptoms Time Seen by Provider: 03:56 Travel History International Travel<30 days: No Contact w/Intl Traveler<30days: No Traveled to known affect area: No History of Present Illness HPI 47 yo M arrives by EMS 2/2 dyspnea, abdominal pain coupled with rectal prolapse. He has hx edema worsening markedly over the last few days. Non- compliance with lasix reported as of late. He reports normally he can reduce his rectal prolapse in the shower. He has had difficulty reducing it today. He also describes generalized abdominal pain associated with a bloating and fullness sensation. He's had no cough or fever. Positive orthopnea. Positive dyspnea on exertion, as a few steps cause marked dyspnea and muscle cramps in the legs. Generalized chest tightness reported. He was seen by Dr Henriquez of colorectal surgery yesterday following evaluation here for complaint of rectal prolapse. He was discharged home with plan for outpatient follow up with Miralax recommended. PFSH Past Medical History Hx Anticoagulant Therapy: Yes Asthma: No Blood Disorders: No Anxiety: No Depression: No Heart Rhythm Problems: Yes ( HX. VTACH ) Cancer: No Cardiomyopathy: Yes Cardiovascular Problems: Yes High Cholesterol: Yes Chemotherapy: No Chest Pain: Yes Congestive Heart Failure: Yes COPD: No Diabetes: No Diminished Hearing: No Endocrine: No Gastrointestinal Disorders: No Genitourinary: No Hypertension: Yes Immune Disorder: No Implanted Vascular Access Dvce: Yes (AICD defibrillator) Musculoskeletal: No Neurologic: No Psychiatric: No Reproductive: No Respiratory: Yes Immunizations Current: Yes Radiation Therapy: No Sleep Apnea: No Thyroid Disease: No Tetanus Vaccination: < 5 Years Influenza Vaccination: Yes Past Surgical History AICD: Yes (AICD, [employer]) Body Medical Devices: defibrib Cardiac Surgery: Yes (DEFIBRILLATOR) Neurologic Surgery: No Other Surgery: Yes Social History Alcohol Use: No Tobacco Use: No (never) Substance Use: No Allergies-Medications (Allergen,Severity, Reaction): Coded Allergies: No Known Allergies (Unverified , 04/13/17) Reported Meds & Prescriptions Reported Meds & Active Scripts Active Review of Systems Except as stated in HPI: all other systems reviewed are Neg General / Constitutional: No: Fever Respiratory: Positive: Shortness of Breath Physical Exam Narrative GENERAL: 47-year-old male mild to moderate distress. Speaking full sentences SKIN: Focused skin assessment warm/dry. HEAD: Atraumatic. Normocephalic. EYES: Pupils equal and round. No scleral icterus. No injection or drainage. ENT: No nasal bleeding or discharge. Mucous membranes pink and moist. NECK: Trachea midline. No JVD. CARDIOVASCULAR: Regular rate and rhythm. No murmur appreciated. RESPIRATORY: Course breath sounds at bases. GASTROINTESTINAL: Diffuse tenderness. Somewhat protuberant generally. RECTAL: There is no prolapsed rectum. MUSCULOSKELETAL: 2+ pitting edema bilateral lower extremities. NEUROLOGICAL: Awake and alert. No obvious cranial nerve deficits. Motor grossly within normal limits. Normal speech. PSYCHIATRIC: Appropriate mood and affect; insight and judgment normal. Data Data Last Documented VS Vital Signs Date Time Temp Pulse Resp B/P Pulse Ox O2 Delivery O2 Flow Rate FiO2 04/10/17 07:02 78 16 101/75 98 Nasal Cannula 2 VS reviewed Orders Complete Blood Count With Diff (04/10/17 03:57) Basic Metabolic Panel (Bmp) (04/10/17 03:57) B-Type Natriuretic Peptide (04/10/17 03:57) Magnesium (Mg) (04/10/17 03:57) Ckmb (Isoenzyme) Profile (04/10/17 03:57) Troponin I (04/10/17 03:57) Iv Access Insert/Monitor (04/10/17 03:57) Electrocardiogram (04/10/17 03:57) Ecg Monitoring (04/10/17 03:57) Oximetry (04/10/17 03:57) Oxygen Administration (04/10/17 03:57) Chest, Single Ap (04/10/17 03:57) Sodium Chloride 0.9% Flush (Ns Flush) (04/10/17 04:00) Arterial Blood Gas (Abg) (04/10/17 ) Hepatic Functional Panel (04/10/17 04:32) CKMB (04/10/17 04:10) CKMB% (04/10/17 04:10) Lipase (04/10/17 04:32) Calcium Gluconate Inj (Calcium Gluconate (04/10/17 05:30) Insulin Human Regular Inj (Novolin R Inj (04/10/17 05:45) Dextrose 50% In Justin (Vial) Inj (D50w (Vi (04/10/17 05:30) Sodium Bicarbonate 8.4% Inj (Sodium Bica (04/10/17 05:30) Urinalysis - C+S If Indicated (04/10/17 05:34) Piperacil-Tazo 2.25 Gm Premix (Zosyn 2.2 (04/10/17 06:00) Ct Abd/Pel W/O Iv Contrast (04/10/17 04:24) Prothrombin Time / Inr (Pt) (04/10/17 06:41) Act Partial Throm Time (Ptt) (04/10/17 06:41) Furosemide Inj (Lasix Inj) (04/10/17 07:00) Admit Order (Ed Use Only) (04/10/17 07:00) Labs Laboratory Tests Test 04/10/17 04/10/17 04/10/17 04/10/17 04:10 04:16 04:50 06:00 White Blood Count 8.7 TH/MM3 Red Blood Count 3.15 MIL/MM3 Hemoglobin 9.1 GM/DL Hematocrit 28.2 % Mean Corpuscular Volume 89.5 FL Mean Corpuscular Hemoglobin 28.9 PG Mean Corpuscular Hemoglobin 32.4 % Concent Red Cell Distribution Width 16.4 % Platelet Count 156 TH/MM3 Mean Platelet Volume 10.2 FL Neutrophils (%) (Auto) 76.3 % Lymphocytes (%) (Auto) 17.1 % Monocytes (%) (Auto) 6.1 % Eosinophils (%) (Auto) 0.0 % Basophils (%) (Auto) 0.5 % Neutrophils # (Auto) 6.6 TH/MM3 Lymphocytes # (Auto) 1.5 TH/MM3 Monocytes # (Auto) 0.5 TH/MM3 Eosinophils # (Auto) 0.0 TH/MM3 Basophils # (Auto) 0.0 TH/MM3 CBC Comment AUTO DIFF Differential Total Cells 100 Counted Neutrophils % (Manual) 83 % Band Neutrophils % 2 % Lymphocytes % 12 % Monocytes % 3 % Neutrophils # (Manual) 7.4 TH/MM3 Nucleated Red Blood Cells 5 /100 WBC Differential Comment FINAL DIFF MANUAL Platelet Estimate NORMAL Platelet Morphology Comment NORMAL Tear Drop Cells 1+ Acanthocytes 1+ Total Bilirubin 1.3 MG/DL Direct Bilirubin 0.7 MG/DL Indirect Bilirubin 0.6 MG/DL Aspartate Amino Transf 925 U/L (AST/SGOT) Alanine Aminotransferase 558 U/L (ALT/SGPT) Alkaline Phosphatase 209 U/L B-Type Natriuretic Peptide 4893 PG/ML Total Protein 5.9 GM/DL Albumin 2.6 GM/DL Lipase 248 U/L Blood Gas Puncture Site RT RADIAL Blood Gas Patient Temperature 98.6 Blood Gas HCO3 16 mmol/L Blood Gas Base Excess -7.6 mmol/L Blood Gas Oxygen Saturation 97 % Arterial Blood pH 7.46 Arterial Blood Partial 22 mmHg Pressure CO2 Arterial Blood Partial 102 mmHG Pressure O2 Arterial Blood Oxygen Content 12.0 Vol % Arterial Blood 1.3 % Carboxyhemoglobin Arterial Blood Methemoglobin 0.2 % Blood Gas Hemoglobin 8.7 G/DL Oxygen Delivery Device NASAL CANNULA Blood Gas Liter Flow 2 L/M Sodium Level 137 MEQ/L Potassium Level 6.0 MEQ/L Chloride Level 104 MEQ/L Carbon Dioxide Level 20.4 MEQ/L Anion Gap 13 MEQ/L Blood Urea Nitrogen 43 MG/DL Creatinine 2.13 MG/DL Estimat Glomerular Filtration 41 ML/MIN Rate Random Glucose 80 MG/DL Calcium Level 8.8 MG/DL Magnesium Level 2.2 MG/DL Total Creatine Kinase 683 U/L Creatine Kinase MB 3.9 NG/ML Creatine Kinase MB % 0.6 % Troponin I 0.05 NG/ML Urine Color YELLOW Urine Turbidity HAZY Urine pH 5.5 Urine Specific [place] 1.022 Urine Protein 100 mg/dL Urine Glucose (UA) 70 mg/dL Urine Ketones NEG mg/dL Urine Occult Blood TRACE Urine Nitrite NEG Urine Bilirubin NEG Urine Urobilinogen LESS THAN 2.0 MG/DL Urine Leukocyte Esterase NEG Urine RBC 1 /hpf Urine WBC 3 /hpf Urine Squamous Epithelial 1 /hpf Cells Urine Hyaline Casts 36 /lpf Urine Mucus FEW /lpf Microscopic Urinalysis Comment CULT NOT INDICATED Test 04/10/17 06:45 Prothrombin Time 23.2 SEC Prothromb Time International 2.0 RATIO Ratio Activated Partial 30.6 SEC Thromboplast Time MDM Medical Decision Making Medical Screen Exam Complete: Yes Emergency Medical Condition: Yes Medical Record Reviewed: Yes Differential Diagnosis rectal prolapse, sepsis, mods, chf exacerbation, PNA, UTI, renal failure, anemia Narrative Course EF from 1 month prior is 10% CBC & BMP Diagram 04/10/17 04:10 04/10/17 04:50 t bili 1.3 d bili 0.7 AST 925 ALT 558 Alk phos 209 Total CK 683 CK-MB 3.9 Tn 0.05 BNP 4892 T protein 5.9 Albumin 2.6 Lipase 248 ABG 7.46// BE -7.6 abg po2 102 on NC2L UA: No UTI Last 24 hours Impressions Abdomen/Pelvis CT 04/10/17 0424 Signed Impressions: Service Date/Time: Monday, April 10, 2017 06:17 - CONCLUSION: 1. Global cardiomegaly with bilateral effusions and basal atelectasis increased from March 04. 2. Development of mild to moderate ascites and diffuse anasarca. 3. No bowel obstruction. No free air. Fortino Otoole MD Chest X-Ray 04/10/17 0357 Signed Impressions: Service Date/Time: Monday, April 10, 2017 04:30 - CONCLUSION: 1. Cardiomegaly. Bilateral mostly basilar airspace disease left greater than right and small effusions similar to March 25. Fortino Otoole MD Pt to be admitted for CHF, ARF, transaminitis, anasarca, ascites and possible PNA. Lasix given. Zosyn started. Blood cultures drawn. [facility] called at 645AM. Diagnosis Primary Impression: Ascites Qualified Code: R18.8 - Other ascites Additional Impressions: Acute renal insufficiency Elevated liver enzymes Acute CHF (congestive heart failure) Qualified Code: I50.9 - Acute congestive heart failure, unspecified congestive heart failure type PNA (pneumonia) Qualified Code: J18.9 - Pneumonia of both lower lobes due to infectious organism Hyperkalemia Admitting Information Admitting Physician Requests: Admit Scripts Furosemide (Lasix)40 Mg Tab40 Mg PO DAILY #30 TAB Ref 0 Prov:Mitra Kwon MD 04/12/17 Jin Royal MD April 10, 2017 04:23
[2017-04-10 04:27] LABS: BLOOD GAS BASE EXCESS -7.6 mmol/L (-2-2); BLOOD GAS CARBOXYHEMOGLOBIN 1.3 % (0-4); BLOOD GAS HCO3 16 mmol/L (22-26); BLOOD GAS METHEMOGLOBIN 0.2 % (0-2); BLOOD GAS O2 HGB SATURATION 97 % (90-100); BLOOD GAS PCO2 22 mmHg (38-42); BLOOD GAS PO2 102 mmHG (61-120); BLOOD GAS TOTAL HGB 8.7 G/DL (12.0-16.0); TEMP CORR TO 98.6
[2017-04-10 04:28] LABS: CRITICAL VALUE YES; DRAW SITE RT RADIAL; LITER FLOW 2 L/M; NUMBER OF ARTERIAL PUNCTURES 1; OXYGEN DEVICE NASAL CANNULA; STAT YES; ULNAR PULSE PRESENT
[2017-04-10 04:51] LABS: BANDS 2 % (0-6); CORRECTED NUCLEATED RBC 5 /100 WBC (0-0); NEUTROPHIL # MANUAL DIFF 7.4 TH/MM3 (1.8-7.7); POLYS (SEG NEUTROPHILS) 83 % (16-70); WBC DIFF SAMPLE 100
[2017-04-10 04:52] LABS: ACANTHOCYTES 1+ (NORMAL); PLATELET ESTIMATE SMEAR NORMAL (NORMAL); PLATELET MORPHOLOGY NORMAL (NORMAL); SCAN/DIFF FINAL DIFF MANUAL; TEARDROP RBCS 1+ (NORMAL)
--- NOTE | 2017-04-10 04:54 | RADRPT ---
EXAM DATE/TIME: 04/10/2017 04:30 [facility] COMPARISON: CHEST SINGLE AP, March 25, 2017, 10:21. INDICATIONS : Shortness of breath. MEDICAL HISTORY : Congestive heart failure. Myocardial infarction. Hypertension. SURGICAL HISTORY : Pacemaker. ENCOUNTER: Initial ACUITY: 1 day PAIN SCORE: 0/10 LOCATION: Bilateral chest FINDINGS: Pacer lead tip in right ventricle. Stable cardiomegaly since March 25. Bilateral mostly basilar airspace disease and small effusions similar to March 25. CONCLUSION: 1. Cardiomegaly. Bilateral mostly basilar airspace disease left greater than right and small effusion s similar to March 25. Fortino Otoole MD on April 10, 2017 at 4:51 Board Certified Radiologist. This report was verified electronically.
[2017-04-10 05:22] LABS: BICARBONATE 20.4 MEQ/L (21.0-32.0); MAGNESIUM 2.2 MG/DL (1.5-2.5)
[2017-04-10 05:25] LABS: INDIRECT BILIRUBIN 0.6 MG/DL (0.0-0.8); TOTAL BILIRUBIN ADULT 1.3 MG/DL (0.2-1.0)
[2017-04-10 05:27] LABS: CKMB 3.9 NG/ML (0.5-3.6)
[2017-04-10] MEDS ORDERED: DEXTROSE 50% IN WATER 50 ML VIAL(D50) IV PUSH ONE (05:30)
[2017-04-10] MEDS ORDERED: SODIUM BICARBONATE 8.4% SOLN 50 MEQ/50 ML VIAL SLOW IVP ONE (05:30)
[2017-04-10] MEDS ORDERED: CALCIUM GLUCONATE 10% 1 GM/10 ML VIAL SLOW IVP ONE (05:30)
[2017-04-10] MEDS ORDERED: INSULIN HUMAN REGULAR 1,000 UNITS/10 ML VIAL IV PUSH ONE (05:45)
[2017-04-10] MEDS ORDERED: PIPERACIL-TAZO 2.25 GM PREMIX 50 ML IV ONE (06:00)
[2017-04-10 06:13] LABS: BLOOD, URINE TRACE (NEG); GLUCOSE,URINE 70 mg/dL (NEG); HYALINE CAST, URINE 36 /lpf (RARE); KETONE, URINE NEG (NEG); MUCUS URINE FEW /lpf (OCC); NITRITE,URINE NEG (NEG); PH, URINE 5.5 (5.0-8.5); SQUAMOUS EPITHELIAL CELL URINE 1 /hpf (0-5); URINE COLOR YELLOW (YELLW/STRAW)
[2017-04-10 06:14] LABS: COMMENT (UR) CULT NOT INDICATED; CULTURE IF INDICATED CULT NOT INDICATED
--- NOTE | 2017-04-10 06:35 | RADRPT ---
EXAM DATE/TIME: 04/10/2017 06:17 [facility] COMPARISON: No previous studies available for comparison. INDICATIONS : Abdominal pain; prolapsed rectum. ORAL CONTRAST: No oral contrast ingested. RADIATION DOSE: 5.87 CTDIvol (mGy) MEDICAL HISTORY : Congestive heart failure. Hypertension. SURGICAL HISTORY : Pacemaker. ENCOUNTER: Initial ACUITY: 1 day PAIN SCALE: 7/10 LOCATION: abdomen TECHNIQUE: Volumetric scanning of the abdomen and pelvis was performed. Using automated exposure control and ad justment of the mA and/or kV according to patient size, radiation dose was kept as low as reasonably achievable to obtain optimal diagnostic quality images. FINDINGS: Global cardiomegaly present with pacer lead in right ventricle. Bilateral pleural effusions, right gr eater than left and basilar airspace disease probably dependent atelectasis. There is developmental mild to moderate ascites and diffuse anasarca compared with March 04. No signi ficant abnormality in the liver, spleen, adrenals, kidneys or pancreas.No bowel obstruction. No free air. CONCLUSION: 1. Global cardiomegaly with bilateral effusions and basal atelectasis increased from March 04. 2. Development of mild to moderate ascites and diffuse anasarca. 3. No bowel obstruction. No free air. Fortino Otoole MD on April 10, 2017 at 6:29 Board Certified Radiologist. This report was verified electronically.
[2017-04-10] MEDS ORDERED: FUROSEMIDE 40 MG/4 ML VIAL IV PUSH ONE (07:00)
[2017-04-10 07:19] LABS: APTT (PATIENT) 30.6 SEC (24.3-30.1); PROTHROMBIN TIME - PATIENT 23.2 SEC (9.8-11.6)
[2017-04-10] MEDS ORDERED: ONDANSETRON HCL 4 MG/2 ML VIAL IV PUSH PRN (08:00)
--- NOTE | 2017-04-10 10:42 | HHI.HP ---
[facility] Primary Care Physician Negrito Burkett Admission Diagnosis ARF, CHF, HyperK, Ascitis, PNA Diagnoses: (1) CHF (congestive heart failure) Diagnosis: Principal (2) Rectal prolapse Diagnosis: Principal (3) Elevated liver enzymes Diagnosis: Secondary Chief Complaint: ' recurrent rectal prolapse'. Travel History International Travel<30 Days: No Contact w/Intl Traveler <30 Da: No Traveled to Known Affected Are: No History of Present Illness patient is a 47 y/o male with history of systolic CHF and rectal prolapse who came back to ER with rectal prolapse. he was seen by colorectal surgery yesterday for rectal prolapse and was discharged home with outpatient follow- up. he says that when he went home he had recurrent rectal prolapse but this time he had some rectal bleed which happened a few times. he was recently admitted to the hospital for CHF and evaluated by cardiology, nephrology and palliative care. he says that he's compliant with his medications and diet although this is questionable.he reports eight-pound weight gain over the past two months along with some orthopnea and exertional dyspnea. he says that he's noticed worsening swelling of the legs along with his abdomen. Review of Systems Constitutional: COMPLAINS OF: Weight gain, DENIES: Fever, Weight loss, Chills , Night Sweats Eyes: DENIES: Blurred vision, Diplopia, Vision loss, Double Vision Ears, nose, mouth, throat: DENIES: Tinnitus, Vertigo, Throat pain, Epistaxis Respiratory: DENIES: Apneas, Cough, Snoring, Wheezing, Hemoptysis, Sputum production, Shortness of breath Cardiovascular: COMPLAINS OF: Dyspnea on Exertion, Lower Extremity Edema, Orthopnea, DENIES: Chest pain, Palpitations, Syncope, PND, Claudication Gastrointestinal: COMPLAINS OF: Bloody stools, DENIES: Abdominal pain, Black stools, Constipation, Diarrhea, Nausea, Vomiting, Difficulty Swallowing, Anorexia Genitourinary: DENIES: Urinary frequency, Urgency, Hematuria, Dysuria Musculoskeletal: DENIES: Joint pain, Muscle aches, Stiffness, Joint Swelling Integumentary: DENIES: Rash Neurologic: DENIES: Abnormal gait, Headache, Localized weakness, Paresthesias, Seizures, Speech Problems, Tremor, Poor Balance Psychiatric: DENIES: Anxiety, Confusion, Mood changes, Depression, Hallucinations, Agitation, Suicidal Ideation, Homicidal Ideation, Delusions rectal prolapse. Past Family Social History Past Medical History CHF renal insufficiency dyslipidemia hypertension Past Surgical History ICD placement Reported Medications simvastatin amiodarone Allergies: Coded Allergies: No Known Allergies (Unverified , 04/07/17) Active Ordered Medications Current Medications Sodium Chloride (NS Flush) 2 ml UNSCH PRN IVF FLUSH AFTER USING IV ACCESS Last administered on 04/10/17 07:07; Start 04/10/17 at 04:00 Calcium Gluconate (Calcium Gluconate Inj) 1 gm ONCE ONCE SLOW IVP Last administered on 04/10/17 05:52; Start 04/10/17 at 05:30; Stop 04/10/17 at 05:31 ; Status DC Insulin Human Regular (NovoLIN R INJ) 10 units ONCE ONCE IV PUSH Last administered on 04/10/17 05:52; Start 04/10/17 at 05:45; Stop 04/10/17 at 05:46 ; Status DC Dextrose (D50w (Vial) Inj) 50 ml ONCE ONCE IV PUSH Last administered on 05:51; Start 04/10/17 at 05:30; Stop 04/10/17 at 05:31; Status DC Sodium Bicarbonate 50 meq 50 meq ONCE ONCE SLOW IVP Last administered on 05:52; Start 04/10/17 at 05:30; Stop 04/10/17 at 05:31; Status DC Piperacillin Sod/ Tazobactam Sod (Zosyn 2.25 Gm Premix) 50 ml @ 100 mls/hr ONCE ONCE IV Last administered on 04/10/17 06:10; Start 04/10/17 at 06:00; Stop 04/10/17 at 06:29; Status DC Furosemide (Lasix Inj) 40 mg ONCE ONCE IV PUSH Last administered on 04/10/17 07:07; Start 04/10/17 at 07:00; Stop 04/10/17 at 07:01; Status DC Ondansetron HCl (Zofran Inj) 4 mg Q8HR PRN IV PUSH NAUSEA; Start 04/10/17 at 08 :00 Family History heart disease in brother. Social History no smoking, drinking or illicit drug abuse. Physical Exam Vital Signs Vital Signs Date Time Temp Pulse Resp B/P Pulse Ox O2 Delivery O2 Flow Rate FiO2 04/10/17 09:30 98 04/10/17 09:00 74 17 101/78 98 Nasal Cannula 2 04/10/17 08:00 68 15 101/75 98 Nasal Cannula 2 04/10/17 07:09 16 98 Nasal Cannula 2 04/10/17 07:02 78 16 101/75 98 Nasal Cannula 2 04/10/17 05:57 74 24 111/76 99 Nasal Cannula 2 04/10/17 04:30 28 97 Nasal Cannula 2 04/10/17 03:58 28 04/10/17 03:58 Nasal Cannula 2 04/10/17 03:50 97.0 87 28 108/77 Physical Exam GENERAL: with some respiratory distress SKIN: No rashes, ecchymoses or lesions. Cool and dry. HEAD: Atraumatic. Normocephalic. No temporal or scalp tenderness. EYES: Pupils equal round and reactive. Extraocular motions intact. No scleral icterus. No injection or drainage. ENT: Nose without bleeding, purulent drainage or septal hematoma. Throat without erythema, tonsillar hypertrophy or exudate. Uvula midline. Airway patent. NECK: Trachea midline. No JVD or lymphadenopathy. Supple, nontender, no meningeal signs. CARDIOVASCULAR: Regular rate and rhythm without murmurs, gallops, or rubs. RESPIRATORY: Clear to auscultation. Breath sounds equal bilaterally. No wheezes , rales, or rhonchi. GASTROINTESTINAL: Abdomen soft, non-tender, distended. No hepato-splenomegaly, or palpable masses. No guarding. MUSCULOSKELETAL: Extremities with bilateral pedal edema. NEUROLOGICAL: Awake and alert. Cranial nerves II through XII intact. Motor and sensory grossly within normal limits. Five out of 5 muscle strength in all muscle groups. Normal speech. Laboratory Laboratory Tests Test 04/10/17 04/10/17 04/10/17 04/10/17 04:10 04:16 04:50 06:00 White Blood Count 8.7 Red Blood Count 3.15 Hemoglobin 9.1 Hematocrit 28.2 Mean Corpuscular Volume 89.5 Mean Corpuscular Hemoglobin 28.9 Mean Corpuscular Hemoglobin 32.4 Concent Red Cell Distribution Width 16.4 Platelet Count 156 Mean Platelet Volume 10.2 Neutrophils (%) (Auto) 76.3 Lymphocytes (%) (Auto) 17.1 Monocytes (%) (Auto) 6.1 Eosinophils (%) (Auto) 0.0 Basophils (%) (Auto) 0.5 Neutrophils # (Auto) 6.6 Lymphocytes # (Auto) 1.5 Monocytes # (Auto) 0.5 Eosinophils # (Auto) 0.0 Basophils # (Auto) 0.0 CBC Comment AUTO DIFF Differential Total Cells 100 Counted Neutrophils % (Manual) 83 Band Neutrophils % 2 Lymphocytes % 12 Monocytes % 3 Neutrophils # (Manual) 7.4 Nucleated Red Blood Cells 5 Differential Comment FINAL DIFF MANUAL Platelet Estimate NORMAL Platelet Morphology Comment NORMAL Tear Drop Cells 1+ Acanthocytes 1+ Total Bilirubin 1.3 Direct Bilirubin 0.7 Indirect Bilirubin 0.6 Aspartate Amino Transf 925 (AST/SGOT) Alanine Aminotransferase 558 (ALT/SGPT) Alkaline Phosphatase 209 B-Type Natriuretic Peptide 4893 Total Protein 5.9 Albumin 2.6 Lipase 248 Blood Gas Puncture Site RT RADIAL Blood Gas Patient Temperature 98.6 Blood Gas HCO3 16 Blood Gas Base Excess -7.6 Blood Gas Oxygen Saturation 97 Arterial Blood pH 7.46 Arterial Blood Partial 22 Pressure CO2 Arterial Blood Partial 102 Pressure O2 Arterial Blood Oxygen Content 12.0 Arterial Blood 1.3 Carboxyhemoglobin Arterial Blood Methemoglobin 0.2 Blood Gas Hemoglobin 8.7 Oxygen Delivery Device NASAL CANNULA Blood Gas Liter Flow 2 Sodium Level 137 Potassium Level 6.0 Chloride Level 104 Carbon Dioxide Level 20.4 Anion Gap 13 Blood Urea Nitrogen 43 Creatinine 2.13 Estimat Glomerular Filtration 41 Rate Random Glucose 80 Calcium Level 8.8 Magnesium Level 2.2 Total Creatine Kinase 683 Creatine Kinase MB 3.9 Creatine Kinase MB % 0.6 Troponin I 0.05 Urine Color YELLOW Urine Turbidity HAZY Urine pH 5.5 Urine Specific Powell 1.022 Urine Protein 100 Urine Glucose (UA) 70 Urine Ketones NEG Urine Occult Blood TRACE Urine Nitrite NEG Urine Bilirubin NEG Urine Urobilinogen LESS THAN 2.0 Urine Leukocyte Esterase NEG Urine RBC 1 Urine WBC 3 Urine Squamous Epithelial 1 Cells Urine Hyaline Casts 36 Urine Mucus FEW Microscopic Urinalysis Comment CULT NOT INDICATED Test 04/10/17 06:45 Prothrombin Time 23.2 Prothromb Time International 2.0 Ratio Activated Partial 30.6 Thromboplast Time Result Diagram: 04/10/17 0410 04/10/17 0450 Imaging Last Impressions Abdomen/Pelvis CT 04/10/17 0424 Signed Impressions: Service Date/Time: Monday, April 10, 2017 06:17 - CONCLUSION: 1. Global cardiomegaly with bilateral effusions and basal atelectasis increased from March 04. 2. Development of mild to moderate ascites and diffuse anasarca. 3. No bowel obstruction. No free air. Fortino Otoole MD Chest X-Ray 04/10/17 0357 Signed Impressions: Service Date/Time: Monday, April 10, 2017 04:30 - CONCLUSION: 1. Cardiomegaly. Bilateral mostly basilar airspace disease left greater than right and small effusions similar to March 25. Fortino Otoole MD EKG; sinus rhythm with first degree AV block/ RBBB Assessment and Plan Assessment and Plan A/P - acute on chronic systolic CHF with questionable compliance with medications/ diet continue with IV diuretics and I/O monitoring- consult cardiology -rectal prolapse/ rectal bleed- monitor H/H- consulted colorectal surgery -acute kidney injury superimposed on chronic renal insufficiency with hyperkalemia- likely due to CHF- continue diuretic and will monitor the renal function closely. -elevated LFT's/ coagulopathy/ascites- likely due to CHF/ hepatic congestion continue diuretics- check hepatitis panel and liver sonogram- LFT's in am. -dyslipidemia; hold statin due to elevated LFT's will consider palliative care reevaluation. Discussed Condition With ER physician, the patient and RN. Physician Certification 2 Midnight Certification Type: Admission for Inpatient Services Order for Inpatient Services The services are ordered in accordance with Medicare regulations or non- Medicare payer requirements, as applicable. In the case of services not specified as inpatient-only, they are appropriately provided as inpatient services in accordance with the 2-midnight benchmark. Estimated LOS (days): 2 days is the estimated time the patient will need to remain in the hospital, assuming treatment plan goals are met and no additional complications. Post-Hospital Plan: Not yet determined Mitra Kwon MD April 10, 2017 10:42
--- NOTE | 2017-04-10 11:00 | HHI.PR ---
Subjective Remarks Rectal prolapse Admitted for SOB Prolapse currently in, recurs frequently Objective Vital Signs Date Time Temp Pulse Resp B/P Pulse Ox O2 Delivery O2 Flow Rate FiO2 04/10/17 09:30 98 04/10/17 09:00 74 17 101/78 98 Nasal Cannula 2 04/10/17 08:00 68 15 101/75 98 Nasal Cannula 2 04/10/17 07:09 16 98 Nasal Cannula 2 04/10/17 07:02 78 16 101/75 98 Nasal Cannula 2 04/10/17 05:57 74 24 111/76 99 Nasal Cannula 2 04/10/17 04:30 28 97 Nasal Cannula 2 04/10/17 03:58 28 04/10/17 03:58 Nasal Cannula 2 04/10/17 03:50 97.0 87 28 108/77 I/O 04/09/17 04/09/17 04/09/17 04/10/17 04/10/17 04/10/17 07:00 15:00 23:00 07:00 15:00 23:00 Output Total 400 ml Balance -400 ml Output Urine Total 400 ml # Voids 2 Result Diagram: 04/10/17 0410 04/10/17 0450 Objective Remarks No current prolapse Assessment and Plan Assessment and Plan Rectal prolapse This is a chronic problem Once he has been discharged, he will need a full cardiac and medical evaluation. If they feel he is strong enough for surgery, at that time we can consider rectopexy. I will see patient as outpatient after discharge Wandy Henriquez MD April 10, 2017 11:00
--- NOTE | 2017-04-10 12:22 | MB ---
cc: FLOYD SIBLEY MD DATE OF CONSULTATION: 04/10/2017 REASON FOR CONSULTATION: CHF HISTORY OF PRESENT ILLNESS Mr. Calderón is a 47-year-old man who has an alcoholic cardiomyopathy with subsequent [facility] [place] ICD. He presented with progressive shortness of breath and edema. He is somewhat of a poor historian and he is not really communicative today. He did also report some dyspnea on exertion but denied any chest pain to me. PAST MEDICAL HISTORY: Significant for: 1. 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 2. History of alcohol abuse. 3. Tobacco abuse. 4. Cocaine abuse. 5. Recent pulmonary embolism ALLERGIES: NO KNOWN DRUG ALLERGIES. FAMILY HISTORY: Positive for CAD. SOCIAL HISTORY: The patient does continue to smoke. CURRENT MEDICATIONS: Per the record. REVIEW OF SYSTEMS: Except as mentioned in the HPI, all 12 systems are negative. PHYSICAL EXAMINATION: VITAL SIGNS: 74, 17, 101/78. GENERAL: He is a well-appearing man who is in no apparent distress. NECK: Free from JVD. LUNGS: Bilaterally clear to auscultation. CARDIOVASCULAR: He has a normal S1-S2. ABDOMEN: Soft. EXTREMITIES: Trace amount of edema. X-RAYS: Abdominal CT shows cardiomegaly with bilateral effusion. Mild to moderate ascites, anasarca. LABORATORY VALUES: Significant for a hemoglobin of 9.1, potassium of 6.0 and creatinine of 2.13. AST is 925 and ALT is 558 [place] 4893, and troponin of 0.05. His total CK is 683. IMPRESSION: 1. Acute on chronic systolic failure. The patient is again relatively hypotensive. If he is able to tolerate a low dose beta-crispin, that would be ideal, however, it is felt relatively contraindicated at this point given his hypotension and concomitant hepatorenal insufficiency. As well, the KAREL inhibitor is felt relatively contraindicated. 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 2. Cardiomyopathy. The patient is status post [facility] ICD. 3. Hepatorenal insufficiency. The patient has an extremely poor prognosis with multisystem failure. His blood pressure is unfortunately too low to add any medications such as beta-crispin and KAREL inhibitor. I will follow along with you. PROGNOSIS: As above. His prognosis is very poor with multisystem failure. Liset Edwards /11:38 AM /12:14 PM
[2017-04-10] MEDS ORDERED: FUROSEMIDE 20 MG/2 ML VIAL IV PUSH ONE (14:00)
[2017-04-10 14:02] LABS: BICARBONATE 24.6 MEQ/L (21.0-32.0); POTASSIUM 4.3 MEQ/L (3.5-5.1)
--- NOTE | 2017-04-10 16:55 | EKG ---
Date Performed: 04/10/2017 Time Performed: 03:53:04 PTAGE: 47 years EKG: Sinus rhythm WITH FIRST DEGREE AV BLOCK LEFT ATRIAL ENLARGEMENT MARKED RIGHT AXIS DEVIATION RIGHT BUNDLE BRANCH B LOCK INFERIOR MYOCARDIAL INFARCTION ABNORMAL ECG PREVIOUS TRACING : 03/25/2017 10.49 Compared to prior tracing no significant change DOCTOR: Karley Vanessa Interpretating Date/Time 04/10/2017 16:51:50
--- NOTE | 2017-04-10 20:34 | RADRPT ---
EXAM DATE/TIME: 04/10/2017 17:34 [facility] COMPARISON: CT ABDOMEN & PELVIS W/O CONTRAST, April 10, 2017, 6:17. INDICATIONS : Increased lab values. MEDICAL HISTORY : Myocardial infarction. Congestive heart failure. Hypercholesterolemia. Cardiomyopathy. Hypertension. Hyperlipidemia. Claudication. A-fib. Melena. Anemia. SURGICAL HISTORY : AICD defibrillator. ENCOUNTER: Initial ACUITY: 1 day PAIN SCORE: 10/10 LOCATION: Right upper quadrant MEASUREMENTS: LIVER: <<At least 17 cm length COMMON DUCT: 3 mm RIGHT KIDNEY: <<9.3 x 5.3 x 4.8>> cm SPLEEN: <<7.7>> cm length FINDINGS: LIVER: Hepatic echotexture within normal limits. No focal hepatic lesions seen. There is ascites. There is t riphasic flow in the main portal vein, some of it is regurgitant. No biliary distention. COMMON DUCT: No intraluminal mass or stone visualized. GALLBLADDER: Contracted. No sludge or stones. No wall thickening for the degree of distention. PANCREAS: The visualized portions are within normal limits. RIGHT KIDNEY: No hydronephrosis, stone or mass. SPLEEN: No focal lesion. CONCLUSION: Hepatomegaly, ascites and triphasic, transiently regurgitant flow in the main portal vein, likely on the basis of cardiac dysfunction. No focal hepatic abnormality demonstrated. Steven Levy MD on April 10, 2017 at 20:29 Board Certified Radiologist. This report was verified electronically.
[2017-04-11] VITALS: BP 100/68; PULSE 81; RESP 18; TEMP 97.2; O2SAT 96
[2017-04-11 06:42] LABS: ALT (GPT) 516 U/L (12-78); ANION GAP 10 MEQ/L (5-15); AST (GOT) 673 U/L (15-37); BICARBONATE 22.8 MEQ/L (21.0-32.0); BLOOD UREA NITROGEN 42 MG/DL (7-18); CHLORIDE 104 MEQ/L (98-107); GLOMERULAR FILTRATION RATE 55 ML/MIN (>89); POTASSIUM 4.3 MEQ/L (3.5-5.1); SODIUM (NA) 137 MEQ/L (136-145)
[2017-04-11 06:44] LABS: ALKALINE PHOSPHATASE 238 U/L (45-117)
[2017-04-11] MEDS: FUROSEMIDE 40 MG/4 ML VIAL IV PUSH SCH (07:53)
[2017-04-11 08:00] VITALS: BP 98/69; PULSE 79; RESP 16; TEMP 97.2; O2SAT 98
[2017-04-11 08:23] VITALS: O2SAT 92
--- NOTE | 2017-04-11 10:49 | PD.CONS ---
Consult Service Palliative Care Consult Requested By Dr. Kwon . Primary Care Physician Negrito Burkett . Reason for Consultation a. To assist with evaluation and management of symptoms including: Pain, fatigue, SHARPE, nausea, edema. b. To assist medical decision maker(s) with: better understanding of current medical conditions; weighing benefits/burdens of medical treatment options; making medical treatment decisions. (Juliane Walls) HPI History of Present Illness This is a very pleasant 47 year-old male with an extensive medical history of alcoholic cardiomyopathy, EF of 10-15%, moderate to severe mitral and tricuspid regurgitation, chronic renal insufficiency related to poor cardiac output, history of alcohol tobacco and cocaine abuse and recent pulmonary embolism, who presents to the emergency room April 09, 2017 with recurrent rectal prolapse. He was admitted March 24, 2017 for dyspnea on exertion and during that admission also experienced a rectal prolapse measuring approximately 10 cm x 14 cm consisting of the upper rectum and lower sigmoid tissue which was reduced by Dr. Zaragoza. The emergency room physician describes his current rectal prolapse as about the size of a grapefruit. This was reduced by Dr. Wandy Henriquez and he was discharged home with outpatient follow-up. He returned to the emergency room April 10 with a complaint of dyspnea on exertion and recurrent rectal prolapse. Per the ED physician notes, and Dr. Wandy Henriquez note, no prolapse was found on this admission. The patient frequently reduces his own prolapses but came to the ED D as he felt it was not reducing properly. He also complained of dyspnea on exertion, which is chronic likely related to his cardiac dysfunction, recent pneumonia, recent pulmonary embolism and hepatic congestion.Echocardiogram done 03/11/2017 shows an ejection fraction of 10-15% with diffuse hypokinesis, moderate to severe mitral and tricuspid regurgitation, mild pulmonic regurgitation and a peak PA pressure of 52 mmHg. ED investigations revealed: * Liver ultrasound showed hepatomegaly, ascites and triphasic, transiently regurgitant flow in the main portal vein, likely on the basis of cardiac dysfunction. No focal hepatic abnormality demonstrated. * Chest x-ray showed cardiomegaly with bilateral mostly basilar air space disease left greater than right and small effusions similar to March 25 study * CT abdomen and pelvis showed global cardiomegaly with bilateral effusions and basal atelectasis increased from March 04. Development of mild to moderate ascites and diffuse anasarca. No bowel obstruction no free air. * Laboratory studies show a white blood cell count of 8.7, hemoglobin 9.1, hematocrit 28.2, platelets 156, the sodium 137 potassium 6.0 and BUN 43, creatinine 2.13 estimated GFR 41, AST 925, ALT 558 alkaline phosphatase 209 total creatinine kinase 683 CK-MB (2) 3.9, total bilirubin 1.3, direct bilirubin 0.7. Admission ABG shows HCO3 16, base excess -7.6 pH 7.46 PCO2 22, PaO2 102 on 2 L nasal cannula. * Since admission laboratory studies show sodium 137, potassium 4.3, BUN 42, creatinine 1.65 and estimated GFR 55. Transaminases are slowly decreasing. Hepatitis panel is pending. Consultations: Colorectal surgery-recommends thorough cardiology evaluation for surgery clearance and if felt to be appropriate and outpatient Rexoplexy will be scheduled. Cardiology-notes a very poor prognosis with multisystem failure likely related to cardiac dysfunction. His hypotension compromises the ability to add cardioprotective medications. Due to his multiple comorbidities and his poor cardiac status, causing multi organ dysfunction, palliative care has been consult to assist patient in symptom management and establishing goals of care. He is unable to tolerate beta blockade or ACEI due to his hypotension. This is compromised by recent pneumonia and pulmonary embolus and high pulmonary pressures, causing hepatic congestion. He has not been receiving Coumadin and remains with a therapeutic INR of 2.0, likely due to liver compromise. Poor cardiac output is also compromising his renal status. He had previously been evaluated by Dr. Gino Siddiqui in [place] and told he needed a heart transplant however was declined for that due to his history of illicit drug abuse. At his February 2017 admission, health care surrogate was established with the patient and identified as his father Wilson Calderón, who resides in [place]. At that time he did desire aggressive resuscitation. This was revisited with the patient at this visit in detail to include the possibility of disabling his defibrillator and his wishes regarding CPR, defibrillation, resuscitation and intubation. His poor prognosis was reviewed with him in detail including the limited, if any, medical options for treatment. He reaffirms that he does wish his defibrillator to remain active and would like full resuscitation. FULL CODE was ordered per patient request. Function/Cognitive Trajectory The patient has been experiencing progressive functional decline and is disabled due to his cardiac status. He had previously been able to manage small home tasks but is becoming progressively less able to do so. He is unable to work and becomes dyspneic with severe claudication with minimal activity. Review of the records indicate his ability to ride his bicycle in November, however since that time has been primarily homebound. He states he previously felt better on the cardiac medications however has been unable to presume them due to hypotension.. Since November 2016 he has been seen in the ED 9 times for recurrent heart failure, rectal prolapse, Coumadin toxicity, dyspnea, fatigue and weakness. He was discharged home on Coumadin, however, follow-up with primary care revealed recurrent Coumadin toxicity and that medication was stopped. His INR was therapeutic at 2.0 on admission. This is felt, by cardiology, to be related to liver congestion. (Juliane Walls) Review of Systems Constitutional: COMPLAINS OF: Fatigue, Weight gain, Pain, Generalized weakness Endocrine: DENIES: Heat/cold intolerance, Polydipsia, Polyuria, Polyphagia Eyes: DENIES: Blurred vision, Diplopia, Eye inflammation, Eye pain, Vision loss , Photosensitivity, Double Vision, Blind spots Ears, nose, mouth, throat: DENIES: Tinnitus, Hearing loss, Vertigo, Nasal discharge, Oral lesions, Throat pain, Hoarseness, Ear Pain, Running Nose, Epistaxis, Sinus Pain, Toothache, Odynophagia Respiratory: COMPLAINS OF: Shortness of breath Cardiovascular: COMPLAINS OF: Dyspnea on Exertion, Lower Extremity Edema, Claudication Gastrointestinal: COMPLAINS OF: Abdominal pain, Constipation (C/O frequent rectal prolapse with pain. Seen to be applying pressure to rectum continually), Nausea Genitourinary: DENIES: Sexual dysfunction, Urinary frequency, Urinary incontinence, Urgency, Hematuria, Dysuria, Nocturia, Penile Discharge, Testicular Pain, Testicular Swelling, Hesitancy, Dribbling, Decreased stream Musculoskeletal: DENIES: Joint pain, Muscle aches, Stiffness, Joint Swelling, Back pain, Neck pain, Decreased range of motion Integumentary: DENIES: Abnormal pigmentation, Nail changes, Pruritus, Rash, Nodules, Tumors, Excessive dryness, Non-healing sores Hematologic/Lymphatics: DENIES: Bruising, Lymphadenopathy, Prolonged bleed w/ proced, History of transfusions Immunologic/Allergic: DENIES: Eczema, Urticaria Neurologic: DENIES: Abnormal gait, Headache, Localized weakness, Paresthesias, Seizures, Speech Problems, Tremor, Poor Balance, Change in smell or taste Psychiatric: DENIES: Anxiety, Confusion, Mood changes, Depression, Hallucinations, Agitation, Suicidal Ideation, Homicidal Ideation, Delusions, Anhedonia (Juliane Walls) Past Family Social History Coded Allergies: No Known Allergies (Unverified , 04/14/17) Past Medical History CHF status post ICD Hypertension Hyperlipidemia History of recent pneumonia and bilateral PE Chronic renal insufficiency Elevated transaminase Noncompliance Past Surgical History AICD implantation September [address]-chamber [facility] [place] device Thoracentesis . Reported Medications Reported Meds & Active Scripts Active Amiodarone (Amiodarone HCl) 200 Mg Tab 200 Mg PO DAILY Simvastatin 20 Mg Tab 20 Mg PO HS Current Medications Medications (Trade) Dose Ordered Sig/Aida Route Start Time Stop Time Status Last Admin (NS Flush) 2 ml UNSCH PRN IVF 04/10/17 04:00 04/10/17 07:07 (Zofran Inj) 4 mg Q8HR PRN IV PUSH 04/10/17 08:00 (Lasix Inj) 40 mg DAILY IV PUSH 04/11/17 09:00 04/11/17 07:53 (Roxicodone) 5 mg Q6H PRN PO 04/10/17 15:45 04/10/17 18:10 Family History Heart disease, brother at age of 14 of multiple myocardial infarctions per patient report. Mother is of an unknown cause. His father and sister are still living. Substance Use Tobacco:Positive for tobacco use beginning at age 16, states he quit about 2 mo ago. Alcohol: Denies alcohol use Prescription med abuse: None noted Illicits:Positive for cocaine and marijuana abuse by past urine toxicology, heavy use of cocaine and marijuana for over one year, quit January 2017 Psychosocial History He was born in the [facility] and moved to [place] about age 5. He has lived in [place] and the [facility] area where he has family support. His father, Wilson Calderón, and sister Reena lived in [place] and he aunt, Anel Brown lives in the [facility]. 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 He stated he had previously spent some time in [place]. He does have a long history of polysubstance abuse. Spiritual/Cultural Factors Attends [employer] in [place]. Now requests truck bench mechanic visits from pastor [facility] [facility] clergy. (Juliane Walls) Living Will: Never completed Health Care Surrogate: Copy in medical record Durable Power of Prepress Stripper: Never completed Health Care Surrogate(s): Father - Wilson Calderón (Juliane Walls) Physical Exam Vital Signs Date Time Temp Pulse Resp B/P Pulse Ox O2 Delivery O2 Flow Rate FiO2 04/11/17 08:23 92 21 04/11/17 08:00 97.2 79 16 98/69 98 04/11/17 00:00 97.2 81 18 100/68 96 04/10/17 20:00 97.6 73 20 90/59 98 04/10/17 19:58 77 04/10/17 16:00 96.7 88 20 99/68 99 04/10/17 12:00 96.9 78 16 120/78 04/10/17 11:17 83 04/10/17 10:30 95.4 87 18 116/72 04/10/17 09:30 98 04/10/17 04/11/17 19:00 07:00 Intake Total 480 ml 360 ml Output Total 1800 ml 475 ml Balance -1320 ml -115 ml Intake Oral 480 ml 360 ml Output Urine Total 1800 ml 475 ml # Voids 2 # Bowel Movements 1 0 Exam CONSTITUTIONAL/GENERAL: This is an adequately nourished patient, in no apparent distress. TUBES/LINES/DRAINS: PIV RUE X 2, LUE X 1. SKIN: No jaundice, rashes, or lesions. No wounds seen anteriorly. Skin temperature appropriate. Not diaphoretic. HEAD: Atraumatic. Normocephalic. EYES: Extraocular motions intact. No scleral icterus. No injection or drainage. Fundi not examined. ENT: Hearing grossly normal. NECK: Trachea midline. Supple, nontender. No palpable thyroid enlargement or nodularity. CARDIOVASCULAR: Regular rate and rhythm, S1, S2, no gallops, or rubs. 2/6 CATHY at LSB, JVD 4-5 cm. Right pedal pulse 2+, Left pedal pulse +1. RESPIRATORY/CHEST: RR 22, by exam. Mild tachypnea, bibasilar crackles, no rhonchi or wheezes. GASTROINTESTINAL: Abdomen distended, tender to palpation throughout, worse in RUQ. Hypoactive BS. GENITOURINARY: Without palpable bladder distension. MUSCULOSKELETAL: 1+ edema in BLE, generalized weakness. NEUROLOGICAL: Awake and alert. Motor and sensory grossly within normal limits. Follows commands. Moves all extremities. PSYCHIATRIC: No obvious anxiety/depression. no apparent hallucinations or other psychotic thought process. (Juliane Walls) Diagnostic Tests Laboratory Laboratory Tests Test 04/10/17 04/10/17 04/10/17 04/10/17 04:10 04:16 04:50 06:00 White Blood Count 8.7 TH/MM3 (4.0-11.0) Red Blood Count 3.15 MIL/MM3 (4.50-5.90) Hemoglobin 9.1 GM/DL (13.0-17.0) Hematocrit 28.2 % (39.0-51.0) Mean Corpuscular Volume 89.5 FL (80.0-100.0) Mean Corpuscular Hemoglobin 28.9 PG (27.0-34.0) Mean Corpuscular Hemoglobin 32.4 % Concent (32.0-36.0) Red Cell Distribution Width 16.4 % (11.6-17.2) Platelet Count 156 TH/MM3 (150-450) Mean Platelet Volume 10.2 FL (7.0-11.0) Neutrophils (%) (Auto) 76.3 % (16.0-70.0) Lymphocytes (%) (Auto) 17.1 % (9.0-44.0) Monocytes (%) (Auto) 6.1 % (0.0-8.0) Eosinophils (%) (Auto) 0.0 % (0.0-4.0) Basophils (%) (Auto) 0.5 % (0.0-2.0) Neutrophils # (Auto) 6.6 TH/MM3 (1.8-7.7) Lymphocytes # (Auto) 1.5 TH/MM3 (1.0-4.8) Monocytes # (Auto) 0.5 TH/MM3 (0-0.9) Eosinophils # (Auto) 0.0 TH/MM3 (0-0.4) Basophils # (Auto) 0.0 TH/MM3 (0-0.2) CBC Comment AUTO DIFF Differential Total Cells 100 Counted Neutrophils % (Manual) 83 % (16-70) Band Neutrophils % 2 % (0-6) Lymphocytes % 12 % (9-44) Monocytes % 3 % (0-8) Neutrophils # (Manual) 7.4 TH/MM3 (1.8-7.7) Nucleated Red Blood Cells 5 /100 WBC (0-0) Differential Comment FINAL DIFF MANUAL Platelet Estimate NORMAL (NORMAL) Platelet Morphology Comment NORMAL (NORMAL) Tear Drop Cells 1+ (NORMAL) Acanthocytes 1+ (NORMAL) Total Bilirubin 1.3 MG/DL (0.2-1.0) Direct Bilirubin 0.7 MG/DL (0.0-0.2) Indirect Bilirubin 0.6 MG/DL (0.0-0.8) Aspartate Amino Transf 925 U/L (15-37) (AST/SGOT) Alanine Aminotransferase 558 U/L (12-78) (ALT/SGPT) Alkaline Phosphatase 209 U/L (45-117) B-Type Natriuretic Peptide 4893 PG/ML (0-100) Total Protein 5.9 GM/DL (6.4-8.2) Albumin 2.6 GM/DL (3.4-5.0) Lipase 248 U/L (73-393) Blood Gas Puncture Site RT RADIAL Blood Gas Patient Temperature 98.6 Blood Gas HCO3 16 mmol/L (22-26) Blood Gas Base Excess -7.6 mmol/L (-2-2) Blood Gas Oxygen Saturation 97 % (90-100) Arterial Blood pH 7.46 (7.380-7.420) Arterial Blood Partial 22 mmHg (38-42) Pressure CO2 Arterial Blood Partial 102 mmHG Pressure O2 (61-120) Arterial Blood Oxygen Content 12.0 Vol % (12.0-20.0) Arterial Blood 1.3 % (0-4) Carboxyhemoglobin Arterial Blood Methemoglobin 0.2 % (0-2) Blood Gas Hemoglobin 8.7 G/DL (12.0-16.0) Oxygen Delivery Device NASAL CANNULA Blood Gas Liter Flow 2 L/M Sodium Level 137 MEQ/L (136-145) Potassium Level 6.0 MEQ/L (3.5-5.1) Chloride Level 104 MEQ/L (98-107) Carbon Dioxide Level 20.4 MEQ/L (21.0-32.0) Anion Gap 13 MEQ/L (5-15) Blood Urea Nitrogen 43 MG/DL (7-18) Creatinine 2.13 MG/DL (0.60-1.30) Estimat Glomerular Filtration 41 ML/MIN (>89) Rate Random Glucose 80 MG/DL (74-106) Calcium Level 8.8 MG/DL (8.5-10.1) Magnesium Level 2.2 MG/DL (1.5-2.5) Total Creatine Kinase 683 U/L (39-308) Creatine Kinase MB 3.9 NG/ML (0.5-3.6) Creatine Kinase MB % 0.6 % (0.0-4.0) Troponin I 0.05 NG/ML (0.02-0.05) Urine Color YELLOW (YELLW/STRAW) Urine Turbidity HAZY (CLEAR) Urine pH 5.5 (5.0-8.5) Urine Specific [place] 1.022 (1.002-1.035) Urine Protein 100 mg/dL (NEG-TRACE) Urine Glucose (UA) 70 mg/dL (NEG) Urine Ketones NEG mg/dL (NEG) Urine Occult Blood TRACE (NEG) Urine Nitrite NEG (NEG) Urine Bilirubin NEG (NEG) Urine Urobilinogen LESS THAN 2.0 MG/DL (LESS THAN 2.0) Urine Leukocyte Esterase NEG (NEG) Urine RBC 1 /hpf (0-3) Urine WBC 3 /hpf (0-5) Urine Squamous Epithelial 1 /hpf (0-5) Cells Urine Hyaline Casts 36 /lpf (RARE) Urine Mucus FEW /lpf (OCC) Microscopic Urinalysis Comment CULT NOT INDICATED Test 04/10/17 04/10/17 04/10/17 04/11/17 06:45 12:55 15:04 04:30 Prothrombin Time 23.2 SEC (9.8-11.6) Prothromb Time International 2.0 RATIO Ratio Activated Partial 30.6 SEC Thromboplast Time (24.3-30.1) Sodium Level 139 MEQ/L 137 MEQ/L (136-145) (136-145) Potassium Level 4.3 MEQ/L 4.3 MEQ/L (3.5-5.1) (3.5-5.1) Chloride Level 103 MEQ/L 104 MEQ/L (98-107) (98-107) Carbon Dioxide Level 24.6 MEQ/L 22.8 MEQ/L (21.0-32.0) (21.0-32.0) Anion Gap 11 MEQ/L (5-15) 10 MEQ/L (5-15) Blood Urea Nitrogen 46 MG/DL (7-18) 42 MG/DL (7-18) Creatinine 2.07 MG/DL 1.65 MG/DL (0.60-1.30) (0.60-1.30) Estimat Glomerular Filtration 42 ML/MIN (>89) 55 ML/MIN (>89) Rate Random Glucose 93 MG/DL 93 MG/DL (74-106) (74-106) Calcium Level 8.7 MG/DL 8.2 MG/DL (8.5-10.1) (8.5-10.1) Hematocrit 26.3 % (39.0-51.0) Total Bilirubin 1.0 MG/DL (0.2-1.0) Aspartate Amino Transf 673 U/L (15-37) (AST/SGOT) Alanine Aminotransferase 516 U/L (12-78) (ALT/SGPT) Alkaline Phosphatase 238 U/L (45-117) Total Protein 5.5 GM/DL (6.4-8.2) Albumin 2.4 GM/DL (3.4-5.0) (Juliane Walls) Result Diagram: 04/10/17 1504 04/11/17 0430 Imaging Last Impressions Abdomen/Pelvis CT 04/10/17 0424 Signed Impressions: Service Date/Time: Monday, April 10, 2017 06:17 - CONCLUSION: 1. Global cardiomegaly with bilateral effusions and basal atelectasis increased from March 04. 2. Development of mild to moderate ascites and diffuse anasarca. 3. No bowel obstruction. No free air. Fortino Otoole MD Chest X-Ray 04/10/17 0357 Signed Impressions: Service Date/Time: Monday, April 10, 2017 04:30 - CONCLUSION: 1. Cardiomegaly. Bilateral mostly basilar airspace disease left greater than right and small effusions similar to March 25. Fortino Otoole MD Liver Ultrasound 04/10/17 0000 Signed Impressions: Service Date/Time: Monday, April 10, 2017 17:34 - CONCLUSION: Hepatomegaly, ascites and triphasic, transiently regurgitant flow in the main portal vein, likely on the basis of cardiac dysfunction. No focal hepatic abnormality demonstrated. Steven Levy MD (Juliane Walls) Patient/Family Conference Issues Discussed: * Additional medical, psychosocial, and spiritual history * Patients general health, functional status, and cognitive changes in the months leading up to the current hospitalization * Patient/family understanding of the current medical problems * Patient/family understanding of prognosis * Patients goals of care as best understood from advance directives and/or conversations and/or values * Current medical treatment options and benefits/burdens of those options * Likely scenarios comparing ongoing aggressive care with a transition to comfort measures only * Questions answered to the best of my ability * Palliative care contact information provided (Juliane Walls) Assessment and Plan Disease Oriented Problem List: (1) Dyspnea and respiratory abnormalities (2) Rectal prolapse (3) Pain, generalized (4) Acute on chronic systolic congestive heart failure (5) Cardiorenal syndrome (6) Transaminitis (7) Ascites (8) Anemia (9) Hyperkalemia (10) History of illicit drug use Symptom Scale: (1) Fatigue 0-10 Scale: Unable to quantify (2) Pain, generalized 0-10 Scale: Unable to quantify Comment: Complains primarily of rectal pain from prolapse. (3) Nausea 0-10 Scale: Unable to quantify (4) Edema 0-10 Scale: Unable to quantify Comment: Generalized anasarca (5) Claudication 0-10 Scale: Unable to quantify (Cannot walk from bed to bathroom) Comment: Unable to walk from bed to bathroom due to severe claudication (6) Dyspnea and respiratory abnormalities 0-10 Scale: Unable to quantify Pertinent Non-Medical Issues Psychosocial:Psychosocial:He was born in the [facility] and moved to [place] about age 5. He has lived in [place] and the [facility] where he has family support. His father, Wilson Calderón, and sister Reena lived in [place] and he aunt, Anel Brown lives in the [facility]. 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 He stated he had previously spent some time in [place]. He does have a long history of polysubstance abuse. Spiritual: Requested truck bench mechanic visit from both hospital truck bench mechanic and his personal Subcontract Administrator [place] Legal:HCS signed making his father, Wilson Calderón health care surrogate. Ethical issues impacting care: Important Contacts Father - Wilson Calderón Aunt - Anel Brown Sister - Reena Calderón Prognosis His prognosis is poor. His ejection fraction has declined now to 10-15%. He states a recent history, since November, of multiple AICD shocks as the device was unable to pace the patient out of the arrhythmia with antitachycardia pacing. His cardiac status is now compromising his hepatic, respiratory and renal status and renal indices are increasing. It appears he is developing multisystem organ failure. He has had 9 hospitalizations since November and is currently unable to tolerate his ACEI and beta crispin for his heart failure due to hypotension. His debility and dyspnea on exertion are increasing, and severe claudication is now compromising his ability for even minimal ambulation. His heart failure contraindicates significant fluid resuscitation to correct the hypotension and he is unable to tolerate cardioprotective medications. Medical options are limited. He would be appropriate for hospice if goals compatible. Code Status: Full Code Plan PLAN: Legal decision maker: Patient is currently capacitated to make his own decisions, but has named his father, Wilson Calderón, in case he becomes incapacitated. Goals: Remain aggressive. Discussed ICD shock, potential external defibrillation and mechanical ventilation and he states he would want full resuscitative measures. CODE STATUS: Full code SYMPTOMS: * Pain-he does continue to receive his home Oxycodone, however this is not controlling his rectal discomfort from frequent prolapse, which is his primary source of discomfort. He is also experiencing severe claudication with minimal activity. This again goes back to cardiac dysfunction and poor perfusion. This will complicate repair of his chronic rectal prolapse. Dr. Henriquez has requested cardiac clearance prior to considering surgery. Per Dr. Vanessa' s note he is a high risk surgical candidate. * Fatigue-his activity tolerance is severely impacted by his cardiac dysfunction. His ejection fraction 02/2017 was 10-15% with moderate to severe mitral regurgitation, moderate to severe tricuspid regurgitation and pulmonary artery peak pressure of 52 mmHg. He is unable to tolerate cardioprotective medications to improve this. This is related to end-stage heart failure per cardiology evaluations over the past several admissions. * Nausea/Abdominal discomfort-imaging shows significant anasarca and ascites, and transiently regurgitant flow into the main portal vein causing liver congestion. He remains tender across all abdominal tillman, worse on the right flank over the liver. Diuresis is in process, hindered by hypotension limiting aggressive diuresis. * Edema-he remains with edema and anasarca pattern. He continues to receive Lasix, 40 mg IV daily, however due to his borderline hypotension this cannot be increased at this time. His prognosis remains very poor, in summary he has end-stage heart disease causing liver congestion, anasarca, renal compromise and severe debility. This is complicated by his chronic rectal prolapse, which colorectal surgery is reluctant to address due to his significantly depressed cardiac status. Per cardiology evaluation by Dr. Vanessa he is a high risk surgical candidate. He is significantly short of breath with any activity and develops severe, limiting claudication after only a few steps. At this time he would be hospice appropriate if goals are consistent. Palliative care will continue to follow the patient during hospital course as condition evolves, to assist patient/decision-maker with understanding of their medical conditions, weighing benefits/burdens of treatment options, for clarification of goals of treatment. Additionally will assist with any symptoms of palliative concern (Juliaen Walls) Thank you for the opportunity to participate in the care of Mr. Calderón. (Juliane Walls) Attestation To help prompt me to consider important information that might be impacting today's encounter and assessment, information from prior notes written by myself or my colleagues may have been "brought forward" into today's note. My signature on this note, however, is an attestation that I personally performed the exam, history, and/or decision-making noted today, and, unless otherwise indicated, the interactions with patient, family, and staff as well as the review of records all occurred today. I also attest that the listed assessment and stated plan reflect my best clinical judgment today based on the combination of historical information, prior notes, and today's exam/ interactions. When time spent is documented, it refers only to time spent today by the signer, or if indicated, combined time spent today by collaborating physician/nurse practitioner. (Juliane Walls) Collaborating MD Comments . Chart reviewed. Case discussed with palliative care MOBILE BATTERY TECHNICIAN. I have reviewed above MOBILE BATTERY TECHNICIAN note and I concur. . (Aryan Story MD) Juliane Walls April 11, 2017 10:33 Aryan Story MD April 19, 2017 12:39
--- NOTE | 2017-04-11 11:43 | PD.CARD.PN ---
Subjective Subjective Remarks Pt without CV complaints Objective Medications Current Medications Medications (Trade) Dose Ordered Sig/Aida Route Start Time Stop Time Status Last Admin (NS Flush) 2 ml UNSCH PRN IVF 04/10/17 04:00 04/10/17 07:07 (Zofran Inj) 4 mg Q8HR PRN IV PUSH 04/10/17 08:00 (Lasix Inj) 40 mg DAILY IV PUSH 04/11/17 09:00 04/11/17 07:53 (Roxicodone) 5 mg Q6H PRN PO 04/10/17 15:45 04/10/17 18:10 Vital Signs / I&O Vital Signs Date Time Temp Pulse Resp B/P Pulse Ox O2 Delivery O2 Flow Rate FiO2 04/11/17 08:23 92 21 04/11/17 08:00 97.2 79 16 98/69 98 04/11/17 00:00 97.2 81 18 100/68 96 04/10/17 20:00 97.6 73 20 90/59 98 04/10/17 19:58 77 04/10/17 16:00 96.7 88 20 99/68 99 04/10/17 12:00 96.9 78 16 120/78 I/O 04/10/17 04/10/17 04/10/17 04/11/17 04/11/17 04/11/17 07:00 15:00 23:00 07:00 15:00 23:00 Intake Total 480 ml 240 ml 120 ml Output Total 1400 ml 700 ml 175 ml Balance -920 ml -460 ml -55 ml Intake Oral 480 ml 240 ml 120 ml Output Urine Total 1400 ml 700 ml 175 ml # Voids 2 # Bowel Movements 1 0 0 Physical Exam GENERAL: Well developed, well nourished. No acute distress. HEENT: Jugular venous pressure is normal. CHEST: Lungs clear to auscultation bilaterally. Unlabored respiratory effort. CARDIAC: Regular rate and rhythm without S3, S4, or murmur. ABDOMEN: Soft, nontender, no hepatosplenomegaly. Bowel sounds present. EXTREMITIES: No clubbing, cyanosis, or edema. Laboratory Laboratory Tests Test 04/10/17 04/10/17 04/11/17 12:55 15:04 04:30 Sodium Level 139 MEQ/L 137 MEQ/L Potassium Level 4.3 MEQ/L 4.3 MEQ/L Chloride Level 103 MEQ/L 104 MEQ/L Carbon Dioxide Level 24.6 MEQ/L 22.8 MEQ/L Anion Gap 11 MEQ/L 10 MEQ/L Blood Urea Nitrogen 46 MG/DL 42 MG/DL Creatinine 2.07 MG/DL 1.65 MG/DL Estimat Glomerular Filtration 42 ML/MIN 55 ML/MIN Rate Random Glucose 93 MG/DL 93 MG/DL Calcium Level 8.7 MG/DL 8.2 MG/DL Hematocrit 26.3 % Total Bilirubin 1.0 MG/DL Aspartate Amino Transf 673 U/L (AST/SGOT) Alanine Aminotransferase 516 U/L (ALT/SGPT) Alkaline Phosphatase 238 U/L Total Protein 5.5 GM/DL Albumin 2.4 GM/DL Assessment and Plan Assessment and Plan 1. Acute on chronic systolic failure. remains relatively hypotensive. -BP too low for BB or KAREL - continue present meds, fluid management per nephrology - not a transplant candidate secondary to noncompliance 2. Cardiomyopathy. The patient is status post [facility] ICD. 3. Hepatorenal insufficiency. per nephrology 4. Rectal prolapse- Pt would be high risk for any surgery or procedures 5. Palliative care- agree this is reasonable as his prognosis is poor Available Karley Winchester MD April 11, 2017 11:43
[2017-04-11 12:00] VITALS: BP 91/58; PULSE 114; RESP 16; TEMP 95.9; O2SAT 95
--- NOTE | 2017-04-11 12:19 | HHI.PR ---
Subjective Remarks ill looking but in no acute distress. still with mild sob - feels weak. Objective Vitals Vital Signs Date Time Temp Pulse Resp B/P Pulse Ox O2 Delivery O2 Flow Rate FiO2 04/11/17 08:23 92 21 04/11/17 08:00 97.2 79 16 98/69 98 04/11/17 00:00 97.2 81 18 100/68 96 04/10/17 20:00 97.6 73 20 90/59 98 04/10/17 19:58 77 04/10/17 16:00 96.7 88 20 99/68 99 I/O 04/10/17 04/10/17 04/10/17 04/11/17 04/11/17 04/11/17 07:00 15:00 23:00 07:00 15:00 23:00 Intake Total 480 ml 240 ml 120 ml Output Total 1400 ml 700 ml 175 ml Balance -920 ml -460 ml -55 ml Intake Oral 480 ml 240 ml 120 ml Output Urine Total 1400 ml 700 ml 175 ml # Voids 2 # Bowel Movements 1 0 0 Result Diagram: 04/10/17 1504 04/11/17 0430 Imaging Last Impressions Abdomen/Pelvis CT 04/10/17 0424 Signed Impressions: Service Date/Time: Monday, April 10, 2017 06:17 - CONCLUSION: 1. Global cardiomegaly with bilateral effusions and basal atelectasis increased from March 04. 2. Development of mild to moderate ascites and diffuse anasarca. 3. No bowel obstruction. No free air. Fortino Otoole MD Chest X-Ray 04/10/17 0357 Signed Impressions: Service Date/Time: Monday, April 10, 2017 04:30 - CONCLUSION: 1. Cardiomegaly. Bilateral mostly basilar airspace disease left greater than right and small effusions similar to March 25. Fortino Otoole MD Liver Ultrasound 04/10/17 0000 Signed Impressions: Service Date/Time: Monday, April 10, 2017 17:34 - CONCLUSION: Hepatomegaly, ascites and triphasic, transiently regurgitant flow in the main portal vein, likely on the basis of cardiac dysfunction. No focal hepatic abnormality demonstrated. Steven Levy MD Objective Remarks GENERAL: ill looking but in no apparent distress. CARDIOVASCULAR: Regular rate and regular rhythm without murmurs, gallops, or rubs. RESPIRATORY: Clear to auscultation. Breath sounds equal bilaterally. No wheezes , rales, or rhonchi. GASTROINTESTINAL: Abdomen soft, non-tender, mildly distended. Normal, active bowel sounds MUSCULOSKELETAL: Extremities with bilateral pedal edema. NEURO: Alert & Oriented x4 to person, place, time, situation. Moves all ext x4 Procedures none Medications and IVs Current Medications Sodium Chloride (NS Flush) 2 ml UNSCH PRN IVF FLUSH AFTER USING IV ACCESS Last administered on 04/10/17 07:07; Start 04/10/17 at 04:00 Calcium Gluconate (Calcium Gluconate Inj) 1 gm ONCE ONCE SLOW IVP Last administered on 04/10/17 05:52; Start 04/10/17 at 05:30; Stop 04/10/17 at 05:31 ; Status DC Insulin Human Regular (NovoLIN R INJ) 10 units ONCE ONCE IV PUSH Last administered on 04/10/17 05:52; Start 04/10/17 at 05:45; Stop 04/10/17 at 05:46 ; Status DC Dextrose (D50w (Vial) Inj) 50 ml ONCE ONCE IV PUSH Last administered on 05:51; Start 04/10/17 at 05:30; Stop 04/10/17 at 05:31; Status DC Sodium Bicarbonate 50 meq 50 meq ONCE ONCE SLOW IVP Last administered on 05:52; Start 04/10/17 at 05:30; Stop 04/10/17 at 05:31; Status DC Piperacillin Sod/ Tazobactam Sod (Zosyn 2.25 Gm Premix) 50 ml @ 100 mls/hr ONCE ONCE IV Last administered on 04/10/17 06:10; Start 04/10/17 at 06:00; Stop 04/10/17 at 06:29; Status DC Furosemide (Lasix Inj) 40 mg ONCE ONCE IV PUSH Last administered on 04/10/17 07:07; Start 04/10/17 at 07:00; Stop 04/10/17 at 07:01; Status DC Ondansetron HCl (Zofran Inj) 4 mg Q8HR PRN IV PUSH NAUSEA; Start 04/10/17 at 08 :00 Furosemide (Lasix Inj) 20 mg ONCE ONCE IV PUSH Last administered on 04/10/17 14:26; Start 04/10/17 at 14:00; Stop 04/10/17 at 14:01; Status DC Furosemide (Lasix Inj) 40 mg DAILY IV PUSH Last administered on 04/11/17 07:53 ; Start 04/11/17 at 09:00 Oxycodone HCl (Roxicodone) 5 mg Q6H PRN PO PAIN > 4 Last administered on 18:10; Start 04/10/17 at 15:45 A/P Assessment and Plan A/P - acute on chronic systolic CHF with questionable compliance with medications/ diet continue with IV diuretics and I/O monitoring- cardiology consult appreciated. no BB or KAREL-I due to low BP readings. -rectal prolapse/ rectal bleed- monitor H/H- colorectal surgery consult appreciated. -acute kidney injury superimposed on chronic renal insufficiency with hyperkalemia- likely due to CHF- continue diuretic and will monitor the renal function closely. -elevated LFT's/ coagulopathy/ascites- likely due to CHF/ hepatic congestion continue diuretics- -dyslipidemia; hold statin due to elevated LFT's palliative care consult appreciated. consulted hospice. Discharge Planning awaiting hospice evaluation. Mitra Kwon MD April 11, 2017 12:19
[2017-04-11 16:00] VITALS: BP 103/76; PULSE 84; RESP 16; TEMP 98.8; O2SAT 98
[2017-04-11 20:00] VITALS: BP 100/68; PULSE 76; PULSE 79; RESP 22; TEMP 97.8; O2SAT 100
[2017-04-12] VITALS: BP 96/58; PULSE 84; RESP 22; TEMP 99; O2SAT 98
[2017-04-12 04:00] VITALS: BP 96/63; PULSE 82; RESP 22; TEMP 98.3; O2SAT 98
[2017-04-12 08:00] VITALS: BP 95/65; PULSE 82; RESP 17; TEMP 96.7; O2SAT 94
--- NOTE | 2017-04-12 08:21 | HHI.PR ---
Subjective Remarks in no acute distress. no new complaints. Objective Vitals Vital Signs Date Time Temp Pulse Resp B/P Pulse Ox O2 Delivery O2 Flow Rate FiO2 04/12/17 04:00 98.3 82 22 96/63 98 04/12/17 00:00 99.0 84 22 96/58 98 04/11/17 20:00 97.8 79 22 100/68 100 04/11/17 20:00 76 04/11/17 16:00 98.8 84 16 103/76 98 04/11/17 12:00 95.9 114 16 91/58 95 04/11/17 08:23 92 21 I/O 04/11/17 04/11/17 04/11/17 04/12/17 04/12/17 04/12/17 06:59 14:59 22:59 06:59 14:59 22:59 Intake Total 120 ml 180 ml 320 ml 320 ml Output Total 175 ml 2425 ml 575 ml 400 ml Balance -55 ml -2245 ml -255 ml -80 ml Intake Oral 120 ml 180 ml 320 ml 320 ml Output Urine Total 175 ml 2425 ml 275 ml 400 ml Emesis 300 ml # Bowel Movements 0 0 0 0 Result Diagram: 04/11/17 1419 04/11/17 0430 Imaging Last Impressions Abdomen/Pelvis CT 04/10/17 0424 Signed Impressions: Service Date/Time: Monday, April 10, 2017 06:17 - CONCLUSION: 1. Global cardiomegaly with bilateral effusions and basal atelectasis increased from March 04. 2. Development of mild to moderate ascites and diffuse anasarca. 3. No bowel obstruction. No free air. Fortino Otoole MD Chest X-Ray 04/10/17 0357 Signed Impressions: Service Date/Time: Monday, April 10, 2017 04:30 - CONCLUSION: 1. Cardiomegaly. Bilateral mostly basilar airspace disease left greater than right and small effusions similar to March 25. Fortino Otoole MD Liver Ultrasound 04/10/17 0000 Signed Impressions: Service Date/Time: Monday, April 10, 2017 17:34 - CONCLUSION: Hepatomegaly, ascites and triphasic, transiently regurgitant flow in the main portal vein, likely on the basis of cardiac dysfunction. No focal hepatic abnormality demonstrated. Steven Levy MD Objective Remarks GENERAL: ill looking but in no apparent distress. CARDIOVASCULAR: Regular rate and regular rhythm without murmurs, gallops, or rubs. RESPIRATORY: Clear to auscultation. Breath sounds equal bilaterally. No wheezes , rales, or rhonchi. GASTROINTESTINAL: Abdomen soft, non-tender, mildly distended. Normal, active bowel sounds MUSCULOSKELETAL: Extremities with bilateral pedal edema. NEURO: Alert & Oriented x4 to person, place, time, situation. Moves all ext x4 Procedures none Medications and IVs Current Medications Sodium Chloride (NS Flush) 2 ml UNSCH PRN IVF FLUSH AFTER USING IV ACCESS Last administered on 04/10/17 07:07; Start 04/10/17 at 04:00 Calcium Gluconate (Calcium Gluconate Inj) 1 gm ONCE ONCE SLOW IVP Last administered on 04/10/17 05:52; Start 04/10/17 at 05:30; Stop 04/10/17 at 05:31 ; Status DC Insulin Human Regular (NovoLIN R INJ) 10 units ONCE ONCE IV PUSH Last administered on 04/10/17 05:52; Start 04/10/17 at 05:45; Stop 04/10/17 at 05:46 ; Status DC Dextrose (D50w (Vial) Inj) 50 ml ONCE ONCE IV PUSH Last administered on 05:51; Start 04/10/17 at 05:30; Stop 04/10/17 at 05:31; Status DC Sodium Bicarbonate 50 meq 50 meq ONCE ONCE SLOW IVP Last administered on 05:52; Start 04/10/17 at 05:30; Stop 04/10/17 at 05:31; Status DC Piperacillin Sod/ Tazobactam Sod (Zosyn 2.25 Gm Premix) 50 ml @ 100 mls/hr ONCE ONCE IV Last administered on 04/10/17 06:10; Start 04/10/17 at 06:00; Stop 04/10/17 at 06:29; Status DC Furosemide (Lasix Inj) 40 mg ONCE ONCE IV PUSH Last administered on 04/10/17 07:07; Start 04/10/17 at 07:00; Stop 04/10/17 at 07:01; Status DC Ondansetron HCl (Zofran Inj) 4 mg Q8HR PRN IV PUSH NAUSEA; Start 04/10/17 at 08 :00 Furosemide (Lasix Inj) 20 mg ONCE ONCE IV PUSH Last administered on 04/10/17 14:26; Start 04/10/17 at 14:00; Stop 04/10/17 at 14:01; Status DC Furosemide (Lasix Inj) 40 mg DAILY IV PUSH Last administered on 04/11/17 07:53 ; Start 04/11/17 at 09:00 Oxycodone HCl (Roxicodone) 5 mg Q6H PRN PO PAIN > 4 Last administered on 18:10; Start 04/10/17 at 15:45 A/P Assessment and Plan A/P - acute on chronic systolic CHF with questionable compliance with medications/ diet continue with diuretic- cardiology consult appreciated. no BB or KAREL-I due to low BP readings. -rectal prolapse/ rectal bleed- colorectal surgery consult appreciated. -acute kidney injury superimposed on chronic renal insufficiency with hyperkalemia- likely due to CHF- -elevated LFT's/ coagulopathy/ascites- likely due to CHF/ hepatic congestion -dyslipidemia; hold statin due to elevated LFT's palliative care consult appreciated. Discharge Planning dc home with hospice today. see med list. d/w the patient. previously d/w the hospice. Mitra Kwon MD April 12, 2017 08:21
[2017-04-12] MEDS ORDERED: FURO1TAB60 PO (08:22)
--- NOTE | 2017-04-12 08:22 | HHI.DCPOC ---
Discharge Care Plan Diagnosis: (1) CHF (congestive heart failure) Your Health Problems Are: Fluid/Lung Overload Shortness of Breath Goals to Promote Your Health * To prevent worsening of your condition and complications * To maintain your health at the optimal level Directions to Meet Your Goals Take your medications as prescribed Follow your dietary instruction Follow activity as directed Keep your appointments as scheduled Take your immunizations and boosters as scheduled If your symptoms worsen call your PCP, if no PCP go to Urgent Care Center or Emergency Room Smoking is Dangerous to Your Health. Avoid second hand smoke Call the 24-hour hour crisis hotline for domestic abuse at Mitra Kwon MD April 12, 2017 08:22
--- NOTE | 2017-04-12 08:23 | HHI.DS ---
Discharge Summary Admission Date April 10, 2017 at 07:03 Discharge Date: April 12, 2017 Admitting Diagnosis ARF, CHF, HyperK, Ascitis, PNA (1) CHF (congestive heart failure) ICD Code: I50.9 Diagnosis: Principal (2) Rectal prolapse ICD Code: K62.3 Diagnosis: Principal (3) Elevated liver enzymes ICD Code: R74.8 Diagnosis: Secondary Procedures none Brief History - From Admission patient is a 47 y/o male with history of systolic CHF and rectal prolapse who came back to ER with rectal prolapse. he was seen by colorectal surgery yesterday for rectal prolapse and was discharged home with outpatient follow- up. he says that when he went home he had recurrent rectal prolapse but this time he had some rectal bleed which happened a few times. he was recently admitted to the hospital for CHF and evaluated by cardiology, nephrology and palliative care. he says that he's compliant with his medications and diet although this is questionable.he reports eight-pound weight gain over the past two months along with some orthopnea and exertional dyspnea. he says that he's noticed worsening swelling of the legs along with his abdomen. CBC/BMP: 04/11/17 1419 04/11/17 0430 Significant Findings Laboratory Tests Test 04/10/17 04/10/17 04/10/17 04/10/17 04:10 04:16 04:50 06:00 Red Blood Count 3.15 MIL/MM3 (4.50-5.90) Hemoglobin 9.1 GM/DL (13.0-17.0) Hematocrit 28.2 % (39.0-51.0) Neutrophils (%) (Auto) 76.3 % (16.0-70.0) Neutrophils % (Manual) 83 % (16-70) Nucleated Red Blood Cells 5 /100 WBC (0-0) Tear Drop Cells 1+ (NORMAL) Acanthocytes 1+ (NORMAL) Total Bilirubin 1.3 MG/DL (0.2-1.0) Direct Bilirubin 0.7 MG/DL (0.0-0.2) Aspartate Amino Transf 925 U/L (15-37) (AST/SGOT) Alanine Aminotransferase 558 U/L (12-78) (ALT/SGPT) Alkaline Phosphatase 209 U/L (45-117) B-Type Natriuretic Peptide 4893 PG/ML (0-100) Total Protein 5.9 GM/DL (6.4-8.2) Albumin 2.6 GM/DL (3.4-5.0) Blood Gas HCO3 16 mmol/L (22-26) Blood Gas Base Excess -7.6 mmol/L (-2-2) Arterial Blood pH 7.46 (7.380-7.420) Arterial Blood Partial 22 mmHg (38-42) Pressure CO2 Blood Gas Hemoglobin 8.7 G/DL (12.0-16.0) Potassium Level 6.0 MEQ/L (3.5-5.1) Carbon Dioxide Level 20.4 MEQ/L (21.0-32.0) Blood Urea Nitrogen 43 MG/DL (7-18) Creatinine 2.13 MG/DL (0.60-1.30) Estimat Glomerular Filtration 41 ML/MIN (>89) Rate Total Creatine Kinase 683 U/L (39-308) Creatine Kinase MB 3.9 NG/ML (0.5-3.6) Urine Turbidity HAZY (CLEAR) Urine Protein 100 mg/dL (NEG-TRACE) Urine Glucose (UA) 70 mg/dL (NEG) Urine Occult Blood TRACE (NEG) Urine Mucus FEW /lpf (OCC) Test 04/10/17 04/10/17 04/10/17 04/11/17 06:45 12:55 15:04 04:30 Prothrombin Time 23.2 SEC (9.8-11.6) Activated Partial 30.6 SEC Thromboplast Time (24.3-30.1) Blood Urea Nitrogen 46 MG/DL (7-18) 42 MG/DL (7-18) Creatinine 2.07 MG/DL 1.65 MG/DL (0.60-1.30) (0.60-1.30) Estimat Glomerular Filtration 42 ML/MIN (>89) 55 ML/MIN (>89) Rate Hematocrit 26.3 % (39.0-51.0) Calcium Level 8.2 MG/DL (8.5-10.1) Aspartate Amino Transf 673 U/L (15-37) (AST/SGOT) Alanine Aminotransferase 516 U/L (12-78) (ALT/SGPT) Alkaline Phosphatase 238 U/L (45-117) Total Protein 5.5 GM/DL (6.4-8.2) Albumin 2.4 GM/DL (3.4-5.0) Test 04/11/17 14:19 Hemoglobin 9.9 GM/DL (13.0-17.0) Imaging Last Impressions Abdomen/Pelvis CT 04/10/17 0424 Signed Impressions: Service Date/Time: Monday, April 10, 2017 06:17 - CONCLUSION: 1. Global cardiomegaly with bilateral effusions and basal atelectasis increased from March 04. 2. Development of mild to moderate ascites and diffuse anasarca. 3. No bowel obstruction. No free air. Fortino Otoole MD Chest X-Ray 04/10/17 0357 Signed Impressions: Service Date/Time: Monday, April 10, 2017 04:30 - CONCLUSION: 1. Cardiomegaly. Bilateral mostly basilar airspace disease left greater than right and small effusions similar to March 25. Fortino Otoole MD Liver Ultrasound 04/10/17 0000 Signed Impressions: Service Date/Time: Monday, April 10, 2017 17:34 - CONCLUSION: Hepatomegaly, ascites and triphasic, transiently regurgitant flow in the main portal vein, likely on the basis of cardiac dysfunction. No focal hepatic abnormality demonstrated. Steven Levy MD PE at Discharge GENERAL: ill looking but in no apparent distress. CARDIOVASCULAR: Regular rate and regular rhythm without murmurs, gallops, or rubs. RESPIRATORY: Clear to auscultation. Breath sounds equal bilaterally. No wheezes , rales, or rhonchi. GASTROINTESTINAL: Abdomen soft, non-tender, mildly distended. Normal, active bowel sounds MUSCULOSKELETAL: Extremities with bilateral pedal edema. NEURO: Alert & Oriented x4 to person, place, time, situation. Moves all ext x4 Hospital Course - acute on chronic systolic CHF with questionable compliance with medications/ diet continue with diuretic- cardiology consult appreciated. no BB or KAREL-I due to low BP readings. -rectal prolapse/ rectal bleed- colorectal surgery consult appreciated. -acute kidney injury superimposed on chronic renal insufficiency with hyperkalemia- likely due to CHF- -elevated LFT's/ coagulopathy/ascites- likely due to CHF/ hepatic congestion -dyslipidemia; hold statin due to elevated LFT's Pt Condition on Discharge: Deteriorating Discharge Disposition: Hospice/ Home Discharge Time: <= 30 minutes Discharge Instructions DIET: Follow Instructions for: Heart Healthy Diet, Low Sodium Diet Activities you can perform: Regular-No Restrictions Follow up Referrals: PCP Follow-up New Medications: Furosemide (Lasix) 40 Mg Tab 40 MG PO DAILY chf #30 Ref 0 TAB Discontinued Medications: Amiodarone (Amiodarone) 200 Mg Tab 200 MG PO DAILY Regulate Heart Beat #30 Ref 0 TAB Simvastatin (Simvastatin) 20 Mg Tab 20 MG PO HS Cholesterol Management #30 Ref 0 TAB Mitra Kwon MD April 12, 2017 08:23
[2017-04-12] MEDS: FUROSEMIDE 40 MG/4 ML VIAL IV PUSH SCH (08:52)
[2017-04-13] MEDS ORDERED: POTA10CA PO (23:01)
[2017-05-10] MEDS ORDERED: FURO20TA PO (10:18)
== END 2017-04-12 12:06 | disposition home health service (06) | DRG 393 ==
LOC: NEPC 03:45 → NEDA 07:03 → N07A 09:40
PROVIDERS: ADMIT Internal Medicine; ATTEND Internal Medicine
DX: K62.3 Rectal prolapse (principal); I50.23 Acute on chronic systolic (congestive) heart failure; J18.9 Pneumonia, unspecified organism; D68.9 Coagulation defect, unspecified; N17.9 Acute kidney failure, unspecified; I13.0 Hypertensive heart and chronic kidney disease with heart failure and stage 1 through stage 4 chronic kidney disease, or unspecified chronic kidney disease; I42.6 Alcoholic cardiomyopathy; K62.5 Hemorrhage of anus and rectum; J98.11 Atelectasis; R18.8 Other ascites; D64.9 Anemia, unspecified; E87.5 Hyperkalemia; N18.9 Chronic kidney disease, unspecified; E78.5 Hyperlipidemia, unspecified; I37.1 Nonrheumatic pulmonary valve insufficiency; I44.0 Atrioventricular block, first degree; I45.10 Unspecified right bundle-branch block; I73.9 Peripheral vascular disease, unspecified; K76.1 Chronic passive congestion of liver; F10.20 Alcohol dependence, uncomplicated; F17.200 Nicotine dependence, unspecified, uncomplicated; T45.511A Poisoning by anticoagulants, accidental (unintentional), initial encounter; Z51.5 Encounter for palliative care; Z86.711 Personal history of pulmonary embolism; Z91.19 Patient's noncompliance with other medical treatment and regimen; Z95.810 Presence of automatic (implantable) cardiac defibrillator
CPT/HCPCS: 36600; 71010; 74176; 76705; 80048; 80053; 80074; 80076; 81001; 82550; 82552; 82805; 83690; 83735; 83880; 84484; 85007; 85014; 85018; 85027; 85610; 85730; 93005; 96374; 96375; G0378; J0610; J1170; J1815; J1940; J2270; J2405; J2543

== ENCOUNTER 2017-04-13 22:54 | Emergency (ER) | payer OTHER, MEDICAID ==
[~2017-04-13] VITALS: Ht 162.6 cm; Wt 65.0 kg
[~2017-04-13 22:54] MED LIST changes: -AMIO200T PO; +FURO1TAB60 PO; -SIMV20TA PO
[2017-04-13 23:01] VITALS: BP 91/64; PULSE 92; RESP 16; TEMP 98.6; O2SAT 96
[2017-04-13] MEDS ORDERED: POTA10CA PO (23:01)
[2017-04-13 23:36] VITALS: BP 94/70; PULSE 91; RESP 16; O2SAT 99
--- NOTE | 2017-04-13 23:36 | PD ---
HPI Chief Complaint: GI Complaint Time Seen by Provider: 23:03 Travel History International Travel<30 days: No Contact w/Intl Traveler<30days: No Traveled to known affect area: No History of Present Illness HPI 47yo M with CHF, rectal prolapse presents to the ED with c/o rectal prolapse today at 10pm. States he usually can reduce it himself but was not able to this time. Pt was recently admitted 04/10-04/12/17 for PANCHO on CKD, acute on chronic CHF and evaluated by colorectal surgeon. It was suggested that they can consider rectopexy but cardiology states he is too high risk. Pt was also seen by palliative and is in hospice care. Denies any fever, chest pain, sob, n/v, abdominal pain, focal weakness or numbness. PFSH Past Medical History Hx Anticoagulant Therapy: Yes Asthma: No Blood Disorders: No Anxiety: No Depression: No Heart Rhythm Problems: Yes ( HX. VTACH ) Cancer: No Cardiomyopathy: Yes Cardiovascular Problems: Yes High Cholesterol: Yes Chemotherapy: No Chest Pain: Yes Congestive Heart Failure: Yes COPD: No Diabetes: No Diminished Hearing: No Endocrine: No Gastrointestinal Disorders: No Genitourinary: No Hypertension: Yes Immune Disorder: No Implanted Vascular Access Dvce: Yes (AICD defibrillator) Musculoskeletal: No Neurologic: No Psychiatric: No Reproductive: No Respiratory: Yes Immunizations Current: Yes Radiation Therapy: No Sleep Apnea: No Thyroid Disease: No Tetanus Vaccination: < 5 Years Influenza Vaccination: Yes Past Surgical History AICD: Yes (AICD, [employer]) Body Medical Devices: defibrib Cardiac Surgery: Yes (DEFIBRILLATOR) Neurologic Surgery: No Other Surgery: Yes Social History Alcohol Use: No Tobacco Use: No (never) Substance Use: No Allergies-Medications (Allergen,Severity, Reaction): Coded Allergies: No Known Allergies (Unverified , 04/13/17) Reported Meds & Prescriptions Reported Meds & Active Scripts Active Lasix (Furosemide) 40 Mg Tab 40 Mg PO DAILY Reported Potassium Chloride ER (Potassium Chloride) 10 Meq Cap 10 Meq PO DAILY Review of Systems Except as stated in HPI: all other systems reviewed are Neg Physical Exam Narrative GENERAL: 47yo M not in distress. SKIN: Focused skin assessment warm/dry. HEAD: Atraumatic. Normocephalic. EYES: Pupils equal and round. No scleral icterus. No injection or drainage. ENT: No nasal bleeding or discharge. Mucous membranes pink and moist. NECK: Trachea midline. No JVD. CARDIOVASCULAR: Regular rate and rhythm. No murmur appreciated. RESPIRATORY: No accessory muscle use. Clear to auscultation. Breath sounds equal bilaterally. GASTROINTESTINAL: Abdomen soft, distended. nontender. No rebound tenderness or guarding. MUSCULOSKELETAL: No obvious deformities. No clubbing. No cyanosis. No edema. NEUROLOGICAL: Awake and alert. No obvious cranial nerve deficits. Motor grossly within normal limits. Normal speech. PSYCHIATRIC: Appropriate mood and affect; insight and judgment normal. Data Data Last Documented VS Vital Signs Date Time Temp Pulse Resp B/P Pulse Ox O2 Delivery O2 Flow Rate FiO2 04/13/17 23:36 91 16 94/70 99 Nasal Cannula 2 04/13/17 23:01 98.6 Orders Complete Blood Count With Diff (04/13/17 23:38) Basic Metabolic Panel (Bmp) (04/13/17 23:38) Calcium Gluconate (Calcium Gluconate) (04/14/17 01:15) Labs Laboratory Tests Test 04/13/17 23:45 White Blood Count 5.9 TH/MM3 Red Blood Count 3.25 MIL/MM3 Hemoglobin 9.4 GM/DL Hematocrit 28.6 % Mean Corpuscular Volume 87.8 FL Mean Corpuscular Hemoglobin 28.8 PG Mean Corpuscular Hemoglobin 32.8 % Concent Red Cell Distribution Width 16.4 % Platelet Count 163 TH/MM3 Mean Platelet Volume 9.7 FL Neutrophils (%) (Auto) 71.7 % Lymphocytes (%) (Auto) 13.4 % Monocytes (%) (Auto) 8.7 % Eosinophils (%) (Auto) 0.6 % Basophils (%) (Auto) 5.6 % Neutrophils # (Auto) 4.2 TH/MM3 Lymphocytes # (Auto) 0.8 TH/MM3 Monocytes # (Auto) 0.5 TH/MM3 Eosinophils # (Auto) 0.0 TH/MM3 Basophils # (Auto) 0.3 TH/MM3 CBC Comment AUTO DIFF Differential Comment AUTO DIFF CONFIRMED Tear Drop Cells 1+ Acanthocytes 1+ Keratocytes OCC Sodium Level 140 MEQ/L Potassium Level 4.3 MEQ/L Chloride Level 108 MEQ/L Carbon Dioxide Level 25.7 MEQ/L Anion Gap 6 MEQ/L Blood Urea Nitrogen 26 MG/DL Creatinine 0.96 MG/DL Estimat Glomerular Filtration 103 ML/MIN Rate Random Glucose 124 MG/DL Calcium Level 7.7 MG/DL MDM Medical Decision Making Medical Screen Exam Complete: Yes Emergency Medical Condition: Yes Differential Diagnosis Rectal prolapse Narrative Course 47yo M with chronic rectal prolapse here with rectal prolapse. I attempted to reduce the rectal prolapse but was unsuccessful. I tried putting sugar on it and still was not able to reduce it. I discussed with colorectal surgeon combat control Dr. Henriquez who knows the patient well and she recommended admit for observation and she will come reduce it in the morning. Labs reviewed, no leukocytosis. H/H low but at baseline. Calcium 7.7, given calcium gluconate PO. Creatinine has normalized. During his ED course, pt was able to reduce the rectal prolapse himself. I reevaluated the patient at bedside and the rectal prolapse has been reduced. Hospice will provide transportation. Pt instructed to follow up with colorectal surgery as outpatient. Diagnosis Primary Impression: Rectal prolapse Referrals: Wandy Henriquez MD call for appointment Patient Instructions: General Instructions Departure Forms: Tests/Procedures Additional Instructions: Please follow up with colorectal surgery as outpatient. Return to the ED if symptoms worsen. Med/Other Pt SpecificInfo: No Change to Meds Disposition: 01 DISCHARGE HOME Condition: Stable Lyubov Alcala DO April 13, 2017 23:36
[2017-04-13 23:50] LABS: AUTOMATED NEUTROPHIL # 4.2 TH/MM3 (1.8-7.7); BASOPHIL # 0.3 TH/MM3 (0-0.2); BASOPHIL % 5.6 % (0.0-2.0); EOSINOPHIL % 0.6 % (0.0-4.0); HEMATOCRIT 28.6 % (39.0-51.0); LYMPH % 13.4 % (9.0-44.0); LYMPHOCYTE # 0.8 TH/MM3 (1.0-4.8); MEAN CELL VOLUME 87.8 FL (80.0-100.0); MEAN CORPUSCULAR HEMOGLOBIN 28.8 PG (27.0-34.0); MEAN CORPUSCULAR HGB CONC 32.8 % (32.0-36.0); MONO % 8.7 % (0.0-8.0); NEUT % 71.7 % (16.0-70.0); PLATELET COUNT 163 TH/MM3 (150-450); RED BLOOD COUNT 3.25 MIL/MM3 (4.50-5.90); RED CELL DISTRIBUTION WIDTH 16.4 % (11.6-17.2); WHITE BLOOD COUNT 5.9 TH/MM3 (4.0-11.0)
[2017-04-13 23:58] LABS: HEMO FLAGS AUTO DIFF
[2017-04-14 00:04] LABS: BICARBONATE 25.7 MEQ/L (21.0-32.0); POTASSIUM 4.3 MEQ/L (3.5-5.1)
[2017-04-14 00:40] LABS: ACANTHOCYTES 1+ (NORMAL); KERATOCYTES OCC (NORMAL); SCAN/DIFF AUTO DIFF CONFIRMED; TEARDROP RBCS 1+ (NORMAL)
[2017-04-14] MEDS ORDERED: CALCIUM GLUCONATE 500 MG TAB PO ONE (01:15)
[2017-04-14] MEDS ORDERED: FURO20TA PO (11:38)
[2017-05-10] MEDS ORDERED: FURO20TA PO (10:18)
== END 2017-04-14 02:25 | disposition home or self-care (01) ==
LOC: NEPE 22:54
DX: K62.3 Rectal prolapse (principal); I13.0 Hypertensive heart and chronic kidney disease with heart failure and stage 1 through stage 4 chronic kidney disease, or unspecified chronic kidney disease; N18.9 Chronic kidney disease, unspecified; I50.9 Heart failure, unspecified; Z95.810 Presence of automatic (implantable) cardiac defibrillator; Z79.01 Long term (current) use of anticoagulants
CPT/HCPCS: 80048; 85025; 99284

== ENCOUNTER 2017-04-14 11:31 | Emergency (ER) | payer MEDICAID ==
[~2017-04-14] VITALS: Ht 170.2 cm; Wt 69.0 kg
[~2017-04-14 11:31] MED LIST changes: +POTA10CA PO
[2017-04-14 11:35] VITALS: BP 98/71; PULSE 89; RESP 24; TEMP 97.8; O2SAT 94
[2017-04-14] MEDS ORDERED: FURO20TA PO (11:38)
[2017-04-14 11:54] VITALS: RESP 24; O2SAT 94
--- NOTE | 2017-04-14 11:56 | PD ---
HPI Chief Complaint: shortness of breath Time Seen by Provider: 11:45 Travel History International Travel<30 days: No Contact w/Intl Traveler<30days: No Traveled to known affect area: No History of Present Illness HPI 47-year-old male with history of cardiomyopathy with a reported ejection fraction of 15%, on hospice care, rectal prolapse, ICD placement who presents via EMS for evaluation of shortness of breath. The patient reports shortness of breath since this morning. Worse when lying down, walking. He denies chest pain, nausea or vomiting, fevers or chills, abdominal pain. He reports that he has been compliant with his medications. He was recently admitted here on April 10 with the admitting diagnosis of acute renal failure, congestive heart failure , hyperkalemia, ascites, pneumonia. Discharged on April 12, prescribed Lasix 40 mg once a day. He reports that he has been using the medication as prescribed since yesterday, did not use it this morning. He reports that he typically eats whatever he wantson a typical day he eats noodles, cheese, crackers, peanut butter and jelly. On 3 L home oxygen. He has no other complaints at this time. PFSH Past Medical History Hx Anticoagulant Therapy: Yes Asthma: No Blood Disorders: No Anxiety: No Depression: No Heart Rhythm Problems: Yes ( HX. VTACH ) Cancer: No Cardiomyopathy: Yes Cardiovascular Problems: Yes High Cholesterol: Yes Chemotherapy: No Chest Pain: Yes Congestive Heart Failure: Yes COPD: No Diabetes: No Diminished Hearing: No Endocrine: No Gastrointestinal Disorders: No Genitourinary: No Hypertension: Yes Immune Disorder: No Implanted Vascular Access Dvce: Yes (AICD defibrillator) Musculoskeletal: No Neurologic: No Psychiatric: No Reproductive: No Respiratory: Yes Immunizations Current: Yes Radiation Therapy: No Sleep Apnea: No Thyroid Disease: No Past Surgical History AICD: Yes (AICD, [employer]) Body Medical Devices: defibrib Cardiac Surgery: Yes (DEFIBRILLATOR) Neurologic Surgery: No Other Surgery: Yes Social History Alcohol Use: No Tobacco Use: No (never) Substance Use: No Allergies-Medications (Allergen,Severity, Reaction): Coded Allergies: No Known Allergies (Unverified , 04/14/17) Reported Meds & Prescriptions Reported Meds & Active Scripts Active Reported Furosemide 20 Mg Tab 20 Mg PO DAILY Potassium Chloride ER (Potassium Chloride) 10 Meq Cap 10 Meq PO DAILY Review of Systems Except as stated in HPI: all other systems reviewed are Neg Physical Exam Narrative GENERAL: Chronically ill-appearing male who is in no acute distress. SKIN: Warm and dry. HEAD: Atraumatic. Normocephalic. EYES: Pupils equal and round. No scleral icterus. No injection or drainage. ENT: No nasal bleeding or discharge. Mucous membranes pink and moist. NECK: Trachea midline. No JVD. CARDIOVASCULAR: Regular rate and rhythm. No murmur appreciated. RESPIRATORY: No accessory muscle use. Clear to auscultation. Breath sounds equal bilaterally. Somewhat tachypneic. No crackles or wheezing. GASTROINTESTINAL: Abdomen soft, mildly distended, nontender. No guarding. MUSCULOSKELETAL: No obvious deformities. 1+ pitting edema bilaterally. NEUROLOGICAL: Awake and alert. No obvious cranial nerve deficits. Motor grossly within normal limits. Normal speech. PSYCHIATRIC: Appropriate mood and affect; insight and judgment normal. Data Data Last Documented VS Vital Signs Date Time Temp Pulse Resp B/P Pulse Ox O2 Delivery O2 Flow Rate FiO2 04/14/17 11:54 94 Nasal Cannula 3 04/14/17 11:54 24 04/14/17 11:35 97.8 89 98/71 Orders Complete Blood Count With Diff (04/14/17 11:50) Comprehensive Metabolic Panel (04/14/17 11:50) B-Type Natriuretic Peptide (04/14/17 11:50) Act Partial Throm Time (Ptt) (04/14/17 11:50) Prothrombin Time / Inr (Pt) (04/14/17 11:50) Arterial Blood Gas (Abg) (04/14/17 11:50) Iv Access Insert/Monitor (04/14/17 11:50) Ecg Monitoring (04/14/17 11:50) Oximetry (04/14/17 11:50) Oxygen Administration (04/14/17 11:50) Chest, Single Ap (04/14/17 11:50) Sodium Chloride 0.9% Flush (Ns Flush) (04/14/17 12:00) Furosemide Inj (Lasix Inj) (04/14/17 12:00) Labs Laboratory Tests Test 04/14/17 04/14/17 11:45 11:56 White Blood Count 7.1 TH/MM3 Red Blood Count 3.53 MIL/MM3 Hemoglobin 9.8 GM/DL Hematocrit 31.2 % Mean Corpuscular Volume 88.3 FL Mean Corpuscular Hemoglobin 27.6 PG Mean Corpuscular Hemoglobin 31.3 % Concent Red Cell Distribution Width 16.7 % Platelet Count 156 TH/MM3 Mean Platelet Volume 8.8 FL Neutrophils (%) (Auto) 61.3 % Lymphocytes (%) (Auto) 26.7 % Monocytes (%) (Auto) 11.4 % Eosinophils (%) (Auto) 0.2 % Basophils (%) (Auto) 0.4 % Neutrophils # (Auto) 4.4 TH/MM3 Lymphocytes # (Auto) 1.9 TH/MM3 Monocytes # (Auto) 0.8 TH/MM3 Eosinophils # (Auto) 0.0 TH/MM3 Basophils # (Auto) 0.0 TH/MM3 CBC Comment DIFF FINAL Differential Comment Prothrombin Time 12.7 SEC Prothromb Time International 1.1 RATIO Ratio Activated Partial 25.4 SEC Thromboplast Time Sodium Level 138 MEQ/L Potassium Level 5.0 MEQ/L Chloride Level 105 MEQ/L Carbon Dioxide Level 26.3 MEQ/L Anion Gap 7 MEQ/L Blood Urea Nitrogen 27 MG/DL Creatinine 1.18 MG/DL Estimat Glomerular Filtration 81 ML/MIN Rate Random Glucose 91 MG/DL Calcium Level 8.2 MG/DL Total Bilirubin 1.2 MG/DL Aspartate Amino Transf 280 U/L (AST/SGOT) Alanine Aminotransferase 372 U/L (ALT/SGPT) Alkaline Phosphatase 232 U/L B-Type Natriuretic Peptide 2925 PG/ML Total Protein 6.2 GM/DL Albumin 2.6 GM/DL Blood Gas Puncture Site RT BRACHIAL Blood Gas Patient Temperature 98.6 Blood Gas HCO3 20 mmol/L Blood Gas Base Excess -2.0 mmol/L Blood Gas Oxygen Saturation 98 % Arterial Blood pH 7.60 Arterial Blood Partial 20 mmHg Pressure CO2 Arterial Blood Partial 137 mmHG Pressure O2 Arterial Blood Oxygen Content 13.5 Vol % Arterial Blood 1.7 % Carboxyhemoglobin Arterial Blood Methemoglobin 0.3 % Blood Gas Hemoglobin 9.7 G/DL Oxygen Delivery Device NASAL CANNULA Blood Gas Liter Flow 3 L/M MDM Medical Decision Making Medical Screen Exam Complete: Yes Emergency Medical Condition: Yes Medical Record Reviewed: Yes Interpretation(s) EKG normal sinus rhythm, first-degree AV block, previous inferior [place], unchanged from previous EKG on file. CMP AST to 80, and ALT 372 Differential Diagnosis CHF exacerbation, pleural effusion, pneumonia, pneumothorax, pulmonary embolism , medication noncompliance Narrative Course 7-year-old male with cardiomyopathy presents via EMS for worsening shortness of breath since this morning. On examination he is somewhat tachypneic, 1+ pitting edema in lower extremities. Plan is for basic lab work and EKG ECG monitoring pulse oximetry, ABG, chest x-ray. Chest x-ray reveals bibasilar opacities, essentially unchanged from previous x- ray. No leukocytosis. Stable hemoglobin. ABG reveals some hypocapnia, pH 7.6. Recommended decreasing the oxygen level from 3 L to 2 L to compensate for this. He was given 40 mg IV dose of Lasix, he was monitored here for some time with no acute decompensation. His BNP is 295 which is actually significantly improved from 4 days ago. He is stable for discharge, outpatient follow-up. Diagnosis Primary Impression: CHF (congestive heart failure) Qualified Code: I50.9 - Acute on chronic congestive heart failure, unspecified congestive heart failure type Referrals: Primary Care Physician Med/Other Pt SpecificInfo: No Change to Meds Disposition: 01 DISCHARGE HOME Condition: Stable Marco Antonio Espinoza April 14, 2017 11:56
[2017-04-14] MEDS: SODIUM CHLORIDE 0.9% FLUSH 10 ML FLUSH IVF PRN ×2 (11:57→12:11)
[2017-04-14] MEDS ORDERED: FUROSEMIDE 40 MG/4 ML VIAL IV PUSH ONE (12:00)
[2017-04-14 12:03] LABS: BLOOD GAS CARBOXYHEMOGLOBIN 1.7 % (0-4); BLOOD GAS HCO3 20 mmol/L (22-26); BLOOD GAS METHEMOGLOBIN 0.3 % (0-2); BLOOD GAS O2 HGB SATURATION 98 % (90-100); BLOOD GAS OXYGEN CONTENT 13.5 Vol % (12.0-20.0); BLOOD GAS PCO2 20 mmHg (38-42); BLOOD GAS PO2 137 mmHG (61-120); BLOOD GAS TOTAL HGB 9.7 G/DL (12.0-16.0); CRITICAL VALUE YES; DRAW SITE RT BRACHIAL; LITER FLOW 3 L/M; NUMBER OF ARTERIAL PUNCTURES 1; OXYGEN DEVICE NASAL CANNULA; STAT YES; TEMP CORR TO 98.6
[2017-04-14 12:12] LABS: AUTOMATED NEUTROPHIL # 4.4 TH/MM3 (1.8-7.7); BASOPHIL % 0.4 % (0.0-2.0); EOSINOPHIL % 0.2 % (0.0-4.0); HEMATOCRIT 31.2 % (39.0-51.0); HEMO FLAGS DIFF FINAL; LYMPH % 26.7 % (9.0-44.0); LYMPHOCYTE # 1.9 TH/MM3 (1.0-4.8); MEAN CELL VOLUME 88.3 FL (80.0-100.0); MEAN CORPUSCULAR HEMOGLOBIN 27.6 PG (27.0-34.0); MEAN CORPUSCULAR HGB CONC 31.3 % (32.0-36.0); MONO % 11.4 % (0.0-8.0); NEUT % 61.3 % (16.0-70.0); PLATELET COUNT 156 TH/MM3 (150-450); RED BLOOD COUNT 3.53 MIL/MM3 (4.50-5.90); RED CELL DISTRIBUTION WIDTH 16.7 % (11.6-17.2); WHITE BLOOD COUNT 7.1 TH/MM3 (4.0-11.0)
[2017-04-14 12:22] LABS: APTT (PATIENT) 25.4 SEC (24.3-30.1); INTERNATIONAL NORMALIZED RATIO 1.1 RATIO; PROTHROMBIN TIME - PATIENT 12.7 SEC (9.8-11.6)
--- NOTE | 2017-04-14 12:27 | RADRPT ---
EXAM DATE/TIME: 04/14/2017 12:00 [facility] COMPARISON: CT ABDOMEN & PELVIS W/O CONTRAST, April 10, 2017, 6:17. CHEST SINGLE AP, April 10, 2017, 4:30. INDICATIONS : Short of breath since early this morning, pain right anterior chest MEDICAL HISTORY : Cardiovascular disease. Congestive heart failure. Hypertension. A-fib, claudication SURGICAL HISTORY : ACID defibrillator ENCOUNTER: Initial ACUITY: 1 day PAIN SCORE: 3/10 LOCATION: Right chest FINDINGS: Portable AP view of the chest demonstrates stable enlargement of the cardiac silhouette. Single lead left chest wall cardiac pacing device/AICD is present. There is persistent bibasilar opacity, left gr eater than right. No pneumothorax is visualized. CONCLUSION: 1. Stable chest x-ray with bibasilar opacities likely representing small pleural effusions with assoc iated atelectasis and/or consolidation. 2. Stable enlargement of the cardiac silhouette. Steven Wright MD on April 14, 2017 at 12:23 Board Certified Radiologist. This report was verified electronically.
[2017-04-14 12:38] LABS: ALKALINE PHOSPHATASE 232 U/L (45-117); ALT (GPT) 372 U/L (12-78); ANION GAP 7 MEQ/L (5-15); AST (GOT) 280 U/L (15-37); BICARBONATE 26.3 MEQ/L (21.0-32.0); BLOOD UREA NITROGEN 27 MG/DL (7-18); CHLORIDE 105 MEQ/L (98-107); GLOMERULAR FILTRATION RATE 81 ML/MIN (>89); SODIUM (NA) 138 MEQ/L (136-145); TOTAL BILIRUBIN ADULT 1.2 MG/DL (0.2-1.0)
[2017-04-14 13:30] VITALS: BP 100/67; TEMP 97.8
--- NOTE | 2017-04-15 14:30 | EKG ---
Date Performed: 04/14/2017 Time Performed: 11:43:09 PTAGE: 47 years EKG: Sinus rhythm WITH FIRST DEGREE AV BLOCK LEFT ATRIAL ENLARGEMENT MARKED RIGHT AXIS DEVIATION LOW QRS VOLTAGE IN EX TREMITY LEADS PATTERN CONSISTENT WITH PULMONARY DISEASE POSSIBLE RIGHT VENTRICULAR CONDUCTION DELAY I NFERIOR MYOCARDIAL INFARCTION ABNORMAL ECG Compared to prior tracing no significant change PREVIOUS TRACING : 04/10/2017 03.53 DOCTOR: Hernan Henriquez Interpretating Date/Time 04/15/2017 14:24:27
[2017-05-10] MEDS ORDERED: FURO20TA PO (10:18)
== END 2017-04-14 12:55 | disposition home or self-care (01) ==
LOC: NEPC 11:31
DX: I50.9 Heart failure, unspecified (principal); I42.9 Cardiomyopathy, unspecified; I10 Essential (primary) hypertension; Z95.810 Presence of automatic (implantable) cardiac defibrillator; R94.31 Abnormal electrocardiogram [ECG] [EKG]; Z79.01 Long term (current) use of anticoagulants
CPT/HCPCS: 36600; 71010; 80053; 82805; 83880; 85025; 85610; 85730; 93005; 96374; 99284; J1940

== ENCOUNTER 2017-04-23 04:44 | Inpatient (IN) | payer MEDICAID ==
[~2017-04-23] VITALS: Ht 172.7 cm; Wt 61.6 kg
[~2017-04-23 04:44] MED LIST changes: -FURO1TAB60 PO; +FURO20TA PO
[2017-04-23 05:07] VITALS: BP 140/77; PULSE 80; RESP 16; TEMP 98.7; O2SAT 96
[2017-04-23 05:30] VITALS: BP 104/70; PULSE 105; RESP 16; O2SAT 100
[2017-04-23 05:53] LABS: APTT (PATIENT) 27.4 SEC (24.3-30.1); INTERNATIONAL NORMALIZED RATIO 1.4 RATIO; PROTHROMBIN TIME - PATIENT 15.8 SEC (9.8-11.6)
[2017-04-23 05:54] LABS: AUTOMATED NEUTROPHIL # 8.7 TH/MM3 (1.8-7.7); BASOPHIL % 0.2 % (0.0-2.0); HEMATOCRIT 27.1 % (39.0-51.0); HEMO FLAGS DIFF FINAL; LYMPH % 8.7 % (9.0-44.0); LYMPHOCYTE # 0.9 TH/MM3 (1.0-4.8); MEAN CELL VOLUME 89.8 FL (80.0-100.0); MEAN CORPUSCULAR HEMOGLOBIN 28.3 PG (27.0-34.0); MEAN CORPUSCULAR HGB CONC 31.6 % (32.0-36.0); MONO % 6.5 % (0.0-8.0); NEUT % 84.6 % (16.0-70.0); PLATELET COUNT 215 TH/MM3 (150-450); RED BLOOD COUNT 3.02 MIL/MM3 (4.50-5.90); RED CELL DISTRIBUTION WIDTH 17.6 % (11.6-17.2); WHITE BLOOD COUNT 10.3 TH/MM3 (4.0-11.0)
[2017-04-23] MEDS ORDERED: MAAL10003 CHEW (05:55)
[2017-04-23] MEDS ORDERED: LOPE2CAP PO (05:55)
--- NOTE | 2017-04-23 05:57 | PD ---
HPI Chief Complaint: GI Complaint Time Seen by Provider: 05:03 Travel History International Travel<30 days: No Contact w/Intl Traveler<30days: No Traveled to known affect area: No History of Present Illness HPI 47-year-old male complains of rectal prolapse and coughing and hemoptysis. Patient has history of CHF and rectal prolapse. Patient was evaluated by colorectal surgeon in the past. Patient was evaluated not candidate for surgery because of medical problem. Patient has history of CHF and also chronic kidney disease and it was evaluated by [employer] nephrology and palliative care. Patient is in hospice. Patient stated that he started having a cough with some blood-tinged sputum. Patient denies any chest pain or shortness of breath. Patient states that he noticed some blood per rectum also. Patient denies any fever chills. PFSH Past Medical History Hx Anticoagulant Therapy: Yes Asthma: No Blood Disorders: No Anxiety: No Depression: No Heart Rhythm Problems: Yes ( HX. VTACH ) Cancer: No Cardiomyopathy: Yes Cardiovascular Problems: Yes High Cholesterol: Yes Chemotherapy: No Chest Pain: Yes Congestive Heart Failure: Yes COPD: No Diabetes: No Diminished Hearing: No Endocrine: No Gastrointestinal Disorders: No Genitourinary: No Hypertension: Yes Immune Disorder: No Implanted Vascular Access Dvce: Yes (AICD defibrillator) Musculoskeletal: No Neurologic: No Psychiatric: No Reproductive: No Respiratory: Yes Immunizations Current: Yes Radiation Therapy: No Past Surgical History AICD: Yes (AICD, [employer]) Body Medical Devices: defibrib Cardiac Surgery: Yes (DEFIBRILLATOR) Neurologic Surgery: No Other Surgery: Yes Social History Alcohol Use: No Tobacco Use: No (never) Substance Use: No (PT DENIES BUT HAS HX COCAINE ABUSE IN PAST) Allergies-Medications (Allergen,Severity, Reaction): Coded Allergies: No Known Allergies (Unverified , 04/14/17) Reported Meds & Prescriptions Reported Meds & Active Scripts Active Reported Tussin Dm Max Adult Liq (Dextromethorphan-Guaifenesin Liq) 10-200 Mg/5 Ml Liq 5 Ml PO Q4H PRN Tylenol (Acetaminophen) 325 Mg Tab 500 Mg PO Q4HR Ativan (Lorazepam) 0.5 Mg Tab 0.5 Mg PO Q6H PRN Loperamide (Loperamide HCl) 2 Mg Cap 2 Mg PO DIRECTED PRN One capsule after each loose stool. Not to exceed 8 capsules per day. Maalox Advanced Maximum Strength (Calcium Carbonate-Simethicone) 1,000-60 Mg Chew 1 Tab CHEW PRN Furosemide 20 Mg Tab 20 Mg PO DAILY Potassium Chloride ER (Potassium Chloride) 10 Meq Cap 10 Meq PO DAILY Review of Systems General / Constitutional: No: Fever Eyes: No: Visual changes HENT: No: Headaches Cardiovascular: No: Chest Pain or Discomfort Respiratory: No: Shortness of Breath Gastrointestinal: No: Abdominal Pain Genitourinary: No: Dysuria Musculoskeletal: No: Pain Skin: No Rash Neurologic: No: Weakness Psychiatric: No: Depression Endocrine: No: Polydipsia Hematologic/Lymphatic: No: Easy Bruising Physical Exam Narrative GENERAL: Well-nourished, well-developed patient. SKIN: Focused skin assessment warm/dry. HEAD: Normocephalic. EYES: No scleral icterus. No injection or drainage. NECK: Supple, trachea midline. No JVD or lymphadenopathy. CARDIOVASCULAR: Regular rate and rhythm without murmurs, gallops, or rubs. RESPIRATORY: Breath sounds equal bilaterally. No accessory muscle use. GASTROINTESTINAL: Abdomen soft, non-tender, nondistended. MUSCULOSKELETAL: No cyanosis, or edema. BACK: Nontender without obvious deformity. No CVA tenderness. Patient has a large rectal prolapse. Patient has small amount blood on the diaper covering over the prolapse. Data Data Last Documented VS Vital Signs Date Time Temp Pulse Resp B/P Pulse Ox O2 Delivery O2 Flow Rate FiO2 04/23/17 05:30 105 16 104/70 100 Room Air 2 04/23/17 05:07 98.7 Orders Electrocardiogram (04/23/17 05:23) Complete Blood Count With Diff (04/23/17 05:23) Comprehensive Metabolic Panel (04/23/17 05:23) B-Type Natriuretic Peptide (04/23/17 05:23) Prothrombin Time / Inr (Pt) (04/23/17 05:23) Act Partial Throm Time (Ptt) (04/23/17 05:23) Chest, Single Ap (04/23/17 05:23) Iv Access Insert/Monitor (04/23/17 05:23) Ecg Monitoring (04/23/17 05:23) Oximetry (04/23/17 05:23) Dextrose 50% In Justin (Vial) Inj (D50w (Vi (04/23/17 06:45) Insulin Human Regular Inj (Novolin R Inj (04/23/17 06:45) Sodium Bicarbonate 8.4% Inj (Sodium Bica (04/23/17 06:45) Calcium Chloride Inj (Calcium Chloride I (04/23/17 06:45) Labs Laboratory Tests Test 04/23/17 05:30 White Blood Count 10.3 TH/MM3 Red Blood Count 3.02 MIL/MM3 Hemoglobin 8.6 GM/DL Hematocrit 27.1 % Mean Corpuscular Volume 89.8 FL Mean Corpuscular Hemoglobin 28.3 PG Mean Corpuscular Hemoglobin 31.6 % Concent Red Cell Distribution Width 17.6 % Platelet Count 215 TH/MM3 Mean Platelet Volume 9.4 FL Neutrophils (%) (Auto) 84.6 % Lymphocytes (%) (Auto) 8.7 % Monocytes (%) (Auto) 6.5 % Eosinophils (%) (Auto) 0.0 % Basophils (%) (Auto) 0.2 % Neutrophils # (Auto) 8.7 TH/MM3 Lymphocytes # (Auto) 0.9 TH/MM3 Monocytes # (Auto) 0.7 TH/MM3 Eosinophils # (Auto) 0.0 TH/MM3 Basophils # (Auto) 0.0 TH/MM3 CBC Comment DIFF FINAL Differential Comment Prothrombin Time 15.8 SEC Prothromb Time International 1.4 RATIO Ratio Activated Partial 27.4 SEC Thromboplast Time Sodium Level 139 MEQ/L Potassium Level 6.0 MEQ/L Chloride Level 107 MEQ/L Carbon Dioxide Level 18.0 MEQ/L Anion Gap 14 MEQ/L Blood Urea Nitrogen 30 MG/DL Creatinine 1.59 MG/DL Estimat Glomerular Filtration 57 ML/MIN Rate Random Glucose 80 MG/DL Calcium Level 8.4 MG/DL Total Bilirubin 1.2 MG/DL Aspartate Amino Transf 57 U/L (AST/SGOT) Alanine Aminotransferase 107 U/L (ALT/SGPT) Alkaline Phosphatase 164 U/L B-Type Natriuretic Peptide 3970 PG/ML Total Protein 6.0 GM/DL Albumin 2.3 GM/DL MDM Medical Decision Making Medical Screen Exam Complete: Yes Emergency Medical Condition: Yes Interpretation(s) 6:46 AM. CBC WBC 10.3. Hemoglobin 8.6 hematocrit 27.1. 84 neutrophil. Potassium 6.0. Bicarbonate 18.0. BUN 30. Creatinine 1.59. GFR 57. Calcium 8.4. Liver function enzyme elevated. BNP 3970. INR 1.4. Differential Diagnosis Differential diagnosis including rectal prolapse, bronchitis, pneumonia, acute exacerbation of CHF, PE, pneumothorax. Narrative Course 47-year-old male with recurrent rectal prolapse and coughing with blood-tinged sputum. History of CHF and history of rectal prolapse. Novolin R 8 units IV given. Dextrose 1 amp IV given. Calcium chloride 1 g IV given. Bicarbonate 1 amp IV given. Attempts to reduce rectal prolapse with sugar and pressure unsuccessful. Dr. Rios, colonrectal surgeon was contacted and will see the patient. Jett Nunes MD Apr 23, 2017 05:57
[2017-04-23 05:59] LABS: ALKALINE PHOSPHATASE 164 U/L (45-117); TOTAL BILIRUBIN ADULT 1.2 MG/DL (0.2-1.0)
[2017-04-23 06:01] LABS: ALT (GPT) 107 U/L (12-78); ANION GAP 14 MEQ/L (5-15); AST (GOT) 57 U/L (15-37); BLOOD UREA NITROGEN 30 MG/DL (7-18); CHLORIDE 107 MEQ/L (98-107); GLOMERULAR FILTRATION RATE 57 ML/MIN (>89); SODIUM (NA) 139 MEQ/L (136-145)
[2017-04-23] MEDS ORDERED: LORA-392 PO (06:31)
[2017-04-23] MEDS ORDERED: TYLE325T PO (06:31)
[2017-04-23] MEDS ORDERED: DEXT5LIQ12 PO (06:38)
[2017-04-23] MEDS ORDERED: SODIUM BICARBONATE 8.4% INJ 50 MEQ/50 ML SYR IV PUSH ONE (06:45)
[2017-04-23] MEDS ORDERED: CALCIUM CHLORIDE INJ 1 GM in SODIUM CHLORIDE 0.9% INJ 100 ML IV ONE (06:45)
[2017-04-23] MEDS ORDERED: DEXTROSE 50% IN WATER 50 ML VIAL(D50) IV PUSH ONE (06:45)
[2017-04-23] MEDS ORDERED: INSULIN HUMAN REGULAR 1,000 UNITS/10 ML VIAL IV PUSH ONE (06:45)
--- NOTE | 2017-04-23 07:20 | RADRPT ---
EXAM DATE/TIME: 04/23/2017 07:10 [facility] COMPARISON: CHEST SINGLE AP, April 14, 2017, 12:00. INDICATIONS : Shortness of breath, cough MEDICAL HISTORY : Cardiovascular disease. Congestive heart failure. Hypertension. A-fib SURGICAL HISTORY : ACID defibrillator ENCOUNTER: Initial ACUITY: 1 day PAIN SCORE: 5/10 LOCATION: Bilateral chest FINDINGS: Single AP view of the chest. AICD in place. Cardiac silhouette unchanged. Bilateral lower lung zone p arenchymal opacity unchanged along with small bilateral pleural effusions. No evidence of pneumothora x. CONCLUSION: No significant interval change. Persistent bilateral lower lung consolidation versus atelectasis and small bilateral pleural effusions. Thomas Granados MD on April 23, 2017 at 7:17 Board Certified Radiologist. This report was verified electronically.
--- NOTE | 2017-04-23 08:44 | HHI.HP ---
[facility]Staff Admission Diagnosis Rectal prolapse. Hyperkalemia. CHF. Renal Insufficiency Diagnoses: (1) Rectal prolapse (2) Hyperkalemia (3) Acute on chronic systolic and diastolic heart failure, NYHA class 4 Chief Complaint: Rectal prolapse Travel History International Travel<30 Days: No Contact w/Intl Traveler <30 Da: No Traveled to Known Affected Are: No History of Present Illness 47-year-old male with a history of stage IV CHF, recurrent rectal prolapse currently admitted to hospice was brought in to the ED for evaluation of episode of rectal prolapse which occurred after 8 PM last night as a result of intermittent coughing episodes/spills. Initial extent by the ED physician fell to return the rectum again back to his original place, colorectal surgery has been consulted. H&H on admission 8.6/27.1, K 6.0, BUN/ creatinine 30/1.59 and BNP of 3970. Patient status post treatment with Novolin R 8 units IV ,Dextrose 1 amp IV, Calcium chloride 1 g IV ,Bicarbonate 1 amp IV secondary to high potassium. Patient denies any significant shortness of breath though he reports some bilateral lower extremities edema. Although he reports some episode of hemoptysis only with cough but a small amount. Review of Systems Except as stated in HPI: all other systems reviewed are Neg Past Family Social History Past Medical History CHF Renal insufficiency Dyslipidemia Hypertension Rectal prolapse Past Surgical History ICD placement Reported Medications Tussin Dm Max Adult Liq (Dextromethorphan-Guaifenesin Liq) 10-200 Mg/5 Ml Liq 5 Ml PO Q4H PRN Tylenol (Acetaminophen) 325 Mg Tab 500 Mg PO Q4HR Ativan (Lorazepam) 0.5 Mg Tab 0.5 Mg PO Q6H PRN Loperamide (Loperamide HCl) 2 Mg Cap 2 Mg PO DIRECTED PRN One capsule after each loose stool. Not to exceed 8 capsules per day. Maalox Advanced Maximum Strength (Calcium Carbonate-Simethicone) 1,000-60 Mg Chew 1 Tab CHEW PRN Furosemide 20 Mg Tab 20 Mg PO DAILY Potassium Chloride ER (Potassium Chloride) 10 Meq Cap 10 Meq PO DAILY Allergies: Coded Allergies: No Known Allergies (Unverified , 04/14/17) Family History Heart Disease in brother. Social History no smoking, drinking or illicit drug abuse. Physical Exam Vital Signs Vital Signs Date Time Temp Pulse Resp B/P Pulse Ox O2 Delivery O2 Flow Rate FiO2 04/23/17 05:30 105 16 104/70 100 Room Air 2 04/23/17 05:07 98.7 80 16 140/77 96 Physical Exam GENERAL: This is a well-nourished, well-developed patient, in no apparent distress. SKIN: No rashes, ecchymoses or lesions. Cool and dry. HEAD: Atraumatic. Normocephalic. No temporal or scalp tenderness. EYES: Pupils equal round and reactive. Extraocular motions intact. No scleral icterus. No injection or drainage. ENT: Nose without bleeding, purulent drainage or septal hematoma. Throat without erythema, tonsillar hypertrophy or exudate. Uvula midline. Airway patent. NECK: Trachea midline. No JVD or lymphadenopathy. Supple, nontender, no meningeal signs. CARDIOVASCULAR: Regular rate and rhythm without murmurs, gallops, or rubs. RESPIRATORY: Clear to auscultation. Breath sounds equal bilaterally. No wheezes , rales, or rhonchi. GASTROINTESTINAL: Abdomen soft, non-tender, nondistended. No hepato-splenomegaly , or palpable masses. No guarding. MUSCULOSKELETAL: Extremities without clubbing, cyanosis, or edema. No joint tenderness, effusion, or edema noted. No calf tenderness. Negative Homans sign bilaterally. NEUROLOGICAL: Awake and alert. Cranial nerves II through XII intact. Motor and sensory grossly within normal limits. Five out of 5 muscle strength in all muscle groups. Normal speech. : Patient has a large rectal prolapse. Patient has small amount blood on the diaper covering over the prolapse. Laboratory Laboratory Tests Test 04/23/17 05:30 White Blood Count 10.3 Red Blood Count 3.02 Hemoglobin 8.6 Hematocrit 27.1 Mean Corpuscular Volume 89.8 Mean Corpuscular Hemoglobin 28.3 Mean Corpuscular Hemoglobin 31.6 Concent Red Cell Distribution Width 17.6 Platelet Count 215 Mean Platelet Volume 9.4 Neutrophils (%) (Auto) 84.6 Lymphocytes (%) (Auto) 8.7 Monocytes (%) (Auto) 6.5 Eosinophils (%) (Auto) 0.0 Basophils (%) (Auto) 0.2 Neutrophils # (Auto) 8.7 Lymphocytes # (Auto) 0.9 Monocytes # (Auto) 0.7 Eosinophils # (Auto) 0.0 Basophils # (Auto) 0.0 CBC Comment DIFF FINAL Differential Comment Prothrombin Time 15.8 Prothromb Time International 1.4 Ratio Activated Partial 27.4 Thromboplast Time Sodium Level 139 Potassium Level 6.0 Chloride Level 107 Carbon Dioxide Level 18.0 Anion Gap 14 Blood Urea Nitrogen 30 Creatinine 1.59 Estimat Glomerular Filtration 57 Rate Random Glucose 80 Calcium Level 8.4 Total Bilirubin 1.2 Aspartate Amino Transf 57 (AST/SGOT) Alanine Aminotransferase 107 (ALT/SGPT) Alkaline Phosphatase 164 B-Type Natriuretic Peptide 3970 Total Protein 6.0 Albumin 2.3 Result Diagram: 04/23/1752904/23/17 05 Imaging Last Impressions Chest X-Ray 04/23/17522 Signed Impressions: Service Date/Time: Tuesday, April 23, 2017 07:10 - CONCLUSION: No significant interval change. Persistent bilateral lower lung consolidation versus atelectasis and small bilateral pleural effusions. Thomas Granados MD Assessment and Plan Problem List: (1) Rectal prolapse ICD Code: K62.3 Status: Acute (2) Hyperkalemia ICD Code: E87.5 Status: Acute (3) Acute on chronic systolic CHF (congestive heart failure), NYHA class 4 ICD Code: I50.23 Status: Acute Assessment and Plan 47-year-old man with Rectal prolapse Colorectal surgery consultation pending for reduction Continue with stool softener, start parenteral pain medication when necessary Acute on chronic systolic CHF class IV Chest x-ray noted and reviewed by me with finding of No significant interval change. Persistent bilateral lower lung consolidation versus atelectasis and small bilateral pleural effusions. BNP of 3970 IV Lasix every 12 hours Continue with hospice Cardiology consultation when necessary Hyperkalemia s/p Novolin R 8 units IV ,Dextrose 1 amp IV, Calcium chloride 1 g IV , Bicarbonate 1 amp IV Monitor BMP Acute kidney injury superimposed on chronic renal insufficiency with hyperkalemia Monitor BUN/creatinine and avoid all nephrotoxic drugs Nephrology consultation when necessary Transaminitis/coagulopathy likely due to CHF/ hepatic congestion Monitor LFTs Hyperlipidemia Hold statin secondary to transaminitis Code Status DO NOT RESUSCITATE Discussed Condition With Patient, ED physician Physician Certification 2 Midnight Certification Type: Admission for Inpatient Services Order for Inpatient Services The services are ordered in accordance with Medicare regulations or non- Medicare payer requirements, as applicable. In the case of services not specified as inpatient-only, they are appropriately provided as inpatient services in accordance with the 2-midnight benchmark. Estimated LOS (days): 2 days is the estimated time the patient will need to remain in the hospital, assuming treatment plan goals are met and no additional complications. Post-Hospital Plan: Not yet determined Bari Summers MD Apr 23, 2017 08:44
[2017-04-23] MEDS ORDERED: NALOXONE HCL 0.4 MG/ML AMP IV PRN (08:45)
[2017-04-23] MEDS ORDERED: LOPERAMIDE HCL 2 MG CAP PO PRN (08:45)
[2017-04-23] MEDS ORDERED: SODIUM CHLORIDE 0.9% FLUSH 10 ML FLUSH IV FLUSH PRN (08:45)
[2017-04-23] MEDS ORDERED: ACETAMINOPHEN 325 MG TAB PO PRN (08:45)
[2017-04-23] MEDS ORDERED: ONDANSETRON HCL 4 MG/2 ML VIAL IVP PRN (08:45)
[2017-04-23] MEDS ORDERED: LORazepam 0.5 MG TAB PO PRN (08:45)
[2017-04-23] MEDS: SODIUM CHLORIDE 0.9% FLUSH 10 ML FLUSH IV FLUSH SCH ×2 (09:00→21:10)
[2017-04-23 12:00] VITALS: BP 90/65; PULSE 104; RESP 22; TEMP 97.4; O2SAT 99
[2017-04-23 16:00] VITALS: BP 95/65; PULSE 104; RESP 20; TEMP 99.2; O2SAT 95
--- NOTE | 2017-04-23 16:01 | MB ---
cc: YUSUF SANCHEZ MD DATE OF CONSULTATION 04/23/17 REASON FOR CONSULTATION Preoperative evaluation. HISTORY OF PRESENT ILLNESS The patient is a pleasant though unfortunate 47-year-old gentleman with a history of a severe cardiomyopathy and multiple admissions for congestive heart failure. The patient also has a history of noncompliance per the chart. The patient presents with recurrent rectal prolapse. I have been asked to consult regarding his preoperative risk. The patient denies any cardiac symptoms such as chest pain, shortness breath, lightheadedness, dizziness, syncope. PAST MEDICAL HISTORY Cardiomyopathy, last ejection fraction 28, 25% by echocardiogram November 2016 with moderate to severe eccentric mitral regurgitation noted. (In the chart his cardiomyopathy has been labeled drug-induced, though, I cannot find any specific ischemic workup and the patient is unclear about the details). Chronic systolic congestive heart failure, rectal prolapse, hypertension, dyslipidemia, ICD. CURRENT MEDICATIONS 1. Lasix 20 milligrams IV b.i.d. ALLERGIES NO KNOWN DRUG ALLERGIES. PHYSICAL EXAMINATION VITAL SIGNS: Afebrile, pulse 104, respiratory rate 22, BP 90/65, satting 99 on room air. GENERAL: Pleasant though slightly agitated due to apparent discomfort at his rectum. NECK: No JVD. LUNGS: Clear to auscultation bilaterally. CARDIOVASCULAR: Regular rate, rhythm. A soft systolic murmur is appreciated. ABDOMEN: Benign. EXTREMITIES: No edema. LABORATORY DATA White count 10.3, hematocrit 27.1, platelets 215. Sodium 139, potassium 6.0, chloride 107, bicarb 18, BUN 30, creatinine 1.59. BNP is 3970. Tox screen has not been done though in the past has been positive for cocaine and cannabinoids. CARDIOLOGY STUDIES EKG from 04/14/2017 showed sinus rhythm with low-voltage, vertical axis, possible inferior myocardial infarction. IMPRESSION 1. Preoperative evaluation: Patient with a known severe cardiomyopathy with recurrent episodes of CHF will be at high risk for any surgical procedure. The patient adamantly requests this surgery to be performed despite his high risk. I cannot find any ischemic workup in the computer and will have him undergo a nuclear stress test. It certainly is possible that his cardiomyopathy is drug-induced, specifically cocaine that was positive on his prior drug studies but it would be prudent to have a nonischemic nuclear stress test to corroborate that diagnosis. Presuming no major ischemia on the stress test the patient could undergo surgery as a high-risk candidate given that the patient does understand this risk and wishes to proceed regardless. He has chronic congestive heart failure and was given mild IV Lasix. This seems reasonable for the next day or so. Further recommendations will be based on his clinical course. Thank you again for the opportunity to participate in this patient's care. MD NGA Hoffman/JESSE /1:54 PM /3:44 PM
[2017-04-23] MEDS ORDERED: REGADENOSON INJ 0.4 MG/5 ML SYR ONE (16:45)
[2017-04-23] MEDS: FUROSEMIDE 20 MG/2 ML VIAL IV PUSH SCH (17:10)
--- NOTE | 2017-04-23 18:19 | RADRPT ---
EXAM DATE/TIME: 04/23/2017 16:22 [facility] COMPARISON: No previous studies available for comparison. INDICATIONS : Risk stratification prior to general anesthsia. Congestive heart failure. DOSE: 25.1 mCi Tc99m Myoview at stress. 8.7 mCi Tc99m Myoview at rest. 0.4 mg Lexiscan STRESS SYMPTOMS: None noted. EJECTION FRACTION: 14% MEDICAL HISTORY : Hypertension. SURGICAL HISTORY : Pacemaker. Rectal prolapse. ENCOUNTER: Initial ACUITY: 1 day PAIN SCALE: 0/10 LOCATION: chest TECHNIQUE: The patient underwent pharmacologic stress with infusion of prescribed dose. Continuous ECG tracing was monitored during stress. Gated SPECT imaging was performed after stress and conventional SPECT i maging was performed at rest. The examination was performed on a SPECT/CT scanner, both attenuation and non-corrected datasets were reviewed. FINDINGS: DISTRIBUTION: The maximum perfused segment at stress is in the septal wall. PERFUSION STUDY: There is marked dilation of the left ventricular cavity on both the stress and rest images. There is absent perfusion in the inferior and inferolateral segments on both the stress and rest exam. There is some perfusion throughout the remainder of the left ventricular myocardium without evidence of re distribution. The summed stress score is elevated at 15. GATED STUDY: Very poor wall motion. The calculated ejection fraction is less than 20%. Suggestion of dyskinetic segments of the inferior wall. CONCLUSION: 1. No definite evidence of stress-induced ischemia. 2. Marked left ventricular dilation and absent uptake in the inferior wall suggests cardiomyopathy an d prior transmural infarction. 3. Markedly depressed wall motion. The ejection fraction is less than 20%, but given the inferior wa ll fixed defect, SPECT analysis is limited. Wall motion and ejection fraction analysis may be better accomplished with either echocardiography or red blood cell labeled gated cardiogram. RISK CATEGORY: High (>3% Annual Mortality Rate) Danial Huggins MD on April 23, 2017 at 18:13 Board Certified Radiologist. This report was verified electronically.
[2017-04-23 20:00] VITALS: BP 92/62; PULSE 102; PULSE 107; RESP 20; TEMP 98; O2SAT 96
[2017-04-23] MEDS: ACETAMINOPHEN 325 MG TAB PO PRN (21:10)
[2017-04-24] VITALS (11 sets, daily range): BP systolic 84–103; BP diastolic 56–75; PULSE 97–106; RESP 16–20; TEMP 94.7–98.4; O2SAT 96–100
[2017-04-24] MEDS: MORPHINE SULFATE 4 MG/ML INJ IV PUSH PRN ×3 (06:28→22:06)
[2017-04-24 08:35] LABS: AUTOMATED NEUTROPHIL # 9.9 TH/MM3 (1.8-7.7); BASOPHIL % 0.2 % (0.0-2.0); HEMATOCRIT 26.7 % (39.0-51.0); LYMPH % 8.6 % (9.0-44.0); MEAN CELL VOLUME 88.5 FL (80.0-100.0); MEAN CORPUSCULAR HEMOGLOBIN 27.4 PG (27.0-34.0); MEAN CORPUSCULAR HGB CONC 30.9 % (32.0-36.0); MONO % 7.1 % (0.0-8.0); NEUT % 84.1 % (16.0-70.0); PLATELET COUNT 196 TH/MM3 (150-450); RED BLOOD COUNT 3.02 MIL/MM3 (4.50-5.90); RED CELL DISTRIBUTION WIDTH 17.9 % (11.6-17.2); WHITE BLOOD COUNT 11.8 TH/MM3 (4.0-11.0)
[2017-04-24 08:43] LABS: HEMO FLAGS AUTO DIFF
[2017-04-24] MEDS: FUROSEMIDE 20 MG/2 ML VIAL IV PUSH SCH (08:50)
[2017-04-24] MEDS: SODIUM CHLORIDE 0.9% FLUSH 10 ML FLUSH IV FLUSH SCH ×2 (08:51→22:06)
[2017-04-24 09:08] LABS: ALKALINE PHOSPHATASE 135 U/L (45-117); ALT (GPT) 84 U/L (12-78); ANION GAP 11 MEQ/L (5-15); AST (GOT) 44 U/L (15-37); BICARBONATE 22.2 MEQ/L (21.0-32.0); BLOOD UREA NITROGEN 35 MG/DL (7-18); CHLORIDE 106 MEQ/L (98-107); GLOMERULAR FILTRATION RATE 70 ML/MIN (>89); POTASSIUM 4.9 MEQ/L (3.5-5.1); SODIUM (NA) 139 MEQ/L (136-145); TOTAL BILIRUBIN ADULT 1.6 MG/DL (0.2-1.0)
[2017-04-24 09:33] LABS: BANDS 19 % (0-6); CORRECTED NUCLEATED RBC 1 /100 WBC (0-0); METAMYELOCYTES 1 % (0-1); MYELOCYTES 1 % (0-0); NEUTROPHIL # MANUAL DIFF 10.9 TH/MM3 (1.8-7.7); POLYS (SEG NEUTROPHILS) 71 % (16-70); WBC DIFF SAMPLE 100
[2017-04-24 09:36] LABS: ACANTHOCYTES 1+ (NORMAL); KERATOCYTES OCC (NORMAL)
[2017-04-24 09:38] LABS: POLYCHROMASIA 2.6 % (0.0-1.9)
[2017-04-24 09:39] LABS: SCAN/DIFF FINAL DIFF MANUAL
--- NOTE | 2017-04-24 10:27 | PD.CARD.PN ---
Subjective Subjective Remarks No cardiac complaints, pt desperately wants surgery Objective Medications Administered Medications Medications (Trade) Dose Ordered Sig/Aida Route PRN Reason Start Time Stop Time Status Last Admin Dose Admin Sodium Chloride (NS Flush) 2 ml BID IV FLUSH 04/23/17 09:00 04/24/17 08:51 Acetaminophen (Tylenol) 650 mg Q6H PRN PO PAIN SCALE 1 TO 2 04/23/17 08:45 04/23/17 21:10 Morphine Sulfate (Morphine Inj) 2 mg Q8H PRN IV PUSH pain 2-10 04/23/17 09:15 04/24/17 06:28 Vital Signs / I&O Vital Signs Date Time Temp Pulse Resp B/P Pulse Ox O2 Delivery O2 Flow Rate FiO2 04/24/17 09:01 Room Air 04/24/17 08:02 97 04/24/17 08:00 94.7 97 20 98/71 97 04/24/17 04:00 Room Air 04/24/17 04:00 98.4 97 20 88/69 96 04/24/17 00:00 Room Air 04/24/17 00:00 98.2 102 20 101/74 97 04/23/17 20:00 98.0 102 20 92/62 96 04/23/17 20:00 Room Air 04/23/17 20:00 107 04/23/17 16:00 99.2 104 20 95/65 95 04/23/17 12:15 Room Air 04/23/17 12:00 97.4 104 22 90/65 99 I/O 04/23/17 04/23/17 04/23/17 04/24/17 04/24/17 04/24/17 07:00 15:00 23:00 07:00 15:00 23:00 Intake Total 2 ml 150 ml Output Total 100 ml 200 ml Balance 2 ml -100 ml -50 ml Intake Oral 150 ml IV Total 2 ml Output Urine Total 100 ml 200 ml # Bowel Movements 0 Physical Exam GENERAL: This is a well-nourished, well-developed patient, in no apparent distress. CARDIOVASCULAR: Regular rate and rhythm without murmurs, gallops, or rubs. RESPIRATORY: Clear to auscultation. Breath sounds equal bilaterally. No wheezes , rales, or rhonchi. GASTROINTESTINAL: Abdomen soft, non-tender, nondistended. Normal active bowel sounds MUSCULOSKELETAL: Extremities without clubbing, cyanosis, or edema. NEURO: Alert & Oriented x4 to person, place, time, situation. Moves all ext x4 Laboratory Laboratory Tests Test 04/24/17 07:06 White Blood Count 11.8 TH/MM3 Red Blood Count 3.02 MIL/MM3 Hemoglobin 8.3 GM/DL Hematocrit 26.7 % Mean Corpuscular Volume 88.5 FL Mean Corpuscular Hemoglobin 27.4 PG Mean Corpuscular Hemoglobin 30.9 % Concent Red Cell Distribution Width 17.9 % Platelet Count 196 TH/MM3 Mean Platelet Volume 9.0 FL Neutrophils (%) (Auto) 84.1 % Lymphocytes (%) (Auto) 8.6 % Monocytes (%) (Auto) 7.1 % Eosinophils (%) (Auto) 0.0 % Basophils (%) (Auto) 0.2 % Neutrophils # (Auto) 9.9 TH/MM3 Lymphocytes # (Auto) 1.0 TH/MM3 Monocytes # (Auto) 0.8 TH/MM3 Eosinophils # (Auto) 0.0 TH/MM3 Basophils # (Auto) 0.0 TH/MM3 CBC Comment AUTO DIFF Differential Total Cells 100 Counted Neutrophils % (Manual) 71 % Band Neutrophils % 19 % Lymphocytes % 7 % Monocytes % 1 % Neutrophils # (Manual) 10.9 TH/MM3 Metamyelocytes 1 % Myelocytes 1 % Nucleated Red Blood Cells 1 /100 WBC Differential Comment FINAL DIFF MANUAL Polychromasia 2.6 % Target Cells [place] Cells Acanthocytes 1+ Keratocytes OCC Sodium Level 139 MEQ/L Potassium Level 4.9 MEQ/L Chloride Level 106 MEQ/L Carbon Dioxide Level 22.2 MEQ/L Anion Gap 11 MEQ/L Blood Urea Nitrogen 35 MG/DL Creatinine 1.34 MG/DL Estimat Glomerular Filtration 70 ML/MIN Rate Random Glucose 124 MG/DL Calcium Level 8.5 MG/DL Total Bilirubin 1.6 MG/DL Aspartate Amino Transf 44 U/L (AST/SGOT) Alanine Aminotransferase 84 U/L (ALT/SGPT) Alkaline Phosphatase 135 U/L Total Protein 5.4 GM/DL Albumin 2.1 GM/DL Imaging Last Impressions Myocardial Perfusion Scan Nuc Med 04/23/17 5672 Signed Impressions: Service Date/Time: Sunday, April 23, 2017 16:22 - CONCLUSION: 1. No definite evidence of stress-induced ischemia. 2. Marked left ventricular dilation and absent uptake in the inferior wall suggests cardiomyopathy and prior transmural infarction. 3. Markedly depressed wall motion. The ejection fraction is less than 20%%, but given the inferior wall fixed defect, SPECT analysis is limited. Wall motion and ejection fraction analysis may be better accomplished with either echocardiography or red blood cell labeled gated cardiogram. RISK CATEGORY: High (>3%% Annual Mortality Rate) Danial Huggins MD Chest X-Ray 04/23/17 0523 Signed Impressions: Service Date/Time: Tuesday, April 23, 2017 07:10 - CONCLUSION: No significant interval change. Persistent bilateral lower lung consolidation versus atelectasis and small bilateral pleural effusions. Thomas Granados MD Assessment and Plan Problem List: (1) Preop cardiovascular exam Assessment and Plan: Pt at high risk due to severe cardiomyopathy; explained this to the patient and he still wishes to proceed with surgery even with high risk of morbidity/mortality. (2) Acute on chronic systolic and diastolic heart failure, NYHA class 4 Assessment and Plan: compensated, will change to oral lasix. (3) Cardiomyopathy Assessment and Plan: sub-optimal study but appears non-ischemic; will try addling low dose bb/purnima somewhat limited by BPs (4) Rectal prolapse Assessment and Plan: High risk for surgery but pt w/ poor quality of life w/ recurrent re-admissions. Assessment and Plan retirement prognosis poor particularly with hx of non-compliance. Rehan Zelaya MD Apr 24, 2017 10:27
--- NOTE | 2017-04-24 11:06 | HHI.PR ---
Subjective Remarks Recurrent rectal prolapse/cardiomyopathy/congestive heart failure exacerbation 04/24/17-patient seen and examined, desperately wants surgery to reduce his rectum. Denies any significant shortness of breath. Afebrile Objective Vitals Vital Signs Date Time Temp Pulse Resp B/P Pulse Ox O2 Delivery O2 Flow Rate FiO2 04/24/17 09:01 Room Air 04/24/17 08:02 97 04/24/17 08:00 94.7 97 20 98/71 97 04/24/17 04:00 Room Air 04/24/17 04:00 98.4 97 20 88/69 96 04/24/17 00:00 Room Air 04/24/17 00:00 98.2 102 20 101/74 97 04/23/17 20:00 98.0 102 20 92/62 96 04/23/17 20:00 Room Air 04/23/17 20:00 107 04/23/17 16:00 99.2 104 20 95/65 95 04/23/17 12:15 Room Air 04/23/17 12:00 97.4 104 22 90/65 99 I/O 04/23/17 04/23/17 04/23/17 04/24/17 04/24/17 04/24/17 07:00 15:00 23:00 07:00 15:00 23:00 Intake Total 2 ml 150 ml Output Total 100 ml 200 ml Balance 2 ml -100 ml -50 ml Intake Oral 150 ml IV Total 2 ml Output Urine Total 100 ml 200 ml # Bowel Movements 0 Result Diagram: 04/24/17 0706 04/24/17 0706 Imaging Last Impressions Myocardial Perfusion Scan Nuc Med 04/23/17 1359 Signed Impressions: Service Date/Time: Sunday, April 23, 2017 16:22 - CONCLUSION: 1. No definite evidence of stress-induced ischemia. 2. Marked left ventricular dilation and absent uptake in the inferior wall suggests cardiomyopathy and prior transmural infarction. 3. Markedly depressed wall motion. The ejection fraction is less than 20%%, but given the inferior wall fixed defect, SPECT analysis is limited. Wall motion and ejection fraction analysis may be better accomplished with either echocardiography or red blood cell labeled gated cardiogram. RISK CATEGORY: High (>3%% Annual Mortality Rate) Danial Huggins MD Chest X-Ray 04/23/17 0523 Signed Impressions: Service Date/Time: Sunday, April 23, 2017 07:10 - CONCLUSION: No significant interval change. Persistent bilateral lower lung consolidation versus atelectasis and small bilateral pleural effusions. Thomas Granados MD Objective Remarks GENERAL: In mild distress and crawl in position SKIN: Warm and dry. HEAD: Normocephalic. EYES: No scleral icterus. No injection or drainage. NECK: Supple, trachea midline. No JVD or lymphadenopathy. CARDIOVASCULAR: Regular rate and rhythm without murmurs, gallops, or rubs. RESPIRATORY: Breath sounds equal bilaterally. No accessory muscle use. GASTROINTESTINAL: Abdomen soft, non-tender, nondistended. MUSCULOSKELETAL: No cyanosis, or edema. BACK: Nontender without obvious deformity. No CVA tenderness. : Rectum prolapse A/P Problem List: (1) Rectal prolapse ICD Code: K62.3 Status: Acute (2) Hyperkalemia ICD Code: E87.5 Status: Acute (3) Acute on chronic systolic CHF (congestive heart failure), NYHA class 4 ICD Code: I50.23 Status: Acute (4) Cardiomyopathy ICD Code: I42.9 Status: Acute Assessment and Plan 47-year-old man with Rectal prolapse Colorectal surgery consultation pending for reduction Continue with stool softener, start parenteral pain medication when necessary Acute on chronic systolic CHF class IV Chest x-ray noted with finding of No significant interval change. Persistent bilateral lower lung consolidation versus atelectasis and small bilateral pleural effusions. BNP of 3970 Myocardial stress test report noted Change IV Lasix to by mouth Continue with hospice Appreciate input from Cardiology Cardiomyopathy Nuclear stress test noted without any evidence of ischemia Coreg and low-dose lisinopril added per cardiology Hyperkalemia Resolved s/p Novolin R 8 units IV ,Dextrose 1 amp IV, Calcium chloride 1 g IV ,Bicarbonate 1 amp IV Acute kidney injury superimposed on chronic renal insufficiency with hyperkalemia Creatinine improving Monitor BUN/creatinine and avoid all nephrotoxic drugs Nephrology consultation when necessary Transaminitis/coagulopathy likely due to CHF/ hepatic congestion Monitor LFTs Hyperlipidemia Hold statin secondary to transaminitis Bari Summers MD Apr 24, 2017 11:05
[2017-04-24] MEDS ORDERED: SODIUM CHLOR 0.9% 250 ML INJ 250 ML IV ONE (11:15)
[2017-04-24] MEDS ORDERED: FUROSEMIDE 40 MG/4 ML VIAL IV ONE (11:15)
--- NOTE | 2017-04-24 12:15 | RADRPT ---
EXAM DATE/TIME: 04/24/2017 11:29 [facility] COMPARISON: No previous studies available for comparison. INDICATIONS : Abdominal distention. MEDICAL HISTORY : None. SURGICAL HISTORY : None. ENCOUNTER: Initial ACUITY: 1 day PAIN SCORE: 10/10 LOCATION: buttock FINDINGS: 2 AP views of the abdomen. Diffuse air-filled distention of colon. Multiple air-filled loops of small bowel. CONCLUSION: Air-filled distended colon. Pattern likely representing ileus. Thomas Granados MD on April 24, 2017 at 12:07 Board Certified Radiologist. This report was verified electronically.
--- NOTE | 2017-04-24 12:41 | MB ---
cc: TOY GRANT M.D. DATE OF CONSULTATION: 04/23/2017 REASON FOR CONSULTATION: Rectal prolapse. HISTORY OF PRESENT ILLNESS Mr. Calderón is a 47-year-old male with a history of stage IV CHF and cardiomyopathy. He has been evaluated by Dr. Henriquez several times now for recurrent rectal prolapse. Due to severe cardiac problems, he has actually been admitted to Hospice and has been seen by palliative care. The prolapse has been treated conservatively. He has been to the emergency room now several times when the prolapse extrudes and he does not manually reduce the prolapse at home. The patient presented to the emergency room on the day of admission with additional protrusion of the rectal prolapse which was unable to be reduced in the emergency room. He does have a significant amount of coughing which increases abdominal pressure, making the prolapse more difficult to reduce. The undersigned tried to reduce the prolapse and was unable to reduce it in the ER as well. The patient was admitted, therefore, for additional evaluation of his cardiac status and again consideration for operative repair. PAST MEDICAL HISTORY, PAST SURGICAL HISTORY: Please see his multiple admissions for past medical and surgical history. PERTINENT PHYSICAL A very thin, cachectic male with mild shortness of breath. HEENT: Remarkable for very pale, somewhat dry membranes, nonicteric sclera. Neck was little stiff without adenopathy. Chest: Coarse bilaterally, very shallow inspirations. Heart: A slightly irregular rhythm. Abdomen: Rounded and full, some tympany. No rebound or guarding. No masses. Rectal: Anal inspection revealed full-thickness rectal prolapse which was soft, congested, hemorrhagic but definitely viable, attempts at reduction were not successful. Extremities: No cyanosis or clubbing. Trace 1+ pedal edema. LABORATORY STUDIES: White count was 10.3, hemoglobin 8.6, platelet count was 215,000. Electrolytes: remarkable for BUN of 30 and a creatinine of 1.6, elevated liver function tests, B-natriuretic peptide was 3970. Coagulation, INR was 1.4 with a PTT of 27.4. IMAGING STUDIES: Chest x-ray showed bilateral lung consolidation / atelectasis and some bilateral pleural effusions with significant cardiomegaly. IMPRESSION A 47-year-old male with end-stage cardiomyopathy with ejection fraction probably around 10%. Surgery has not been undertaken previously due to his poor cardiac status and high mortality/morbidity. The patient presents again with prolapse and even though he is on Hospice wants to consider surgical repair of the prolapse for palliative care. The risks, benefits and alternatives were discussed and he has been admitted to the hospital for gentle bowel prep, see if cardiology can optimize his cardiac function and all, and then talk with Dr. Henriquez about possible repair of the prolapse, either rectally or with a rectopexy after he has optimized cardiac clearance. MD MURTAZA Ross/NIYAH /11:11 AM /12:31 PM
[2017-04-24] MEDS: ACETAMINOPHEN 325 MG TAB PO PRN (17:09)
[2017-04-24] MEDS ORDERED: FUROSEMIDE 40 MG/4 ML VIAL ONE (20:31)
[2017-04-24] MEDS ORDERED: CARVEDILOL 3.125 MG TAB PO SCH (21:00)
[2017-04-24] MEDS: CARVEDILOL 3.125 MG TAB PO SCH (21:43)
[2017-04-25] VITALS (8 sets, daily range): BP systolic 80–124; BP diastolic 51–76; PULSE 86–103; RESP 18–22; TEMP 97.8–98.6; O2SAT 95–98
[2017-04-25] MEDS: ACETAMINOPHEN 325 MG TAB PO PRN (00:30)
--- NOTE | 2017-04-25 08:44 | PD.CARD.PN ---
Subjective Subjective Remarks No clinical changes, no cp/sob Objective Medications Administered Medications Medications (Trade) Dose Ordered Sig/Aida Route PRN Reason Start Time Stop Time Status Last Admin Dose Admin Sodium Chloride (NS Flush) 2 ml BID IV FLUSH 04/23/17 09:00 04/24/17 22:06 Acetaminophen (Tylenol) 650 mg Q6H PRN PO PAIN SCALE 1 TO 2 04/23/17 08:45 04/25/17 00:30 Morphine Sulfate (Morphine Inj) 2 mg Q8H PRN IV PUSH pain 2-10 04/23/17 09:15 04/24/17 22:06 Carvedilol (Coreg) 3.125 mg Q12HR PO 04/24/17 21:00 04/24/17 21:43 Vital Signs / I&O Vital Signs Date Time Temp Pulse Resp B/P Pulse Ox O2 Delivery O2 Flow Rate FiO2 04/25/17 08:04 97.8 87 18 80/51 96 04/25/17 04:00 98.5 86 18 85/51 96 04/25/17 00:00 97.8 91 18 96/69 98 04/24/17 20:04 103 04/24/17 20:00 Room Air 04/24/17 20:00 98.4 102 16 100/75 97 04/24/17 17:15 97.8 106 18 97/75 100 04/24/17 16:58 97.9 105 18 95/71 98 04/24/17 16:00 Room Air 04/24/17 16:00 97.9 105 20 95/71 98 04/24/17 14:01 100 103/73 04/24/17 12:00 97.6 101 20 84/56 04/24/17 12:00 Room Air 04/24/17 09:01 Room Air I/O 04/24/17 04/24/17 04/24/17 04/25/17 04/25/17 04/25/17 07:00 15:00 23:00 07:00 15:00 23:00 Intake Total 150 ml 482 ml 599 ml 0 ml Output Total 200 ml 400 ml 300 ml 100 ml Balance -50 ml 82 ml 299 ml -100 ml Intake Oral 150 ml 480 ml 240 ml 0 ml IV Total 2 ml 19 ml Packed Cells 340 ml Output Urine Total 200 ml 400 ml 300 ml 100 ml # Bowel Movements 0 0 0 Physical Exam GENERAL: This is a well-nourished, well-developed patient, in no apparent distress. CARDIOVASCULAR: Regular rate and rhythm without murmurs, gallops, or rubs. RESPIRATORY: Clear to auscultation. Breath sounds equal bilaterally. No wheezes , rales, or rhonchi. GASTROINTESTINAL: Abdomen soft, non-tender, nondistended. Normal active bowel sounds MUSCULOSKELETAL: Extremities without clubbing, cyanosis, or edema. NEURO: Alert & Oriented x4 to person, place, time, situation. Moves all ext x4 Laboratory Laboratory Tests Test 04/24/17 12:20 Blood Type O POSITIVE Antibody Screen NEGATIVE Crossmatch Leukocyte-Reduced Red Blood Cells Blood Bank Comment Imaging Last Impressions Abdomen X-Ray 04/24/17 0000 Signed Impressions: Service Date/Time: Monday, April 24, 2017 11:29 - CONCLUSION: Air-filled distended colon. Pattern likely representing ileus. Thomas Granados MD Myocardial Perfusion Scan Nuc Med 04/23/17 1359 Signed Impressions: Service Date/Time: Sunday, April 23, 2017 16:22 - CONCLUSION: 1. No definite evidence of stress-induced ischemia. 2. Marked left ventricular dilation and absent uptake in the inferior wall suggests cardiomyopathy and prior transmural infarction. 3. Markedly depressed wall motion. The ejection fraction is less than 20%%, but given the inferior wall fixed defect, SPECT analysis is limited. Wall motion and ejection fraction analysis may be better accomplished with either echocardiography or red blood cell labeled gated cardiogram. RISK CATEGORY: High (>3%% Annual Mortality Rate) Danial Huggins MD Chest X-Ray 04/23/17 0523 Signed Impressions: Service Date/Time: Sunday, April 23, 2017 07:10 - CONCLUSION: No significant interval change. Persistent bilateral lower lung consolidation versus atelectasis and small bilateral pleural effusions. Thomas Granados MD Assessment and Plan Problem List: (1) Preop cardiovascular exam Assessment and Plan: Pt at high risk due to severe cardiomyopathy; explained this to the patient and he still wishes to proceed with surgery even with high risk of morbidity/mortality. No further cardiac workup or risk stratification required prior to surgery. (2) Acute on chronic systolic and diastolic heart failure, NYHA class 4 Assessment and Plan: compensated (3) Cardiomyopathy Assessment and Plan: sub-optimal study but appears non-ischemic; on low dose bb /purnima but often held due to low bp's (4) Rectal prolapse Assessment and Plan: High risk for surgery but pt w/ poor quality of life w/ recurrent re-admissions. Assessment and Plan [facility] prognosis poor particularly with hx of non-compliance but patient desperately wants surgery. Will sign off at this time, please call with further questions. Rehan Zelaya MD Apr 25, 2017 08:44
[2017-04-25] MEDS: CARVEDILOL 3.125 MG TAB PO SCH ×2 (08:49→21:30)
[2017-04-25] MEDS: FUROSEMIDE 40 MG TAB PO SCH (08:50)
[2017-04-25] MEDS: LISINOPRIL 5 MG TAB PO SCH (08:50)
[2017-04-25] MEDS: SODIUM CHLORIDE 0.9% FLUSH 10 ML FLUSH IV FLUSH SCH ×2 (08:50→21:31)
[2017-04-25] MEDS: MORPHINE SULFATE 4 MG/ML INJ IV PUSH PRN ×2 (08:54→16:47)
[2017-04-25] MEDS ORDERED: LISINOPRIL 5 MG TAB PO SCH (09:00)
[2017-04-25] MEDS ORDERED: FUROSEMIDE 40 MG TAB PO SCH (09:00)
--- NOTE | 2017-04-25 09:54 | HHI.PR ---
Subjective Remarks Recurrent rectal prolapse/cardiomyopathy/congestive heart failure exacerbation 04/24/17-patient seen and examined, desperately wants surgery to reduce his rectum. Denies any significant shortness of breath. Afebrile 04/25/17-patient seen and examined, currently nothing by mouth pending reduction of rectal prolapse. Complained of pain 8/10 in intensity. Currently afebrile Objective Vitals Vital Signs Date Time Temp Pulse Resp B/P Pulse Ox O2 Delivery O2 Flow Rate FiO2 04/25/17 08:04 97.8 87 18 80/51 96 04/25/17 04:00 98.5 86 18 85/51 96 04/25/17 00:00 97.8 91 18 96/69 98 04/24/17 20:04 103 04/24/17 20:00 Room Air 04/24/17 20:00 98.4 102 16 100/75 97 04/24/17 17:15 97.8 106 18 97/75 100 04/24/17 16:58 97.9 105 18 95/71 98 04/24/17 16:00 Room Air 04/24/17 16:00 97.9 105 20 95/71 98 04/24/17 14:01 100 103/73 04/24/17 12:00 97.6 101 20 84/56 04/24/17 12:00 Room Air I/O 04/24/17 04/24/17 04/24/17 04/25/17 04/25/17 04/25/17 07:00 15:00 23:00 07:00 15:00 23:00 Intake Total 150 ml 482 ml 599 ml 0 ml Output Total 200 ml 400 ml 300 ml 100 ml Balance -50 ml 82 ml 299 ml -100 ml Intake Oral 150 ml 480 ml 240 ml 0 ml IV Total 2 ml 19 ml Packed Cells 340 ml Output Urine Total 200 ml 400 ml 300 ml 100 ml # Bowel Movements 0 0 0 Result Diagram: 04/24/17 0706 04/24/17 0706 Imaging Last Impressions Abdomen X-Ray 04/24/17 0000 Signed Impressions: Service Date/Time: Monday, April 24, 2017 11:29 - CONCLUSION: Air-filled distended colon. Pattern likely representing ileus. Thomas Granados MD Myocardial Perfusion Scan Nuc Med 04/23/17 6599 Signed Impressions: Service Date/Time: Sunday, April 23, 2017 16:22 - CONCLUSION: 1. No definite evidence of stress-induced ischemia. 2. Marked left ventricular dilation and absent uptake in the inferior wall suggests cardiomyopathy and prior transmural infarction. 3. Markedly depressed wall motion. The ejection fraction is less than 20%%, but given the inferior wall fixed defect, SPECT analysis is limited. Wall motion and ejection fraction analysis may be better accomplished with either echocardiography or red blood cell labeled gated cardiogram. RISK CATEGORY: High (>3%% Annual Mortality Rate) Danial Huggins MD Chest X-Ray 04/23/17 0523 Signed Impressions: Service Date/Time: Sunday, April 23, 2017 07:10 - CONCLUSION: No significant interval change. Persistent bilateral lower lung consolidation versus atelectasis and small bilateral pleural effusions. Thomas Granados MD Objective Remarks GENERAL: In mild distress and crawl in position SKIN: Warm and dry. HEAD: Normocephalic. EYES: No scleral icterus. No injection or drainage. NECK: Supple, trachea midline. No JVD or lymphadenopathy. CARDIOVASCULAR: Regular rate and rhythm without murmurs, gallops, or rubs. RESPIRATORY: Breath sounds equal bilaterally. No accessory muscle use. GASTROINTESTINAL: Abdomen soft, non-tender, nondistended. MUSCULOSKELETAL: No cyanosis, or edema. BACK: Nontender without obvious deformity. No CVA tenderness. : Rectum prolapse A/P Problem List: (1) Rectal prolapse ICD Code: K62.3 Status: Acute (2) Hyperkalemia ICD Code: E87.5 Status: Acute (3) Acute on chronic systolic CHF (congestive heart failure), NYHA class 4 ICD Code: I50.23 Status: Acute (4) Cardiomyopathy ICD Code: I42.9 Status: Acute Assessment and Plan 47-year-old man with Rectal prolapse Colorectal surgery consultation appreciated and plan for for reduction in the OR Continue with stool softener, start parenteral pain medication when necessary Acute on chronic systolic CHF class IV Chest x-ray noted with finding of No significant interval change. Persistent bilateral lower lung consolidation versus atelectasis and small bilateral pleural effusions. BNP of 3970 Myocardial stress test report noted Continue Lasix, KAREL inhibitor, beta crispin with holding parameters Continue with hospice Appreciate input from Cardiology Cardiomyopathy Nuclear stress test noted without any evidence of ischemia Coreg and low-dose lisinopril added per cardiology Hyperkalemia Resolved s/p Novolin R 8 units IV ,Dextrose 1 amp IV, Calcium chloride 1 g IV ,Bicarbonate 1 amp IV Acute kidney injury superimposed on chronic renal insufficiency with hyperkalemia Creatinine improving Monitor BUN/creatinine and avoid all nephrotoxic drugs Nephrology consultation when necessary Transaminitis/coagulopathy likely due to CHF/ hepatic congestion Monitor LFTs Hyperlipidemia Hold statin secondary to transaminitis Bari Summers MD Apr 25, 2017 09:54
--- NOTE | 2017-04-25 11:08 | PD.CONS ---
Consult Service Palliative Care Consult Requested By Dr. Rios Primary Care Physician Non-Staff Reason for Consultation a. To assist with evaluation and management of symptoms including: Pain, fatigue, SHARPE, cough, hemoptysis b. To assist medical decision maker(s) with: better understanding of current medical conditions; weighing benefits/burdens of medical treatment options; making medical treatment decisions. HPI History of Present Illness This is a very pleasant 47 year-old male with an extensive medical history of alcoholic cardiomyopathy, EF of 10-15%, moderate to severe mitral and tricuspid regurgitation, chronic renal insufficiency related to poor cardiac output, history of alcohol tobacco and cocaine abuse and recent pulmonary embolism, who presents to the emergency room 04/23/17 with recurrent rectal prolapse, cough, hemoptysis and intermittent rectal bleeding. ED course * Presenting vital signs blood pressure 140/77 pulse 80 respiratory rate 16 oxygen saturation 96% on room air afebrile. * Presenting labs show white blood cell count of 10.3, hemoglobin 8.6, hematocrit 27.1, platelets 215, INR 1.4 not on anticoagulation, sodium 139, potassium 6.0, BUN 30, creatinine 1.59, total bilirubin 1.2, AST 57, ALP 107, alkaline phosphatase 164, B natriuretic peptide 3970. Chest x-ray shows no significant interval change with persistent bilateral lower lung consolidation versus atelectasis and small bilateral pleural effusions. Abdominal x-ray shows air-filled, distended colon. Pattern likely representing ileus. * Myocardial perfusion scan shows no stress-induced ischemia, marked left ventricular dilation and absent uptake in the inferior wall suggesting cardiomyopathy with prior transmural infarction, depressed wall motion, EF less than 20%, indicating greater than 3% annual mortality rate. Consultations * Cardiology-his myocardial perfusion scan was negative for ischemia and they have cleared him for surgery for rectal prolapse as a high risk candidate. * Colorectal surgery-Dr. Rios consulted and planned for rectal prolapse reduction in the OR today. Due to his recurrent rectal prolapse he has requested surgery as this has a significant impact on his quality of life. He is aware of the high risk of surgery and is accepting of that wrist. Palliative care has been consulted to assist patient in symptom management and establishing goals of care. He has multiple comorbidities and poor cardiac status, causing multi organ dysfunction. His myocardial perfusion scan was negative for stress-induced ischemia but verifies a very poor ejection fraction of less than 20%. He intermittently tolerates beta blockade or ACEI due to his hypotension. This is compromised by recent pneumonia and pulmonary embolus and high pulmonary pressures, causing hepatic congestion. Poor cardiac output is also compromising his renal status. He had previously been evaluated by Dr. Gino Siddiqui in [place] and told he needed a heart transplant however was declined for that due to his history of illicit drug abuse. At his February 2017 admission, health care surrogate was established with the patient and identified as his father Wilson Calderón, who resides in [place]. . Function/Cognitive Trajectory The patient has been experiencing progressive functional decline and is disabled due to his cardiac status and frequent rectal prolapse. He had previously been able to manage small home tasks but is becoming progressively less able to do so. He is unable to work and becomes dyspneic with severe claudication with minimal activity compromised by his frequent rectal prolapse which he frequently self reduces and comes to the ED when he is unable to. Review of the records indicate his ability to ride his bicycle in November, however since that time has been primarily homebound. He states he previously felt better on the cardiac medications however has been unable to presume them due to hypotension. Since November 2016 he has been seen in the ED 15 times for recurrent heart failure, rectal prolapse, Coumadin toxicity, dyspnea, fatigue and weakness with 9 hospital admissions. . Review of Systems Constitutional: COMPLAINS OF: Fatigue, Pain Respiratory: COMPLAINS OF: Cough, Hemoptysis, Shortness of breath Cardiovascular: COMPLAINS OF: Dyspnea on Exertion Gastrointestinal: COMPLAINS OF: Constipation (with frequent rectal prolapse) Past Family Social History Coded Allergies: No Known Allergies (Unverified , 04/14/17) Past Medical History CHF status post ICD Hypertension Hyperlipidemia History of recent pneumonia and bilateral PE Chronic renal insufficiency Elevated transaminase Noncompliance Recurrent rectal prolapse Past Surgical History AICD implantation September 2011 [address] single-chamber [facility] [facility] device Thoracentesis Reported Medications Reported Meds & Active Scripts Active Reported Tussin Dm Max Adult Liq (Dextromethorphan-Guaifenesin Liq) 10-200 Mg/5 Ml Liq 5 Ml PO Q4H PRN Tylenol (Acetaminophen) 325 Mg Tab 500 Mg PO Q4HR Ativan (Lorazepam) 0.5 Mg Tab 0.5 Mg PO Q6H PRN Loperamide (Loperamide HCl) 2 Mg Cap 2 Mg PO DIRECTED PRN One capsule after each loose stool. Not to exceed 8 capsules per day. Maalox Advanced Maximum Strength (Calcium Carbonate-Simethicone) 1,000-60 Mg Chew 1 Tab CHEW PRN Furosemide 20 Mg Tab 20 Mg PO DAILY Potassium Chloride ER (Potassium Chloride) 10 Meq Cap 10 Meq PO DAILY Current Medications Medications (Trade) Dose Ordered Sig/Aida Route Start Time Stop Time Status Last Admin (NS Flush) 2 ml UNSCH PRN IV FLUSH 04/23/17 08:45 (NS Flush) 2 ml BID IV FLUSH 04/23/17 09:00 04/25/17 08:50 (Tylenol) 650 mg Q4H PRN PO 04/23/17 08:45 (Zofran Inj) 4 mg Q6H PRN IVP 04/23/17 08:45 (Tylenol) 650 mg Q6H PRN PO 04/23/17 08:45 04/25/17 00:30 (Narcan Inj) 0.4 mg UNSCH PRN IV 04/23/17 08:45 (Imodium) 2 mg UNSCH PRN PO 04/23/17 08:45 (Ativan) 0.5 mg Q6H PRN PO 04/23/17 08:45 (Morphine Inj) 2 mg Q8H PRN IV PUSH 04/23/17 09:15 04/25/17 08:54 (Coreg) 3.125 mg Q12HR PO 04/24/17 21:00 04/24/17 21:43 (Prinivil) 2.5 mg DAILY PO 04/25/17 09:00 (Lasix) 40 mg DAILY PO 04/25/17 09:00 Family History Heart disease, brother at age of 14 of multiple myocardial infarctions per patient report. Mother is of an unknown cause. His father and sister are still living. Substance Use Tobacco:Positive for tobacco use beginning at age 16, states he quit about 2 mo ago. Alcohol:Denies alcohol use Prescription med abuse:None noted Illicits:Positive for cocaine and marijuana abuse by past urine toxicology, heavy use of cocaine and marijuana for over one year, quit January 2017 Psychosocial History He was born in the [facility] and moved to [place] about age 5. He has lived in [place] and the [facility] where he has family support. His father, Wilson Calderón, and sister Reena lived in [place] and he aunt, Anel Brown lives in the [place] area. 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 He stated he had previously spent some time in intermediate. He does have a long history of polysubstance abuse. Spiritual/Cultural Factors Attends [employer] in [place]. Living Will: Never completed Health Care Surrogate: Copy in medical record Durable Power of Binding Bench Worker: Never completed Health Care Surrogate(s): Father-Wilson Calderón Physical Exam Vital Signs Date Time Temp Pulse Resp B/P Pulse Ox O2 Delivery O2 Flow Rate FiO2 04/25/17 08:04 97.8 87 18 80/51 96 04/25/17 04:00 98.5 86 18 85/51 96 04/25/17 00:00 97.8 91 18 96/69 98 04/24/17 20:04 103 04/24/17 20:00 Room Air 04/24/17 20:00 98.4 102 16 100/75 97 04/24/17 17:15 97.8 106 18 97/75 100 04/24/17 16:58 97.9 105 18 95/71 98 04/24/17 16:00 Room Air 04/24/17 16:00 97.9 105 20 95/71 98 04/24/17 14:01 100 103/73 04/24/17 12:00 97.6 101 20 84/56 04/24/17 12:00 Room Air 04/24/17 04/25/17 19:00 07:00 Intake Total 482 ml 599 ml Output Total 400 ml 400 ml Balance 82 ml 199 ml Intake Oral 480 ml 240 ml IV Total 2 ml 19 ml Packed Cells 340 ml Output Urine Total 400 ml 400 ml # Bowel Movements 0 0 Exam CONSTITUTIONAL/GENERAL: This is an adequately nourished patient, in no apparent distress. TUBES/LINES/DRAINS: PIV bilateral forearms SKIN: No jaundice, rashes, or lesions. No wounds seen anteriorly. Skin temperature appropriate. Not diaphoretic. HEAD: Atraumatic. Normocephalic. EYES: Pupils equal and round and reactive. Extraocular motions intact. No scleral icterus. No injection or drainage. Fundi not examined. ENT: Hearing grossly normal. Nose without bleeding or purulent drainage. Throat without visible erythema, exudates, masses, or lesions. NECK: Trachea midline. Supple, nontender. No palpable thyroid enlargement or nodularity. CARDIOVASCULAR: Regular rate and rhythm without murmurs, gallops, or rubs. No JVD. Peripheral pulses symmetric. RESPIRATORY/CHEST: Symmetric, unlabored respirations. Clear to auscultation. Breath sounds equal, diminished bilaterally. No wheezes, rales, or rhonchi. GASTROINTESTINAL: Abdomen soft, mild distention, mild tenderness to palpation. Bowel sounds present. GENITOURINARY: Without palpable bladder distension. MUSCULOSKELETAL: Extremities without clubbing, cyanosis, or edema. No joint tenderness or effusion noted. No calf tenderness. No mottling or clubbing. NEUROLOGICAL: Sleepy, arousable. Motor and sensory grossly within normal limits. Follows commands. Moves all extremities. PSYCHIATRIC: No obvious anxiety/depression. no apparent hallucinations or other psychotic thought process. . Diagnostic Tests Laboratory Laboratory Tests Test 04/23/17 04/24/17 04/24/17 05:30 07:06 12:20 White Blood Count 10.3 TH/MM3 11.8 TH/MM3 (4.0-11.0) (4.0-11.0) Red Blood Count 3.02 MIL/MM3 3.02 MIL/MM3 (4.50-5.90) (4.50-5.90) Hemoglobin 8.6 GM/DL 8.3 GM/DL (13.0-17.0) (13.0-17.0) Hematocrit 27.1 % 26.7 % (39.0-51.0) (39.0-51.0) Mean Corpuscular Volume 89.8 FL 88.5 FL (80.0-100.0) (80.0-100.0) Mean Corpuscular Hemoglobin 28.3 PG 27.4 PG (27.0-34.0) (27.0-34.0) Mean Corpuscular Hemoglobin 31.6 % 30.9 % Concent (32.0-36.0) (32.0-36.0) Red Cell Distribution Width 17.6 % 17.9 % (11.6-17.2) (11.6-17.2) Platelet Count 215 TH/MM3 196 TH/MM3 (150-450) (150-450) Mean Platelet Volume 9.4 FL 9.0 FL (7.0-11.0) (7.0-11.0) Neutrophils (%) (Auto) 84.6 % 84.1 % (16.0-70.0) (16.0-70.0) Lymphocytes (%) (Auto) 8.7 % 8.6 % (9.0-44.0) (9.0-44.0) Monocytes (%) (Auto) 6.5 % (0.0-8.0) 7.1 % (0.0-8.0) Eosinophils (%) (Auto) 0.0 % (0.0-4.0) 0.0 % (0.0-4.0) Basophils (%) (Auto) 0.2 % (0.0-2.0) 0.2 % (0.0-2.0) Neutrophils # (Auto) 8.7 TH/MM3 9.9 TH/MM3 (1.8-7.7) (1.8-7.7) Lymphocytes # (Auto) 0.9 TH/MM3 1.0 TH/MM3 (1.0-4.8) (1.0-4.8) Monocytes # (Auto) 0.7 TH/MM3 0.8 TH/MM3 (0-0.9) (0-0.9) Eosinophils # (Auto) 0.0 TH/MM3 0.0 TH/MM3 (0-0.4) (0-0.4) Basophils # (Auto) 0.0 TH/MM3 0.0 TH/MM3 (0-0.2) (0-0.2) CBC Comment DIFF FINAL AUTO DIFF Differential Comment FINAL DIFF MANUAL Prothrombin Time 15.8 SEC (9.8-11.6) Prothromb Time International 1.4 RATIO Ratio Activated Partial 27.4 SEC Thromboplast Time (24.3-30.1) Sodium Level 139 MEQ/L 139 MEQ/L (136-145) (136-145) Potassium Level 6.0 MEQ/L 4.9 MEQ/L (3.5-5.1) (3.5-5.1) Chloride Level 107 MEQ/L 106 MEQ/L (98-107) (98-107) Carbon Dioxide Level 18.0 MEQ/L 22.2 MEQ/L (21.0-32.0) (21.0-32.0) Anion Gap 14 MEQ/L (5-15) 11 MEQ/L (5-15) Blood Urea Nitrogen 30 MG/DL (7-18) 35 MG/DL (7-18) Creatinine 1.59 MG/DL 1.34 MG/DL (0.60-1.30) (0.60-1.30) Estimat Glomerular Filtration 57 ML/MIN (>89) 70 ML/MIN (>89) Rate Random Glucose 80 MG/DL 124 MG/DL (74-106) (74-106) Calcium Level 8.4 MG/DL 8.5 MG/DL (8.5-10.1) (8.5-10.1) Total Bilirubin 1.2 MG/DL 1.6 MG/DL (0.2-1.0) (0.2-1.0) Aspartate Amino Transf 57 U/L (15-37) 44 U/L (15-37) (AST/SGOT) Alanine Aminotransferase 107 U/L (12-78) 84 U/L (12-78) (ALT/SGPT) Alkaline Phosphatase 164 U/L 135 U/L (45-117) (45-117) B-Type Natriuretic Peptide 3970 PG/ML (0-100) Total Protein 6.0 GM/DL 5.4 GM/DL (6.4-8.2) (6.4-8.2) Albumin 2.3 GM/DL 2.1 GM/DL (3.4-5.0) (3.4-5.0) Differential Total Cells 100 Counted Neutrophils % (Manual) 71 % (16-70) Band Neutrophils % 19 % (0-6) Lymphocytes % 7 % (9-44) Monocytes % 1 % (0-8) Neutrophils # (Manual) 10.9 TH/MM3 (1.8-7.7) Metamyelocytes 1 % (0-1) Myelocytes 1 % (0-0) Nucleated Red Blood Cells 1 /100 WBC (0-0) Polychromasia 2.6 % (0.0-1.9) Target Cells (NORMAL) [place] Cells (NORMAL) Acanthocytes 1+ (NORMAL) Keratocytes OCC (NORMAL) Blood Type O POSITIVE Antibody Screen NEGATIVE Crossmatch Leukocyte-Reduced Red Blood Cells Blood Bank Comment Result Diagram: 04/24/17 0706 04/24/17 0706 Imaging Last Impressions Abdomen X-Ray 04/24/17 0000 Signed Impressions: Service Date/Time: Monday, April 24, 2017 11:29 - CONCLUSION: Air-filled distended colon. Pattern likely representing ileus. Thomas Granados MD Myocardial Perfusion Scan Nuc Med 04/23/17 1359 Signed Impressions: Service Date/Time: Sunday, April 23, 2017 16:22 - CONCLUSION: 1. No definite evidence of stress-induced ischemia. 2. Marked left ventricular dilation and absent uptake in the inferior wall suggests cardiomyopathy and prior transmural infarction. 3. Markedly depressed wall motion. The ejection fraction is less than 20%%, but given the inferior wall fixed defect, SPECT analysis is limited. Wall motion and ejection fraction analysis may be better accomplished with either echocardiography or red blood cell labeled gated cardiogram. RISK CATEGORY: High (>3%% Annual Mortality Rate) Danial Huggins MD Chest X-Ray 04/23/17 0523 Signed Impressions: Service Date/Time: Sunday, April 23, 2017 07:10 - CONCLUSION: No significant interval change. Persistent bilateral lower lung consolidation versus atelectasis and small bilateral pleural effusions. Thomas Granados MD Patient/Family Conference Issues Discussed: * Palliative care role, purpose, approach * Additional medical, psychosocial, and spiritual history * Patients general health, functional status, and cognitive changes in the months leading up to the current hospitalization * Patient/family understanding of the current medical problems * Patient/family understanding of prognosis * Patients goals of care as best understood from advance directives and/or conversations and/or values * Current medical treatment options and benefits/burdens of those options * Likely scenarios comparing ongoing aggressive care with a transition to comfort measures only * Questions answered to the best of my ability * Palliative care contact information provided Assessment and Plan Disease Oriented Problem List: (1) Rectal prolapse (2) Acute on chronic systolic and diastolic heart failure, NYHA class 4 Symptom Scale: (1) Fatigue (2) Dyspnea and respiratory abnormalities (3) Pain, generalized (4) Cough (5) Hemoptysis Pertinent Non-Medical Issues Psychosocial:He was born in the [facility] and moved to [place] about age 5. He has lived in [place] and the [facility] where he has family support. His father, Wilson Calderón, and sister Reena lived in [place] and he aunt, Anel Brown lives in the [place] area. 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 He stated he had previously spent some time in intermediate. He does have a long history of polysubstance abuse. Spiritual:Attends [facility] in [place]. Legal:HCS signed making his father, Wilson Calderón health care surrogate. Ethical issues impacting care: Important Contacts Father - Wilson Calderón Aunt - Anel Brown Sister - Reena Calderón Prognosis His prognosis is poor. His ejection fraction has declined now to 10-15%. He states a recent history, since November, of multiple AICD shocks, as the device was unable to pace the patient out of the arrhythmia with antitachycardia pacing. His cardiac status is now compromising his hepatic, respiratory and renal status. It appears he is developing multisystem organ failure. He has had 15 ED visits with 9 hospital admissions since November and is currently able to tolerate his ACEI, diuretic and beta crispin for his heart failure only intermittently, due to hypotension. His debility and dyspnea on exertion are increasing, and severe claudication is now compromising his ability for even minimal ambulation. Medical options are limited. With his recurrent rectal prolapse his quality of life is quite poor. He states that he is "desperate to have surgery" as his rectum prolapse is very frequent. He was previously on hospice for a brief period but, revoked. He would be appropriate for hospice if goals were consistent. Code Status: No Code Plan PLAN: Legal decision maker: Patient is currently capacitated to make his own decisions, but has named his father, Wilson Calderón, in case he becomes incapacitated Goals: Conservative. He wishes to have his rectal prolapse treated due to the impact on his quality of life but is aware that his heart failure is likely terminal. CODE STATUS: DNR SYMPTOMS: * Fatigue - his activity tolerance is severely impacted by his cardiac dysfunction. His ejection fraction 02/2017 was 10-15% with moderate to severe mitral regurgitation, moderate to severe tricuspid regurgitation and pulmonary artery peak pressure of 52 mmHg. He is able to tolerate cardioprotective medications only intermittently, due to hypotension, to improve this. This is related to end-stage heart failure per cardiology evaluations over the past several admissions. * Dyspnea - this is compounded by his past smoking history, pulmonary hypertension end-stage heart failure and valvular dysfunction. His B natriuretic peptide levels were elevated on admission indicating elevated fluid levels. This is difficult to treat due to his chronic hypotension which is exacerbated by the use of diuretics. * Pain - he is receiving morphine 2 mg IV every 8 hours when necessary pain, using maximum doses daily. This pain need to be uptitrated as he is scheduled for rectal prolapse reduction in OR today. * Cough/hemoptysis - no significant interval change is noted in his chest x-ray showing persistent bilateral lower lung consolidation versus atelectasis with small bilateral pleural effusions, white blood cells are mildly elevated at 11.8 , he is afebrile with no indications for respiratory infection, but is at high risk due to his immobility, recent pulmonary embolus for which he is not been on anticoagulation due to his liver compromise and recurrent Coumadin toxicity, weakness and smoking history. This should be closely monitored due to his elevated risk and cardiac compromise. In summary, this is a 47-year-old male with end-stage systolic heart failure with hepatic renal and pulmonary compromise who presents with recurrent rectal prolapse, for which he is seeking surgical repair. His surgical risk is very high due to his poor cardiac status, however, it is a risk he is willing to take due to the significant impact this is having on his quality of life. He has had multiple ED and hospital admissions for this since November and is now requesting surgical relief. Palliative care will continue to follow the patient during hospital course as condition evolves, to assist patient/decision-maker with understanding of their medical conditions, weighing benefits/burdens of treatment options, for clarification of goals of treatment. Additionally will assist with any symptoms of palliative concern. Thank you for the opportunity to participate in the care of Mr. Calderón. Attestation To help prompt me to consider important information that might be impacting today's encounter and assessment, information from prior notes written by myself or my colleagues may have been "brought forward" into today's note. My signature on this note, however, is an attestation that I personally performed the exam, history, and/or decision-making noted today, and, unless otherwise indicated, the interactions with patient, family, and staff as well as the review of records all occurred today. I also attest that the listed assessment and stated plan reflect my best clinical judgment today based on the combination of historical information, prior notes, and today's exam/ interactions. When time spent is documented, it refers only to time spent today by the signer, or if indicated, combined time spent today by collaborating physician/nurse practitioner. Juliane Walls Apr 25, 2017 11:08 am
--- NOTE | 2017-04-25 19:17 | HHI.PR ---
Subjective Remarks Rectal Prolapse Uncomfortable Uncooperative Objective Vital Signs Date Time Temp Pulse Resp B/P Pulse Ox O2 Delivery O2 Flow Rate FiO2 04/25/17 16:05 97.8 99 22 100/64 95 04/25/17 12:35 98.6 93 20 86/51 96 04/25/17 08:04 97.8 87 18 80/51 96 04/25/17 08:00 Room Air 04/25/17 08:00 86 04/25/17 04:00 98.5 86 18 85/51 96 04/25/17 00:00 97.8 91 18 96/69 98 04/24/17 20:04 103 04/24/17 20:00 Room Air 04/24/17 20:00 98.4 102 16 100/75 97 I/O 04/24/17 04/24/17 04/24/17 04/25/17 04/25/17 04/25/17 07:00 15:00 23:00 07:00 15:00 23:00 Intake Total 150 ml 482 ml 599 ml 0 ml 340 ml Output Total 200 ml 400 ml 300 ml 100 ml 450 ml Balance -50 ml 82 ml 299 ml -100 ml -110 ml Intake Oral 150 ml 480 ml 240 ml 0 ml 340 ml IV Total 2 ml 19 ml Packed Cells 340 ml Output Urine Total 200 ml 400 ml 300 ml 100 ml 450 ml # Bowel Movements 0 0 0 0 Result Diagram: 04/24/1770504/24/17705 Objective Remarks Abdomen soft, nondistended, nontender Rectum - prolapsed, almost reduced when patient strained and pushed it back out Assessment and Plan Assessment and Plan Rectal Prolapse A very long discussion was held with the patient. His risk for surgery is very high, but he is insistent on going through with it. I have also warned him that if he does not start cooperating with his care, and following directions, his prolapse will likely recur. I have been crystal clear that a second surgery will be out of the question. The proposed surgery of a laparoscopic assisted rectopexy was described. The risks of surgery were discussed with the patient including but not limited to , heart attack, stroke, pneumonia, pulmonary embolism, need for prolonged ventilation, need for a stoma/bag, bleeding, infection, injury to other organs, worsening of his kidney or liver function, injury to the nerves that supply sexual functioning, bowel obstruction, hernia, and recurrence of the prolapse. The prolapse repair will not repair the anal sphincter or ameliorate any anal incontinence. I will need to discuss this with the Medical Team, as they will need to take care of his medical conditions postoperatively. I have tentatively booked him for surgery Tuesday at 5 pm. I will also try to contact his father, who is his health care surrogate, as I am not clear he understands the risks in full. Wandy Henriquez MD Apr 25, 2017 19:17
[2017-04-26] VITALS: BP 95/75; PULSE 95; RESP 20; TEMP 97.4; O2SAT 95
[2017-04-26] MEDS: MORPHINE SULFATE 4 MG/ML INJ IV PUSH PRN ×3 (01:12→18:45)
[2017-04-26 05:48] VITALS: BP 94/62; PULSE 76; RESP 20; TEMP 98.1; O2SAT 100
[2017-04-26 08:05] VITALS: BP 91/60; PULSE 87; RESP 20; TEMP 98.3; O2SAT 94
[2017-04-26 08:09] LABS: AUTOMATED NEUTROPHIL # 9.2 TH/MM3 (1.8-7.7); BASOPHIL % 0.2 % (0.0-2.0); HEMATOCRIT 29.3 % (39.0-51.0); LYMPH % 12.4 % (9.0-44.0); LYMPHOCYTE # 1.4 TH/MM3 (1.0-4.8); MEAN CELL VOLUME 86.3 FL (80.0-100.0); MEAN CORPUSCULAR HGB CONC 32.5 % (32.0-36.0); MONO % 7.8 % (0.0-8.0); NEUT % 79.6 % (16.0-70.0); PLATELET COUNT 186 TH/MM3 (150-450); RED CELL DISTRIBUTION WIDTH 17.1 % (11.6-17.2); WHITE BLOOD COUNT 11.5 TH/MM3 (4.0-11.0)
[2017-04-26 08:19] LABS: HEMO FLAGS AUTO DIFF
[2017-04-26 08:39] LABS: BICARBONATE 20.2 MEQ/L (21.0-32.0)
[2017-04-26 08:55] LABS: POTASSIUM 5.6 MEQ/L (3.5-5.1)
[2017-04-26] MEDS: FUROSEMIDE 40 MG TAB PO SCH (09:00)
[2017-04-26] MEDS: LISINOPRIL 5 MG TAB PO SCH (09:00)
[2017-04-26] MEDS: CARVEDILOL 3.125 MG TAB PO SCH ×2 (09:00→20:26)
[2017-04-26 09:32] LABS: CORRECTED NUCLEATED RBC 1 /100 WBC (0-0); WBC DIFF SAMPLE 100
[2017-04-26 09:33] LABS: ACANTHOCYTES 1+ (NORMAL); KERATOCYTES 1+ (NORMAL)
[2017-04-26 09:35] LABS: HELMET CELLS OCC (NORMAL); PLATELET ESTIMATE SMEAR NORMAL (NORMAL); PLATELET MORPHOLOGY NORMAL (NORMAL); SCAN/DIFF FINAL DIFF MANUAL
[2017-04-26 09:40] LABS: BANDS 6 % (0-6); NEUTROPHIL # MANUAL DIFF 9.9 TH/MM3 (1.8-7.7); POLYS (SEG NEUTROPHILS) 80 % (16-70)
[2017-04-26] MEDS: SODIUM CHLORIDE 0.9% FLUSH 10 ML FLUSH IV FLUSH SCH ×2 (10:06→20:26)
[2017-04-26 12:05] VITALS: BP 94/65; PULSE 90; RESP 20; TEMP 98.2; O2SAT 95
--- NOTE | 2017-04-26 13:21 | HHI.PR ---
Subjective Remarks Recurrent rectal prolapse/cardiomyopathy/congestive heart failure exacerbation 04/24/17-patient seen and examined, desperately wants surgery to reduce his rectum. Denies any significant shortness of breath. Afebrile 04/25/17-patient seen and examined, currently nothing by mouth pending reduction of rectal prolapse. Complained of pain 8/10 in intensity. Currently afebrile 04/26/17-patient seen and examined; no acute event overnight. case was discussed this AM with VEL Patel. Afebrile Objective Vitals Vital Signs Date Time Temp Pulse Resp B/P Pulse Ox O2 Delivery O2 Flow Rate FiO2 04/26/17 12:05 98.2 90 20 94/65 95 04/26/17 08:05 98.3 87 20 91/60 94 04/26/17 05:48 98.1 76 20 94/62 100 04/26/17 04:00 Room Air 04/26/17 00:00 Room Air 04/26/17 00:00 97.4 95 20 95/75 95 04/25/17 20:00 98.0 103 20 124/76 98 04/25/17 20:00 Room Air 04/25/17 19:42 98 04/25/17 16:05 97.8 99 22 100/64 95 I/O 04/25/17 04/25/17 04/25/17 04/26/17 04/26/17 04/26/17 07:00 15:00 23:00 07:00 15:00 23:00 Intake Total 0 ml 340 ml 0 ml 120 ml Output Total 100 ml 450 ml 0 ml 100 ml Balance -100 ml -110 ml 0 ml 20 ml Intake Oral 0 ml 340 ml 0 ml 120 ml Output Urine Total 100 ml 450 ml 0 ml 100 ml # Bowel Movements 0 0 0 0 Result Diagram: 04/26/17 0726 04/26/17 07 Objective Remarks GENERAL: In mild distress and crawl in position SKIN: Warm and dry. HEAD: Normocephalic. EYES: No scleral icterus. No injection or drainage. NECK: Supple, trachea midline. No JVD or lymphadenopathy. CARDIOVASCULAR: Regular rate and rhythm without murmurs, gallops, or rubs. RESPIRATORY: Breath sounds equal bilaterally. No accessory muscle use. GASTROINTESTINAL: Abdomen soft, non-tender, nondistended. MUSCULOSKELETAL: No cyanosis, or edema. BACK: Nontender without obvious deformity. No CVA tenderness. : Rectum prolapse A/P Problem List: (1) Rectal prolapse ICD Code: K62.3 Status: Acute (2) Hyperkalemia ICD Code: E87.5 Status: Acute (3) Acute on chronic systolic CHF (congestive heart failure), NYHA class 4 ICD Code: I50.23 Status: Acute (4) Cardiomyopathy ICD Code: I42.9 Status: Acute Assessment and Plan 47-year-old man with Rectal prolapse Colorectal surgery consultation appreciated and plan for for reduction in the OR 04/27/17. Case d/w Dr Belle Continue with stool softener, parenteral pain medication when necessary Acute on chronic systolic CHF class IV Chest x-ray noted with finding of No significant interval change. Persistent bilateral lower lung consolidation versus atelectasis and small bilateral pleural effusions. BNP of 3970 Myocardial stress test report noted Continue Lasix, KAREL inhibitor, beta crispin with holding parameters Continue with hospice Appreciate input from Cardiology Cardiomyopathy Nuclear stress test noted without any evidence of ischemia Coreg and low-dose lisinopril added per cardiology Hyperkalemia Will give s/p Novolin R 8 units IV ,Dextrose 1 amp IV, Calcium chloride 1 g IV ,Bicarbonate 1 amp IV Acute kidney injury superimposed on chronic renal insufficiency with hyperkalemia Creatinine improving Monitor BUN/creatinine and avoid all nephrotoxic drugs Nephrology consultation when necessary Transaminitis/coagulopathy likely due to CHF/ hepatic congestion Monitor LFTs Hyperlipidemia Hold statin secondary to transaminitis Bari Summers MD Apr 26, 2017 13:21
[2017-04-26] MEDS ORDERED: CALCIUM GLUCONATE 10% 1 GM/10 ML VIAL IV ONE (13:30)
[2017-04-26] MEDS ORDERED: DEXTROSE 50% IN WATER 50 ML VIAL(D50) IV PUSH ONE (13:30)
[2017-04-26] MEDS ORDERED: INSULIN HUMAN REGULAR 1,000 UNITS/10 ML VIAL IV PUSH ONE (13:30)
[2017-04-26] MEDS ORDERED: SODIUM BICARBONATE 8.4% INJ 150 MEQ in DEXTROSE 5% IN WATE 1000ML INJ 1,000 ML IV ONE ×2 (15:21)
[2017-04-26] MEDS ORDERED: CALCIUM GLUCONATE INJ 1 GM in SODIUM CHLORIDE 0.9% INJ 100 ML IV ONE (16:00)
[2017-04-26 16:10] VITALS: BP 93/62; PULSE 85; RESP 22; TEMP 97.6; O2SAT 93
[2017-04-26 20:00] VITALS: BP 97/57; PULSE 63; PULSE 90; RESP 18; TEMP 97.9; O2SAT 95
[2017-04-27] VITALS (12 sets, daily range): BP systolic 78–118; BP diastolic 42–84; PULSE 82–114; RESP 18–20; TEMP 97.7–98.4; O2SAT 0–96
[2017-04-27] MEDS ORDERED: LACTATED RINGER'S 1000 ML IV PRN (02:45)
[2017-04-27] MEDS ORDERED: CHLORHEXIDINE GLUCONATE 2 % 1 PACK (2 CLOTHS) TOPICAL PRN (02:45)
[2017-04-27] MEDS ORDERED: POVIDONE IODINE 5% (ANTISEPSIS KIT) 4 APPLICATIONS EACH NARE PRN (02:45)
[2017-04-27] MEDS ORDERED: INSULIN HUMAN REGULAR 1,000 UNITS/10 ML VIAL SQ PRN (02:45)
[2017-04-27] MEDS ORDERED: SODIUM CHLORID 0.9% 500 ML IV PRN (02:45)
[2017-04-27] MEDS: MORPHINE SULFATE 4 MG/ML INJ IV PUSH PRN (03:53)
[2017-04-27 08:04] LABS: BICARBONATE 24.1 MEQ/L (21.0-32.0); POTASSIUM 4.9 MEQ/L (3.5-5.1)
[2017-04-27] MEDS ORDERED: SODIUM CHLORID 0.9% 500 ML INJ 500 ML IV ONE ×2 (08:30→13:00)
[2017-04-27] MEDS: SODIUM CHLORIDE 0.9% FLUSH 10 ML FLUSH IV FLUSH SCH ×2 (08:52→21:00)
[2017-04-27] MEDS: FUROSEMIDE 40 MG TAB PO SCH (08:52)
[2017-04-27] MEDS: CARVEDILOL 3.125 MG TAB PO SCH (08:52)
[2017-04-27] MEDS: LISINOPRIL 5 MG TAB PO SCH (08:53)
--- NOTE | 2017-04-27 10:14 | HHI.PR ---
Subjective Remarks Recurrent rectal prolapse/cardiomyopathy/congestive heart failure exacerbation 04/24/17-patient seen and examined, desperately wants surgery to reduce his rectum. Denies any significant shortness of breath. Afebrile 04/25/17-patient seen and examined, currently nothing by mouth pending reduction of rectal prolapse. Complained of pain 8/10 in intensity. Currently afebrile 04/26/17-patient seen and examined; no acute event overnight. case was discussed this AM with VEL Patel. Afebrile 04/27/17-patient seen and examined, complains of being in pain. Low BP. Objective Vitals Vital Signs Date Time Temp Pulse Resp B/P Pulse Ox O2 Delivery O2 Flow Rate FiO2 04/27/17 08:56 92 04/27/17 08:56 Room Air 04/27/17 08:04 98.4 82 20 78/42 92 04/27/17 04:00 97.7 90 18 98/59 94 04/27/17 00:00 98.0 91 18 94/56 96 04/26/17 20:00 90 04/26/17 20:00 97.9 63 18 97/57 95 04/26/17 16:10 97.6 85 22 93/62 93 04/26/17 12:05 98.2 90 20 94/65 95 I/O 04/26/17 04/26/17 04/26/17 04/27/17 04/27/17 04/27/17 07:00 15:00 23:00 07:00 15:00 23:00 Intake Total 120 ml 120 ml 440 ml 0 ml Output Total 100 ml 400 ml 350 ml 600 ml Balance 20 ml -280 ml 90 ml -600 ml Intake Oral 120 ml 120 ml 240 ml 0 ml IV Total 200 ml Output Urine Total 100 ml 400 ml 350 ml 600 ml # Bowel Movements 0 0 1 Result Diagram: 04/26/17 0704/27/17616 Objective Remarks GENERAL: In mild distress and crawl in position SKIN: Warm and dry. HEAD: Normocephalic. EYES: No scleral icterus. No injection or drainage. NECK: Supple, trachea midline. No JVD or lymphadenopathy. CARDIOVASCULAR: Regular rate and rhythm without murmurs, gallops, or rubs. RESPIRATORY: Breath sounds equal bilaterally. No accessory muscle use. GASTROINTESTINAL: Abdomen soft, non-tender, nondistended. MUSCULOSKELETAL: No cyanosis, or edema. BACK: Nontender without obvious deformity. No CVA tenderness. : Rectum prolapse A/P Problem List: (1) Rectal prolapse ICD Code: K62.3 Status: Acute (2) Hyperkalemia ICD Code: E87.5 Status: Acute (3) Acute on chronic systolic CHF (congestive heart failure), NYHA class 4 ICD Code: I50.23 Status: Acute (4) Cardiomyopathy ICD Code: I42.9 Status: Acute (5) Hypotension, unspecified ICD Code: I95.9 Status: Acute Assessment and Plan 47-year-old man with Rectal prolapse Colorectal surgery consultation appreciated and plan for for reduction in the OR possible today 04/27/17. Continue with stool softener, parenteral pain medication when necessary; however secondary to low BP will hold on IV pain medication Acute on chronic systolic CHF class IV Chest x-ray noted with finding of No significant interval change. Persistent bilateral lower lung consolidation versus atelectasis and small bilateral pleural effusions. BNP of 3970 Myocardial stress test report noted However secondary to renal function will hold Lasix and KAREL inhibitor Continue with hospice Appreciate input from Cardiology Cardiomyopathy Nuclear stress test noted without any evidence of ischemia Coreg and low-dose lisinopril added per cardiology Hyperkalemia Resolved status post Novolin R 8 units IV ,Dextrose 1 amp IV, Calcium chloride 1 g IV ,Bicarbonate 1 amp IV Acute kidney injury superimposed on chronic renal insufficiency with hyperkalemia Worsening renal function, will hold all nephrotoxic drugs including KAREL inhibitor and Lasix Monitor BUN/creatinine and avoid all nephrotoxic drugs Nephrology consultation when necessary Hypotension Will give NS bolus 5001 now and monitor Worsening leukocytosis Check UA and treat accordingly Transaminitis/coagulopathy likely due to CHF/ hepatic congestion Monitor LFTs Hyperlipidemia Hold statin secondary to transaminitis Bari Summers MD Apr 27, 2017 10:14
--- NOTE | 2017-04-27 10:48 | HHI.HCPN ---
Reason for visit a. To assist with evaluation and management of symptoms including: Pain, fatigue, SHARPE, cough, hemoptysis b. To assist medical decision maker(s) with: better understanding of current medical conditions; weighing benefits/burdens of medical treatment options; making medical treatment decisions. Subjective/Interval History 47-year-old male pending rectopexy for recurrent prolapsed rectum. He is currently receiving a 1 L fluid bolus in preparation for surgery. 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 single-chamber AICD implanted. He had enrolled in [facility] hospice however tells me the defibrillator is still active. He complains of 10 out of 10 rectal pain. His last morphine dose was at 4 AM. He receives 2 mg every 8 hours when necessary pain and has been utilizing all 3 doses most days. He remains hypotensive with blood pressures generally in the 90s over 50s however this morning's reading is 78/42, necessitating fluid bolus. His cardioprotective medications including lisinopril 2.5 mg daily, Lasix 40 mg daily and carvedilol 3.125 mg twice a day have been held due to hypotension. Laboratory studies show a stable CBC with chronic anemia, hemoglobin 9.5, hematocrit 29.3, sodium 133, potassium 4.9, BUN 59, creatinine 2.42 and calcium 8.1. His renal function has declined since admission with a presenting BUN of 30 and creatinine of 1.59. He is lying flat in bed on his side with no dyspnea. He is lethargic but answers questions clearly. He states he is awaiting his surgery. He states he is aware of the significant risk of surgery, however, states that it is preferable to living with the pain and constant prolapse of his rectum. Surgery is scheduled for 5 PM today. He has made himself a DO NOT RESUSCITATE status and is aware that this will be suspended during surgery and in the immediate postoperative period. He can no longer take care of himself at home and has been living at [facility] since 04/22, with plans to return upon discharge. This has been verified by the binder caser. Advance Directives Living Will: Never completed Health Care Surrogate: Copy in medical record Durable Power of [employer] Mer[employer]: Never completed Advance Directive Specifics Health Care Surrogate(s): Father-Wilson Calderón Objective Vital Signs Date Time Temp Pulse Resp B/P Pulse Ox O2 Delivery O2 Flow Rate FiO2 04/27/17 08:56 92 04/27/17 08:56 Room Air 04/27/17 08:04 98.4 82 20 78/42 92 04/27/17 04:00 97.7 90 18 98/59 94 04/27/17 00:00 98.0 91 18 94/56 96 04/26/17 20:00 90 04/26/17 20:00 97.9 63 18 97/57 95 04/26/17 16:10 97.6 85 22 93/62 93 04/26/17 12:05 98.2 90 20 94/65 95 Intake & Output 04/27/17 04/27/17 07:00 19:00 Intake Total 440 ml Output Total 950 ml Balance -510 ml Intake Oral 240 ml IV Total 200 ml Output Urine Total 950 ml # Bowel Movements 1 Physical Exam CONSTITUTIONAL/GENERAL: This is a thin patient, in no apparent distress. TUBES/LINES/DRAINS: PIV bilateral forearms SKIN: No jaundice, rashes, or lesions. No wounds seen anteriorly. Skin temperature appropriate. Not diaphoretic. NECK: Trachea midline. Supple, nontender. No palpable thyroid enlargement or nodularity. CARDIOVASCULAR: Regular rate and rhythm without murmurs, gallops, or rubs. No JVD. Peripheral pulses symmetric. RESPIRATORY/CHEST: Symmetric, unlabored respirations. Clear to auscultation. Breath sounds equal, diminished bilaterally. No wheezes, rales, or rhonchi. GASTROINTESTINAL: Abdomen soft, mild distention, mild tenderness to palpation. Bowel sounds present. GENITOURINARY: Without palpable bladder distension. Quintana catheter draining dark yellow urine to bedside drainage. MUSCULOSKELETAL: Extremities without clubbing, cyanosis, or edema. No joint tenderness or effusion noted. No calf tenderness. No mottling or clubbing. NEUROLOGICAL: Sleepy, arousable. Motor and sensory grossly within normal limits. Follows commands. Moves all extremities. PSYCHIATRIC: No obvious anxiety/depression. no apparent hallucinations or other psychotic thought process. . Diagnostic Tests Laboratory Laboratory Tests Test 04/24/17 04/26/17 04/27/17 12:20 07:26 06:17 Blood Type O POSITIVE Antibody Screen NEGATIVE Crossmatch Leukocyte-Reduced Red Blood Cells Blood Bank Comment White Blood Count 11.5 TH/MM3 (4.0-11.0) Red Blood Count 3.40 MIL/MM3 (4.50-5.90) Hemoglobin 9.5 GM/DL (13.0-17.0) Hematocrit 29.3 % (39.0-51.0) Mean Corpuscular Volume 86.3 FL (80.0-100.0) Mean Corpuscular Hemoglobin 28.0 PG (27.0-34.0) Mean Corpuscular Hemoglobin 32.5 % Concent (32.0-36.0) Red Cell Distribution Width 17.1 % (11.6-17.2) Platelet Count 186 TH/MM3 (150-450) Mean Platelet Volume 8.7 FL (7.0-11.0) Neutrophils (%) (Auto) 79.6 % (16.0-70.0) Lymphocytes (%) (Auto) 12.4 % (9.0-44.0) Monocytes (%) (Auto) 7.8 % (0.0-8.0) Eosinophils (%) (Auto) 0.0 % (0.0-4.0) Basophils (%) (Auto) 0.2 % (0.0-2.0) Neutrophils # (Auto) 9.2 TH/MM3 (1.8-7.7) Lymphocytes # (Auto) 1.4 TH/MM3 (1.0-4.8) Monocytes # (Auto) 0.9 TH/MM3 (0-0.9) Eosinophils # (Auto) 0.0 TH/MM3 (0-0.4) Basophils # (Auto) 0.0 TH/MM3 (0-0.2) CBC Comment AUTO DIFF Differential Total Cells 100 Counted Neutrophils % (Manual) 80 % (16-70) Band Neutrophils % 6 % (0-6) Lymphocytes % 7 % (9-44) Monocytes % 7 % (0-8) Neutrophils # (Manual) 9.9 TH/MM3 (1.8-7.7) Nucleated Red Blood Cells 1 /100 WBC (0-0) Differential Comment FINAL DIFF MANUAL Platelet Estimate NORMAL (NORMAL) Platelet Morphology Comment NORMAL (NORMAL) Helmet Cells OCC (NORMAL) Acanthocytes 1+ (NORMAL) Keratocytes 1+ (NORMAL) Sodium Level 134 MEQ/L 133 MEQ/L (136-145) (136-145) Potassium Level 5.6 MEQ/L 4.9 MEQ/L (3.5-5.1) (3.5-5.1) Chloride Level 101 MEQ/L 97 MEQ/L (98-107) (98-107) Carbon Dioxide Level 20.2 MEQ/L 24.1 MEQ/L (21.0-32.0) (21.0-32.0) Anion Gap 13 MEQ/L (5-15) 12 MEQ/L (5-15) Blood Urea Nitrogen 49 MG/DL (7-18) 59 MG/DL (7-18) Creatinine 2.30 MG/DL 2.42 MG/DL (0.60-1.30) (0.60-1.30) Estimat Glomerular Filtration 37 ML/MIN (>89) 35 ML/MIN (>89) Rate Random Glucose 84 MG/DL 81 MG/DL (74-106) (74-106) Calcium Level 8.5 MG/DL 8.1 MG/DL (8.5-10.1) (8.5-10.1) Result Diagram: 04/26/17 0726 04/27/17 0617 Imaging Last Impressions Abdomen X-Ray 04/24/17 0000 Signed Impressions: Service Date/Time: Monday, April 24, 2017 11:29 - CONCLUSION: Air-filled distended colon. Pattern likely representing ileus. Thomas Granados MD Myocardial Perfusion Scan Nuc Med 04/23/17 1359 Signed Impressions: Service Date/Time: Sunday, April 23, 2017 16:22 - CONCLUSION: 1. No definite evidence of stress-induced ischemia. 2. Marked left ventricular dilation and absent uptake in the inferior wall suggests cardiomyopathy and prior transmural infarction. 3. Markedly depressed wall motion. The ejection fraction is less than 20%%, but given the inferior wall fixed defect, SPECT analysis is limited. Wall motion and ejection fraction analysis may be better accomplished with either echocardiography or red blood cell labeled gated cardiogram. RISK CATEGORY: High (>3%% Annual Mortality Rate) Danial Huggins MD Chest X-Ray 04/23/17 0523 Signed Impressions: Service Date/Time: Sunday, April 23, 2017 07:10 - CONCLUSION: No significant interval change. Persistent bilateral lower lung consolidation versus atelectasis and small bilateral pleural effusions. Thomas Granados MD Assessment and Plan Disease Oriented Problem List: (1) Rectal prolapse (2) Acute on chronic systolic and diastolic heart failure, NYHA class 4 Symptom Scale: (1) Fatigue (2) Dyspnea and respiratory abnormalities (3) Pain, generalized (4) Cough (5) Hemoptysis Pertinent Non-Medical Issues Psychosocial:He was born in the [facility] and moved to [place] about age 5. He has lived in [place] and the [facility] where he has family support. His father, Wilson Calderón, and sister Reena lived in [place] and he aunt, Anel Brown lives in the [facility]. He denies any spiritual affiliation and declines replenishment associate. 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 He stated he had previously spent some time in skilled nursing. He does have a long history of polysubstance abuse. Spiritual:Attends [employer] in [place]. Legal:HCS signed making his father, Wilson Calderón health care surrogate. Ethical issues impacting care: Important Contacts Father - Wilson Calderón Aunt - Anel Brown Sister - Reena Calderón Prognosis His prognosis is poor. His ejection fraction has declined now to 10-15%. He states a recent history, since November, of multiple AICD shocks, as the device was unable to pace the patient out of the arrhythmia with antitachycardia pacing. His cardiac status is now compromising his hepatic, respiratory and renal status. It appears he is developing multisystem organ failure. He has had 15 ED visits with 9 hospital admissions since November and is currently able to tolerate his ACEI, diuretic and beta crispin for his heart failure only intermittently, due to hypotension. His debility and dyspnea on exertion are increasing, and severe claudication is now compromising his ability for even minimal ambulation. Medical options are limited. With his recurrent rectal prolapse his quality of life is quite poor. He states that he is "desperate to have surgery" as his rectum prolapse is very frequent. He was previously on hospice for a brief period but, revoked. He would be appropriate for hospice if goals were consistent. Code Status: No Code Plan PLAN: Legal decision maker: Patient is currently capacitated to make his own decisions, but has named his father, Wilson Calderón, in case he becomes incapacitated Goals: Conservative. He wishes to have his rectal prolapse treated due to the impact on his quality of life but is aware that his heart failure is likely terminal and that his surgery poses significant risk.. CODE STATUS: DNR, patient is aware that his DNR status is suspended during the surgery and in the immediate postoperative period. SYMPTOMS: * Fatigue - his activity tolerance is severely impacted by his cardiac dysfunction. His ejection fraction 02/2017 was 10-15% with moderate to severe mitral regurgitation, moderate to severe tricuspid regurgitation and pulmonary artery peak pressure of 52 mmHg. He is able to tolerate cardioprotective medications only intermittently, due to hypotension, related to his end-stage heart failure per cardiology evaluations over the past several admissions. * Dyspnea - this is compounded by his past smoking history, pulmonary hypertension, recent pulmonary embolus end-stage heart failure and valvular dysfunction. His B natriuretic peptide levels were elevated to 3970 on admission indicating elevated fluid levels. This is difficult to treat due to his chronic hypotension which is exacerbated by the use of diuretics. He is currently not dyspneic at rest and having no orthopnea. As he is receiving a fluid bolus this will need to be monitored as he is at high risk of recurrent heart failure exacerbation. * Pain - he is receiving morphine 2 mg IV every 8 hours when necessary pain, using maximum doses daily. This pain medication may need to be uptitrated as he is scheduled for rectal prolapse reduction in OR today. * Cough/hemoptysis - no significant interval change is noted in his chest x-ray showing persistent bilateral lower lung consolidation versus atelectasis with small bilateral pleural effusions, white blood cells are mildly elevated at 11.5 , he is afebrile with no indications for respiratory infection, but is at high risk due to his immobility, recent pulmonary embolus for which he is not been on anticoagulation due to his liver compromise and recurrent Coumadin toxicity, weakness and smoking history. This should be closely monitored due to his elevated risk and cardiac compromise. Palliative care will continue to follow the patient during hospital course as condition evolves, to assist patient/decision-maker with understanding of their medical conditions, weighing benefits/burdens of treatment options, for clarification of goals of treatment. Additionally will assist with any symptoms of palliative concern. Juliane Walls Apr 27, 2017 10:48
[2017-04-27] MEDS ORDERED: PHENYLEPHRINE HCL 10 MG/ML VIAL IV ONE (12:00)
[2017-04-27] MEDS ORDERED: SODIUM BICARBONATE 8.4% INJ 50 MEQ/50 ML SYR IV ONE (12:00)
[2017-04-27] MEDS ORDERED: PROPOFOL 200 MG/20 ML AMP IV ONE (12:00)
[2017-04-27] MEDS ORDERED: CALCIUM CHLORIDE 10% SOLN 13.6 MEQ/10 ML SYR IV ONE (12:00)
[2017-04-27 14:38] LABS: BACTERIA, URINE MOD /hpf; BLOOD, URINE NEG (NEG); CALCIUM OXALATE CRYSTALS,URINE MOD /hpf; COMMENT (UR) CULTURE INDICATED; CULTURE IF INDICATED CULTURE INDICATED; GLUCOSE,URINE NEG (NEG); HYALINE CAST, URINE 104 /lpf (RARE); KETONE, URINE NEG (NEG); MUCUS URINE FEW /lpf (OCC); NITRITE,URINE NEG (NEG); SQUAMOUS EPITHELIAL CELL URINE 3 /hpf (0-5); URINE COLOR ORANGE (YELLW/STRAW)
[2017-04-27] MEDS ORDERED: KETAMINE HCL 500 MG/5 ML VIAL ONE (17:23)
[2017-04-27] MEDS ORDERED: ceFAZolin INJ 1,000 MG VIAL ONE (17:46)
[2017-04-27] MEDS ORDERED: metroNIDAZOLE 500 MG INJ 100 ML IV ONE (17:46)
[2017-04-27] MEDS ORDERED: SUGAMMADEX SODIUM 200 MG/2 ML VIAL IV PUSH ONE ×2 (18:42)
[2017-04-27] MEDS ORDERED: SODIUM BICARBONATE 8.4% INJ 50 MEQ/50 ML SYR ONE (19:51)
[2017-04-27] MEDS ORDERED: MIDAZOLAM HCL 2 MG/2 ML VIAL ONE (20:13)
[2017-04-27] MEDS ORDERED: EPINEPHrine HCL (1:1000) 1 MG/ML VIAL ONE ×2 (20:17→22:05)
[2017-04-27] MEDS ORDERED: PHENYLEPHRINE HCL 10 MG/ML VIAL ONE ×2 (20:19→22:11)
[2017-04-27] MEDS ORDERED: SODIUM BICARBONATE 8.4% INJ 50 ML ONE (20:30)
[2017-04-27] MEDS ORDERED: MIDAZOLAM HCL 5 MG/ML VIAL (1 ML) ONE (20:41)
[2017-04-27 20:56] LABS: BLOOD GAS BASE EXCESS -12.6 mmol/L (-2-2); BLOOD GAS CARBOXYHEMOGLOBIN 0.5 % (0-4); BLOOD GAS HCO3 18 mmol/L (22-26); BLOOD GAS METHEMOGLOBIN 1.1 % (0-2); BLOOD GAS O2 HGB SATURATION 15 % (90-100); BLOOD GAS OXYGEN CONTENT 2.1 Vol % (12.0-20.0); BLOOD GAS PCO2 80 mmHg (38-42); BLOOD GAS PO2 26 mmHg (61-120); CRITICAL VALUE YES; TEMP CORR TO 98.6
[2017-04-27 20:57] LABS: OXYGEN DEVICE O.R. ABG; STAT YES
[2017-04-27 21:10] LABS: MEAN CORPUSCULAR HGB CONC 29.7 % (32.0-36.0)
[2017-04-27 21:28] LABS: BLOOD GAS BASE EXCESS -10.4 mmol/L (-2-2); BLOOD GAS CARBOXYHEMOGLOBIN 1.3 % (0-4); BLOOD GAS HCO3 14 mmol/L (22-26); BLOOD GAS METHEMOGLOBIN 0.7 % (0-2); BLOOD GAS O2 HGB SATURATION 98 % (90-100); BLOOD GAS OXYGEN CONTENT 12.5 Vol % (12.0-20.0); BLOOD GAS PCO2 27 mmHg (38-42); BLOOD GAS PO2 345 mmHg (61-120); BLOOD GAS TOTAL HGB 8.4 G/DL (12.0-16.0); TEMP CORR TO 98.6
[2017-04-27 21:29] LABS: CRITICAL VALUE YES; DRAW SITE ART LINE; FIO2 100 %; OXYGEN DEVICE VENTILATOR; STAT NO; VENT SETTINGS AC/20/500/PEEP 0
[2017-04-27] MEDS ORDERED: TERBUTALINE INJ 1 MG/ML AMP SQ PRN (21:30)
[2017-04-27] MEDS ORDERED: SODIUM BICARBONATE 8.4% INJ 50 MEQ/50 ML SYR IV PUSH ONE (21:30)
[2017-04-27] MEDS ORDERED: PHENYLEPHRINE INJ 160 MG in DEXTROSE 5% IN WATE 500 ML INJ 484 ML IV SCH ×2 (21:30)
--- NOTE | 2017-04-27 21:39 | PD.PROCEDR ---
Procedure Note Procedure DATE: 04/27/17 PROCEDURE: Left femoral arterial catheter placement INDICATION: Cardiogenic shock him unable to obtain cuff pressure. DETAILS OF PROCEDURE The patient was placed in supine position. The skin was cleansed with Chloraprep. Additional barrier precautions included large sterile drape, sterile gloves, sterile gown, face mask, and hat. 1% lidocaine was used for local anesthesia. Left femoral artery is very small and directly overlies left femoral vein. Under direct ultrasound guidance attempt, the artery was accessed with an introducer needle It required 5 attempts before guidewire could be advanced. Using Seldinger technique 16 gauge arterial catheter was placed. The guide wire was removed. The catheter was connected to a transducer line and flushed with saline. The video monitor displayed normal arterial wave forms. The catheter was secured with 2-0 silk. A sterile dressing with antibiotic disc was applied. ESTIMATED BLOOD LOSS: minimal COMPLICATIONS: None Mahnaz Capps MD Apr 27, 2017 21:39
--- NOTE | 2017-04-27 21:39 | PD.CONS ---
[facility] Service Critical Care Medicine Consult Requested By Dr. Henriquez Reason for Consult Critical care management of respiratory failure and profound shock Primary Care Physician Non-Staff History of Present Illness 47-year-old male with past medical history of [facility] IV chronic systolic heart failure with EF 10-15%, ICD, hyperlipidemia, polysubstance abuse (daily cocaine/ THC/tobacco, prior EtOH) who is enrolled in hospice. He presented to [facility] 04/23 with rectal prolapse which has been an ongoing problem for him. He has been refused surgery in the past due to extremely high operative risk. However patient was adamant that he receive surgery due to very poor quality of life with rectal prolapse, reportedly telling clinicians "I would rather than to live with this" and accepting operative risks. He has been DNR, though rescinded while he was in OR. Discussed with Dr. Henriquez who states patient was intubated and became progressively hypotensive. Very difficult IV access. IJ attempted bilateral (unsuccessful), I/O placed but it blew, ultimately placed R femoral line and was uncertain if this was intraarterial or venous reading . Patient with no obtainable cuff pressure, no obtainable O2 sat. Did not receive CPR. Received Epi and phenylephrine pushes. Surgery was never started and patient was transferred to PACU with phenylephrine and epinephrine going wide open. Dr. Henriquez updated patients sister on phone and told her there is a good chance he will not survive the night. Patient remains DNR per previously expressed wishes. Past Family Social History Allergies: Coded Allergies: No Known Allergies (Unverified , 04/14/17) Past Medical History Stage IV heart failure, ejection fraction 10-15% Moderate mitral regurgitation Moderate tricuspid regurgitation Hyperlipidemia ICD ([facility]) History of alcohol abuse Tobacco abuse Cocaine abuse Cannabinoids abuse Past Surgical History [facility] ICD placement Reported Medications Tylenol 500 mg by mouth every 4 hours Maalox when necessary Loperamide 2 mg as needed for diarrhea Tussin DM 5 mL by mouth every 4 hours when necessary Ativan 0.5 mg by mouth every 6 hours when necessary Lasix 20 mg by mouth daily Potassium chloride 10 mEq by mouth daily Family History Unable to obtain secondary to clinical condition. Social History He is a smoker. He has a history of alcohol abuse. Marijuana and cocaine abuse with drug screen positive for both as recently as February 2017 Physical Exam Vital Signs Vital Signs Date Time Temp Pulse Resp B/P Pulse Ox O2 Delivery O2 Flow Rate FiO2 6/7/17 21:34 0 60 04/27/17 20:35 0 100 04/27/17 20:15 100 04/27/17 16:05 98.2 86 19 78/60 93 04/27/17 15:15 84/58 04/27/17 12:05 98.4 91 19 80/56 93 04/27/17 10:49 82/58 04/27/17 08:56 92 04/27/17 08:56 Room Air 04/27/17 08:04 98.4 82 20 78/42 92 04/27/17 04:00 97.7 90 18 98/59 94 04/27/17 00:00 98.0 91 18 94/56 96 Physical Exam GENERAL: Moribund appearing black male who is orotracheally intubated. SKIN: Peripherally cool. HEAD: Atraumatic. Normocephalic. EYES: Right pupil 4 mm and sluggishly reactive to 2 mm, left pupil 5 mm and sluggishly reactive to 3 mm.. Mild icterus and moderate scleral edema. ENT: No nasal bleeding or discharge. Mucous membranes moist with frothy clear oral secretions. NECK: Trachea midline. swelling left neck following attempted IJ placement. CARDIOVASCULAR: irregular, +S3, faint heart sounds with no murmur appreciated. RESPIRATORY: coarse bilaterally breath sounds. GASTROINTESTINAL: Abdomen distended, mildly tympanitic with absent bowel sounds. VASC: dressing in place L groin. Line in place right groin with poor waveform, pressure reading mean 32. MUSCULOSKELETAL: Extremities without clubbing, cyanosis. 2+ LUE edema, 1+ RUE edema. NEUROLOGICAL: Intermittent eye opening and facial grimace, moving BUE spontaneously and withdrawing. Laboratory Laboratory Tests Test 04/27/17 04/27/17 04/27/17 04/27/17 06:17 14:15 19:32 21:03 Sodium Level 133 Potassium Level 4.9 Chloride Level 97 Carbon Dioxide Level 24.1 Anion Gap 12 Blood Urea Nitrogen 59 Creatinine 2.42 Estimat Glomerular Filtration 35 Rate Random Glucose 81 Calcium Level 8.1 Urine Color ORANGE Urine Turbidity HAZY Urine pH 5.0 Urine Specific [place] 1.019 Urine Protein 30 Urine Glucose (UA) NEG Urine Ketones NEG Urine Occult Blood NEG Urine Nitrite NEG Urine Bilirubin NEG Urine Urobilinogen 4.0 Urine Leukocyte Esterase TRACE Urine RBC 5 Urine WBC 12 Urine Squamous Epithelial 3 Cells Urine Calcium Oxalate Crystals MOD Urine Amorphous Sediment RARE Urine Bacteria MOD Urine Hyaline Casts 104 Urine Mucus FEW Microscopic Urinalysis Comment CULTURE INDICATED Blood Gas Puncture Site ART LINE Blood Gas Patient Temperature 98.6 98.6 Blood Gas HCO3 18 14 Blood Gas Base Excess -12.6 -10.4 Blood Gas Oxygen Saturation 15 98 Arterial Blood pH 6.97 7.34 Arterial Blood Partial 80 27 Pressure CO2 Arterial Blood Partial 26 345 Pressure O2 Arterial Blood Oxygen Content 2.1 12.5 Arterial Blood 0.5 1.3 Carboxyhemoglobin Arterial Blood Methemoglobin 1.1 0.7 Blood Gas Hemoglobin 10.0 8.4 Oxygen Delivery Device O.R. ABG VENTILATOR Blood Gas Ventilator Setting AC/20/500/PEEP 0 Blood Gas Inspired Oxygen 100 Date/Time Procedure Status Source Growth 04/27/17 14:15 Urine Culture Received Urine Clean Catch Pending Result Diagram: 04/26/17 0726 04/27/17 0617 Assessment and Plan Assessment and Plan NEURO: Acute metabolic encephalopathy Fentanyl for analgosedation. Versed bolus prn. RASS -2 RESP: Acute respiratory failure Pulmonary edema Chest x-ray demonstrated satisfactory endotracheal tube position. Bilateral opacities consistent with pulmonary edema. CV: Cardiogenic shock [facility] IV chronic systolic heart failure Hyperlipidemia Lactic acidemia ICD Profound cardiogenic shock, volume overload per bedside ultrasound, oliguric. Epinephrine drip. Hydrocortisone 100 mg IV q8. On phenylephrine but this was discontinued as was not contributing to improvement in BP. Serial lactic acid. Not candidate for mechanical cardiac support due to end stage cardiomyopathy with multiorgan failure and hospice status. GI: Ileus Hyperbilirubinemia, likely congestive Moderate protein energy malnutrition Insert orogastric tube and placed to LIWS. FEN/RENAL: Acute Severe metabolic acidemia Hyperkalemia Acute kidney injury overlying CKD stage III DC condom catheter and place Quintana. Monitor intake and output. Monitor electrolytes and address as clinically indicated. Potassium is 5.5. Given calcium chloride 1 g, bicarbonate 100 mEq, Bicarb drip 150 MEQ @ 50/hr. Oliguric, volume overloaded, Bumex 1 mg IV q8 hours. ID: UTI Place on Cefepime 2 gram IV q 24 hours (avoiding zosyn due to CHF). Followup urine culture. Send blood and urine cultures. HEME: Monitor CBC ENDO: Severe Hypoglycemia Secondary to profound shock. Given 2 amps of D50. Placed on D10 at 25 mill liters per hour, bedside glucose q1 hour. Decreased to 10 ml/hr and now hyperglycemic and discontinuing completely. PROPH: SCDs for DVT prophylaxis. Hold on pharmacologic DVT prophylaxis due to oozing from lines, thrombocytopenia, PT increasing already. Protonix 40 mg IV daily for stress ulcer prophylaxis. ACCESS: R groin line from OR is probably venous, will remove. L femoral CVL and L femoral art line placed under ultrasound guidance. DNR I discussed with patients father, Wilson Calderón, who is his healthcare surrogate. He was made aware patient is not expected to survive. Began to approach possibility of transition to comfort measures but he stated "I need to call his brother and sister who are closer to [facility] and let them know to see if they can get there". Father is in [place] and he seemed to indicate he might not be able to come to the hospital. Discussed with Dr. Henriquez. Critical care time 90 minutes exclusive of separately billable procedures. Palliative care following. Mahnaz Capps MD Apr 27, 2017 21:39
--- NOTE | 2017-04-27 21:39 | PD.PROCEDR ---
Procedure Note Procedure DATE: 04/27/17 CENTRAL LINE PLACEMENT: Left femoral vein. Ultrasound-guided INDICATION: Central venous access CONSENT Procedure was done emergently as patient is in extremis and hypotensive. He has not capacitated for medical decision-making. DESCRIPTION OF THE PROCEDURE The patient was placed in supine position. The skin was cleansed with Chloraprep 3. Additional barrier precautions included large sterile drape, sterile gloves, sterile gown, face mask, and hat. 1 % lidocaine was used for local anesthesia. Under direct ultrasound guidance and on single attempt, the vein was accessed with an introducer needle. The guide wire was advanced and the tract was dilated. Using Seldinger technique a 7 Urdu 20 cm antimicrobial coated triple-lumen catheter was advanced to a depth of 20 centimeters. The guide wire was removed. All ports had good return of dark venous blood and flushed easily with saline. The central line was secured with 2.0 silk. A sterile dressing with antibiotic disc was applied. ESTIMATED BLOOD LOSS: Minimal COMPLICATIONS: No apparent complications. Mahnaz Capps MD Apr 27, 2017 21:39
[2017-04-27] MEDS ORDERED: CEFEPIME INJ 2,000 MG in SODIUM CHLORIDE 0.9% INJ 100 ML IV SCH (22:00)
--- NOTE | 2017-04-27 22:03 | RADRPT ---
EXAM DATE/TIME: 04/27/2017 21:39 [facility] COMPARISON: CHEST SINGLE AP, April 23, 2017, 7:10. INDICATIONS : Respiratory failure. MEDICAL HISTORY : Cardiovascular disease. Congestive heart failure. Hypertension. A-fib. SURGICAL HISTORY : Pacemaker. ENCOUNTER: Subsequent ACUITY: 3 days PAIN SCORE: Non-responsive. LOCATION: chest FINDINGS: A single AP supine view of the chest was obtained and demonstrates interval intubation with endotrach eal tube approximately 4-5 cm above the jannet. The heart size remains moderately enlarged with globu lar configuration. Hazy perihilar opacities are noted as well as more dense consolidation at the left lung base with obscuration of the left hemidiaphragm. The left subclavian transvenous pacer remains in place. There are multiple overlying electrocardiogram leads. CONCLUSION: 1. Interval intubation. 2. Cardiomegaly and bilateral pulmonary opacities. Tejas Strauss MD on April 27, 2017 at 21:59 Board Certified Radiologist. This report was verified electronically.
[2017-04-27 22:18] LABS: AUTOMATED NEUTROPHIL # 7.3 TH/MM3 (1.8-7.7); BASOPHIL # 0.2 TH/MM3 (0-0.2); BASOPHIL % 1.8 % (0.0-2.0); EOSINOPHIL % 0.2 % (0.0-4.0); HEMATOCRIT 26.9 % (39.0-51.0); LYMPH % 12.1 % (9.0-44.0); LYMPHOCYTE # 1.1 TH/MM3 (1.0-4.8); MEAN CELL VOLUME 88.2 FL (80.0-100.0); MEAN CORPUSCULAR HEMOGLOBIN 28.7 PG (27.0-34.0); MEAN CORPUSCULAR HGB CONC 32.5 % (32.0-36.0); MONO % 5.4 % (0.0-8.0); NEUT % 80.5 % (16.0-70.0); PLATELET COUNT 124 TH/MM3 (150-450); RED BLOOD COUNT 3.05 MIL/MM3 (4.50-5.90); RED CELL DISTRIBUTION WIDTH 17.1 % (11.6-17.2); WHITE BLOOD COUNT 9.1 TH/MM3 (4.0-11.0)
[2017-04-27 22:26] LABS: INTERNATIONAL NORMALIZED RATIO 1.9 RATIO; PROTHROMBIN TIME - PATIENT 21.7 SEC (9.8-11.6)
[2017-04-27 22:27] LABS: HEMO FLAGS AUTO DIFF
[2017-04-27] MEDS: fentaNYL DRIP 250 ML IV SCH (22:27)
[2017-04-27] MEDS: HYDROCORTISONE SOD SUCCINATE 100 MG VIAL IV PUSH SCH (22:27)
[2017-04-27] MEDS ORDERED: BUMETANIDE INJ 1 MG/4 ML VIAL IV PUSH ONE (22:45)
[2017-04-27 22:57] LABS: ALKALINE PHOSPHATASE 90 U/L (45-117); ALT (GPT) 49 U/L (12-78); ANION GAP 21 MEQ/L (5-15); AST (GOT) 65 U/L (15-37); BANDS 9 % (0-6); BICARBONATE 15.8 MEQ/L (21.0-32.0); BLOOD UREA NITROGEN 59 MG/DL (7-18); CHLORIDE 104 MEQ/L (98-107); CORRECTED NUCLEATED RBC 7 /100 WBC (0-0); CREATINE KINASE 511 U/L (39-308); GLOMERULAR FILTRATION RATE 32 ML/MIN (>89); MAGNESIUM 2.4 MG/DL (1.5-2.5); METAMYELOCYTES 1 % (0-1); NEUTROPHIL # MANUAL DIFF 7.1 TH/MM3 (1.8-7.7); POLYS (SEG NEUTROPHILS) 68 % (16-70); POTASSIUM 5.5 MEQ/L (3.5-5.1); SCAN/DIFF FINAL DIFF MANUAL; SODIUM (NA) 141 MEQ/L (136-145); TOTAL BILIRUBIN ADULT 2.1 MG/DL (0.2-1.0); WBC DIFF SAMPLE 100
[2017-04-27 22:58] LABS: ACANTHOCYTES 2+ (NORMAL); BURR CELLS 1+ (NORMAL); PLATELET ESTIMATE SMEAR LOW (NORMAL); PLATELET MORPHOLOGY NORMAL (NORMAL)
[2017-04-27 23:00] LABS: KERATOCYTES OCC (NORMAL); TOXIC VACUOLATION PRESENT (NONE SEEN)
[2017-04-27] MEDS ORDERED: DEXTROSE 50% IN WATER 50 ML SYRINGE ONE ×3 (23:02→23:30)
[2017-04-27] MEDS ORDERED: DEXTROSE 10% INJ 1,000 ML IV SCH (23:15)
[2017-04-27] MEDS ORDERED: CALCIUM CHLORIDE INJ 1 GM in DEXTROSE 5% IN WATER 100ML INJ 100 ML IV ONE ×2 (23:30)
[2017-04-27] MEDS: WATER IV SCH ×2 (23:45)
[2017-04-27] MEDS: EPINEPHRINE IV SCH ×2 (23:45)
[2017-04-27] MEDS: DEXTROSE 5% IV SCH ×2 (23:45)
[2017-04-27 23:53] LABS: CKMB 2.5 NG/ML (0.5-3.6)
[2017-04-28] VITALS (14 sets, daily range): BP systolic 108–124; BP diastolic 72–93; PULSE 73–96; RESP 20–28; TEMP 92.1–96.1; O2SAT 0
[2017-04-28] MEDS: SODIUM BICARBONATE 8.4% INJ 150 MEQ in WATER STERILE FOR INJ 850 ML IV SCH ×2 (00:09→10:47)
[2017-04-28] MEDS ORDERED: GLUCAGON 1 MG/ML VIAL OTHER PRN ×2 (00:30→08:30)
[2017-04-28] MEDS ORDERED: DEXTROSE 50% IN WATER 50 ML VIAL(D50) IV PUSH PRN (00:30)
[2017-04-28] MEDS: MIDAZOLAM HCL 2 MG/2 ML VIAL IV PUSH PRN ×2 (00:39→03:07)
[2017-04-28 05:07] LABS: AUTOMATED NEUTROPHIL # 10.3 TH/MM3 (1.8-7.7); BASOPHIL % 0.3 % (0.0-2.0); EOSINOPHIL % 0.1 % (0.0-4.0); HEMATOCRIT 29.3 % (39.0-51.0); LYMPHOCYTE # 0.8 TH/MM3 (1.0-4.8); MEAN CELL VOLUME 95.7 FL (80.0-100.0); MEAN CORPUSCULAR HEMOGLOBIN 28.4 PG (27.0-34.0); MONO % 4.2 % (0.0-8.0); NEUT % 88.4 % (16.0-70.0); PLATELET COUNT 118 TH/MM3 (150-450); RED BLOOD COUNT 3.06 MIL/MM3 (4.50-5.90); RED CELL DISTRIBUTION WIDTH 18.6 % (11.6-17.2); WHITE BLOOD COUNT 11.7 TH/MM3 (4.0-11.0)
[2017-04-28 05:25] LABS: HEMO FLAGS AUTO DIFF
[2017-04-28] MEDS: EPINEPHRINE IV SCH ×4 (05:28→12:18)
[2017-04-28] MEDS: WATER IV SCH ×4 (05:28→12:18)
[2017-04-28] MEDS: DEXTROSE 5% IV SCH ×4 (05:28→12:18)
--- NOTE | 2017-04-28 05:31 | HHI.CCPN ---
Subjective Remarks/Hospital Course 47-year-old male with past medical history of [facility] IV chronic systolic heart failure with EF 10-15%, ICD, hyperlipidemia, polysubstance abuse (daily cocaine/ THC/tobacco, prior EtOH) who is enrolled in hospice. He presented [place] [facility] [place] with rectal prolapse which has been an ongoing problem for him. He has been refused surgery in the past due to extremely high operative risk. However patient was adamant that he receive surgery due to very poor quality of life with rectal prolapse, reportedly telling clinicians "I would rather than to live with this" and accepting operative risks. He has been DNR, though rescinded while he was in OR. Discussed with Dr. Henriquez who states patient was intubated and became progressively hypotensive. Very difficult IV access. IJ attempted bilateral (unsuccessful), I/O placed but it blew, ultimately placed R femoral line and was uncertain if this was intraarterial or venous reading . Patient with no obtainable cuff pressure, no obtainable O2 sat. Did not receive CPR. Received Epi and phenylephrine pushes. Surgery was never started and patient was transferred to PACU with phenylephrine and epinephrine going wide open. Dr. Henriquez updated patients sister on phone and told her there is a good chance he will not survive the night. Patient remains DNR per previously expressed wishes. Subjective: 04/28: Patient currently afebrile and unresponsive. Previously was following commands on right upper extremity according to RN prior to initiation fentanyl. He does appear fixed with right sided 4 mm and left 3 mm. Weaning down vasopressors. Minimal urine output. Very poor prognosis. Objective Vital Signs Date Time Temp Pulse Resp B/P Pulse Ox O2 Delivery O2 Flow Rate FiO2 04/28/17 04:06 0 60 04/28/17 04:00 75 04/27/17 16:05 98.2 19 78/60 04/27/17 08:56 Room Air Intake and Output 04/27/17 04/27/17 04/28/17 08:00 16:00 00:00 Intake Total 0 ml 0 ml Output Total 600 ml 800 ml 75 ml Balance -600 ml -800 ml -75 ml Result Diagram: 04/28/17 2075 04/27/17 2200 Other Results Microbiology Date/Time Procedure Status Source Growth 04/27/17 23:40 Aerobic Blood Culture Received Blood Peripheral Pending 04/27/17 23:40 Anaerobic Blood Culture Received Blood Peripheral Pending 04/27/17 14:15 Urine Culture Received Urine Clean Catch Pending Imaging Last Impressions Chest X-Ray 04/27/17 0000 Signed Impressions: Service Date/Time: Thursday, April 27, 2017 21:39 - CONCLUSION: 1. Interval intubation. 2. Cardiomegaly and bilateral pulmonary opacities. Tejas Strauss MD Abdomen X-Ray 04/24/17 0000 Signed Impressions: Service Date/Time: Monday, April 24, 2017 11:29 - CONCLUSION: Air-filled distended colon. Pattern likely representing ileus. Thomas Granados MD Myocardial Perfusion Scan Nuc Med 04/23/17 1359 Signed Impressions: Service Date/Time: Sunday, April 23, 2017 16:22 - CONCLUSION: 1. No definite evidence of stress-induced ischemia. 2. Marked left ventricular dilation and absent uptake in the inferior wall suggests cardiomyopathy and prior transmural infarction. 3. Markedly depressed wall motion. The ejection fraction is less than 20%%, but given the inferior wall fixed defect, SPECT analysis is limited. Wall motion and ejection fraction analysis may be better accomplished with either echocardiography or red blood cell labeled gated cardiogram. RISK CATEGORY: High (>3%% Annual Mortality Rate) Danial Huggins MD Objective Remarks GENERAL: 47-year-old Ana Rosa male., Critically ill currently resting in bed will strictly intubated SKIN: Warm and dry. HEAD: Atraumatic. Normocephalic. EYES: Pupils equal and round. No scleral icterus. No injection or drainage. ENT: No nasal bleeding or discharge. Mucous membranes pink and moist. NECK: Trachea midline. No JVD. CARDIOVASCULAR: Regular rate and rhythm. RESPIRATORY: No accessory muscle use. Clear to auscultation. Breath sounds equal bilaterally. GASTROINTESTINAL: Abdomen soft, non-tender, nondistended. Hepatic and splenic margins not palpable. Prolapsed rectum MUSCULOSKELETAL: Extremities without clubbing, cyanosis, or edema. No obvious deformities. Patient is a right central venous access is clean dry and intact. Left femoral arterial line and left central line currently with serosanguineous drainage around the catheter sites. NEUROLOGICAL: Right pupil 4 mm. Left 3 mm. Both fixed my examination. No corneal reflex. Currently no gag. Does not withdraw to pain in all 4 extremity 's.. Urinary Catheter: Yes Assessment to: Continue Quintana insert reason: Prolonged Immobilization Vascular Central Line Catheter: Yes Assessment to: Continue Date of Insertion: Apr 27, 2017 Line: Central Venous Catheter Side: Left Location: Femoral A/P Assessment and Plan Neuro/Psych: Acute encephalopathy -likely toxic metabolic plus neurohypoglypemic Chronic benzodiazepine use Positive toxicology for cocaine/THC 04/06 but he denied use Currently on fentanyl drip at 250 micrograms per minute for analgesia while orotracheally intubated Goal of RASS -[address] brain once clinically stable Will check EEG Check B12/TSH/ammonia level Holding home medication Ativan 0.5 mg every 4 hours when necessary agitation Noted that palliative care currently following. Healthcare proxy is notified overnight of dire condition. CV: Severe cardiomyopathy - ejection 10% status post [facility] to ICD/single- chamber 2011 Lactic acidosis Septic shock with multisystem organ failure MR/TR History of hypertension History dyslipidemia Currently on epinephrine drip at 20 mics grams per minute weaned off Add vasopressin in light of significant acidosis Echocardiogram 05/07 revealed EF 10-15%. Moderate to severe MR/TR. Mild pulmonary regurgitation. Dilated coronary sinus. TAMANNA 52 mmHg Nuclear medicine stress test 05/07- LV dilatation decreased/absent uptake in the inferior wall likely prior transmural infarct. High risk given 3% Followed by Dr. Zelaya/cardiology Previously on Lasix 40 mg by mouth daily. 20 mg by mouth daily home dosage.. Given 2 doses of Bumex overnight 0.5 mg and 1 mg. We'll start empirically on Bumex drip due to lack urine output 0.5 mg an hour. Lactates trending upward from 12.5-16. We'll cycle every 6 hours Bedside ultrasound does not reveal significant pericardial effusion. Initial troponin 0.05. Follow-up on EKG Received one ampule calcium chloride overnight Received 2 L crystalloid yesterday evening for hypotension Holding Coreg 3.125 twice a day and lisinopril 2.5 mill grams daily at her current shock state Previously on amiodarone Resp: Acute hypoxemic respiratory failure Anion gap metabolic acidosis/respiratory acidosis PRVC 28 ~500/0.8//35 Ventilator bundle Will scheduled bronchodilator therapy every 6 hours and as needed. No prior history of COPD. Chest x-ray 04/27 reveals cardiomegaly with bilateral pleural effusions Follow-up ABG at 10 AM and adjust ventilator accordingly Currently on sterile water with 3 ampules of bicarbonate increased 150 cc an hour GI: Rectal prolapse Elevated AST Hypoalbuminemia Currently nothing by mouth Protonix for GI prophylaxis Follow-up amylase/lipase/ammonia level Abdominal x-ray ordered rule out pneumatosis Abdominal ultrasound ordered as well too unstable for CT Plan was for repair of rectal prolapse per Dr. Henriquez as colorectal surgery. : Quintana catheter has been placed for accurate I's and O's in a critically ill patient Endo: Hypoglycemia with an MBS of 5 now hyperglycemic an MBS of 491 Received 5 ampules of D50 according to RN. Currently on D10 at 10 cc an hour. We'll discontinue Will check beta hydroxy butyrate, C-peptide and insulin/proinsulin. Unclear etiology. Will review records for surripulous insulin use Check TSH Renal: Acute on chronic kidney injury - previous diagnosis of cardiorenal syndrome's 03/27/17 Check abdominal ultrasound/urine electrolytes and eosinophils Decreased urine output past 12 hours. Likely not a candidate for renal replacement therapy. Consult nephrology Dr. Ramesh saw last hospitalization Heme: Leukocytosis Normocytic anemia Thrombocytopenia Elevated PT/INR Prior Coumadin use. History of Coumadin toxicity 04/06 Check DIC profile. Will give 2 FFP right now. Cryoprecipitate if indicated fibrinogen less than 150. Patient does have significant oozing from review central line placement Currently no dictation for transfusion of platelets or red blood cells. Daily CBC/coags ID: Monitor for infection Will start empirically on antibiotics Zosyn/1 dose of vancomycin Blood cultures 2, urine culture 04/27 pending MSK: PT evaluate and treat FEN: Hyperphosphatemia Hyperkalemia We'll recheck laboratories at noon today and follow trends. Replace electrolytes if indicated Access - Left femoral CVL placed 04/27 day #2 - Left arterial line placed 04/27 #2 - Right central line placed by anesthesia 04/27 Prophylaxis - GI - Protonix - DVT - SCD/holding pharmacological prophylaxis in light of elevated PT INR/PTT Critical Care: The total critical care time was 45 minutes. Time to perform other separately billable procedures was not included in the critical care time. Jose Jimenez MD Apr 28, 2017 05:31
[2017-04-28 05:42] LABS: BICARBONATE 7.7 MEQ/L (21.0-32.0); POTASSIUM 5.2 MEQ/L (3.5-5.1)
[2017-04-28] MEDS ORDERED: SODIUM BICARBONATE 8.4% INJ 50 MEQ/50 ML SYR IV PUSH ONE (05:45)
[2017-04-28 05:52] LABS: BLOOD GAS CARBOXYHEMOGLOBIN 0.6 % (0-4); BLOOD GAS HCO3 8 mmol/L (22-26); BLOOD GAS METHEMOGLOBIN 0.8 % (0-2); BLOOD GAS O2 HGB SATURATION 98 % (90-100); BLOOD GAS OXYGEN CONTENT 12.3 Vol % (12.0-20.0); BLOOD GAS PCO2 30 mmHg (38-42); BLOOD GAS PO2 302 mmHg (61-120); BLOOD GAS TOTAL HGB 8.4 G/DL (12.0-16.0); CRITICAL VALUE YES; OXYGEN DEVICE VENTILATOR; TEMP CORR TO 98.6; VENT SETTINGS AC/20/500/PEEP 8
[2017-04-28 05:53] LABS: DRAW SITE ART LINE; FIO2 100 %; STAT NO
[2017-04-28] MEDS ORDERED: BUMETANIDE INJ 1 MG/4 ML VIAL IV PUSH SCH (06:00)
[2017-04-28] MEDS ORDERED: SODIUM BICARBONATE 8.4% INJ 50 ML ONE (06:02)
[2017-04-28 06:08] LABS: BANDS 18 % (0-6); BURR CELLS 2+ (NORMAL); CORRECTED NUCLEATED RBC 13 /100 WBC (0-0); METAMYELOCYTES 7 % (0-1); NEUTROPHIL # MANUAL DIFF 9.5 TH/MM3 (1.8-7.7); POLYS (SEG NEUTROPHILS) 56 % (16-70); SCAN/DIFF FINAL DIFF MANUAL; WBC DIFF SAMPLE 100
[2017-04-28 06:09] LABS: PLATELET ESTIMATE SMEAR LOW (NORMAL); PLATELET MORPHOLOGY NORMAL (NORMAL)
[2017-04-28] MEDS: HYDROCORTISONE SOD SUCCINATE 100 MG VIAL IV PUSH SCH ×2 (06:09→14:00)
[2017-04-28 06:10] LABS: ACANTHOCYTES 1+ (NORMAL)
[2017-04-28] MEDS ORDERED: INSULIN HUMAN REGULAR 1,000 UNITS/10 ML VIAL SQ ONE (06:15)
[2017-04-28 06:16] LABS: TOXIC VACUOLATION PRESENT (NONE SEEN)
[2017-04-28] MEDS ORDERED: VASOPRESSIN INJ 40 UNITS in DEXTROSE 5% IN WATER 100ML INJ 98 ML IV SCH ×2 (06:24)
[2017-04-28] MEDS ORDERED: BUMETANIDE INJ 1 MG/4 ML VIAL IV PUSH ONE (06:45)
[2017-04-28] MEDS ORDERED: VANCOMYCIN INJ 1,250 MG in SODIUM CHLOR 0.9% 250 ML INJ 250 ML IV ONE (07:00)
[2017-04-28 07:01] LABS: LACTIC ACID GHOST NOT REPORTABLE
[2017-04-28] MEDS: SODIUM CHLORIDE 0.9% FLUSH 10 ML FLUSH IV FLUSH SCH (07:47)
[2017-04-28] MEDS ORDERED: CHLORHEXIDINE 0.12% (ORAL KIT) 15 ML CUP MT SCH (08:00)
[2017-04-28] MEDS ORDERED: PIPERACIL-TAZO 2.25 GM PREMIX 50 ML IV SCH (08:00)
[2017-04-28] MEDS ORDERED: PANTOPRAZOLE SODIUM 40 MG VIAL IV PUSH SCH (08:00)
[2017-04-28] MEDS ORDERED: DEXTROSE 50% IN WATER 50 ML VIAL(D50) IV PRN (08:30)
[2017-04-28] MEDS ORDERED: BUMETANIDE INJ 100 ML IV SCH (08:45)
[2017-04-28 09:24] LABS: MAGNESIUM 2.3 MG/DL (1.5-2.5)
[2017-04-28] MEDS ORDERED: SODIUM CHLORIDE 23.4% INJ 154 MEQ in DEXTROSE 10% INJ 1,000 ML IV SCH (09:30)
[2017-04-28 09:32] LABS: BETA-HYDROXYBUTYRATE 0.24 MMOL/L (0.00-0.39)
[2017-04-28 09:48] LABS: CKMB 3.9 NG/ML (0.5-3.6)
[2017-04-28 09:57] LABS: APTT (PATIENT) 37.4 SEC (24.3-30.1); INTERNATIONAL NORMALIZED RATIO 1.8 RATIO; PROTHROMBIN TIME - PATIENT 20.1 SEC (9.8-11.6)
[2017-04-28] MEDS: INSULIN NovoLIN REGULAR SUPPLEMENTAL SCALE SQ SCH ×3 (10:00→14:00)
[2017-04-28 10:19] LABS: BLOOD GAS BASE EXCESS -17.3 mmol/L (-2-2); BLOOD GAS CARBOXYHEMOGLOBIN 1.1 % (0-4); BLOOD GAS HCO3 9 mmol/L (22-26); BLOOD GAS METHEMOGLOBIN 0.9 % (0-2); BLOOD GAS O2 HGB SATURATION 97 % (90-100); BLOOD GAS OXYGEN CONTENT 11.3 Vol % (12.0-20.0); BLOOD GAS PCO2 24 mmHg (38-42); BLOOD GAS PO2 230 mmHg (61-120); BLOOD GAS TOTAL HGB 7.9 G/DL (12.0-16.0); TEMP CORR TO 98.6
[2017-04-28 10:20] LABS: CRITICAL VALUE YES; DRAW SITE ART LINE; FIO2 90 %; OXYGEN DEVICE VENTILATOR; VENT SETTINGS PRVC/AC
[2017-04-28 10:21] LABS: STAT NO
--- NOTE | 2017-04-28 10:29 | HHI.PR ---
Subjective Remarks Rectal Prolapse Repair planned yesterday, patient decompensated with anesthesia Intubated, on pressors, ?nonresponsive Objective Vital Signs Date Time Temp Pulse Resp B/P Pulse Ox O2 Delivery O2 Flow Rate FiO2 04/28/17 07:31 0 90 04/28/17 06:00 82 04/28/17 05:50 0 100 04/28/17 04:06 0 60 04/28/17 04:00 92.1 76 20 120/86 04/28/17 04:00 60 04/28/17 04:00 75 04/28/17 02:00 73 04/28/17 00:30 0 60 04/28/17 00:00 96 04/28/17 00:00 92.5 96 20 124/88 04/28/17 00:00 60 04/27/17 22:00 112 04/27/17 21:34 0 60 04/27/17 20:35 0 100 04/27/17 20:30 114 20 118/84 04/27/17 20:15 100 04/27/17 16:05 98.2 86 19 78/60 93 04/27/17 15:15 84/58 04/27/17 12:05 98.4 91 19 80/56 93 04/27/17 10:49 82/58 I/O 04/27/17 04/27/17 04/27/17 04/28/17 04/28/17 04/28/17 07:00 15:00 23:00 07:00 15:00 23:00 Intake Total 0 ml 0 ml 2414 ml Output Total 600 ml 800 ml 75 ml 75 ml Balance -600 ml -800 ml -75 ml 2339 ml Intake Oral 0 ml 0 ml IV Total 2414 ml Output Urine Total 600 ml 800 ml 75 ml 75 ml # Bowel Movements 0 0 Result Diagram: 04/28/17 0455 04/28/17 0455 Objective Remarks Abdomen soft, nondistended Rectum - prolapsed Assessment and Plan Assessment and Plan Condition grave, prognosis very poor Discussed with sister last night No role for surgery; if survives current condition, will need palliative care of prolapse Wandy Henriquez MD Apr 28, 2017 10:29
--- NOTE | 2017-04-28 10:44 | MG ---
cc: DALLAS RAMSEY Lab No: [id number] Date: 04/28/2017 : 1970 Sex: M TECHNIQUE 17-channel EEG. DESCRIPTION The background rhythm reveals significant slowing in the delta frequency at about 2-3 Hz. The amplitude is attenuated, less than 5 microvolts. It is on the order of 2-3 microvolts. There are no lateralizing features present and no epileptiform discharges are present. There is rare muscle artifact present. Photic stimulation was performed in a stepwise fashion with no change in the background rhythm and no significant driving response. INTERPRETATION Abnormal study consistent with a severe encephalopathic state. MD MARCELLE Gomez/JUSTIN /9:37 AM /10:38 AM
[2017-04-28] MEDS: RESP: ALBUTEROL 2.5 MG/IPRATROPIUM 0.5 MG NEB (SCH) NEB ×2 (10:54→15:37)
[2017-04-28] MEDS ORDERED: PHYTONADIONE INJ 10 MG in DEXTROSE 5% IN WATER INJ 50 ML IV ONE ×2 (11:00)
[2017-04-28] MEDS ORDERED: SODIUM BICARBONATE 8.4% SOLN 50 MEQ/50 ML VIAL IV PUSH ONE (11:00)
[2017-04-28] MEDS ORDERED: DOBUTamine INJ 1,000 MG in DEXTROSE 5% IN WATER INJ 170 ML IV SCH ×2 (11:00)
[2017-04-28] MEDS: fentaNYL DRIP 250 ML IV SCH (12:19)
--- NOTE | 2017-04-28 13:23 | RADRPT ---
EXAM DATE/TIME: 04/28/2017 09:29 [facility] COMPARISON: US KIDNEY/RENAL/BLADDER, March 29, 2017, 9:17. CT ABDOMEN & PELVIS W/O CONTRAST, April 10, 2017, 6:17. CT PULMONARY ANGIOGRAM, March 10, 2017, 22:37. INDICATIONS : Elevated LFTs and AKIs. MEDICAL HISTORY : Congestive heart failure. Myocardial infarction. Hypercholesterolemia. Cardiomyopathy. Chest pain. Ir regular heart beat. Hypertension. Anticoagulant therapy. Atrial fibrillation. SURGICAL HISTORY : Automatic implantable cardioverter- defibrillator. Pacemaker. ENCOUNTER: Initial ACUITY: 1 week PAIN SCORE: Nonresponsive. LOCATION: Bilateral abdomen. MEASUREMENTS: LIVER: 17.1 cm length COMMON DUCT: Non-visualized RIGHT KIDNEY: 9.6 x 6.0 x 4.7 cm LEFT KIDNEY: 10.1 x 4.4 x 4.7 cm SPLEEN: 6.8 cm length AORTA: 1.8cm maximal FINDINGS: LIVER: Diffusely increased hepatic echogenicity with mild hepatomegaly. No evidence for focal mass or intrah epatic ductal dilatation. Pulsatile portal vein flow. Moderate amount of ascites. COMMON DUCT: Not visualized GALLBLADDER: Gallbladder is filled with sludge but not significantly dilated. Gallbladder wall is slightly promine nt measuring up to 4 mm. Small amount of pericholecystic fluid likely related to ascites. PANCREAS: Diffusely heterogeneous echotexture with slightly prominent pancreatic duct measuring up to 4 mm. RIGHT KIDNEY: No hydronephrosis, stone or mass. LEFT KIDNEY: No hydronephrosis, stone or mass. SPLEEN: No focal lesion. AORTA: Non aneurysmal. IVC: Within normal limits. Ancillary findings: Bilateral pleural effusions. CONCLUSION: 1. Bilateral pleural effusions with moderate ascites and pulsatile portal vein flow consistent with r ight heart dysfunction. 2. Diffusely increased hepatic echogenicity without evidence for volume loss. Differential considerat ions include fatty infiltration versus congestive hepatopathy. 3. Sludge filled gallbladder. Other sonographic features usually associated with cholecystitis are un reliable in this patient with positive fluid balance and ascites. HIDA scan may be performed if there is clinical concern regarding cystic duct obstruction/acute cholecystitis. 4. Diffusely heterogeneous pancreas with minimal pancreatic ductal dilatation. Although nonspecific, findings may reflect sequela of chronic pancreatitis. Murray Ferguson MD on April 28, 2017 at 12:32 Board Certified Radiologist. This report was verified electronically.
--- NOTE | 2017-04-28 13:41 | HHI.HCPN ---
Reason for visit a. To assist with evaluation and management of symptoms including: Pain, fatigue, SHARPE, cough, hemoptysis b. To assist medical decision maker(s) with: better understanding of current medical conditions; weighing benefits/burdens of medical treatment options; making medical treatment decisions. Subjective/Interval History This is a 47-year-old male admitted with recurrent rectal prolapse and a complicated medical history to include nonischemic cardiomyopathy with an ejection fraction of 10-15%, AICD implantation with multiple shocks, hepatic compromise secondary to cardiac disease, recent pneumonia and bilateral pulmonary embolus, chronic renal insufficiency, medical noncompliance and polysubstance abuse who has been suffering significant decline in quality of life due to his recurrent prolapse and associated discomfort. He had transitioned from his apartment to an assisted living facility as he was unable to manage his own daily needs. Although previously declined surgery due to his very high risk he, at this point, felt that his life was not worth living with significant disability that his recurrent prolapse presented and he was readmitted, insistent upon having his surgery, aware that he could or be seriously disabled from that and accepted that risk. Colorectal surgery was very clear regarding his multiple risks and he persisted in his request for surgical repair. He was scheduled for surgery at 5 PM 6/ and was induced by anesthesia with almost immediate severe hypotension and hypoxia necessitating resuscitation and cancellation of surgery. Landscape Drafter, Dr. Capps, was consulted and large-bore IV lines placed for fluid and pharmaceutical resuscitation. He remains in the ICU, on mechanical ventilation and on multiple medications for hemodynamic and metabolic support including bicarbonate at 50 mL an hour, epinephrine at 20 mcg/ kg/m, fentanyl 250 g a minute, D10 normal saline at 5 mL an hour for carbohydrate support to to recurrent hypoglycemia, vasopressin 4.5 mL per hour and Bumex 0.5 mg per hour. He is now requiring the additional support of dobutamine. He has received 2 units of fresh frozen plasma for presumed DIC. Laboratory studies show white blood cell count 11.7, hemoglobin 8.7, hematocrit 39.3, platelets 118, prothrombin time 20.1, INR 1.8, APTT 37.4, fibrinogen 183, sodium 131, potassium 5.2, BUN 60, creatinine 3.19, random glucose 497, previously found to be 5 upon admission to ICU, lactic acid 16.6, troponin 0.06 , arterial blood gas currently shows a pH of 7.20 improved from his previous of 7.03, bicarbonate 9, base excess -17.3, PCO2 24, PO2 230 on 90% FiO2. Urinalysis shows orange specimen with a pH of 5.0 specific gravity of 1.019, protein 30, urobilinogen 4.0, white blood cells 12, moderate bacteria with culture indicated. He is prophylactically receiving cefepime and Zosyn pending cultures. EEG shows an abnormal study consistent with a severe encephalopathic state. Abdominal x-ray shows bilateral pleural effusions, moderate ascites, pulsatile portal vein flow consistent with right heart dysfunction, increased hepatic echogenicity with heterogeneous pancreas with minimal pancreatic ductal dilation possibly reflecting sequelae of chronic pancreatitis. Family/friend interactions I spoke with his father, Wilson Calderón at 1045 this morning and he requested that I contact his daughter Reena, for other family contact members who might live closer and could be able to be at his son's bedside. I spoke with Reena and received contact information for sister, Mariana and updated her as to the patient's progress and prognosis. She, in turn, contacted her brother, Wilson Calderón Jr., And in conference and I again explained the patient's current medical condition and expected prognosis. At noon, I was again contacted by phone on a conference call to include Wilson Peña, the father, Jr Wilson, and Reena to discuss medical options. I explained again the events of the prior 24 hours, the current medical condition and his grave prognosis. The family discussed the possible options and determined that comfort care would be in keeping with Miguel's wishes. This conversation was placed on speaker in the presence of Dr. Jimenez for confirmation of the family's wishes and during that conversation, Wilson Calderón, , who had been previously named by the patient as his healthcare surrogate, made the decision for withdrawal to comfort care. At 1300, I again contacted Mr. Calderón to discuss inactivation of his AICD, which he agreed to provide Miguel comfort without activation of shock. [facility] was contacted and the defibrillator inactivated at 1355 PM. Medical team was updated. Advance Directives Living Will: Never completed Health Care Surrogate: Copy in medical record Durable Power of Optical Store Manager: Never completed Advance Directive Specifics Health Care Surrogate(s): Father-Wilson Calderón Objective Vital Signs Date Time Temp Pulse Resp B/P Pulse Ox O2 Delivery O2 Flow Rate FiO2 04/28/17 12:00 90 04/28/17 12:00 84 04/28/17 10:55 0 90 04/28/17 10:00 85 04/28/17 08:00 50 04/28/17 08:00 84 04/28/17 07:31 0 90 04/28/17 06:00 82 04/28/17 05:50 0 100 04/28/17 04:06 0 60 04/28/17 04:00 92.1 76 20 120/86 04/28/17 04:00 60 04/28/17 04:00 75 04/28/17 02:00 73 04/28/17 00:30 0 60 04/28/17 00:00 96 04/28/17 00:00 92.5 96 20 124/88 04/28/17 00:00 60 04/27/17 22:00 112 04/27/17 21:34 0 60 04/27/17 20:35 0 100 04/27/17 20:30 114 20 118/84 04/27/17 20:15 100 04/27/17 16:05 98.2 86 19 78/60 93 04/27/17 15:15 84/58 Intake & Output 04/28/17 04/28/17 07:00 19:00 Intake Total 2414 ml Output Total 150 ml Balance 2264 ml IV Total 2414 ml Output Urine Total 150 ml # Bowel Movements 0 Physical Exam CONSTITUTIONAL/GENERAL: This is a thin male patient, intubated , critically ill. TUBES/LINES/DRAINS: Left femoral central venous and arterial catheters with small amount of ooze around insertion sites. SKIN: Warm and dry NECK: Orally intubated CARDIOVASCULAR: Regular rate and rhythm without murmurs, gallops, or rubs. Peripheral pulses symmetric. RESPIRATORY/CHEST: Symmetric, unlabored respirations. Clear to auscultation. Breath sounds equal, diminished bilaterally. GASTROINTESTINAL: Abdomen soft, mild distention, rectal prolapse. GENITOURINARY: Without palpable bladder distension. Quintana catheter draining dark yellow urine to bedside drainage. MUSCULOSKELETAL: Extremities without clubbing, cyanosis, or edema. No mottling or clubbing. NEUROLOGICAL: Intubated, sedated on fentanyl and Versed. Right pupil 4 mm, left 3 mm, fixed no corneal reflex, does not blink to threat or withdraw to painful stimuli 4 extremities. PSYCHIATRIC: Sedated. Diagnostic Tests Laboratory Laboratory Tests Test 04/26/17 04/27/17 04/27/17 04/27/17 07:26 06:17 14:15 19:32 White Blood Count 11.5 TH/MM3 (4.0-11.0) Red Blood Count 3.40 MIL/MM3 (4.50-5.90) Hemoglobin 9.5 GM/DL (13.0-17.0) Hematocrit 29.3 % (39.0-51.0) Mean Corpuscular Volume 86.3 FL (80.0-100.0) Mean Corpuscular Hemoglobin 28.0 PG (27.0-34.0) Mean Corpuscular Hemoglobin 32.5 % Concent (32.0-36.0) Red Cell Distribution Width 17.1 % (11.6-17.2) Platelet Count 186 TH/MM3 (150-450) Mean Platelet Volume 8.7 FL (7.0-11.0) Neutrophils (%) (Auto) 79.6 % (16.0-70.0) Lymphocytes (%) (Auto) 12.4 % (9.0-44.0) Monocytes (%) (Auto) 7.8 % (0.0-8.0) Eosinophils (%) (Auto) 0.0 % (0.0-4.0) Basophils (%) (Auto) 0.2 % (0.0-2.0) Neutrophils # (Auto) 9.2 TH/MM3 (1.8-7.7) Lymphocytes # (Auto) 1.4 TH/MM3 (1.0-4.8) Monocytes # (Auto) 0.9 TH/MM3 (0-0.9) Eosinophils # (Auto) 0.0 TH/MM3 (0-0.4) Basophils # (Auto) 0.0 TH/MM3 (0-0.2) CBC Comment AUTO DIFF Differential Total Cells 100 Counted Neutrophils % (Manual) 80 % (16-70) Band Neutrophils % 6 % (0-6) Lymphocytes % 7 % (9-44) Monocytes % 7 % (0-8) Neutrophils # (Manual) 9.9 TH/MM3 (1.8-7.7) Nucleated Red Blood Cells 1 /100 WBC (0-0) Differential Comment FINAL DIFF MANUAL Platelet Estimate NORMAL (NORMAL) Platelet Morphology Comment NORMAL (NORMAL) Helmet Cells OCC (NORMAL) Acanthocytes 1+ (NORMAL) Keratocytes 1+ (NORMAL) Sodium Level 134 MEQ/L 133 MEQ/L (136-145) (136-145) Potassium Level 5.6 MEQ/L 4.9 MEQ/L (3.5-5.1) (3.5-5.1) Chloride Level 101 MEQ/L 97 MEQ/L (98-107) (98-107) Carbon Dioxide Level 20.2 MEQ/L 24.1 MEQ/L (21.0-32.0) (21.0-32.0) Anion Gap 13 MEQ/L (5-15) 12 MEQ/L (5-15) Blood Urea Nitrogen 49 MG/DL (7-18) 59 MG/DL (7-18) Creatinine 2.30 MG/DL 2.42 MG/DL (0.60-1.30) (0.60-1.30) Estimat Glomerular Filtration 37 ML/MIN (>89) 35 ML/MIN (>89) Rate Random Glucose 84 MG/DL 81 MG/DL (74-106) (74-106) Calcium Level 8.5 MG/DL 8.1 MG/DL (8.5-10.1) (8.5-10.1) Urine Color ORANGE (YELLW/STRAW) Urine Turbidity HAZY (CLEAR) Urine pH 5.0 (5.0-8.5) Urine Specific Maxwell 1.019 (1.002-1.035) Urine Protein 30 mg/dL (NEG-TRACE) Urine Glucose (UA) NEG mg/dL (NEG) Urine Ketones NEG mg/dL (NEG) Urine Occult Blood NEG (NEG) Urine Nitrite NEG (NEG) Urine Bilirubin NEG (NEG) Urine Urobilinogen 4.0 MG/DL (LESS THAN 2.0) Urine Leukocyte Esterase TRACE (NEG) Urine RBC 5 /hpf (0-3) Urine WBC 12 /hpf (0-5) Urine Squamous Epithelial 3 /hpf (0-5) Cells Urine Calcium Oxalate Crystals MOD /hpf (NONE) Urine Amorphous Sediment RARE Urine Bacteria MOD /hpf (NONE) Urine Hyaline Casts 104 /lpf (RARE) Urine Mucus FEW /lpf (OCC) Microscopic Urinalysis Comment CULTURE INDICATED Blood Gas Puncture Site Blood Gas Patient Temperature 98.6 Blood Gas HCO3 18 mmol/L (22-26) Blood Gas Base Excess -12.6 mmol/L (-2-2) Blood Gas Oxygen Saturation 15 % (90-100) Arterial Blood pH 6.97 (7.380-7.420) Arterial Blood Partial 80 mmHg (38-42) Pressure CO2 Arterial Blood Partial 26 mmHg Pressure O2 (61-120) Arterial Blood Oxygen Content 2.1 Vol % (12.0-20.0) Arterial Blood 0.5 % (0-4) Carboxyhemoglobin Arterial Blood Methemoglobin 1.1 % (0-2) Blood Gas Hemoglobin 10.0 G/DL (12.0-16.0) Oxygen Delivery Device O.R. ABG Test 04/27/17 04/27/17 04/28/17 04/28/17 21:03 22:00 04:55 05:25 Blood Gas Puncture Site ART LINE ART LINE Blood Gas Patient Temperature 98.6 98.6 Blood Gas HCO3 14 mmol/L 8 mmol/L (22-26) (22-26) Blood Gas Base Excess -10.4 mmol/L -21.0 mmol/L (-2-2) (-2-2) Blood Gas Oxygen Saturation 98 % (90-100) 98 % (90-100) Arterial Blood pH 7.34 7.03 (7.380-7.420) (7.380-7.420) Arterial Blood Partial 27 mmHg (38-42) 30 mmHg (38-42) Pressure CO2 Arterial Blood Partial 345 mmHg 302 mmHg Pressure O2 (61-120) (61-120) Arterial Blood Oxygen Content 12.5 Vol % 12.3 Vol % (12.0-20.0) (12.0-20.0) Arterial Blood 1.3 % (0-4) 0.6 % (0-4) Carboxyhemoglobin Arterial Blood Methemoglobin 0.7 % (0-2) 0.8 % (0-2) Blood Gas Hemoglobin 8.4 G/DL 8.4 G/DL (12.0-16.0) (12.0-16.0) Oxygen Delivery Device VENTILATOR VENTILATOR Blood Gas Ventilator Setting AC/20/500/PEEP AC/20/500/PEEP 0 8 Blood Gas Inspired Oxygen 100 % 100 % White Blood Count 9.1 TH/MM3 11.7 TH/MM3 (4.0-11.0) (4.0-11.0) Red Blood Count 3.05 MIL/MM3 3.06 MIL/MM3 (4.50-5.90) (4.50-5.90) Hemoglobin 8.7 GM/DL 8.7 GM/DL (13.0-17.0) (13.0-17.0) Hematocrit 26.9 % 29.3 % (39.0-51.0) (39.0-51.0) Mean Corpuscular Volume 88.2 FL 95.7 FL (80.0-100.0) (80.0-100.0) Mean Corpuscular Hemoglobin 28.7 PG 28.4 PG (27.0-34.0) (27.0-34.0) Mean Corpuscular Hemoglobin 32.5 % 29.7 % Concent (32.0-36.0) (32.0-36.0) Red Cell Distribution Width 17.1 % 18.6 % (11.6-17.2) (11.6-17.2) Platelet Count 124 TH/MM3 118 TH/MM3 (150-450) (150-450) Mean Platelet Volume 8.7 FL 8.9 FL (7.0-11.0) (7.0-11.0) Neutrophils (%) (Auto) 80.5 % 88.4 % (16.0-70.0) (16.0-70.0) Lymphocytes (%) (Auto) 12.1 % 7.0 % (9.0-44.0) (9.0-44.0) Monocytes (%) (Auto) 5.4 % (0.0-8.0) 4.2 % (0.0-8.0) Eosinophils (%) (Auto) 0.2 % (0.0-4.0) 0.1 % (0.0-4.0) Basophils (%) (Auto) 1.8 % (0.0-2.0) 0.3 % (0.0-2.0) Neutrophils # (Auto) 7.3 TH/MM3 10.3 TH/MM3 (1.8-7.7) (1.8-7.7) Lymphocytes # (Auto) 1.1 TH/MM3 0.8 TH/MM3 (1.0-4.8) (1.0-4.8) Monocytes # (Auto) 0.5 TH/MM3 0.5 TH/MM3 (0-0.9) (0-0.9) Eosinophils # (Auto) 0.0 TH/MM3 0.0 TH/MM3 (0-0.4) (0-0.4) Basophils # (Auto) 0.2 TH/MM3 0.0 TH/MM3 (0-0.2) (0-0.2) CBC Comment AUTO DIFF AUTO DIFF Differential Total Cells 100 100 Counted Neutrophils % (Manual) 68 % (16-70) 56 % (16-70) Band Neutrophils % 9 % (0-6) 18 % (0-6) Lymphocytes % 17 % (9-44) 8 % (9-44) Monocytes % 5 % (0-8) 11 % (0-8) Neutrophils # (Manual) 7.1 TH/MM3 9.5 TH/MM3 (1.8-7.7) (1.8-7.7) Metamyelocytes 1 % (0-1) 7 % (0-1) Nucleated Red Blood Cells 7 /100 WBC 13 /100 WBC (0-0) (0-0) Differential Comment FINAL DIFF FINAL DIFF MANUAL MANUAL Toxic Vacuolation PRESENT (NONE PRESENT (NONE SEEN) SEEN) Platelet Estimate LOW (NORMAL) LOW (NORMAL) Platelet Morphology Comment NORMAL NORMAL (NORMAL) (NORMAL) Christiano Cells 1+ (NORMAL) 2+ (NORMAL) Acanthocytes 2+ (NORMAL) 1+ (NORMAL) Keratocytes OCC (NORMAL) Prothrombin Time 21.7 SEC (9.8-11.6) Prothromb Time International 1.9 RATIO Ratio Sodium Level 141 MEQ/L 131 MEQ/L (136-145) (136-145) Potassium Level 5.5 MEQ/L 5.2 MEQ/L (3.5-5.1) (3.5-5.1) Chloride Level 104 MEQ/L 95 MEQ/L (98-107) (98-107) Carbon Dioxide Level 15.8 MEQ/L 7.7 MEQ/L (21.0-32.0) (21.0-32.0) Anion Gap 21 MEQ/L (5-15) 28 MEQ/L (5-15) Blood Urea Nitrogen 59 MG/DL (7-18) 60 MG/DL (7-18) Creatinine 2.61 MG/DL 3.19 MG/DL (0.60-1.30) (0.60-1.30) Estimat Glomerular Filtration 32 ML/MIN (>89) 26 ML/MIN (>89) Rate Random Glucose 5 MG/DL 497 MG/DL (74-106) (74-106) Lactic Acid Level 12.3 mmol/L 16.6 mmol/L (0.4-2.0) (0.4-2.0) Calcium Level 7.6 MG/DL 7.9 MG/DL (8.5-10.1) (8.5-10.1) Phosphorus Level 8.0 MG/DL (2.5-4.9) Magnesium Level 2.4 MG/DL (1.5-2.5) Total Bilirubin 2.1 MG/DL (0.2-1.0) Aspartate Amino Transf 65 U/L (15-37) (AST/SGOT) Alanine Aminotransferase 49 U/L (12-78) (ALT/SGPT) Alkaline Phosphatase 90 U/L (45-117) Total Creatine Kinase 511 U/L 581 U/L (39-308) (39-308) Creatine Kinase MB 2.5 NG/ML 4.0 NG/ML (0.5-3.6) (0.5-3.6) Creatine Kinase MB % 0.5 % (0.0-4.0) 0.7 % (0.0-4.0) Troponin I 0.05 NG/ML 0.06 NG/ML (0.02-0.05) (0.02-0.05) Total Protein 4.4 GM/DL (6.4-8.2) Albumin 1.4 GM/DL (3.4-5.0) B-Type Natriuretic Peptide GREATER THAN 5000 PG/ML (0-100) Test 04/28/17 04/28/17 04/28/17 04/28/17 06:09 06:25 08:30 09:30 Blood Bank Comment Nasal Screen MRSA (PCR) MRSA NOT DETECTED (NOT DETECT) Phosphorus Level 8.1 MG/DL (2.5-4.9) Magnesium Level 2.3 MG/DL (1.5-2.5) Ammonia 59 MCMOL/L (11-32) Total Creatine Kinase 542 U/L (39-308) Creatine Kinase MB 3.9 NG/ML (0.5-3.6) Creatine Kinase MB % 0.7 % (0.0-4.0) Random Cortisol 322.4 MCG/DL B-Hydroxybutyrate 0.24 MMOL/L (0.00-0.39) Prothrombin Time 20.1 SEC (9.8-11.6) Prothromb Time International 1.8 RATIO Ratio Activated Partial 37.4 SEC Thromboplast Time (24.3-30.1) Fibrinogen 183 mg/dL (227-377) Test 04/28/17 10:09 Blood Gas Puncture Site ART LINE Blood Gas Patient Temperature 98.6 Blood Gas HCO3 9 mmol/L (22-26) Blood Gas Base Excess -17.3 mmol/L (-2-2) Blood Gas Oxygen Saturation 97 % (90-100) Arterial Blood pH 7.20 (7.380-7.420) Arterial Blood Partial 24 mmHg (38-42) Pressure CO2 Arterial Blood Partial 230 mmHg Pressure O2 (61-120) Arterial Blood Oxygen Content 11.3 Vol % (12.0-20.0) Arterial Blood 1.1 % (0-4) Carboxyhemoglobin Arterial Blood Methemoglobin 0.9 % (0-2) Blood Gas Hemoglobin 7.9 G/DL (12.0-16.0) Oxygen Delivery Device VENTILATOR Blood Gas Ventilator Setting PRVC/AC Blood Gas Inspired Oxygen 90 % Result Diagram: 04/28/17 0455 04/28/17 0455 Microbiology Microbiology Date/Time Procedure Status Source Growth 04/27/17 14:15 Urine Culture - Preliminary Resulted Urine Clean Catch Gram Negative Bienvenido 04/27/17 22:33 Aerobic Blood Culture - Preliminary Resulted Blood Peripheral NO GROWTH IN 1 DAY 04/27/17 22:33 Anaerobic Blood Culture - Preliminary Resulted Blood Peripheral NO GROWTH IN 1 DAY 04/27/17 23:40 Aerobic Blood Culture - Preliminary Resulted Blood Peripheral NO GROWTH IN 1 DAY 04/27/17 23:40 Anaerobic Blood Culture - Preliminary Resulted Blood Peripheral NO GROWTH IN 1 DAY Imaging Last Impressions Abdomen Ultrasound 04/28/17 0000 Signed Impressions: Service Date/Time: April 09:29 - CONCLUSION: 1. Bilateral pleural effusions with moderate ascites and pulsatile portal vein flow consistent with right heart dysfunction. 2. Diffusely increased hepatic echogenicity without evidence for volume loss. Differential considerations include fatty infiltration versus congestive hepatopathy. 3. Sludge filled gallbladder. Other sonographic features usually associated with cholecystitis are unreliable in this patient with positive fluid balance and ascites. HIDA scan may be performed if there is clinical concern regarding cystic duct obstruction/acute cholecystitis. 4. Diffusely heterogeneous pancreas with minimal pancreatic ductal dilatation. Although nonspecific, findings may reflect sequela of chronic pancreatitis. Murray Ferguson MD Chest X-Ray 04/27/17 0000 Signed Impressions: Service Date/Time: Thursday, April 27, 2017 21:39 - CONCLUSION: 1. Interval intubation. 2. Cardiomegaly and bilateral pulmonary opacities. Tejas Strauss MD Abdomen X-Ray 04/24/17 0000 Signed Impressions: Service Date/Time: Monday, April 24, 2017 11:29 - CONCLUSION: Air-filled distended colon. Pattern likely representing ileus. Thomas Granados MD Myocardial Perfusion Scan Nuc Med 04/23/17 1359 Signed Impressions: Service Date/Time: Sunday, April 23, 2017 16:22 - CONCLUSION: 1. No definite evidence of stress-induced ischemia. 2. Marked left ventricular dilation and absent uptake in the inferior wall suggests cardiomyopathy and prior transmural infarction. 3. Markedly depressed wall motion. The ejection fraction is less than 20%%, but given the inferior wall fixed defect, SPECT analysis is limited. Wall motion and ejection fraction analysis may be better accomplished with either echocardiography or red blood cell labeled gated cardiogram. RISK CATEGORY: High (>3%% Annual Mortality Rate) Danial Huggins MD Procedures 04/27/17 intubation Assessment and Plan Disease Oriented Problem List: (1) Rectal prolapse (2) Acute on chronic systolic and diastolic heart failure, NYHA class 4 Symptom Scale: (1) Fatigue (2) Dyspnea and respiratory abnormalities (3) Pain, generalized (4) Cough (5) Hemoptysis Pertinent Non-Medical Issues Psychosocial:He was born in the [facility] and moved to [place] about age 5. He has lived in [place] and the [facility] where he has family support. His father, iWlson Calderón, and sister Reena lived in [place] and he aunt, Anel Brown lives in the [place] area. 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 He stated he had previously spent some time in [facility]. He does have a long history of polysubstance abuse. Spiritual:Attends [employer] in [place]. Legal:HCS signed making his father, Wilson Calderón health care surrogate. Ethical issues impacting care: Important Contacts Father - Wilson Calderón Aunt - Anel Brown Sister - Reena Calderón Sister - Mariana Calderón Brother- Wilson Calderón Prognosis His prognosis is poor. His ejection fraction has declined now to 10-15%. He states a recent history, since November, of multiple AICD shocks, as the device was unable to pace the patient out of the arrhythmia with antitachycardia pacing. His cardiac status is now compromising his hepatic, respiratory and renal status. It appears he is developing multisystem organ failure. He has had 15 ED visits with 9 hospital admissions since November and is currently able to tolerate his ACEI, diuretic and beta crispin for his heart failure only intermittently, due to hypotension. His debility and dyspnea on exertion are increasing, and severe claudication is now compromising his ability for even minimal ambulation. Medical options are limited. With his recurrent rectal prolapse his quality of life is quite poor. He states that he is "desperate to have surgery" as his rectum prolapse is very frequent. He was previously on hospice for a brief period but, revoked. He would be appropriate for hospice if goals were consistent. 04/28/17-attempted surgery last evening however he became extremely hypotensive and hypoxic with induction of anesthesia and surgery was canceled. Critically ill with extremely poor prognosis, plan to transition to comfort care this afternoon. Code Status: No Code Plan PLAN: Legal decision maker: Patient is now intubated and sedated and no longer capacitated to make his own decisions, his father, Wilson Calderón is now the decision-maker with the support of his remaining children.. Goals: Conservative. Transition to comfort care today. CODE STATUS: DNR, AICD inactivated per my discussion with Wilson Calderón [facility]. SYMPTOMS: * Fatigue - his activity tolerance is severely impacted by his cardiac dysfunction. His ejection fraction 02/2017 was 10-15% with moderate to severe mitral regurgitation, moderate to severe tricuspid regurgitation and pulmonary artery peak pressure of 52 mmHg. He is able to tolerate cardioprotective medications only intermittently, due to hypotension, related to his end-stage heart failure per cardiology evaluations over the past several admissions. Currently intubated, sedated. * Dyspnea - this is compounded by his past smoking history, pulmonary hypertension, recent pulmonary embolus end-stage heart failure and valvular dysfunction. His B natriuretic peptide levels were elevated to 3970 on admission indicating elevated fluid levels. This is difficult to treat due to his chronic hypotension which is exacerbated by the use of diuretics. He is currently not dyspneic at rest and having no orthopnea. As he is receiving a fluid bolus this will need to be monitored as he is at high risk of recurrent heart failure exacerbation. Maintained on mechanical ventilation. * Pain - he is unresponsive, receiving fentanyl and Versed at this time. EEG shows severe encephalopathy. * Cough/hemoptysis - currently on mechanical ventilation in ICU. The patient is critically ill on maximum life support. Per family wishes, transition to comfort care today. Palliative care will continue to follow the patient during hospital course as condition evolves, to assist patient/decision-maker with understanding of their medical conditions, weighing benefits/burdens of treatment options, for clarification of goals of treatment. Additionally will assist with any symptoms of palliative concern. Attestation To help prompt me to consider important information that might be impacting today's encounter and assessment, information from prior notes written by myself or my colleagues may have been "brought forward" into today's note. My signature on this note, however, is an attestation that I personally performed the exam, history, and/or decision-making noted today, and, unless otherwise indicated, the interactions with patient, family, and staff as well as the review of records all occurred today. I also attest that the listed assessment and stated plan reflect my best clinical judgment today based on the combination of historical information, prior notes, and today's exam/ interactions. When time spent is documented, it refers only to time spent today by the signer, or if indicated, combined time spent today by collaborating physician/nurse practitioner. Juliane Walls Apr 28, 2017 13:40
[2017-04-28 14:59] LABS: ALKALINE PHOSPHATASE 93 U/L (45-117); ALT (GPT) 174 U/L (12-78); ANION GAP 26 MEQ/L (5-15); AST (GOT) 567 U/L (15-37); BICARBONATE 14.6 MEQ/L (21.0-32.0); BLOOD UREA NITROGEN 56 MG/DL (7-18); CALCIUM-PROTEIN CORRECTED 8.9 MG/DL (8.5-10.1); CHLORIDE 93 MEQ/L (98-107); CREATINE KINASE 559 U/L (39-308); GLOMERULAR FILTRATION RATE 25 ML/MIN (>89); INDIRECT BILIRUBIN 0.5 MG/DL (0.0-0.8); MAGNESIUM 2.3 MG/DL (1.5-2.5); POTASSIUM 4.8 MEQ/L (3.5-5.1); SODIUM (NA) 134 MEQ/L (136-145); TOTAL BILIRUBIN ADULT 3.1 MG/DL (0.2-1.0)
[2017-04-28 15:11] LABS: AMYLASE 574 U/L (25-115)
[2017-04-28] MEDS ORDERED: LORazepam 2 MG/ML VIAL IV ONE ×2 (15:30→15:45)
[2017-04-28] MEDS ORDERED: HYOSCYAMINE 0.125 MG TAB PO/SL ONE (15:30)
[2017-04-28] MEDS ORDERED: fentaNYL DRIP 250 ML IV SCH (15:30)
[2017-04-28 15:50] LABS: CKMB 5.1 NG/ML (0.5-3.6)
[2017-04-28] MEDS ORDERED: DEXTROSE 50% IN WATER 50 ML SYRINGE ONE (15:56)
[2017-04-28] MEDS ORDERED: ACETAMINOPHEN 650 MG SUPP RECTAL PRN (16:00)
[2017-04-28] MEDS ORDERED: LORazepam 2 MG/ML VIAL IV PRN ×2 (16:00)
[2017-04-28] MEDS ORDERED: LORazepam 2 MG/ML VIAL IVS PRN (16:00)
[2017-04-28] MEDS ORDERED: BISACODYL 10 MG SUPP RECTAL PRN (16:00)
[2017-04-28] MEDS ORDERED: LORazepam 2 MG/ML VIAL IV SCH (16:00)
[2017-04-28] MEDS ORDERED: FUROSEMIDE 20 MG/2 ML VIAL IV PRN (16:00)
--- NOTE | 2017-04-28 17:08 | RADRPT ---
EXAM DATE/TIME: 04/28/2017 10:12 [place] COMPARISON: ABDOMEN KUB ONLY, April 24, 2017, 11:29. INDICATIONS : Abdominal distention. Evaluate for ileus. MEDICAL HISTORY : Hypertension. SURGICAL HISTORY : Pacemaker. Rectal prolapse. ENCOUNTER: Subsequent ACUITY: 2 days PAIN SCORE: Non-responsive. LOCATION: Abdomen, all quadrants. FINDINGS: Gas is seen in several loops of bowel in the midabdomen which have how striations suggesting loops of colon. These measure up to 6 cm in length. No dilated loops of small bowel seen. There are bilate ral femoral catheters, 2 on the left and one on the right. A rectal probe is also present. Multiple calcified phleboliths in the left pelvis. CONCLUSION: No gas-distended loops of small bowel seen. Danial Huggins MD on April 28, 2017 at 17:02 Board Certified Radiologist. This report was verified electronically.
--- NOTE | 2017-04-28 20:02 | HHI.DS ---
Summary Note Admission Date Apr 23, 2017 at 07:19 Admitting Diagnosis Rectal prolapse. Hyperkalemia. CHF. Renal Insufficiency Diagnosis at Time of : (1) Rectal prolapse ICD Code: K62.3 Diagnosis: Principal (2) Hyperkalemia ICD Code: E87.5 Diagnosis: Secondary (3) Acute on chronic systolic CHF (congestive heart failure), NYHA class 4 ICD Code: I50.23 Diagnosis: Principal (4) Cardiomyopathy ICD Code: I42.9 Diagnosis: Secondary (5) CKD (chronic kidney disease) stage 3, GFR 30-59 ml/min ICD Code: N18.3 Diagnosis: Secondary (6) Ischemic hepatitis ICD Code: K75.9 Diagnosis: Secondary (7) Encephalopathy acute ICD Code: G93.40 Diagnosis: Secondary (8) Respiratory failure, acute ICD Code: J96.00 Diagnosis: Secondary (9) Ileus ICD Code: K56.7 Diagnosis: Secondary (10) Cardiogenic shock ICD Code: R57.0 Diagnosis: Principal (11) Hyperkalemia ICD Code: E87.5 Diagnosis: Secondary (12) Hypoglycemia ICD Code: E16.2 Diagnosis: Secondary (13) PANCHO (acute kidney injury) ICD Code: N17.9 Diagnosis: Secondary (14) Multi-organ failure with heart failure ICD Code: I50.9 Diagnosis: Secondary (15) Lactic acidosis ICD Code: E87.2 Diagnosis: Secondary (16) Leukocytosis ICD Code: D72.829 Diagnosis: Secondary (17) Moderate protein malnutrition ICD Code: E44.0 Diagnosis: Secondary (18) Hyponatremia ICD Code: E87.1 Diagnosis: Secondary (19) DIC (disseminated intravascular coagulation) ICD Code: D65 Diagnosis: Secondary CBC/BMP: 04/28/17 0455 04/28/17 1312 Significant Findings Laboratory Tests Test 04/26/17 04/27/17 04/27/17 04/27/17 07:26 06:17 14:15 19:32 White Blood Count 11.5 TH/MM3 (4.0-11.0) Red Blood Count 3.40 MIL/MM3 (4.50-5.90) Hemoglobin 9.5 GM/DL (13.0-17.0) Hematocrit 29.3 % (39.0-51.0) Neutrophils (%) (Auto) 79.6 % (16.0-70.0) Neutrophils # (Auto) 9.2 TH/MM3 (1.8-7.7) Neutrophils % (Manual) 80 % (16-70) Lymphocytes % 7 % (9-44) Neutrophils # (Manual) 9.9 TH/MM3 (1.8-7.7) Nucleated Red Blood Cells 1 /100 WBC (0-0) Acanthocytes 1+ (NORMAL) Keratocytes 1+ (NORMAL) Sodium Level 134 MEQ/L 133 MEQ/L (136-145) (136-145) Potassium Level 5.6 MEQ/L (3.5-5.1) Carbon Dioxide Level 20.2 MEQ/L (21.0-32.0) Blood Urea Nitrogen 49 MG/DL (7-18) 59 MG/DL (7-18) Creatinine 2.30 MG/DL 2.42 MG/DL (0.60-1.30) (0.60-1.30) Estimat Glomerular Filtration 37 ML/MIN (>89) 35 ML/MIN (>89) Rate Chloride Level 97 MEQ/L (98-107) Calcium Level 8.1 MG/DL (8.5-10.1) Urine Color ORANGE (YELLW/STRAW) Urine Turbidity HAZY (CLEAR) Urine Protein 30 mg/dL (NEG-TRACE) Urine Urobilinogen 4.0 MG/DL (LESS THAN 2.0) Urine Leukocyte Esterase TRACE (NEG) Urine RBC 5 /hpf (0-3) Urine WBC 12 /hpf (0-5) Urine Calcium Oxalate Crystals MOD /hpf (NONE) Urine Bacteria MOD /hpf (NONE) Urine Mucus FEW /lpf (OCC) Blood Gas HCO3 18 mmol/L (22-26) Blood Gas Base Excess -12.6 mmol/L (-2-2) Blood Gas Oxygen Saturation 15 % (90-100) Arterial Blood pH 6.97 (7.380-7.420) Arterial Blood Partial 80 mmHg (38-42) Pressure CO2 Arterial Blood Partial 26 mmHg Pressure O2 (61-120) Arterial Blood Oxygen Content 2.1 Vol % (12.0-20.0) Blood Gas Hemoglobin 10.0 G/DL (12.0-16.0) Test 04/27/17 04/27/17 04/28/17 04/28/17 21:03 22:00 04:55 05:25 Blood Gas HCO3 14 mmol/L 8 mmol/L (22-26) (22-26) Blood Gas Base Excess -10.4 mmol/L -21.0 mmol/L (-2-2) (-2-2) Arterial Blood pH 7.34 7.03 (7.380-7.420) (7.380-7.420) Arterial Blood Partial 27 mmHg (38-42) 30 mmHg (38-42) Pressure CO2 Arterial Blood Partial 345 mmHg 302 mmHg Pressure O2 (61-120) (61-120) Blood Gas Hemoglobin 8.4 G/DL 8.4 G/DL (12.0-16.0) (12.0-16.0) Red Blood Count 3.05 MIL/MM3 3.06 MIL/MM3 (4.50-5.90) (4.50-5.90) Hemoglobin 8.7 GM/DL 8.7 GM/DL (13.0-17.0) (13.0-17.0) Hematocrit 26.9 % 29.3 % (39.0-51.0) (39.0-51.0) Platelet Count 124 TH/MM3 118 TH/MM3 (150-450) (150-450) Neutrophils (%) (Auto) 80.5 % 88.4 % (16.0-70.0) (16.0-70.0) Band Neutrophils % 9 % (0-6) 18 % (0-6) Nucleated Red Blood Cells 7 /100 WBC 13 /100 WBC (0-0) (0-0) Toxic Vacuolation PRESENT (NONE PRESENT (NONE SEEN) SEEN) Platelet Estimate LOW (NORMAL) LOW (NORMAL) Christiano Cells 1+ (NORMAL) 2+ (NORMAL) Acanthocytes 2+ (NORMAL) 1+ (NORMAL) Prothrombin Time 21.7 SEC (9.8-11.6) Potassium Level 5.5 MEQ/L 5.2 MEQ/L (3.5-5.1) (3.5-5.1) Carbon Dioxide Level 15.8 MEQ/L 7.7 MEQ/L (21.0-32.0) (21.0-32.0) Anion Gap 21 MEQ/L (5-15) 28 MEQ/L (5-15) Blood Urea Nitrogen 59 MG/DL (7-18) 60 MG/DL (7-18) Creatinine 2.61 MG/DL 3.19 MG/DL (0.60-1.30) (0.60-1.30) Estimat Glomerular Filtration 32 ML/MIN (>89) 26 ML/MIN (>89) Rate Random Glucose 5 MG/DL 497 MG/DL (74-106) (74-106) Lactic Acid Level 12.3 mmol/L 16.6 mmol/L (0.4-2.0) (0.4-2.0) Calcium Level 7.6 MG/DL 7.9 MG/DL (8.5-10.1) (8.5-10.1) Phosphorus Level 8.0 MG/DL (2.5-4.9) Total Bilirubin 2.1 MG/DL (0.2-1.0) Aspartate Amino Transf 65 U/L (15-37) (AST/SGOT) Total Creatine Kinase 511 U/L 581 U/L (39-308) (39-308) Total Protein 4.4 GM/DL (6.4-8.2) Albumin 1.4 GM/DL (3.4-5.0) B-Type Natriuretic Peptide GREATER THAN 5000 PG/ML (0-100) White Blood Count 11.7 TH/MM3 (4.0-11.0) Mean Corpuscular Hemoglobin 29.7 % Concent (32.0-36.0) Red Cell Distribution Width 18.6 % (11.6-17.2) Lymphocytes (%) (Auto) 7.0 % (9.0-44.0) Neutrophils # (Auto) 10.3 TH/MM3 (1.8-7.7) Lymphocytes # (Auto) 0.8 TH/MM3 (1.0-4.8) Lymphocytes % 8 % (9-44) Monocytes % 11 % (0-8) Neutrophils # (Manual) 9.5 TH/MM3 (1.8-7.7) Metamyelocytes 7 % (0-1) Sodium Level 131 MEQ/L (136-145) Chloride Level 95 MEQ/L (98-107) Creatine Kinase MB 4.0 NG/ML (0.5-3.6) Troponin I 0.06 NG/ML (0.02-0.05) Test 04/28/17 04/28/17 04/28/17 04/28/17 08:30 09:30 10:09 13:12 Phosphorus Level 8.1 MG/DL 8.9 MG/DL (2.5-4.9) (2.5-4.9) Ammonia 59 MCMOL/L (11-32) Total Creatine Kinase 542 U/L 559 U/L (39-308) (39-308) Creatine Kinase MB 3.9 NG/ML 5.1 NG/ML (0.5-3.6) (0.5-3.6) Prothrombin Time 20.1 SEC (9.8-11.6) Activated Partial 37.4 SEC Thromboplast Time (24.3-30.1) Fibrinogen 183 mg/dL (227-377) Blood Gas HCO3 9 mmol/L (22-26) Blood Gas Base Excess -17.3 mmol/L (-2-2) Arterial Blood pH 7.20 (7.380-7.420) Arterial Blood Partial 24 mmHg (38-42) Pressure CO2 Arterial Blood Partial 230 mmHg Pressure O2 (61-120) Arterial Blood Oxygen Content 11.3 Vol % (12.0-20.0) Blood Gas Hemoglobin 7.9 G/DL (12.0-16.0) Sodium Level 134 MEQ/L (136-145) Chloride Level 93 MEQ/L (98-107) Carbon Dioxide Level 14.6 MEQ/L (21.0-32.0) Anion Gap 26 MEQ/L (5-15) Blood Urea Nitrogen 56 MG/DL (7-18) Creatinine 3.27 MG/DL (0.60-1.30) Estimat Glomerular Filtration 25 ML/MIN (>89) Rate Random Glucose 411 MG/DL (74-106) Lactic Acid Level 19.3 mmol/L (0.4-2.0) Calcium Level 7.4 MG/DL (8.5-10.1) Total Bilirubin 3.1 MG/DL (0.2-1.0) Direct Bilirubin 2.6 MG/DL (0.0-0.2) Aspartate Amino Transf 567 U/L (15-37) (AST/SGOT) Alanine Aminotransferase 174 U/L (12-78) (ALT/SGPT) Troponin I 0.06 NG/ML (0.02-0.05) Total Protein 4.5 GM/DL (6.4-8.2) Albumin 1.7 GM/DL (3.4-5.0) Amylase Level 574 U/L (25-115) Vitamin B12 Level GREATER THAN 2000 PG/ML (193-986) Thyroid Stimulating Hormone 5.160 uIU/ML 3rd Gen (0.358-3.740) Imaging Last Impressions Chest X-Ray 04/27/17 0000 Signed Impressions: Service Date/Time: Thursday, April 27, 2017 21:39 - CONCLUSION: 1. Interval intubation. 2. Cardiomegaly and bilateral pulmonary opacities. Tejas Strauss MD Abdomen X-Ray 04/24/17 0000 Signed Impressions: Service Date/Time: Monday, April 24, 2017 11:29 - CONCLUSION: Air-filled distended colon. Pattern likely representing ileus. Thomas Granados MD Myocardial Perfusion Scan Nuc Med 04/23/17 1359 Signed Impressions: Service Date/Time: Sunday, April 23, 2017 16:22 - CONCLUSION: 1. No definite evidence of stress-induced ischemia. 2. Marked left ventricular dilation and absent uptake in the inferior wall suggests cardiomyopathy and prior transmural infarction. 3. Markedly depressed wall motion. The ejection fraction is less than 20%%, but given the inferior wall fixed defect, SPECT analysis is limited. Wall motion and ejection fraction analysis may be better accomplished with either echocardiography or red blood cell labeled gated cardiogram. RISK CATEGORY: High (>3%% Annual Mortality Rate) Danial Huggins MD Hospital Course 47-year-old male with past medical history of [facility] chronic systolic heart failure with EF 10-15%, ICD, hyperlipidemia, polysubstance abuse (daily cocaine/ THC/tobacco, prior EtOH) who is enrolled in hospice. [place] [facility] [place] with rectal prolapse which has been an ongoing problem for him. He has been refused surgery in the past due to extremely high operative risk. However patient was adamant that he receive surgery due to very poor quality of life with rectal prolapse, reportedly telling clinicians "I would rather than to live with this" and accepting operative risks. He has been DNR, though rescinded while he was in OR. Discussed with Dr. Henriquez who states patient was intubated and became progressively hypotensive. Very difficult IV access. IJ attempted bilateral (unsuccessful), I/O placed but it blew, ultimately placed R femoral line and was uncertain if this was intraarterial or venous reading . Patient with no obtainable cuff pressure, no obtainable O2 sat. Did not receive CPR. Received Epi and phenylephrine pushes. Surgery was never started and patient was transferred to PACU with phenylephrine and epinephrine going wide open. Dr. Henriquez updated patients sister on phone and told her there is a good chance he will not survive the night. Patient remains DNR per previously expressed wishes. Dr. Capps updated patients father, who is healthcare surrogate, and discussed terminal condition. Patient had refractory shock with multiorgan failure. Palliative care medicine facilitated conference call with multiple family members and decision was made to proceed with comfort measures, in keeping with patient's previously expressed wishes. Comfort measures were initiated and patient was extubated. at 19:16 on 04/28/17. Mahnaz Capps MD Apr 28, 2017 20:02
--- NOTE | 2017-04-28 21:22 | DEATH SUM ---
Summary Demographics Date Pronounced : Apr 28, 2017 Time Of : 1913 Preliminary Cause of : Cardiac arrest Mahnaz Capps MD Apr 28, 2017 21:22
[2017-05-10] MEDS ORDERED: FURO20TA PO (10:18)
== END 2017-04-28 22:19 | disposition expired | DRG 393 ==
LOC: NEPE 04:44 → NEDA 07:19 → N04A 12:03 → N03B 04-27 20:06 → N03A 04-27 20:23
PROVIDERS: ADMIT Emergency Medicine; ATTEND Emergency Medicine
PROC: 30233N1 Transfusion of Nonautologous Red Blood Cells into Peripheral Vein, Percutaneous Approach (ICD-10-PCS; 2017-04-24)
PROC: 04HY32Z Insertion of Monitoring Device into Lower Artery, Percutaneous Approach (ICD-10-PCS; 2017-04-27)
PROC: 06H033Z Insertion of Infusion Device into Inferior Vena Cava, Percutaneous Approach (ICD-10-PCS; 2017-04-27)
PROC: 0BH17EZ Insertion of Endotracheal Airway into Trachea, Via Natural or Artificial Opening (ICD-10-PCS; 2017-04-27)
PROC: 5A1935Z Respiratory Ventilation, Less than 24 Consecutive Hours (ICD-10-PCS; 2017-04-27)
PROC: 30233K1 Transfusion of Nonautologous Frozen Plasma into Peripheral Vein, Percutaneous Approach (ICD-10-PCS; principal; 2017-04-28)
DX: K62.3 Rectal prolapse (principal); I50.43 Acute on chronic combined systolic (congestive) and diastolic (congestive) heart failure; D65 Disseminated intravascular coagulation [defibrination syndrome]; J96.01 Acute respiratory failure with hypoxia; R57.0 Cardiogenic shock; G93.41 Metabolic encephalopathy; N17.9 Acute kidney failure, unspecified; N18.3 Chronic kidney disease, stage 3 (moderate); K56.7 Ileus, unspecified; K75.9 Inflammatory liver disease, unspecified; E87.2 Acidosis; E44.0 Moderate protein-calorie malnutrition; E87.1 Hypo-osmolality and hyponatremia; N39.0 Urinary tract infection, site not specified; E87.5 Hyperkalemia; E78.5 Hyperlipidemia, unspecified; E83.39 Other disorders of phosphorus metabolism; Z95.810 Presence of automatic (implantable) cardiac defibrillator; I12.9 Hypertensive chronic kidney disease with stage 1 through stage 4 chronic kidney disease, or unspecified chronic kidney disease; R74.0 Nonspecific elevation of levels of transaminase and lactic acid dehydrogenase [LDH]; I46.9 Cardiac arrest, cause unspecified; Z66 Do not resuscitate; E16.2 Hypoglycemia, unspecified; Z68.20 Body mass index [BMI] 20.0-20.9, adult; F19.10 Other psychoactive substance abuse, uncomplicated; Z53.09 Procedure and treatment not carried out because of other contraindication; Z91.19 Patient's noncompliance with other medical treatment and regimen
CPT/HCPCS: 36430; 36556; 71010; 74000; 76700; 76937; 78452; 80048; 80053; 81001; 82010; 82140; 82150; 82248; 82533; 82550; 82552; 82607; 82805; 82948; 83525; 83605; 83690; 83735; 83880; 84100; 84443; 84484; 84681; 85007; 85025; 85027; 85384; 85610; 85730; 86850; 86900; 86901; 86920; 86927; 87040; 87077; 87086; 87186; 87641; 93017; 94002; 94003; 94664; 95819; 99285; A9502; C9113; J0171; J0610; J0690; J0692; J1250; J1720; J1815; J1940; J2060; J2250; J2270; J2370; J2543; J2785; J3010; J3370; J3430; J7040; J7050; J7060; J7070; P9016; P9017